=== PATIENT | female | born 1950 | race Two or more races ===

== ENCOUNTER → 2016-12-26 | Outpatient (CLI) | payer MEDICAID, OTHER ==
[~2016-12-26] MED LIST: IOPAMIDOL (ISOVUE-300) 100 ML BTL IV ONE
== END ==
LOC: CIMAGING 10:59
PROVIDERS: ATTEND Internal Medicine Hematology & Oncology
DX: Z09 Encounter for follow-up examination after completed treatment for conditions other than malignant neoplasm (principal)
CPT/HCPCS: 71260; 74177; Q9967

== ENCOUNTER → 2017-01-30 | Outpatient (CLI) | payer OTHER | PROVIDERS: ATTEND Internal Medicine Hematology & Oncology | DX: R13.10 Dysphagia, unspecified (principal); R53.1 Weakness; G25.81 Restless legs syndrome; Z85.05 Personal history of malignant neoplasm of liver | CPT/HCPCS: 74230; 92611; G8996; G8997; G8998 ==

== ENCOUNTER 2017-02-18 12:09 | Observation (INO) | payer OTHER ==
[2017-02-18] MEDS ORDERED: ONDANSETRON 4 MG/2 ML VIAL IVP ONE ×3 (13:08→14:54)
[2017-02-18] MEDS ORDERED: NS 1,000 ML IV ONE (13:08)
--- NOTE | 2017-02-18 13:19 | EDPHY ---
HPI/HX/ROS/PE/MDM Narrative: CHIEF COMPLAINT: Nausea, abdominal pain HISTORY OF PRESENT ILLNESS: This patient is a 66 year old woman, with a longstanding history (2-3 years) of abdominal pain, back pain, and nausea, presenting with worsening of her symptoms today. Her symptoms are worse today with severe abdominal pain and severe nausea, however there are no new or acute symptoms. She has had a small amount of vomiting after eating broth this morning , but no intractable vomiting. Denies fever. The patient controls her symptoms with chronic oxycodone and Ativan. She is being followed by Dr. Alvarado. She ran out of her Ativan three days ago and Dr. Alvarado will not renew the prescription until it is time for renewal (due in 5 days). She has also been seen by [facility]. Upper GI one week ago showed no acute findings. REVIEW OF SYSTEMS: Aside from elements discussed in the HPI, a comprehensive 10-point review of systems was reviewed and is negative. PAST MEDICAL HISTORY: History of liver cancer with remission for the last 6 months (s/p hepatocellular embolization in 08/2016). Hypertension treated with 20mg propranolol BID(she has not taken her AM dose of propranolol). Hysterectomy. SOCIAL HISTORY: . is at bedside. Non-smoker. Uses marijuana daily (started a few months ago, seems to help her symptoms). VITAL SIGNS: Reviewed by me. BP 201/113 GENERAL: Well-developed, chronically ill appearing, appears very uncomfortable , in no respiratory distress. HEENT: Atraumatic. Eyes: No icterus, no injection. Mouth: dystonic movements of her tongue. moist mucous membranes. No erythema or lesions. Neck : supple with no adenopathy. LUNGS: Clear to auscultation bilaterally, no wheezes, rhonchi or rales. CARDIAC: Regular rate and rhythm, no rubs, murmurs or gallops. ABDOMEN: Soft, focal epigastric tenderness without guarding or rebound, nondistended, bowel sounds normal. BACK: No CVA tenderness. EXTREMITIES: No trauma. No edema. Range of motion is normal throughout. NEURO: Alert and oriented, grossly nonfocal. SKIN: Warm and dry, no rash. PSYCHIATRIC: Normal mentation, no agitation. Portions of this note were transcribed by a medical scientist. I personally performed a history, physical exam, medical decision making, and confirmed accuracy of information the transcribed note. ED Course: An IV has been established. She has received her usual 20mg Propranolol for anti -hypertensive medication. She received IV Ketamine, IV Ativan, 4mg IV Zofran, and 25mg NH Phenergan for pain and nausea relief. Patient was re-examined by myself on multiple occasions. She continues to have significant epigastric discomfort as well as severe nausea. Patient is quite uncomfortable to be discharged home. She received Dilaudid for her pain control as well as an additional Zofran 4 mg. She also received a GI cocktail. Her course was discussed with Dr. Jalen Chris. Patient will be admitted to the hospitalist service. Her course was also discussed with Dr. Zaire Dominguez, from gastroenterology, who will follow her in the hospital. I suspect the patient may need a upper GI endoscopy to evaluate her significant nausea and epigastric pain. MDM: Differential diagnosis of the patient's complaints of severe upper abdominal pain with nausea was considered including but not limited to cholecystitis, gastritis, peptic ulcers disease, recurrent hepatocellular carcinoma, pancreatitis, bowel obstruction. - Data Points Laboratory Results: Laboratory Results 02/18/17 13:05 02/18/17 13:05 02/18/17 02/18/17 02/18/17 15:20 13:46 13:05 WBC RBC Hgb Hct MCV MCH MCHC RDW Plt Count MPV Neut % (Auto) Lymph % (Auto) [place] % (Auto) Eos % (Auto) Baso % (Auto) Nucleat RBC Rel Count Absolute Neuts (auto) Absolute Lymphs (auto) Absolute Monos (auto) Absolute Eos (auto) Absolute Basos (auto) Absolute Nucleated RBC Immature Gran % Immature Gran # Sodium 143 mEq/L mEq/L (134-144) Potassium 4.1 mEq/L mEq/L (3.5-5.2) Chloride 109 mEq/L mEq/L (97-110) Carbon Dioxide 21 mEq/l L mEq/l (22-31) Anion Gap 13 mEq/L mEq/L (8-16) BUN 12 mg/dL mg/dL (7-23) Creatinine 1.0 mg/dL mg/dL (0.6-1.0) Estimated GFR 56 Glucose 99 mg/dL mg/dL (70-100) Calcium 10.2 mg/dL mg/dL (8.5-10.4) Total Bilirubin 0.9 mg/dL mg/dL (0.1-1.4) Conjugated Bilirubin 0.5 mg/dL mg/dL (0.0-0.5) Unconjugated Bilirubin 0.4 mg/dL mg/dL (0.0-1.1) AST 60 IU/L H IU/L (14-46) ALT 58 IU/L H IU/L (9-52) Alkaline Phosphatase 382 IU/L H IU/L (38-126) Troponin I < 0.012 ng/mL ng/mL (0-0.034) Total Protein 8.1 g/dL g/dL (6.3-8.2) Albumin 4.6 g/dL g/dL (3.5-5.0) Lipase 243.0 IU/L IU/L (23-300) Urine Color PALE YELLOW Urine Appearance CLEAR Urine pH 8.0 H (5.0-7.5) Ur Specific [place] 1.004 (1.002-1.030) Urine Protein NEGATIVE (NEGATIVE) Urine Ketones NEGATIVE (NEGATIVE) Urine Blood NEGATIVE (NEGATIVE) Urine Nitrate NEGATIVE (NEGATIVE) Urine Bilirubin NEGATIVE (NEGATIVE) Urine Urobilinogen NEGATIVE EU EU (0.2-1.0) Ur Leukocyte Esterase TRACE H (NEGATIVE) Urine RBC 1-3 /hpf /hpf (0-3) Urine WBC 1-3 /hpf /hpf (0-3) Ur Epithelial Cells TRACE /lpf /lpf (NONE-1+) Urine Bacteria TRACE /hpf H /hpf (NONE SEEN) Urine Glucose NEGATIVE (NEGATIVE) 02/18/17 13:05 WBC 5.74 10^3/uL 10^3/uL (3.80-9.50) RBC 5.80 10^6/uL H 10^6/uL (4.18-5.33) Hgb 16.1 g/dL g/dL (12.6-16.3) Hct 48.1 % H % (38.0-47.0) MCV 82.9 fL fL (81.5-99.8) MCH 27.8 pg L pg (27.9-34.1) MCHC 33.5 g/dL g/dL (32.4-36.7) RDW 15.2 % % (11.5-15.2) Plt Count 120 10^3/uL L 10^3/uL (150-400) MPV 10.3 fL fL (8.7-11.7) Neut % (Auto) 77.0 % H % (39.3-74.2) Lymph % (Auto) 11.7 % L % (15.0-45.0) [place] % (Auto) 10.6 % % (4.5-13.0) Eos % (Auto) 0.2 % L % (0.6-7.6) Baso % (Auto) 0.2 % L % (0.3-1.7) Nucleat RBC Rel Count 0.0 % % (0.0-0.2) Absolute Neuts (auto) 4.42 10^3/uL 10^3/uL (1.70-6.50) Absolute Lymphs (auto) 0.67 10^3/uL L 10^3/uL (1.00-3.00) Absolute Monos (auto) 0.61 10^3/uL 10^3/uL (0.30-0.80) Absolute Eos (auto) 0.01 10^3/uL L 10^3/uL (0.03-0.40) Absolute Basos (auto) 0.01 10^3/uL L 10^3/uL (0.02-0.10) Absolute Nucleated RBC 0.00 10^3/uL 10^3/uL (0-0.01) Immature Gran % 0.3 % % (0.0-1.1) Immature Gran # 0.02 10^3/uL 10^3/uL (0.00-0.10) Sodium Potassium Chloride Carbon Dioxide Anion Gap BUN Creatinine Estimated GFR Glucose Calcium Total Bilirubin Conjugated Bilirubin Unconjugated Bilirubin AST ALT Alkaline Phosphatase Troponin I Total Protein Albumin Lipase Urine Color Urine Appearance Urine pH Ur Specific [place] Urine Protein Urine Ketones Urine Blood Urine Nitrate Urine Bilirubin Urine Urobilinogen Ur Leukocyte Esterase Urine RBC Urine WBC Ur Epithelial Cells Urine Bacteria Urine Glucose Medications Given: Discontinued Medications Al Hydroxide/Mg Hydroxide (Maalox Susp) 30 ml PO ONCE ONE Stop: 02/18/17 15:01 Last Admin: 02/18/17 15:10 Dose: 30 ml Dicyclomine HCl (Bentyl) 20 mg PO EDNOW ONE Stop: 02/18/17 16:09 Last Admin: 02/18/17 16:28 Dose: 20 mg Hydromorphone HCl (Dilaudid) 1 mg IVP EDNOW ONE Stop: 02/18/17 14:55 Last Admin: 02/18/17 15:01 Dose: 1 mg Hyoscyamine Sulfate (Levsin, Hyomax-Sl) 0.25 mg PO ONCE ONE Stop: 02/18/17 15:01 Last Admin: 02/18/17 15:10 Dose: 0.25 mg Sodium Chloride (Ns) 1,000 mls @ 0 mls/hr IV EDNOW ONE PRN Reason: Wide Open Stop: 02/18/17 13:09 Last Admin: 02/18/17 13:11 Dose: 1,000 mls Ketamine HCl (Ketamine) 10 mg IVP EDNOW ONE Stop: 02/18/17 13:43 Last Admin: 02/18/17 13:54 Dose: 10 mg Lidocaine (Lidocaine 2% Viscous) 15 ml PO ONCE ONE Stop: 02/18/17 15:01 Last Admin: 02/18/17 15:10 Dose: 15 ml Lorazepam (Ativan Injection) 1 mg IVP EDNOW ONE Stop: 02/18/17 13:42 Last Admin: 02/18/17 13:50 Dose: 1 mg Ondansetron HCl (Zofran) 4 mg IVP EDNOW ONE Stop: 02/18/17 13:09 Last Admin: 02/18/17 13:12 Dose: 4 mg Ondansetron HCl (Zofran) 4 mg IVP EDNOW ONE Stop: 02/18/17 14:54 Last Admin: 02/18/17 14:55 Dose: 4 mg Ondansetron HCl (Zofran) 4 mg IVP EDNOW ONE Stop: 02/18/17 14:55 Last Admin: 02/18/17 14:55 Dose: Not Given Promethazine HCl (Phenergan Rectal) 25 mg NH EDNOW ONE Stop: 02/18/17 13:45 Last Admin: 02/18/17 14:00 Dose: 25 mg Propranolol HCl (Inderal) 20 mg PO ONCE ONE Stop: 02/18/17 13:46 Last Admin: 02/18/17 14:00 Dose: 20 mg General Time Seen by Provider: 02/18/17 13:15 Initial Vital Signs: Initial Vital Signs Temperature (C) 37.2 C 02/18/17 12:12 Heart Rate 97 02/18/17 12:12 Respiratory Rate 18 02/18/17 12:12 Blood Pressure 186/103 H 02/18/17 12:12 O2 Sat (%) 95 02/18/17 12:12 O2 Delivery Mode Room Air Allergies/Adverse Reactions: aripiprazole [From Abilify] Allergy (Verified 02/18/17 12:19) pantoprazole sodium [From Protonix] Allergy (Verified 02/18/17 12:19) Rash ziprasidone HCl [From Geodon] Allergy (Verified 02/18/17 12:19) ziprasidone mesylate [From Geodon] Allergy (Verified 02/18/17 12:19) Home Medications: Medication Instructions Recorded Carbidopa/Levodopa 25/100Mg 3 tab PO HS 06/23/16 [Sinemet 25/100 MG (*)] Estrogens,Conjugated [Premarin 1 wandy VAG EVERY OTHER DAY 06/23/16 Vaginal (*)] Ondansetron HCl [Zofran] 8 mg PO Q6H PRN 06/23/16 Ondansetron Odt [Zofran Odt 4 mg 4 mg PO DAILY PRN 06/23/16 (*)] Doxepin HCl [Sinequan 50 MG (*)] 150 mg PO HS #90 cap 07/05/16 LORazepam [Ativan (*)] 0.5 mg PO Q4 PRN #10 tab 07/05/16 Lisinopril [Zestril 10 mg (*)] 10 mg PO DAILY #30 tab 07/05/16 OLANZapine [Zyprexa] 10 mg PO HS #30 tablet 07/05/16 Pantoprazole Sodium [Protonix 40mg 40 mg PO BID #60 tab 07/05/16 (*)] amLODIPine BESYLATE [Norvasc 5 mg 5 mg PO DAILY #30 tab 07/05/16 (*)] oxyCODONE HCL [Oxycodone HCl] 5 mg PO Q6HRS PRN #10 tablet 07/05/16 Mirtazapine 7.5 mg PO HS 07/11/16 Gabapentin [Neurontin 300 MG (*)] 300 mg PO TID #90 cap 07/18/16 Ondansetron [Ondansetron Odt] 8 mg PO Q8 PRN #10 tab.rapdis 08/24/16 oxyCODONE/APAP 5/325 [Percocet 1 - 2 tab PO Q4H PRN #20 tab 08/24/16 5/325 (*)] Hydroxazine 50 mg PO HS 09/16/16 oxyCODONE HCL [Oxycodone HCl] 5 mg PO Q6 PRN #30 tablet 09/29/16 LORazepam [Ativan (*)] 1 mg PO BID PRN #8 tab 02/18/17 oxyCODONE/APAP 5/325 [Percocet 2 tab PO BID PRN #20 tab 02/18/17 5/325 (*)] Departure - Departure Disposition: [facility] Inpatient Acute Clinical Impression: Chronic abdominal pain, Chronic nausea Condition: Good Report Scribed for: Lucia Camara Report Scribed by: Salma Anderson Date of Report: 02/18/17 Time of Report: 13:19
[2017-02-18] MEDS ORDERED: LORazepam 2 MG/ML INJ IVP ONE (13:41)
[2017-02-18] MEDS ORDERED: KETAMINE 500 MG/10 ML VIAL IVP ONE (13:42)
[2017-02-18] MEDS ORDERED: PROMETHAZINE HCL 25 MG SUPPR PR ONE (13:44)
[2017-02-18] MEDS ORDERED: PROPRANOLOL HCL 20 MG TAB PO ONE (13:45)
[2017-02-18 13:46] LABS: % IMMATURE GRANULYOCYTES 0.3 % (0.0-1.1); ABSOLUTE IMMATURE GRANULOCYTES 0.02 10^3/uL (0.00-0.10); ADD DIFF? NO; ADD MORPH? NO; ADD SCAN? NO; ATYPICAL LYMPHOCYTE FLAG 10 (0-99); FRAGMENT RBC FLAG 0 (0-99); HEMATOCRIT 48.1 % (38.0-47.0); HEMOGLOBIN 16.1 g/dL (12.6-16.3); LEFT SHIFT FLG 0 (0-99); LIPEMIA HEMOLYSIS FLAG 80 (0-99); MEAN CELL HEMOGLOBIN 27.8 pg (27.9-34.1); MEAN CELL HEMOGLOBIN CONCENTR. 33.5 g/dL (32.4-36.7); MEAN CELL VOLUME 82.9 fL (81.5-99.8); MEAN PLATELET VOLUME 10.3 fL (8.7-11.7); PLATELET CLUMPS FLAG 10 (0-99); PLATELET COUNT 120 10^3/uL (150-400); RED CELL DISTRIBUTION WIDTH 15.2 % (11.5-15.2)
[2017-02-18] MEDS ORDERED: KETAMINE 100 MG/10 ML SYR IVP ONE (13:46)
[2017-02-18 13:53] LABS: ALANINE AMINOTRANSFERASE 58 IU/L (9-52); ALBUMIN 4.6 g/dL (3.5-5.0); ALKALINE PHOSPHATASE 382 IU/L (38-126); ANION GAP 13 mEq/L (8-16); ASPARTATE AMINOTRANSFERASE 60 IU/L (14-46); BILIRUBIN,TOTAL 0.9 mg/dL (0.1-1.4); BILIRUBIN-CONJUGATED 0.5 mg/dL (0.0-0.5); BILIRUBIN-UNCONJUGATED 0.4 mg/dL (0.0-1.1); CALCIUM 10.2 mg/dL (8.5-10.4); CARBON DIOXIDE 21 mEq/l (22-31); CHLORIDE 109 mEq/L (97-110); GLOMERULAR FILTRATION RATE 56; GLUCOSE 99 mg/dL (70-100); POTASSIUM 4.1 mEq/L (3.5-5.2); SODIUM 143 mEq/L (134-144); TOTAL PROTEIN 8.1 g/dL (6.3-8.2)
[2017-02-18] MEDS ORDERED: ONDANSETRON 4 MG/2 ML VIAL ONE (14:48)
[2017-02-18] MEDS ORDERED: HYDROmorphONE/DILAUDID 1 MG/ML SYR IVP ONE (14:54)
[2017-02-18] MEDS ORDERED: MAG HYDROX/AL HYDROX/SIMETH 30 ML UDCUP PO ONE (15:00)
[2017-02-18] MEDS ORDERED: LIDOCAINE 2% VISCOUS 15 ML UDCUP PO ONE (15:00)
[2017-02-18] MEDS ORDERED: HYOSCYAMINE SULFATE 0.125 MG TAB PO ONE (15:00)
[2017-02-18 15:46] LABS: COLOR PALE YELLOW; LEUKOCYTE ESTERASE,URINE TRACE (NEGATIVE); NITRITE,URINE NEGATIVE (NEGATIVE)
[2017-02-18 15:51] LABS: BACTERIA TRACE /hpf (NONE SEEN)
[2017-02-18] MEDS ORDERED: ACETAMINOPHEN 325 MG TAB PO PRN (16:05)
[2017-02-18] MEDS ORDERED: ONDANSETRON 4 MG/2 ML VIAL IVP PRN (16:05)
[2017-02-18] MEDS ORDERED: ONDANSETRON DISINTEGRATING 4 MG TAB PO PRN (16:05)
[2017-02-18] MEDS ORDERED: LORazepam 0.5 MG TAB PO PRN (16:05)
[2017-02-18] MEDS ORDERED: LIDOCAINE 2% VISCOUS 15 ML UDCUP PO PRN (16:08)
[2017-02-18] MEDS ORDERED: DICYCLOMINE 20 MG TAB PO ONE (16:08)
[2017-02-18] MEDS ORDERED: SUCRALFATE/DIPHENHYDR/MAALOX 240 ML BOTTLE PO PRN (16:09)
--- NOTE | 2017-02-18 16:14 | PDGENHP ---
History and Physical - Chief Complaint Acute abdominal pain - History of Present Illness Primary care provider: Dr. Barclay Primary oncologist: Dr. Alvarado HPI: 66-year-old female presenting with acute abdominal pain characterized as severe, located in her mid epigastric and mid abdominal area, reportedly extending from her lower throat all the way to her pelvic brim, with associated nausea and vomiting. Patient reports that she has had pain exacerbated by oral intake of solids and liquids this has resulted in poor oral intake. That being said, the patient has been able to maintain a diet of soup recently. She reports that the nausea has been somewhat alleviated by use of Zofran historically but this has not been working for her recently. Of note, the patient did recently run out of her supply of oxycodone immediate release as well as Ativan. The patient had been taking both of these medications scheduled in the evening and admits to taking them sometimes during the day if her symptoms warranted. Consequently, the patient has run out of both the med these medications prior to her refill date, and her prescribing providers have not ordered more. The patient reports that she chronically has abdominal pain located in the same area as well as her nausea vomiting and pain with oral intake. Her recent exacerbation has been in the context of her discontinuation of these medications above and has resulted in a significant amount of distress for the patient. She does report that she has been moving her bowels regularly and she takes laxatives in order to do so. She otherwise has not made any medication changes and she is desperate to find a solution to the cause of her abdominal pain. History Information - Allergies/Home Medication List Allergies/Adverse Reactions: aripiprazole [From Abilify] Allergy (Verified 02/18/17 12:19) pantoprazole sodium [From Protonix] Allergy (Verified 02/18/17 12:19) Rash ziprasidone HCl [From Geodon] Allergy (Verified 02/18/17 12:19) ziprasidone mesylate [From Geodon] Allergy (Verified 02/18/17 12:19) Home Medications: Carbidopa/Levodopa 25/100Mg [Sinemet 25/100 MG (*)] 3 tab PO HS 06/23/16 [Last Taken 07/16/16] Estrogens,Conjugated [Premarin Vaginal (*)] 1 wandy VAG EVERY OTHER DAY 06/23/16 [ Last Taken 07/16/16] Ondansetron HCl [Zofran] 8 mg PO Q6H PRN 06/23/16 [Last Taken 07/16/16] Ondansetron Odt [Zofran Odt 4 mg (*)] 4 mg PO DAILY PRN 06/23/16 [Last Taken ] Mirtazapine 7.5 mg PO HS 07/11/16 [Last Taken 07/16/16] Hydroxazine 50 mg PO HS 09/16/16 [Last Taken Unknown] I have personally reviewed and updated: family history, medical history, social history, surgical history - Past Medical History hypertension Additional medical history: Chronic abdominal pain with continuous opiate and benzodiazepine dependency, felt to be secondary to a strong psychiatric component and not related to her underlying hepatocellular carcinoma. Hepatocellular carcinoma status post Y treatment as well as arterial embolectomy. Hepatitis C virus. Bipolar disease type 1. Parkinson's disease. Severe protein calorie malnutrition. Possible seizure disorder - Surgical History Additional surgical history: 09/21/2016 arterial embolectomy by interventional Radiology. Hysterectomy - Family History Additional family history: Family with diabetes, no cancer - Social History Smoking Status: Former smoker Alcohol Use: None Drug Use: None, Marijuana Additional social history: Independent in her ADLs lives with her Review of Systems ROS: 10pt was reviewed & negative except for what was stated in HPI & below Constitutional: Reports: weakness Gastrointestinal: Reports: vomitting, abdominal pain, nausea Physical Exam Temp Pulse Resp BP Pulse Ox 36.8 C 63 16 201/101 H 97 02/18/17 15:23 02/18/17 15:23 02/18/17 15:23 02/18/17 15:23 02/18/17 15:23 Constitutional: chronically ill appearing, uncomfortable, No no apparent distress (Mild amount of), No not in pain Eyes: PERRL, anicteric sclera, EOMI Ears, Nose, Mouth, Throat: moist mucous membranes, hearing normal, ears appear normal, no oral mucosal ulcers Cardiovascular: regular rate and rhythym, no murmur, rub, or gallop, No edema Respiratory: no respiratory distress, no rales or rhonchi, clear to auscultation Gastrointestinal: normoactive bowel sounds, no palpable masses, tenderness ( Mild to deep palpation in the mid abdomen and epigastric area), No guarding ( Distractible), No distension Genitourinary: no bladder fullness, no bladder tenderness Neurologic: AAOx3, sensation intact bilaterally, No weakness (Motor strength 5/ 5 bilateral lower extremities) Psychiatric: not encephalopathic, thought process linear, anxious, agitated ( Mildly) Lab Data & Imaging Review 02/18/17 13:05 02/18/17 13:05 WBC 5.74 10^3/uL (3.80-9.50) 02/18/17 13:05 RBC 5.80 10^6/uL (4.18-5.33) H 02/18/17 13:05 Hgb 16.1 g/dL (12.6-16.3) 02/18/17 13:05 Hct 48.1 % (38.0-47.0) H 02/18/17 13:05 MCV 82.9 fL (81.5-99.8) 02/18/17 13:05 MCH 27.8 pg (27.9-34.1) L 02/18/17 13:05 MCHC 33.5 g/dL (32.4-36.7) 02/18/17 13:05 RDW 15.2 % (11.5-15.2) 02/18/17 13:05 Plt Count 120 10^3/uL (150-400) L 02/18/17 13:05 MPV 10.3 fL (8.7-11.7) 02/18/17 13:05 Neut % (Auto) 77.0 % (39.3-74.2) H 02/18/17 13:05 Lymph % (Auto) 11.7 % (15.0-45.0) L 02/18/17 13:05 [place] % (Auto) 10.6 % (4.5-13.0) 02/18/17 13:05 Eos % (Auto) 0.2 % (0.6-7.6) L 02/18/17 13:05 Baso % (Auto) 0.2 % (0.3-1.7) L 02/18/17 13:05 Nucleat RBC Rel Count 0.0 % (0.0-0.2) 02/18/17 13:05 Absolute Neuts (auto) 4.42 10^3/uL (1.70-6.50) 02/18/17 13:05 Absolute Lymphs (auto) 0.67 10^3/uL (1.00-3.00) L 02/18/17 13:05 Absolute Monos (auto) 0.61 10^3/uL (0.30-0.80) 02/18/17 13:05 Absolute Eos (auto) 0.01 10^3/uL (0.03-0.40) L 02/18/17 13:05 Absolute Basos (auto) 0.01 10^3/uL (0.02-0.10) L 02/18/17 13:05 Absolute Nucleated RBC 0.00 10^3/uL (0-0.01) 02/18/17 13:05 Immature Gran % 0.3 % (0.0-1.1) 02/18/17 13:05 Immature Gran # 0.02 10^3/uL (0.00-0.10) 02/18/17 13:05 Sodium 143 mEq/L (134-144) 02/18/17 13:05 Potassium 4.1 mEq/L (3.5-5.2) 02/18/17 13:05 Chloride 109 mEq/L (97-110) 02/18/17 13:05 Carbon Dioxide 21 mEq/l (22-31) L 02/18/17 13:05 Anion Gap 13 mEq/L (8-16) 02/18/17 13:05 BUN 12 mg/dL (7-23) 02/18/17 13:05 Creatinine 1.0 mg/dL (0.6-1.0) 02/18/17 13:05 Estimated GFR 56 02/18/17 13:05 Glucose 99 mg/dL (70-100) 02/18/17 13:05 Calcium 10.2 mg/dL (8.5-10.4) 02/18/17 13:05 Total Bilirubin 0.9 mg/dL (0.1-1.4) 02/18/17 13:05 Conjugated Bilirubin 0.5 mg/dL (0.0-0.5) 02/18/17 13:05 Unconjugated Bilirubin 0.4 mg/dL (0.0-1.1) 02/18/17 13:05 AST 60 IU/L (14-46) H 02/18/17 13:05 ALT 58 IU/L (9-52) H 02/18/17 13:05 Alkaline Phosphatase 382 IU/L (38-126) H 02/18/17 13:05 Troponin I < 0.012 ng/mL (0-0.034) 02/18/17 13:46 Total Protein 8.1 g/dL (6.3-8.2) 02/18/17 13:05 Albumin 4.6 g/dL (3.5-5.0) 02/18/17 13:05 Lipase 243.0 IU/L (23-300) 02/18/17 13:05 Urine Color PALE YELLOW 02/18/17 15:20 Urine Appearance CLEAR 02/18/17 15:20 Urine pH 8.0 (5.0-7.5) H 02/18/17 15:20 Ur Specific [place] 1.004 (1.002-1.030) 02/18/17 15:20 Urine Protein NEGATIVE (NEGATIVE) 02/18/17 15:20 Urine Ketones NEGATIVE (NEGATIVE) 02/18/17 15:20 Urine Blood NEGATIVE (NEGATIVE) 02/18/17 15:20 Urine Nitrate NEGATIVE (NEGATIVE) 02/18/17 15:20 Urine Bilirubin NEGATIVE (NEGATIVE) 02/18/17 15:20 Urine Urobilinogen NEGATIVE EU (0.2-1.0) 02/18/17 15:20 Ur Leukocyte Esterase TRACE (NEGATIVE) H 02/18/17 15:20 Urine RBC 1-3 /hpf (0-3) 02/18/17 15:20 Urine WBC 1-3 /hpf (0-3) 02/18/17 15:20 Ur Epithelial Cells TRACE /lpf (NONE-1+) 02/18/17 15:20 Urine Bacteria TRACE /hpf (NONE SEEN) H 02/18/17 15:20 Urine Glucose NEGATIVE (NEGATIVE) 02/18/17 15:20 Assessment & Plan Assessment: This 66-year-old female presents with acute abdominal pain in the setting of chronic pain with continuous opiate and benzodiazepine dependency, known hepatocellular carcinoma Plan: 1. Abdominal pain. Acute, new problem this provider, further workup indicated. 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 -treat supportively with IV fluids, antiemetics, attempt to manage pain with her home dosages of Ativan and oxycodone immediate release -introduce scheduled Bentyl, as the patient has not been treated in the past with antispasmodic -provide as needed viscous lidocaine to facilitate adherence to oral pain medications -as needed GI cocktail -discussed with Dr. Camara in the emergency department, she has agreed to consult with Gastroenterology, Dr. Dominguez, and discussed the possibility of an upper endoscopy to rule out erosive esophagitis -outside records reviewed including May of 2016 at GI consultation by Dr. Lawson, reporting the patient has had extensive GI workup in the past with EGD x2 , CT of the abdomen, ultrasound, gastric emptying study, conclusion a indicating a strong psychiatric component of functional abdominal pain with no structural abnormality. -recent VFSS demonstrating mild dysmotility but no obstruction and no aspiration , will not repeat at this time -get [employer] SALES REPRESENTATIVE eval to encourage patient to tolerate oral solids -I anticipate the patient's symptoms will not be entirely resolved during this hospitalization given the functional nature of them but potentially lessening there severity with Bentyl and GI cocktails may provide her with enough relief to tolerate her oral home medications and provide her with a limited supply to bridge her until her outpatient appointments -continue to monitor complete metabolic panel, compared AST, ALT, alk-phos to previous labs and these all appear stable 2. Hepatocellular carcinoma. Most recent AFP improved to 7.35, received arterial embolectomy back in August, hold on oncology consultation at this time as I believe that patient's symptoms outlined above pre date her diagnosis and treatment for HCC and have not been modified by the treatment of HCC, indicating that they are most likely not related 3. Bipolar disease, type 1. Patient has concern regarding exacerbation of her manic symptoms in the setting of pain, continue her on her home medications, she has previously been prescribed Zyprexa for mood stabilization in addition to her home dosage of doxepin 4. Severe protein calorie malnutrition. Get dietary consultation, the patient has previously carried this diagnosis given her significant weight loss and poor oral intake chronically -provide dietary supplementation as needed 5. Chronic pain with continuous opiate and benzodiazepine dependency. The patient was recently referred to the [facility] and her outpatient providers have been hesitant to fill scripts prior to the refill dates -would recommend providing her with a limited supply to help bridge her until she is able to see these providers -I would recommend encouraging the use of narcotic medications such as the GI cocktails and Bentyl moving forward 6. Hypertension. Acute worsening of chronic condition, most likely related to acute distress and discomfort, continue home medications and monitor Diet. Regular diet as tolerates, NPO after midnight in case she gets an EGD tomorrow Prophylaxis. Moderate risk patient, Lovenox 40 Code. Do not resuscitate per patient, her is her MPOA Disposition. Anticipated discharge is 02/19/2017, pending further workup and treatment as outlined above.
[2017-02-18] MEDS: oxyCODONE IR 5 MG TAB PO PRN (16:28)
[2017-02-18] MEDS: NS 1,000 ML IV SCH ×2 (16:31→21:55)
[2017-02-18] MEDS ORDERED: DOXEPIN HCL 25 MG CAP PO PRN (18:00)
[2017-02-18] MEDS ORDERED: BISACODYL 10 MG SUPP PR PRN (18:23)
[2017-02-18] MEDS ORDERED: LACTULOSE 20 GM/30 ML UDCUP PO PRN (18:23)
[2017-02-18] MEDS ORDERED: PSYLLIUM METAMUCIL 1 PKT PO PRN (18:23)
[2017-02-18] MEDS ORDERED: POLYETHYLENE GLYCOL 3350 17 GM PKT PO PRN (18:23)
[2017-02-18] MEDS ORDERED: DICYCLOMINE 20 MG TAB PO PRN (20:48)
[2017-02-18] MEDS ORDERED: NON-FORMULARY NEW DRUG (Memantine Hcl [Namenda 10 Mg] 10 MG) PO SCH (21:00)
[2017-02-18] MEDS ORDERED: LORAZEPAM PO SCH (21:00)
[2017-02-18] MEDS ORDERED: oxyCODONE IR 5 MG TAB PO SCH (21:00)
[2017-02-18] MEDS ORDERED: DICYCLOMINE 20 MG TAB PO SCH (21:00)
[2017-02-18] MEDS ORDERED: hydrOXYzine HCL 50 MG TAB PO SCH (21:00)
[2017-02-18] MEDS ORDERED: LORazepam 1 MG TAB PO SCH (21:00)
[2017-02-18] MEDS ORDERED: DOXEPIN HCL 50 MG CAP PO SCH (21:00)
[2017-02-18] MEDS ORDERED: NON-FORMULARY NEW DRUG (Oxycodone Hcl [Oxycodone Hcl] 20 MG) PO SCH (21:00)
[2017-02-18] MEDS: PROMETHAZINE HCL 25 MG TAB PO PRN (21:02)
[2017-02-18] MEDS: CARBIDOPA/LEVODOPA 25 MG/100 MG TAB PO SCH ×2 (21:16→21:55)
--- NOTE | 2017-02-18 21:28 | GCON ---
[f rep st] CONSULTATION GASTROENTEROLOGY INPATIENT CONSULTATION DATE OF CONSULTATION: 02/18/2017 I was kindly requested to see the patient by Dr. Jalen Chris in consultation for a chief complaint of abdominal pain. She is a 66-year-old white female, who has known functional abdominal pain. This is chronic, generalized, often associated with nausea. She has been on oxycodone immediate release and Ativan for the above. She ran out of both of these medications. Besides the above, she has been having distress, anxiety. She denies a change in her bowel habits. She has undergone an extensive, negative workup, including multiple upper endoscopies, CT scans of the abdomen, ultrasounds, gastric emptying studies, video swallow, etc. She has known functional abdominal pain with a strong psychiatric component. She does have a hepatocellular carcinoma, followed by Oncology. Her last visit with Oncology was just February 09. A re-CT scan is planned in March. Her chronic abdominal pain is not felt to be due to her hepatoma. PAST MEDICAL HISTORY: 1. As above. 2. Hepatitis C. 3. Bipolar disorder. 4. Hysterectomy. 5. Otherwise, noncontributory. MEDICATIONS: Outpatient medications include the above. Inpatient medications include normal saline at 150 mL an hour, senna, Namenda, Sinemet, Bentyl 20 mg four times daily, Sinequan, Lovenox, Neurontin, hydroxyzine, lactulose as needed , and propranolol. ALLERGIES: Include aripiprazole, pantoprazole, and ziprasidone. SOCIAL HISTORY: She is a former smoker. FAMILY HISTORY: Negative for similar abdominal pain. REVIEW OF SYSTEMS: Positive pertinent review of systems as from HPI. Otherwise , a complete review of systems is negative. PHYSICAL EXAMINATION: CONSTITUTIONAL: Nontoxic-appearing woman. SKIN: Warm, dry. EYES: Pupils equal, round, and reactive to light and accommodation. EARS , NOSE, MOUTH AND THROAT: Oropharynx without masses, moist mucosa. CARDIOVASCULAR: Normal S2, normal PMI. RESPIRATORY: Clear to auscultation and percussion anteriorly. GASTROINTESTINAL: Abdomen soft, with diffuse tenderness throughout. NEUROLOGIC: Grossly nonfocal, with cranial nerves grossly intact. PSYCHIATRIC: Orientation, insight appropriate. MUSCULOSKELETAL: Strength is grossly normal throughout, normal station. LABORATORIES: Include normal CBC, except for a platelet count of 120,000. Urinalysis is negative. Normal electrolytes. AST 60 with an ALT of 58, alkaline phosphatase of 382 (these are all close to her baseline). Normal lipase. ASSESSMENT: 1. Chronic abdominal pain, with known functional abdominal pain with a strong psychiatric component. Worsened from running out of her narcotics and Ativan. 2. Known hepatocellular carcinoma. As per Oncology. Repeat CT scan planned in March. PLAN: 1. I agree with dicyclomine, but will use as needed for abdominal pain, instead of around the clock. 2. No upper endoscopy, further gastrointestinal management needed at this time. 3. Otherwise, for her psychosomatic functional abdominal pain, would recommend management and therapy as per Psychiatry and her PCP. I will sign off. Please let me know if we can be of further help in the future. Copy requested to: Dr. Barclay /[id number]/MODL MTDD
[2017-02-18] MEDS: SENNOSIDES/DOCUSATE SODIUM TAB PO SCH (21:51)
[2017-02-18] MEDS: GABAPENTIN 300 MG CAP PO SCH (21:52)
[2017-02-18] MEDS: MEMANTINE HCL 5 MG TAB PO SCH (21:52)
[2017-02-18] MEDS: MAGNESIUM HYDROXIDE 30 ML UDCUP PO PRN (21:53)
[2017-02-18] MEDS: PROPRANOLOL HCL 20 MG TAB PO SCH (22:32)
[2017-02-19 05:00] LABS: % IMMATURE GRANULYOCYTES 0.2 % (0.0-1.1); ABSOLUTE IMMATURE GRANULOCYTES 0.01 10^3/uL (0.00-0.10); ADD DIFF? NO; ADD MORPH? NO; ADD SCAN? NO; ATYPICAL LYMPHOCYTE FLAG 0 (0-99); FRAGMENT RBC FLAG 0 (0-99); HEMATOCRIT 42.3 % (38.0-47.0); HEMOGLOBIN 13.9 g/dL (12.6-16.3); LEFT SHIFT FLG 0 (0-99); LIPEMIA HEMOLYSIS FLAG 80 (0-99); MEAN CELL HEMOGLOBIN 28.2 pg (27.9-34.1); MEAN CELL HEMOGLOBIN CONCENTR. 32.9 g/dL (32.4-36.7); MEAN CELL VOLUME 85.8 fL (81.5-99.8); MEAN PLATELET VOLUME 9.5 fL (8.7-11.7); PLATELET CLUMPS FLAG 0 (0-99); PLATELET COUNT 79 10^3/uL (150-400); RED BLOOD CELL COUNT 4.93 10^6/uL (4.18-5.33); RED CELL DISTRIBUTION WIDTH 15.1 % (11.5-15.2)
[2017-02-19 05:33] LABS: ALANINE AMINOTRANSFERASE 29 IU/L (9-52); ALBUMIN 3.5 g/dL (3.5-5.0); ALKALINE PHOSPHATASE 271 IU/L (38-126); ASPARTATE AMINOTRANSFERASE 49 IU/L (14-46); BILIRUBIN,TOTAL 0.9 mg/dL (0.1-1.4); CALCIUM 9.3 mg/dL (8.5-10.4); CARBON DIOXIDE 21 mEq/l (22-31); CHLORIDE 113 mEq/L (97-110); GLOMERULAR FILTRATION RATE 56; GLUCOSE 92 mg/dL (70-100); SODIUM 140 mEq/L (134-144); TOTAL PROTEIN 6.7 g/dL (6.3-8.2)
[2017-02-19 05:36] LABS: ANION GAP 6 mEq/L (8-16)
[2017-02-19 08:15] VITALS: BP 168/92; PULSE 60; RESP 14; TEMP 98; O2SAT 95
[2017-02-19] MEDS: PROMETHAZINE HCL 25 MG TAB PO PRN (08:17)
[2017-02-19] MEDS ORDERED: ENOXAPARIN 40 MG/0.4 ML SYR SC SCH (09:00)
[2017-02-19] MEDS ORDERED: Herbals/Supplements -Info Only PO SCH (09:00)
[2017-02-19] MEDS: GABAPENTIN 300 MG CAP PO SCH (09:06)
[2017-02-19] MEDS: PROPRANOLOL HCL 20 MG TAB PO SCH (09:06)
[2017-02-19] MEDS: MEMANTINE HCL 5 MG TAB PO SCH (09:06)
[2017-02-19] MEDS: SENNOSIDES/DOCUSATE SODIUM TAB PO SCH (09:06)
[2017-02-19] MEDS: MAGNESIUM HYDROXIDE 30 ML UDCUP PO PRN (09:08)
[2017-02-19] MEDS: oxyCODONE IR 5 MG TAB PO PRN (09:09)
--- NOTE | 2017-02-19 09:31 | HOSPPROG ---
Hospitalist Progress Note Assessment/Plan: #Chronic functional abdominal pain: appreciate Dr. Dominguez's consultation. Has had extensive eval in past including: EGD x2, CT, U/S emptying study. -there is large psychiatric component Trial dicyclomine PRN, now endoscopy warranted now. Will need FU with psych and PCP for psychiatric management -ran out of Zofran when I interviewed her #Chronic opioid/BZ dependency: has been referred to Pain clinic by her PCP #Accelerated HTN: pain contributing here. Cont home meds #Disp: DC today. Needs close FU with psych and to establish care with new PCP Subjective: no emesis this morning. Pain improved Objective: Vital Signs Temp Pulse Resp BP Pulse Ox 36.6 C 60 14 168/92 H 95 02/19/17 08:13 02/19/17 08:13 02/19/17 08:13 02/19/17 08:13 02/19/17 08:13 Laboratory Results 02/19/17 04:52 02/19/17 04:52 02/18/17 02/19/17 02/20/17 05:59 05:59 05:59 Intake Total 3419 Output Total 1800 Balance 1619 - Physical Exam Constitutional: no apparent distress, other (anxious) Eyes: PERRL Ears, Nose, Mouth, Throat: moist mucous membranes, hearing normal Cardiovascular: regular rate and rhythym, no murmur, rub, or gallop Respiratory: no respiratory distress, no rales or rhonchi Gastrointestinal: normoactive bowel sounds, other (epigastric TTP, but no rebound or guarding. +BS) Genitourinary: no bladder fullness Skin: warm Musculoskeletal: full muscle strength Neurologic: AAOx3, CN II-XII Intact Psychiatric: anxious ICD10 Worksheet Patient Problems: Problems Problem Status Onset Chronic abdominal pain Acute Chronic nausea Acute Abdominal pain Acute Dehydration Acute Hypokalemia Acute Vomiting Acute Weakness Acute
--- NOTE | 2017-02-19 11:49 | GDS ---
[f rep st] DISCHARGE SUMMARY DISCHARGE DIAGNOSES: 1. Acute on chronic functional abdominal pain. 2. Anxiety. 3. Hepatocellular carcinoma. 4. Bipolar disease type 1. 5. Severe protein caloric malnutrition. 6. Chronic pain with chronic opioid and benzodiazepine dependency. 7. Accelerated hypertension. CONSULTATIONS: Gastroenterology. PROCEDURES: None. HISTORY OF PRESENT ILLNESS: The patient is a 66-year-old female well-known to me presenting with acute abdominal pain, characterized as severe, located in her mid epigastric region and mid abdominal area. She says it extends from the lower throat all the way to the pelvic brim with associated nausea and vomiting. The pain is worse with oral intake of solids and liquids thus is not eating much at home. She has been able to maintain a diet of soup recently. Nausea is usually controlled by Zofran but this has not been working for her over the last few days. Of note, she recently run out of her supply of oxycodone and Ativan. When I asked her today, she says she is not out of oxycodone but has been taking more Ativan because of increased anxiety. She says the anxiety is due to this condition and not feeling well. She says she cannot even leave the house due to the pain. She has regular bowel moves with using laxatives. She has a psychiatrist, Dr. Barclay, whom she sees every 4 months. She has a primary care physician whom she says is not willing to work with her. HOSPITAL COURSE BY PROBLEM: 1. Acute on chronic functional abdominal pain: has had multiple hospitalizations for similar symptoms. She was evaluated by Dr. Dominguez with Gastroenterology here and noted the extensive evaluation in the past that has been unremarkable including EGD x2, CT and ultrasound of the abdomen, also a gastric-emptying study. There seems to be a large psychiatric component. I think the pain was exacerbated by running out of her Ativan. I had extensive conversation with the patient today and stated that there is no further workup or management here in the hospital as her labs are normal and she is hemodynamically stable. She needs a good plan outpatient with GI, her psychiatrist, and PCP. Says her PCP not willing to work with her, so I advised her to establish new care. and gave info for [facility]. Did add Bentyl at discharge. 2. Hepatocellular carcinoma. 3. Anxiety/bipolar disorder: Patient is followed by Dr. Barclay. Will continue her home medications. 4. Nausea: She has Zofran at home. I have added Phenergan. 5. Chronic opioid and benzodiazepine dependency: needs to FU with psych. I gave 10 tabs of Ativan at DC only to prevent withdrawal. DISPOSITION: Patient is stable for discharge. FOLLOWUP: 1. With her primary care physician or establish care at [facility] with a new physician. 2. Dr. Barclay, psychiatry. 3. GI. Time spent on discharge: 50 min in which spent >50% counseling patient on treatment plan, FU and coordinating PCP. /[id number]/MODL MTDD
== END 2017-02-19 11:40 | disposition home or self-care (01) ==
LOC: F1N 16:05
PROVIDERS: ADMIT Internal Medicine; ATTEND Internal Medicine
DX: R10.9 Unspecified abdominal pain (principal); G89.29 Other chronic pain; F11.20 Opioid dependence, uncomplicated; F13.20 Sedative, hypnotic or anxiolytic dependence, uncomplicated; F41.9 Anxiety disorder, unspecified; R11.0 Nausea; C22.0 Liver cell carcinoma; F31.89 Other bipolar disorder; E43 Unspecified severe protein-calorie malnutrition; I10 Essential (primary) hypertension; B19.20 Unspecified viral hepatitis C without hepatic coma; Z87.891 Personal history of nicotine dependence
CPT/HCPCS: 97161; G0378; G8978; G8979; G8980; J1170; J2060; J2405; 96374; J1650

== ENCOUNTER 2017-03-20 12:57 | Observation (INO) | payer OTHER ==
--- NOTE | 2017-03-20 13:18 | EDPHY ---
H & P Stated Complaint: Continued n/v;unable to keep anything down;abd pain HPI/ROS: CHIEF COMPLAINT: Abdominal pain, nausea HISTORY OF PRESENT ILLNESS: This patient is a 66 year old female arriving with her with an acute exacerbation of symptoms related to a three year history of abdominal pain, and nausea. She takes ondansetron daily for nausea. She was diagnosed with liver cancer in June,, and underwent Y90 treatment. She had a normal upper endoscopy a few months ago. Her states she has been unable to follow up much with GI because she is too weak and feels too ill to sit in a waiting room. Today, she has experienced two episodes of vomiting, which she states is unusual. She is quite frustrated regarding her condition. She describes her abdominal pain as being localized to her midepigastric region. Her reports subjective fever. She denies dysuria, recent history of illness, or history of abdominal surgery other than hysterectomy. She takes edible marijuana for pain management. HPI obtained partially from at bedside. REVIEW OF SYSTEMS: A ten point review of systems was performed and is negative with the exception of the items mentioned in the HPI. - Personal History Current Tetanus Diphtheria and Acellular Pertussis (TDAP): Yes - Medical/Surgical History PMH: 1. Hepatocellular carcinoma (Diagnosed 06/1016, status post Y90 treatment) 2. Hypertension 3. Bipolar I 4. Restless Legs Syndrome (Neurontin) 5. Hepatitis C 6. Parkinson's Disease Hx Asthma: No Hx Chronic Respiratory Disease: No Hx Diabetes: No Hx Cardiac Disease: No Hx Renal Disease: No Hx Cirrhosis: No Hx Alcoholism: No Hx HIV/AIDS: No Hx Splenectomy or Spleen Trauma: No Other PMH: SOME ABD PROBLEM BEING WORKED UP,HEP-C, GERD,ESOPHAGITIS, GASTRITIS, SCOLIOSIS. HTN, DEPRESSION,ANXIETY, BI-POLAR DISORDER, ca of liver/gallbladder , Y-90 PROCEDURE OF LIVER--RADIOACTIVE SEEDS TO LIVER - Social History Smoking Status: Former smoker Additional Social History: at bedside. Former smoker. Primary Care Provider: Dr. Osvaldo Vidal, Oncologist: Dr. Alvarado GI: [facility]. - Physical Exam Exam: General Appearance: Alert. Vital signs reviewed. Blood pressure 166/103, heart rate 122. Eyes: Pupils equal and round, no conjunctival injection, no discharge. Anicteric. ENT, Mouth: Mucous membranes are moist, no oropharyngeal erythema or edema. Neck: No lymphadenopathy, supple. Respiratory: Lungs are clear to auscultation; no wheezes, rales, or rhonchi. Cardiovascular: Regular rate and rhythm; no murmur, rub, or gallop. Gastrointestinal: Minimal midepigastric tenderness. Abdomen is soft, no masses or organomegaly, bowel sounds normal. Skin: Warm and dry, no rashes on exposed skin, normal color. Back: Nontender to palpation over the thoracolumbar spine. No CVAT. Extremities: No lower extremity edema, no calf tenderness or swelling. Neurological: Alert and oriented. Moving all four extremities easily and equally. Psychiatric: Flat affect. Constitutional: Initial Vital Signs Temperature (C) 36.6 C 03/20/17 12:57 Heart Rate 123 H 03/20/17 12:57 Respiratory Rate 20 03/20/17 12:57 Blood Pressure 166/103 H 03/20/17 12:57 O2 Sat (%) 97 03/20/17 12:57 O2 Delivery Mode Room Air Allergies/Adverse Reactions: aripiprazole [From Abilify] Allergy (Verified 03/20/17 12:58) pantoprazole sodium [From Protonix] Allergy (Verified 03/20/17 12:58) Rash ziprasidone HCl [From Geodon] Allergy (Verified 03/20/17 12:58) ziprasidone mesylate [From Geodon] Allergy (Verified 03/20/17 12:58) Home Medications: Medication Instructions Recorded Carbidopa/Levodopa 2 each PO HS 03/20/17 [Carbidopa-Levodopa 25-100 Tab] Cholecalciferol Vit D3 [Vitamin D3 1,000 units PO DAILY 03/20/17 (*)] Doxepin HCl [SINEquan] 50 mg PO DAILY@18 03/20/17 Doxepin HCl [Sinequan 50 MG (*)] 100 mg PO HS 03/20/17 Estrogens,Conjugated [Premarin 1 wandy VAG MOFR 03/20/17 Vaginal (*)] Gabapentin [Neurontin 300 MG (*)] 300 mg PO TID 03/20/17 Herbals/Supplements -Info Only 1 ea PO DAILY 03/20/17 LORazepam [Ativan 2 mg tab] 4 mg PO HS 03/20/17 Memantine HCl [Namenda 10 mg] 10 mg PO BID 03/20/17 Multivitamins [Multivitamin (*)] 1 each PO DAILY 03/20/17 Omeprazole 40 mg PO DAILY@18 03/20/17 Ondansetron HCl [Zofran] 4 mg PO TIDMEAL 03/20/17 Ondansetron [Zofran Odt] 8 mg PO BID 03/20/17 Oxycodone HCl [Dazidox] 20 mg PO DAILY@16 03/20/17 Polyethylene Glycol 3350 [Miralax 17 gm PO HS 03/20/17 17 gm (*)] Propranolol HCl [Inderal 20mg (*)] 20 mg PO BID 03/20/17 Promethazine HCl [Phenergan 25 mg [place] Q6 PRN #30 suppr 03/22/17 Rectal] Medical Decision Making ED Course/Re-evaluation: Patient received 1 L IV fluids and 4 mg IV Zofran shortly after arrival. At the time of my examination she has very minimal mid epigastric tenderness, no right upper quadrant tenderness. I have explained to her that I do not think an etiology for her chronic pain and chronic vomiting will be discovered but that I will look for an acute problem that might cause recent worsening. CBC, chemistries, liver functions and lipase have been ordered. Patient's of transaminases are very mildly elevated in the low 60s. Alkaline phosphatase is elevated at 405. I do not think that she has an acute cholecystitis, but this remains in the differential. Her lipase is normal and I do not suspect pancreatitis. Urinalysis is positive for bacteria, nitrate, and white blood cells. She is having urinary frequency here in the emergency department. I am going to treat her for urinary tract infection. She is not febrile, although her thought that she had a subjective fever earlier today. She does not have CVA tenderness. I doubt that this is a pyelonephritis. I think it is unlikely that UTI is the cause of today's pain/ vomiting. She has not vomited in the emergency department. Will complete a p.o. challenge. I anticipate that she will be able to return home on oral antibiotics. 16:03 Reassessed patient. She has not been able to complete her PO challenge. She has continued with hypertension, but her tachycardia has resolved. Afebrile. 16:38 Reassessed patient. She is emotional and continues to complain of pain, and states she is very hungry. She and her feel her symptoms would be better managed in the hospital than at home. She was not able to take her usual medications today because of vomiting. I feel that neither the patient nor her is able to cope with her symptoms today. Plan to speak with hospitalist service regarding her admission. Spoke with Dr. Bacon. He accepts admission for management of symptoms. Plan for US gallbladder. Differential Diagnosis: I considered a ddx that includes but is not limited to functional abdominal pain , acute on chronic pain, cholecystitis, pancreatitis, gastritis/PUD, UTI/ pyelonephritis, cyclic vomiting. - Data Points Laboratory Results: Laboratory Results 03/20/17 13:20 03/20/17 13:20 Medications Given: Discontinued Medications Carbidopa/Levodopa (Sinemet) 2 tab PO HS [facility] Stop: 09/16/17 20:59 Last Admin: 03/21/17 20:46 Dose: 2 tab Doxepin HCl (Sinequan) 50 mg PO DAILY@18 [facility] Stop: 09/17/17 17:59 Last Admin: 03/21/17 19:24 Dose: Not Given Doxepin HCl (Sinequan) 100 mg PO HS [facility] Stop: 09/16/17 20:59 Last Admin: 03/21/17 20:47 Dose: 100 mg Enoxaparin Sodium (Lovenox) 30 mg SC DAILY [facility] Stop: 09/17/17 08:59 Last Admin: 03/22/17 08:35 Dose: 30 mg Estrogens Conjugated (Premarin Vaginal) 1 gm VG MOFR [facility] Stop: 09/16/17 20:31 Last Admin: 03/20/17 22:06 Dose: Not Given Fentanyl (Sublimaze) 75 mcg IVP EDNOW ONE Stop: 03/20/17 14:10 Last Admin: 03/20/17 14:20 Dose: 75 mcg Gabapentin (Neurontin) 300 mg PO TID [facility] Stop: 09/16/17 21:59 Last Admin: 03/22/17 08:34 Dose: 300 mg Hydromorphone HCl (Dilaudid) 1 mg IVP EDNOW ONE Stop: 03/20/17 17:06 Last Admin: 03/20/17 17:00 Dose: 1 mg Hydromorphone HCl (Dilaudid) 0.4 - 0.6 mg IVP Q4HRS PRN PRN Reason: Pain, Severe Unable to Take PO Stop: 03/22/17 06:00 Last Admin: 03/21/17 13:09 Dose: 0.6 mg Sodium Chloride (Ns) 1,000 mls @ 0 mls/hr IV ONCE ONE PRN Reason: Wide Open Stop: 03/20/17 13:26 Last Admin: 03/20/17 13:25 Dose: 1,000 mls Ceftriaxone Sodium/Dextrose (Rocephin 1 Gm (Premix)) 50 mls @ 100 mls/hr IV EDNOW ONE PRN Reason: Protocol Stop: 03/20/17 15:01 Last Admin: 03/20/17 15:10 Dose: 50 mls Sodium Chloride (Ns) 1,000 mls @ 100 mls/hr IV CONT [facility] Stop: 09/16/17 20:29 Last Admin: 03/21/17 21:41 Dose: 1,000 mls Lansoprazole (Prevacid Susp (Adult)) 30 mg PO DAILY [facility] Stop: 09/17/17 11:44 Last Admin: 03/22/17 10:24 Dose: 30 mg Lorazepam (Ativan Injection) 0.5 - 1 mg IVP Q8HRS PRN PRN Reason: Anxiety, Unable to Take PO Stop: 09/16/17 20:22 Last Admin: 03/21/17 20:40 Dose: 1 mg Lorazepam (Ativan) 4 mg PO HS [facility] Stop: 09/16/17 20:59 Last Admin: 03/21/17 21:35 Dose: 4 mg Memantine (Namenda) 10 mg PO BID [facility] Stop: 09/16/17 20:59 Last Admin: 03/22/17 08:34 Dose: 10 mg Ondansetron HCl (Zofran) 4 mg IVP EDNOW ONE Stop: 03/20/17 13:47 Last Admin: 03/20/17 13:46 Dose: 4 mg Ondansetron HCl (Zofran) 4 mg IVP Q4HRS PRN PRN Reason: Nausea/Vomiting, Can't Take PO Stop: 09/16/17 20:22 Last Admin: 03/21/17 21:35 Dose: 4 mg Ondansetron HCl (Zofran Odt) 4 mg PO Q4HRS PRN PRN Reason: Nausea/Vomiting, Use 1st Stop: 09/16/17 20:22 Last Admin: 03/21/17 17:47 Dose: 4 mg Oxycodone HCl (Oxycodone Ir) 20 mg PO DAILY@16 [facility] Stop: 09/17/17 15:59 Last Admin: 03/21/17 16:37 Dose: 20 mg Polyethylene Glycol (Miralax) 17 gm PO HS [facility] Stop: 09/16/17 20:59 Last Admin: 03/21/17 20:50 Dose: 17 gm Promethazine HCl (Phenergan) 12.5 - 25 mg PO Q6HRS PRN PRN Reason: Nausea/Vomiting, Use 2nd Stop: 09/16/17 20:22 Last Admin: 03/21/17 15:31 Dose: 12.5 mg Propranolol HCl (Inderal) 20 mg PO BID [facility] Stop: 09/16/17 20:59 Last Admin: 03/22/17 08:34 Dose: 20 mg Departure - Departure Disposition: [facility] Acute Clinical Impression: Urinary tract infection Qualifiers: Urinary tract infection type: acute cystitis Hematuria presence: without hematuria Qualified Code(s): N30.00 - Acute cystitis without hematuria Abdominal pain Qualifiers: Abdominal location: epigastric Qualified Code(s): R10.13 - Epigastric pain Condition: Fair Report Scribed for: Adrianna Clinton Report Scribed by: Martha Meeks Date of Report: 03/20/17 Time of Report: 14:26 Physician Review and Approval Statement: 03/20/17 13:18 Portions of this note were transcribed by the medical imaging technologist. I, Dr. Adrianna Clinton, personally performed the history, physical exam, and medical decision- making; and confirmed the accuracy of the information in the transcribed note.
[2017-03-20] MEDS ORDERED: NS 1,000 ML IV ONE (13:25)
[2017-03-20] MEDS ORDERED: ONDANSETRON 4 MG/2 ML VIAL ONE (13:40)
[2017-03-20] MEDS ORDERED: ONDANSETRON 4 MG/2 ML VIAL IVP ONE (13:46)
[2017-03-20 13:52] LABS: % IMMATURE GRANULYOCYTES 0.2 % (0.0-1.1); ABSOLUTE IMMATURE GRANULOCYTES 0.01 10^3/uL (0.00-0.10); ADD DIFF? NO; ADD MORPH? NO; ADD SCAN? NO; ATYPICAL LYMPHOCYTE FLAG 10 (0-99); FRAGMENT RBC FLAG 0 (0-99); HEMATOCRIT 48.1 % (38.0-47.0); HEMOGLOBIN 15.9 g/dL (12.6-16.3); LEFT SHIFT FLG 0 (0-99); LIPEMIA HEMOLYSIS FLAG 80 (0-99); MEAN CELL HEMOGLOBIN 28.5 pg (27.9-34.1); MEAN CELL HEMOGLOBIN CONCENTR. 33.1 g/dL (32.4-36.7); MEAN CELL VOLUME 86.2 fL (81.5-99.8); MEAN PLATELET VOLUME 9.5 fL (8.7-11.7); PLATELET CLUMPS FLAG 0 (0-99); PLATELET COUNT 101 10^3/uL (150-400); RED BLOOD CELL COUNT 5.58 10^6/uL (4.18-5.33); RED CELL DISTRIBUTION WIDTH 15.5 % (11.5-15.2)
[2017-03-20 14:02] LABS: COLOR YELLOW; LEUKOCYTE ESTERASE,URINE NEGATIVE (NEGATIVE); NITRITE,URINE POSITIVE (NEGATIVE)
[2017-03-20 14:06] LABS: ANION GAP 15 mEq/L (8-16); CALCIUM 10.4 mg/dL (8.5-10.4); CARBON DIOXIDE 19 mEq/l (22-31); CHLORIDE 107 mEq/L (97-110); GLOMERULAR FILTRATION RATE 56; GLUCOSE 114 mg/dL (70-100); POTASSIUM 4.3 mEq/L (3.5-5.2); SODIUM 141 mEq/L (134-144)
[2017-03-20 14:09] LABS: BACTERIA 4+ /hpf (NONE SEEN); MUCUS NONE SEEN /lpf (NONE-1+)
[2017-03-20] MEDS ORDERED: fentaNYL 100 MCG/2 ML INJ IVP ONE (14:09)
[2017-03-20 14:42] LABS: ALBUMIN 4.7 g/dL (3.5-5.0); BILIRUBIN,TOTAL 0.8 mg/dL (0.1-1.4); BILIRUBIN-CONJUGATED 0.5 mg/dL (0.0-0.5); BILIRUBIN-UNCONJUGATED 0.3 mg/dL (0.0-1.1); TOTAL PROTEIN 8.1 g/dL (6.3-8.2)
[2017-03-20] MEDS ORDERED: HYDROmorphONE/DILAUDID 1 MG/ML SYR IVP ONE (17:05)
[2017-03-20] MEDS ORDERED: HYDROmorphONE/DILAUDID 1 MG/ML SYR ONE (17:07)
[2017-03-20] MEDS ORDERED: ONDANSETRON DISINTEGRATING 4 MG TAB PO PRN (20:23)
[2017-03-20] MEDS ORDERED: ACETAMINOPHEN 325 MG TAB PO PRN (20:23)
[2017-03-20] MEDS ORDERED: PROMETHAZINE HCL 25 MG TAB PO PRN (20:23)
[2017-03-20] MEDS ORDERED: METOCLOPRAMIDE 10 MG/2 ML VIAL IVP PRN (20:23)
[2017-03-20] MEDS ORDERED: ESTROGENS,CONJUGATED 30 GM CRTUBE VG SCH ×2 (20:30→20:32)
[2017-03-20 20:37] VITALS: RESP 16
[2017-03-20] MEDS: HYDROmorphONE/DILAUDID 1 MG/ML SYR IVP PRN (20:50)
[2017-03-20] MEDS: LORazepam 1 MG TAB PO SCH (20:51)
[2017-03-20] MEDS: ONDANSETRON 4 MG/2 ML VIAL IVP PRN (20:51)
[2017-03-20] MEDS: GABAPENTIN 300 MG CAP PO SCH (20:52)
[2017-03-20] MEDS ORDERED: NON-FORMULARY NEW DRUG (Memantine Hcl [Namenda 10 Mg] 10 MG) PO SCH (21:00)
[2017-03-20] MEDS ORDERED: LORAZEPAM PO SCH (21:00)
--- NOTE | 2017-03-20 21:18 | GHP ---
[f rep st] HISTORY AND PHYSICAL DATE OF ADMISSION: 03/20/2017 CHIEF COMPLAINT: Nausea, vomiting, abdominal pain. HISTORY OF PRESENT ILLNESS: This is a 66-year-old female with recurrent abdominal pain and inabilit y to tolerate p.o. who presents with the same. This started yesterday. She has not been able to ke ep down anything for 24 hours. She feels dehydrated. Her pain is worse and she has not been able t o take her narcotics. This is similar to previous episodes, however, worse. In reviewing her chart , she has had a thorough workup, including abdominal CT 3 months ago which showed no etiology for he r pain. She has had upper endoscopies which have been unremarkable. She has had a gastric emptying study as well as an ultrasound. She was seen by Dr. Dominguez 1 month ago who recommended no additional GI workup. She tells me she has not been constipated recently. PAST MEDICAL/SURGICAL HISTORY: 1. Chronic abdominal pain with exacerbations, thought to be due to a strong psychiatric component. 2. Hepatocellular carcinoma: This is not thought to be the underlying cause of her pain and inabil ity to tolerate p.o. She is status post Y90 treatment as well as arterial embolectomy. 3. Hepatitis C. 4. Bipolar disease. 5. Parkinson disease. 6. Severe protein-calorie malnutrition. 7. Possible seizure disorder. MEDICATIONS: Please see medication reconciliation. ALLERGIES: Aripiprazole, pantoprazole, ziprasidone. FAMILY HISTORY: Father had diabetes. SOCIAL HISTORY: She quit smoking. She uses marijuana. She lives with her . REVIEW OF SYSTEMS: A 10-point review of systems is conducted and is negative except per HPI. PHYSICAL EXAMINATION: VITAL SIGNS: Blood pressure 181/109, heart rate is 87, respiratory rate 20, saturating 96% on room air, temperature is 36.8. GENERAL: The patient is an uncomfortable appearin g female in mild distress. HEENT: Normocephalic, atraumatic. CARDIOVASCULAR: Regular rate and rh ythm. No murmurs, rubs, or gallops. ABDOMEN: A soft abdomen. It is mildly tender to palpation, m ostly in the epigastrium. There is no rebound or guarding. PULMONARY: Lungs clear to auscultation bilaterally. SKIN: No rash. GENITOURINARY: No Snyder. NEUROLOGIC: Alert and oriented x3. She is moving all extremities. PSYCHIATRIC: Normal mood and affect. LABORATORY DATA: She has no white count. Platelets are 101. She has a bicarb of 19, AST of 61, AL T of 61, alk phos 405. Urinalysis is positive for nitrites, shows 5-10 whites. DATA: 1. I discussed this with Dr. Clinton, and will admit to med/surg. 2. I reviewed her ultrasound that shows a distended gallbladder with no pericholecystic fluid or wa ll thickening. IMPRESSION AND PLAN: A 66-year-old female with recurrent exacerbations of acute on chronic abdomina l pain with nausea, vomiting. 1. Abdominal pain, nausea, vomiting: This seems to be similar exacerbate to her previous. No manuel tional workup had been recommended a month ago. I reviewed CT scan from 3 months ago, ultrasound fr om today. She has had reportedly multiple negative EGDs in the past. I think treating her symptoma tically at this point is appropriate. I have given her IV pain meds, IV antiemetics, IV Ativan. We will also give her IV fluids to rehydrate her. I note that her LFTs are slightly elevated; however , this is somewhat common for her. We will recheck these in the morning. I agree that this is most likely functional abdominal pain with a strong psychiatric component. I do not think additional di agnostic workup will be of value at this point. 2. Pyuria: She got one dose of Rocephin in the ED. I doubt that this is the underlying cause of h er presentation. Will follow her culture, but not provide ongoing antibiotics at this point. 3. Bipolar disorder: Continue her medications. 4. Chronic pain: Continue narcotics. 5. Parkinson's: Continue Sinemet. 6. Thrombocytopenia: Chronic, recheck tomorrow. 7. Hepatocellular carcinoma: Thought not to be the underlying etiology of her repeat presentations . 8. Code status: Do not resuscitate per patient. Her would be her MDPOA. /[id number]/MODL
[2017-03-20] MEDS: POLYETHYLENE GLYCOL 3350 17 GM PKT PO SCH (22:06)
[2017-03-20] MEDS: PROPRANOLOL HCL 20 MG TAB PO SCH (22:09)
[2017-03-20] MEDS: CARBIDOPA/LEVODOPA 25 MG/100 MG TAB PO SCH (22:10)
[2017-03-20] MEDS: DOXEPIN HCL 50 MG CAP PO SCH (22:11)
[2017-03-20] MEDS: MEMANTINE HCL 5 MG TAB PO SCH (22:11)
[2017-03-21 06:22] LABS: % IMMATURE GRANULYOCYTES 0.3 % (0.0-1.1); ABSOLUTE IMMATURE GRANULOCYTES 0.01 10^3/uL (0.00-0.10); ADD DIFF? NO; ADD MORPH? NO; ADD SCAN? NO; ATYPICAL LYMPHOCYTE FLAG 0 (0-99); FRAGMENT RBC FLAG 0 (0-99); HEMATOCRIT 41.1 % (38.0-47.0); HEMOGLOBIN 13.7 g/dL (12.6-16.3); LEFT SHIFT FLG 0 (0-99); LIPEMIA HEMOLYSIS FLAG 80 (0-99); MEAN CELL HEMOGLOBIN 28.9 pg (27.9-34.1); MEAN CELL HEMOGLOBIN CONCENTR. 33.3 g/dL (32.4-36.7); MEAN CELL VOLUME 86.7 fL (81.5-99.8); MEAN PLATELET VOLUME 10.2 fL (8.7-11.7); PLATELET CLUMPS FLAG 0 (0-99); PLATELET COUNT 101 10^3/uL (150-400); RED BLOOD CELL COUNT 4.74 10^6/uL (4.18-5.33); RED CELL DISTRIBUTION WIDTH 15.2 % (11.5-15.2)
[2017-03-21 06:50] LABS: ALANINE AMINOTRANSFERASE 54 IU/L (9-52); ALBUMIN 3.7 g/dL (3.5-5.0); ALKALINE PHOSPHATASE 267 IU/L (38-126); ANION GAP 10 mEq/L (8-16); ASPARTATE AMINOTRANSFERASE 61 IU/L (14-46); BILIRUBIN,TOTAL 0.8 mg/dL (0.1-1.4); CALCIUM 9.2 mg/dL (8.5-10.4); CARBON DIOXIDE 20 mEq/l (22-31); CHLORIDE 111 mEq/L (97-110); CREATININE 0.8 mg/dL (0.6-1.0); GLOMERULAR FILTRATION RATE > 60; GLUCOSE 85 mg/dL (70-100); POTASSIUM 4.3 mEq/L (3.5-5.2); SODIUM 141 mEq/L (134-144); TOTAL PROTEIN 6.6 g/dL (6.3-8.2)
[2017-03-21] MEDS: NS 1,000 ML IV SCH ×2 (06:56→21:41)
[2017-03-21] MEDS: ONDANSETRON 4 MG/2 ML VIAL IVP PRN ×2 (08:14→21:35)
[2017-03-21] MEDS: HYDROmorphONE/DILAUDID 1 MG/ML SYR IVP PRN ×2 (08:30→13:09)
[2017-03-21] MEDS: LORazepam 2 MG/ML INJ IVP PRN ×2 (11:11→20:40)
[2017-03-21] MEDS: GABAPENTIN 300 MG CAP PO SCH ×3 (11:35→20:49)
[2017-03-21] MEDS: PROPRANOLOL HCL 20 MG TAB PO SCH ×2 (11:35→20:45)
[2017-03-21] MEDS: MEMANTINE HCL 5 MG TAB PO SCH ×2 (11:36→20:50)
[2017-03-21] MEDS: ENOXAPARIN 30 MG/0.3 ML SYR SC SCH (11:37)
[2017-03-21] MEDS ORDERED: LANSOPRAZOLE SUSP 30MG/10ML UDSYR (Adult) TUBE SCH (11:45)
[2017-03-21] MEDS: LANSOPRAZOLE SUSP 30MG/10ML UDSYR (Adult) PO SCH (13:10)
[2017-03-21] MEDS ORDERED: oxyCODONE IR 5 MG TAB PO PRN (14:58)
--- NOTE | 2017-03-21 15:08 | HOSPPROG ---
Hospitalist Progress Note Assessment/Plan: 66 yo F w workup negative abdominal pain abdominal pain: no peritoneal signs u/s unremarkable (images reviewed/interpreted by me) w no source for pain continue symptomatic management suspect functional abdominal pain 1. ad dpo pain meds as tolerating pilld 2. limit use of IV dilaudid. i have written to dc iv dilaudid AM 03/22 ?UTI: no sx will not continue abx proph: lmwh h/o HCC: scar noted on liver; felt not causative of pain dispo: home in AM, I suspect Subjective: abdominal pain about the same. tolerating pills Objective: Vital Signs Temp Pulse Resp BP Pulse Ox 37.0 C 75 16 178/104 H 95 03/21/17 11:31 03/21/17 11:31 03/21/17 11:31 03/21/17 13:03 03/21/17 11:31 Laboratory Results 03/21/17 06:03 03/21/17 06:03 03/20/17 03/21/17 03/22/17 05:59 05:59 05:59 Intake Total 2000 350 Output Total 400 Balance 1999 -50 - Physical Exam Constitutional: no apparent distress, appears nourished Eyes: PERRL, anicteric sclera Ears, Nose, Mouth, Throat: moist mucous membranes, hearing normal Cardiovascular: regular rate and rhythym, no murmur, rub, or gallop Respiratory: no respiratory distress, no rales or rhonchi Gastrointestinal: normoactive bowel sounds, soft, non-tender abdomen, No guarding, No rebound Genitourinary: No rosales in urethra Skin: warm, normal color Musculoskeletal: full muscle strength, no muscle tenderness Neurologic: AAOx3 ICD10 Worksheet Patient Problems: Problems Problem Status Onset Urinary tract infection Acute Abdominal pain Acute Chronic abdominal pain Acute Chronic nausea Acute Dehydration Acute Hypokalemia Acute Vomiting Acute Weakness Acute
[2017-03-21] MEDS ORDERED: OXYCODONE HCL 20 MG PO SCH (16:00)
[2017-03-21] MEDS ORDERED: oxyCODONE IR 5 MG TAB PO SCH (16:00)
[2017-03-21] MEDS ORDERED: OMEPRAZOLE 40 MG PO SCH (18:00)
[2017-03-21] MEDS ORDERED: NON-FORMULARY NEW DRUG (Omeprazole [Omeprazole] 40 MG) PO SCH (18:00)
[2017-03-21] MEDS: DOXEPIN HCL 25 MG CAP PO SCH ×2 (19:16→19:24)
[2017-03-21] MEDS: CARBIDOPA/LEVODOPA 25 MG/100 MG TAB PO SCH (20:46)
[2017-03-21] MEDS: DOXEPIN HCL 50 MG CAP PO SCH (20:47)
[2017-03-21] MEDS: POLYETHYLENE GLYCOL 3350 17 GM PKT PO SCH (20:50)
[2017-03-21] MEDS: LORazepam 1 MG TAB PO SCH (21:35)
[2017-03-22] MEDS: GABAPENTIN 300 MG CAP PO SCH (08:34)
[2017-03-22] MEDS: PROPRANOLOL HCL 20 MG TAB PO SCH (08:34)
[2017-03-22] MEDS: MEMANTINE HCL 5 MG TAB PO SCH (08:34)
[2017-03-22] MEDS: ENOXAPARIN 30 MG/0.3 ML SYR SC SCH (08:35)
[2017-03-22 08:46] VITALS: BP 164/91; PULSE 68; TEMP 98; O2SAT 96
--- NOTE | 2017-03-22 10:06 | HOSPPROG ---
Hospitalist Progress Note Assessment/Plan: 66 yo F w workup negative abdominal pain abdominal pain: no peritoneal signs u/s unremarkable (images reviewed/interpreted by me) w no source for pain continue symptomatic management suspect functional abdominal pain 1. ad dpo pain meds as tolerating pilld 2. limit use of IV dilaudid. i have written to dc iv dilaudid AM 03/22 she acknowledges today that she suspects her intermittent n/vom is a grief reaction to her only child's 5 years ago ?UTI: no sx will not continue abx proph: lmwh h/o HCC: scar noted on liver; felt not causative of pain dispo: home today > 30 minutes Subjective: feels better. ready for dc Objective: Vital Signs Temp Pulse Resp BP Pulse Ox 36.6 C 68 16 164/91 H 96 03/22/17 08:40 03/22/17 08:40 03/22/17 08:40 03/22/17 08:40 03/22/17 08:40 Laboratory Results 03/21/17 06:03 03/21/17 06:03 03/21/17 03/22/17 03/23/17 05:59 05:59 05:59 Intake Total 1999 1850 Output Total 1999 Balance 2000 -150 - Physical Exam Constitutional: no apparent distress, appears nourished Eyes: PERRL, anicteric sclera Ears, Nose, Mouth, Throat: moist mucous membranes, hearing normal Cardiovascular: regular rate and rhythym, no murmur, rub, or gallop Respiratory: no respiratory distress, no rales or rhonchi Gastrointestinal: normoactive bowel sounds, soft, non-tender abdomen Genitourinary: no bladder fullness, No rosales in urethra Skin: warm, normal color Musculoskeletal: full muscle strength, no muscle tenderness Neurologic: AAOx3, sensation intact bilaterally Psychiatric: interacting appropriately, not anxious Lymph, Heme, Immunologic: no cervical LAD, no supraclavicular LAD ICD10 Worksheet Patient Problems: Problems Problem Status Onset Urinary tract infection Acute Abdominal pain Acute Chronic abdominal pain Acute Chronic nausea Acute Dehydration Acute Hypokalemia Acute Vomiting Acute Weakness Acute
[2017-03-22] MEDS: LANSOPRAZOLE SUSP 30MG/10ML UDSYR (Adult) PO SCH (10:24)
--- NOTE | 2017-03-22 11:42 | GDS ---
[f rep st] DISCHARGE SUMMARY DISCHARGE DIAGNOSES: 1. Abdominal pain likely functional in nature. 2. History of chronic abdominal pain with exacerbation. 3. Nausea, vomiting. 4. Hepatocellular carcinoma status post chemoembolic Yttrium-90 treatment. 5. Hepatitis C. 6. Bipolar. 7. Parkinson's. 8. Severe protein calorie malnutrition. 9. Possible seizure disorder. 10. Grief reaction to daughter's 5 years ago. HOSPITAL COURSE: Please see admission history and physical by Dr. Nilson Bacon. The patient pr esented with abdominal pain, nausea, vomiting. She had an abdominal ultrasound which is not normal, but was consistent with previous imaging. She had a modestly elevated LFTs which are normal for he r. Otherwise was fairly unremarkable. Electrolytes look okay. She had a UA with 5-10 white cells, grew out 100,000 colonies, but no symptoms, so antibiotics were not continued beyond the ceftriaxon e she received in the emergency department. It was suggested to the patient that her functional abdominal pain was probably an anxiety reaction or grief reaction, and she actually felt this was probably consistent with her only child 5 yea rs ago, but definitely she is still in the process of grieving for that, which is completely underst andable. She is provided with a prescription for Phenergan suppositories and discharged home. Notably, the patient was not drug-seeking while here. /[id number]/MODL
[2017-03-23] MEDS ORDERED: ENOXAPARIN 40 MG/0.4 ML SYR SC SCH (09:00)
== END 2017-03-22 12:59 | disposition home or self-care (01) ==
LOC: INTOOBSV 16:56 → F1N 18:18
PROVIDERS: ADMIT Student in an Organized Health Care Education/Training Program; ATTEND Internal Medicine
DX: R10.13 Epigastric pain (principal); R11.2 Nausea with vomiting, unspecified; C22.8 Malignant neoplasm of liver, primary, unspecified as to type; B19.20 Unspecified viral hepatitis C without hepatic coma; F31.9 Bipolar disorder, unspecified; G20 Parkinson's disease; E43 Unspecified severe protein-calorie malnutrition; F43.20 Adjustment disorder, unspecified; G25.81 Restless legs syndrome
CPT/HCPCS: 76705; G0378; J0696; J1170; J1650; J2060; J2405; J3010

== ENCOUNTER 2017-09-17 08:54 | Inpatient (IN) | payer OTHER ==
--- NOTE | 2017-09-17 09:11 | EDPHY ---
H & P Stated Complaint: Chronic abd pain;doctors state "we can't do anything for you anymore" Time Seen by Provider: 09/17/17 09:10 - Personal History Current Tetanus Diphtheria and Acellular Pertussis (TDAP): Yes - Medical/Surgical History Hx Asthma: No Hx Chronic Respiratory Disease: No Hx Diabetes: No Hx Cardiac Disease: No Hx Renal Disease: No Hx Cirrhosis: No Hx Alcoholism: No Hx HIV/AIDS: No Hx Splenectomy or Spleen Trauma: No Other PMH: SOME ABD PROBLEM BEING WORKED UP,HEP-C, GERD,ESOPHAGITIS, GASTRITIS, SCOLIOSIS. HTN, DEPRESSION,ANXIETY, BI-POLAR DISORDER, ca of liver/gallbladder , Y- PROCEDURE OF LIVER--RADIOACTIVE SEEDS TO LIVER - Social History Smoking Status: Former smoker Constitutional: Initial Vital Signs Temperature (C) 36.4 C 09/17/17 08:57 Heart Rate 114 H 09/17/17 08:57 Respiratory Rate 18 09/17/17 08:57 Blood Pressure 178/100 H 09/17/17 08:57 O2 Sat (%) 98 09/17/17 08:57 O2 Delivery Mode Room Air Allergies/Adverse Reactions: aripiprazole [From Abilify] Allergy (Verified 09/17/17 08:57) pantoprazole sodium [From Protonix] Allergy (Verified 09/17/17 08:57) Rash ziprasidone HCl [From Geodon] Allergy (Verified 09/17/17 08:57) ziprasidone mesylate [From Geodon] Allergy (Verified 09/17/17 08:57) Home Medications: Medication Instructions Recorded Carbidopa/Levodopa 2 each PO HS 03/20/17 [Carbidopa-Levodopa 25-100 Tab] Doxepin HCl [SINEquan] 50 mg PO DAILY@18 03/20/17 LORazepam [Ativan 2 mg tab] 4 mg PO HS 03/20/17 Memantine HCl [Namenda 10 mg] 10 mg PO BID 03/20/17 Ondansetron [Zofran Odt] 8 mg PO BID 03/20/17 Oxycodone HCl [Dazidox] 20 mg PO DAILY@16 03/20/17 Propranolol HCl [Inderal 20mg (*)] 20 mg PO BID 03/20/17 Medical Decision Making ED Course/Re-evaluation: CHIEF COMPLAINT: Throat and abdominal pain HISTORY OF PRESENT ILLNESS: The patient is a 67 y/o female with a history of abdominal pain and liver cancer complaining of continued abdominal pain and throat pain. She has chronic abdominal pain (2-3 years) that has not been able to be controlled. She has had several CTs and upper endoscopies that haven't revealed a cause for her symptoms. She was started on oxycodone for the pain but has found that she does not experience relief with the single dose morning and night and rather takes no pills in the morning and two pills at night which allows her to sleep. Her liver cancer was treated with radioactive intralesional beads (Y90 treatment) and has been in remission upon subsequent oncology evaluations. The pain in her throat and abdomen interferes with her ability to eat and drink water. She has been coping with this pain for several years now but today she felt she needed to be evaluated as she doesn't have any improvement or quality of life and her primary care provider and oncologist no longer have ideas to help her. REVIEW OF SYSTEMS: A 10 point review of systems was performed and is negative with the exception of the elements mentioned in the history of present illness. PHYSICAL EXAM: HR, BP, O2 Sat, RR. Temp noted General Appearance: Alert, poorly hydrated, appropriate, cachetic. Head: Atraumatic without scalp tenderness or obvious injury Eyes: Pupils equal, round, reactive to light and accommodation, EOMI, no trauma , no injection. Ears: Clear bilaterally, no perforation, normal landmarks Nose: Atraumatic, no rhinorrhea, clear. Throat: There is no erythema or exudates, no lesions, normal tonsils, mucus membranes moist. Neck: Supple, nontender, no lymphadenopathy. Respiratory: No retractions, no distress, no wheezes, and no accessory muscle use. Lungs are clear to auscultation bilaterally. Cardiovascular: Regular rate and rhythm, no murmurs, rubs, or gallops. Bilateral carotid, radial, dorsalis pedis, and posterior tibial pulses intact. Good capillary refill all extremities. Gastrointestinal: Diffuse abdominal tenderness. Abdomen is soft, non-distended , no masses, no rebound, no guarding, no peritoneal signs. Musculoskeletal: Normal active ROM of all extremities, atraumatic. Neurological: Alert, appropriate, and interactive. Skin: No rashes, good turgor, no nodules on palpation. Past medical history: Liver cancer, chronic abdominal pain Past surgical history: Y90 treatment (radioactive intralesional beads) Family history: Non-contributory Social history: , at bedside, lives in [facility] DIAGNOSTICS/PROCEDURES/CRITICAL CARE TIME: Study: CT of the abdomen Indication: Abdominal pain Results: CT scan of the body parts was obtained. The results of the study are negative for acute processes, chronic conditions are stable. The study was read by the radiologist, Dr. Elias. I viewed the images myself on the PACS system. DIFFERENTIAL DIAGNOSIS: The differential diagnosis for the patient's abdominal pain included but was not limited to ovarian cyst, pelvic inflammatory disease, ovarian torsion, urinary tract infection, ectopic , cholecystitis, and appendicitis. MEDICAL DECISION MAKING: The patient is a 67 y/o female with a history of chronic abdominal pain and liver cancer complaining of continued abdominal pain and throat pain. She has had extensive workups in the past that have not been enlightening to the etiology of her pain. She has had treatment with oxycodone but finds that it doesn't alleviate her symptoms. On exam she is cachetic and poorly hydrated with diffuse abdominal pain. Plan for labs and imaging and likely admission due to her poor nutrition and hydration. 1113: I spoke with Dr. Elias, radiology. CT is negative for acute processes and chronic findings are stable. Plan for admit on failure to thrive. Gallbladder has drops and may be a cause of the chronic pain. 1120: I spoke with hospitalist service. Dr. Zack Lema will be admitting physician for medical-surgical. - Data Points Laboratory Results: Laboratory Results 09/17/17 09:32 09/17/17 09:32 09/17/17 09/17/17 09/17/17 09:39 09:32 09:32 WBC RBC Hgb POC Hgb 15.3 gm/dL gm/dL (12.6-16.3) Hct POC Hct 45 % % (38-47) MCV MCH MCHC RDW Plt Count MPV Neut % (Auto) Lymph % (Auto) [place] % (Auto) Eos % (Auto) Baso % (Auto) Nucleat RBC Rel Count Absolute Neuts (auto) Absolute Lymphs (auto) Absolute Monos (auto) Absolute Eos (auto) Absolute Basos (auto) Absolute Nucleated RBC Immature Gran % Immature Gran # POC Sodium 143 mEq/L mEq/L (134-144) Sodium 146 mEq/L H mEq/L (134-144) POC Potassium 4.8 mEq/L mEq/L (3.3-5.0) Potassium 4.4 mEq/L mEq/L (3.5-5.2) POC Chloride 109 mEq/L mEq/L (97-110) Chloride 107 mEq/L mEq/L (97-110) Carbon Dioxide 22 mEq/l mEq/l (22-31) Anion Gap 17 mEq/L H mEq/L (8-16) POC BUN 12 mg/dL mg/dL (7-23) BUN 11 mg/dL mg/dL (7-23) Creatinine 1.0 mg/dL mg/dL (0.6-1.0) POC Creatinine 1.1 mg/dL H mg/dL (0.6-1.0) Estimated GFR 55 Glucose 117 mg/dL H mg/dL (70-100) POC Glucose 112 mg/dL H mg/dL (70-100) Calcium 10.4 mg/dL mg/dL (8.5-10.4) Total Bilirubin 0.5 mg/dL mg/dL (0.1-1.4) Conjugated Bilirubin 0.2 mg/dL mg/dL (0.0-0.5) Unconjugated Bilirubin 0.3 mg/dL mg/dL (0.0-1.1) AST 48 IU/L H IU/L (14-46) ALT 32 IU/L IU/L (9-52) Alkaline Phosphatase 197 IU/L H IU/L (38-126) Total Protein 8.4 g/dL H g/dL (6.3-8.2) Albumin 5.0 g/dL g/dL (3.5-5.0) Lipase 170 IU/L IU/L (23-300) Alpha Fetoprotein Pending Serum Collection Date Pending Ultrasound Date Pending Gest Age Date of Estim Pending Gest Age at Draw (Scan) Pending Gest Age at Draw (Dates) Pending Gestational Age (Scan) Pending Gestational Age (Clin) Pending Gestational Age Used Pending Maternal LMP Date Pending Est Delivery Date (Scan Pending Maternal Date of Pending Maternl Age at Due Date Pending Maternal Race Black Pending Maternal Weight Pending Maternal Diabetes Pending Number of Fetuses Pending Maternal AFP Interp Pending AFP Recommend Followup Pending Maternal Scrn Comment Pending 09/17/17 09:32 WBC 2.95 10^3/uL L 10^3/uL (3.80-9.50) RBC 5.60 10^6/uL H 10^6/uL (4.18-5.33) Hgb 16.9 g/dL H g/dL (12.6-16.3) POC Hgb Hct 49.7 % H % (38.0-47.0) POC Hct MCV 88.8 fL fL (81.5-99.8) MCH 30.2 pg pg (27.9-34.1) MCHC 34.0 g/dL g/dL (32.4-36.7) RDW 13.7 % % (11.5-15.2) Plt Count 72 10^3/uL L 10^3/uL (150-400) MPV 9.6 fL fL (8.7-11.7) Neut % (Auto) 76.2 % H % (39.3-74.2) Lymph % (Auto) 15.3 % % (15.0-45.0) [place] % (Auto) 7.5 % % (4.5-13.0) Eos % (Auto) 0.3 % L % (0.6-7.6) Baso % (Auto) 0.7 % % (0.3-1.7) Nucleat RBC Rel Count 0.0 % % (0.0-0.2) Absolute Neuts (auto) 2.25 10^3/uL 10^3/uL (1.70-6.50) Absolute Lymphs (auto) 0.45 10^3/uL L 10^3/uL (1.00-3.00) Absolute Monos (auto) 0.22 10^3/uL L 10^3/uL (0.30-0.80) Absolute Eos (auto) 0.01 10^3/uL L 10^3/uL (0.03-0.40) Absolute Basos (auto) 0.02 10^3/uL 10^3/uL (0.02-0.10) Absolute Nucleated RBC 0.00 10^3/uL 10^3/uL (0-0.01) Immature Gran % 0.0 % % (0.0-1.1) Immature Gran # 0.00 10^3/uL 10^3/uL (0.00-0.10) POC Sodium Sodium POC Potassium Potassium POC Chloride Chloride Carbon Dioxide Anion Gap POC BUN BUN Creatinine POC Creatinine Estimated GFR Glucose POC Glucose Calcium Total Bilirubin Conjugated Bilirubin Unconjugated Bilirubin AST ALT Alkaline Phosphatase Total Protein Albumin Lipase Alpha Fetoprotein Serum Collection Date Ultrasound Date Gest Age Date of Estim Gest Age at Draw (Scan) Gest Age at Draw (Dates) Gestational Age (Scan) Gestational Age (Clin) Gestational Age Used Maternal LMP Date Est Delivery Date (Scan Maternal Date of Maternl Age at Due Date Maternal Race Black Maternal Weight Maternal Diabetes Number of Fetuses Maternal AFP Interp AFP Recommend Followup Maternal Scrn Comment Medications Given: Discontinued Medications Hydromorphone HCl (Dilaudid) 1 mg IVP EDNOW ONE Stop: 09/17/17 09:19 Last Admin: 09/17/17 09:27 Dose: 1 mg Sodium Chloride (Ns) 1,000 mls @ 0 mls/hr IV EDNOW ONE; Wide Open PRN Reason: Protocol Stop: 09/17/17 09:19 Last Admin: 09/17/17 09:28 Dose: 1,000 mls Sodium Chloride (Ns) 1,000 mls @ 0 mls/hr IV EDNOW ONE; Wide Open PRN Reason: Protocol Stop: 09/17/17 09:19 Last Admin: 09/17/17 09:28 Dose: 1,000 mls Ketorolac Tromethamine (Toradol) 30 mg IVP EDNOW ONE Stop: 09/17/17 09:19 Last Admin: 09/17/17 09:27 Dose: 30 mg Ondansetron HCl (Zofran) 4 mg IVP EDNOW ONE Stop: 09/17/17 09:19 Last Admin: 09/17/17 09:27 Dose: 4 mg Point of Care Test Results: 09/17/17 09:39 POC Sodium 143 POC Potassium 4.8 POC Chloride 109 POC BUN 12 POC Creatinine 1.1 H POC Glucose 112 H Departure - Departure Disposition: [facility] In[facility] Acute Clinical Impression: Dehydration Failure to thrive Qualifiers: Failure to thrive age range: in adult Qualified Code(s): R62.7 - Adult failure to thrive Abdominal pain Qualifiers: Abdominal location: generalized Qualified Code(s): R10.84 - Generalized abdominal pain Condition: Fair Referrals: Shabbir Alvarado MD [Primary Care Provider] - As per Instructions Report Scribed for: Matthew Wise Report Scribed by: Andreina Waldron Date of Report: 09/17/17 Time of Report: 09:37
[2017-09-17] MEDS ORDERED: KETOROLAC 30 MG/1 ML SDV IVP ONE (09:18)
[2017-09-17] MEDS ORDERED: HYDROmorphONE/DILAUDID 1 MG/ML INJ IVP ONE (09:18)
[2017-09-17] MEDS ORDERED: ONDANSETRON 4 MG/2 ML VIAL IVP ONE (09:18)
[2017-09-17] MEDS ORDERED: NS 1,000 ML IV ONE ×2 (09:18)
[2017-09-17 09:39] LABS: ADD DIFF? NO; ADD MORPH? NO; ADD SCAN? NO; ATYPICAL LYMPHOCYTE FLAG 0 (0-99); FRAGMENT RBC FLAG 0 (0-99); HEMATOCRIT 49.7 % (38.0-47.0); HEMOGLOBIN 16.9 g/dL (12.6-16.3); LEFT SHIFT FLG 0 (0-99); LIPEMIA HEMOLYSIS FLAG 90 (0-99); MEAN CELL HEMOGLOBIN 30.2 pg (27.9-34.1); MEAN CELL VOLUME 88.8 fL (81.5-99.8); MEAN PLATELET VOLUME 9.6 fL (8.7-11.7); PLATELET CLUMPS FLAG 70 (0-99); PLATELET COUNT 72 10^3/uL (150-400); RED CELL DISTRIBUTION WIDTH 13.7 % (11.5-15.2)
[2017-09-17 09:55] LABS: ALANINE AMINOTRANSFERASE 32 IU/L (9-52); ALKALINE PHOSPHATASE 197 IU/L (38-126); ANION GAP 17 mEq/L (8-16); ASPARTATE AMINOTRANSFERASE 48 IU/L (14-46); BILIRUBIN,TOTAL 0.5 mg/dL (0.1-1.4); BILIRUBIN-CONJUGATED 0.2 mg/dL (0.0-0.5); BILIRUBIN-UNCONJUGATED 0.3 mg/dL (0.0-1.1); CALCIUM 10.4 mg/dL (8.5-10.4); CARBON DIOXIDE 22 mEq/l (22-31); CHLORIDE 107 mEq/L (97-110); GLOMERULAR FILTRATION RATE 55; GLUCOSE 117 mg/dL (70-100); POTASSIUM 4.4 mEq/L (3.5-5.2); SODIUM 146 mEq/L (134-144); TOTAL PROTEIN 8.4 g/dL (6.3-8.2)
[2017-09-17] MEDS ORDERED: IOPAMIDOL (ISOVUE-300) 100 ML BTL ONE (10:01)
[2017-09-17 11:47] LABS: COLOR YELLOW; LEUKOCYTE ESTERASE,URINE NEGATIVE (NEGATIVE); NITRITE,URINE NEGATIVE (NEGATIVE)
--- NOTE | 2017-09-17 12:21 | ASMTCMCOM ---
CM Note CM Note Notes: Patient admitted for dehydration, malnutrition and failure to thrive. Patient presented to the ED with abdominal pain and sore throat. Patient has a history of liver cancer, Parkinson's, GERD, gastritis and was admitted to [facility] in January and February of 2017, with extensive workups and assessments. Per chart review, patient has also received GI workup and seen by Dr Dominguez in the past. Per chart review, there have been unremarkable findings for her chronic abdominal pain and inability to maintain adequate nutrition. Patient also has a history of abdominal pain, narcotic dependency, and her PCP is Dr. Shabbir Alvarado. Patient's , Ruben, is at bedside. Patient also has been grieving the loss of her only child, a 32-year old daughter who 5 1/2 years ago due to an overdose; patient was the one who found her. Refer to Spiritual Services note from 03/21/17. Patient may also benefit from a Behavioral Health RN consult. Patient may need HHC with nutrition support, PT/OT, or SNF placement in order to regain physical strength. Exact DC needs unknown at this time, CM to follow. Date Signed: 09/17/2017 12:20 PM Electronically Signed By:Indu Francisco RN
[2017-09-17] MEDS ORDERED: HYDROmorphONE/DILAUDID 1 MG/ML INJ IVP PRN (12:40)
[2017-09-17] MEDS ORDERED: ONDANSETRON DISINTEGRATING 4 MG TAB PO PRN (14:04)
[2017-09-17] MEDS ORDERED: PROMETHAZINE HCL 25 MG/ML INJ IVP PRN (14:04)
[2017-09-17] MEDS ORDERED: ACETAMINOPHEN 325 MG TAB PO PRN (14:04)
[2017-09-17] MEDS ORDERED: ONDANSETRON 4 MG/2 ML VIAL IVP PRN (14:04)
[2017-09-17] MEDS ORDERED: PROMETHAZINE HCL 25 MG SUPPR PR PRN (14:06)
[2017-09-17] MEDS ORDERED: NS 1,000 ML IV SCH (14:15)
[2017-09-17] MEDS: oxyCODONE IR 5 MG TAB PO PRN ×3 (14:54→19:36)
[2017-09-17] MEDS ORDERED: LORazepam 1 MG TAB PO SCH (15:00)
--- NOTE | 2017-09-17 15:02 | GHP ---
[f rep st] HISTORY AND PHYSICAL DATE OF ADMISSION: 09/17/2017 HISTORY OF PRESENT ILLNESS: The patient is a 67-year-old female, known to me from previous admission s with a history of hepatocellular carcinoma, status post yttrium-90 ablation, chronic abdominal pain , hep C, bipolar, Parkinson's, severe , and suspected protein calorie malnutrition, who pre sents with abdominal pain. I took care of her in February of this year and we discussed the possibility t hat her pain had a psychiatric component and was due to a grieving episode of a child who 5 year s ago. She responded well to this and was discharged back to the hospital since, but she presents to the emergency department today with ongoing abdominal pain. She is somewhat anxious when I see her. She describes this and feels like the entirety of her body is being eroded by acid. She does not take an acid suppressive medicine. It sounds like she has had endoscopies in the past that she has been informed were normal. Abdominal imaging has shown an enlarged gallbladder, and today i mages reviewed and interpreted by me show a suspected gallbladder hydrops. Regarding her abdominal pain, it is generalized. It is not worse postprandial. She does not have fo od avoidance. She is losing weight. She claims she ate 2500 calories yesterday and high-calorie jasmin ds, which is a reasonable amount but not a ton of calories. She has not had fever or chills. She styles s not had nausea or vomiting. She has a bowel movement most days. It sounds like she is able to nader id narcotic-induced constipation. She takes about 10 to 30 mg of oxycodone every day. REVIEW OF SYSTEMS: Complete 10-point review of systems conducted and negative except as noted in the HPI. Specifically, no shortness of breath or chest pain. ALLERGIES: Aripiprazole, pantoprazole, ziprasidone. HOME MEDICATIONS: Promethazine, pramipexole, oxycodone, ondansetron, , lorazepam, doxepin, carbidopa/levodopa, and propranolol. SOCIAL HISTORY: She lives locally. She does not smoke or drink alcohol. She had a daughter who d 5 years ago. She is . FAMILY HISTORY: Daughter 5 years ago. PHYSICAL EXAMINATION: PRESENTING VITALS: Temp 36.4, blood pressure 178/100, now 173/96, pulse initi ally 114, now 80s, breathing 18 times a minute, 98% on room air. IN GENERAL: No acute distress. Th in. HEENT: Sclerae anicteric. Oropharynx clear. Mucous membranes moist. NECK: Supple, without l ymphadenopathy or JVD. LUNGS: Clear to auscultation bilaterally. HEART: S1, S2. ABDOMEN: Soft. There is no rebound or guarding. There are no masses. LOWER EXTREMITIES: Without edema. Calves a re nontender. SKIN: Without rash. NEUROLOGIC: Nonfocal. LABS: White count is 2.3, hematocrit 49.7, platelets are 72. She does have chronic thrombocytopenia . Sodium is 146, potassium 4.4, chloride 107, bicarb 22, BUN 11, creatinine 1.0, glucose 117. Bilir ubin is normal. AST is 48, ALT is 32, alkaline phosphatase is elevated at 197. She has a chronicall y elevated alkaline phosphatase going back more than 1 year. Total protein is 8.4. Alpha fetoprotei n is pending. Urinalysis is negative. Abdominal CT, reviewed and interpreted by me, shows evidence of prior yttrium-90 ablation as well as a hydropic gallbladder. There is no ascites. There is diver ticulosis without diverticulitis of the sigmoid colon. I have discussed the case with Dr. Matthew Wise as well as Dr. Teddy Davidson. ASSESSMENT AND PLAN: This is a 67-year-old female with chronic abdominal pain. 1. Hydropic gallbladder. This is the result of a chronically obstructed cystic duct and certainly c ould account for her pain. I have ordered a HIDA scan. If it is positive, I will consult Surgery fo r cholecystectomy. 2. Abdominal pain. This does appear functional. Alternative etiologies include that there is a chr onic pain syndrome that can linger following yttrium-90 ablation. She has had endoscopy in the past. She is allergic to Protonix. There is no evidence of GI bleed. We will follow. 3. Thrombocytopenia, mild. We will follow. 4. Hypertension. The patient has hypertension while here. She has had it in the past. She takes p ropranolol. We will follow. May need to increase her medications. 5. Parkinson's. Continue her medications. 6. History of yttrium-90 ablation. She has modestly elevated transaminases. These are actually yadiel n from February when she was here. I do not think this represents hepatocellular injury. 7. Prophylaxis. Low molecular weight heparin indicated. 8. Disposition: Inpatient status. /[id number]/MODL
[2017-09-17] MEDS: PROPRANOLOL HCL 20 MG TAB PO SCH (15:33)
[2017-09-17] MEDS: LORazepam 1 MG TAB PO SCH (15:46)
--- NOTE | 2017-09-17 15:58 | PDMN ---
Medical Necessity Medical necessity: C/M review: Patient meets INPT criteria under [facility] M-[id number] Gallbladder or bile duct inflammation or stone; Acute hydropic gallbladder on CT (result of chronically obstructed cystic duct), abdominal pain, thrombocytopenia, WBC 2.95, Hgb 16.9, Hct 49.7, AST 48, Alk phos 197 requiring Behavioral Health Resource Nurse consult, HIDA scan, ongoing IV NS 125 ml/hr infusion, IV Dilaudid, acute inpt OT, comorbid Parkinson's, hx of yttrium-90 ablation for hepatocellular carcinoma, chronic abdominal pain, hepatitis C, bipolar disorder, severe and suspected protein calorie malnutrition, BMI 15.5kg/ m2. MD anticipates > 2 MN LOS for ongoing med nec for eval and TX of above. Patient is Medicare Advantage which follows guidelines CMS puts forth.
[2017-09-17] MEDS: PRAMIPEXOLE 0.125 MG TAB PO SCH (20:34)
[2017-09-17] MEDS: ONDANSETRON DISINTEGRATING 4 MG TAB PO SCH (20:35)
[2017-09-17] MEDS: CARBIDOPA/LEVODOPA 25 MG/100 MG TAB PO SCH (20:36)
[2017-09-17] MEDS: DOXEPIN HCL 50 MG CAP PO SCH (20:37)
[2017-09-17] MEDS: MEMANTINE HCL 5 MG TAB PO SCH (20:37)
[2017-09-17] MEDS ORDERED: NON-FORMULARY NEW DRUG (Ondansetron [Zofran Odt] 8 MG) PO SCH (21:00)
[2017-09-17] MEDS ORDERED: NON-FORMULARY NEW DRUG (Memantine Hcl [Namenda 10 Mg] 10 MG) PO SCH (21:00)
[2017-09-17] MEDS ORDERED: PANTOPRAZOLE SODIUM 40 MG VIAL IVP SCH (21:00)
[2017-09-18] MEDS: oxyCODONE IR 5 MG TAB PO PRN ×3 (00:26→21:03)
[2017-09-18 05:10] LABS: % IMMATURE GRANULYOCYTES 0.4 % (0.0-1.1); ABSOLUTE IMMATURE GRANULOCYTES 0.01 10^3/uL (0.00-0.10); ADD DIFF? NO; ADD MORPH? NO; ADD SCAN? NO; ATYPICAL LYMPHOCYTE FLAG 0 (0-99); FRAGMENT RBC FLAG 0 (0-99); HEMATOCRIT 39.4 % (38.0-47.0); HEMOGLOBIN 13.1 g/dL (12.6-16.3); LEFT SHIFT FLG 0 (0-99); LIPEMIA HEMOLYSIS FLAG 80 (0-99); MEAN CELL HEMOGLOBIN 30.1 pg (27.9-34.1); MEAN CELL HEMOGLOBIN CONCENTR. 33.2 g/dL (32.4-36.7); MEAN CELL VOLUME 90.6 fL (81.5-99.8); MEAN PLATELET VOLUME 9.9 fL (8.7-11.7); PLATELET CLUMPS FLAG 0 (0-99); PLATELET COUNT 70 10^3/uL (150-400); RED BLOOD CELL COUNT 4.35 10^6/uL (4.18-5.33); RED CELL DISTRIBUTION WIDTH 13.6 % (11.5-15.2)
[2017-09-18 05:19] LABS: INR 1.05 (0.83-1.16); PROTIME(PATIENT) 13.6 SEC (12.0-15.0)
[2017-09-18 05:30] LABS: ALANINE AMINOTRANSFERASE 24 IU/L (9-52); ALKALINE PHOSPHATASE 129 IU/L (38-126); ANION GAP 6 mEq/L (8-16); ASPARTATE AMINOTRANSFERASE 33 IU/L (14-46); BILIRUBIN,TOTAL 0.4 mg/dL (0.1-1.4); CALCIUM 9.1 mg/dL (8.5-10.4); CARBON DIOXIDE 25 mEq/l (22-31); CHLORIDE 111 mEq/L (97-110); GLOMERULAR FILTRATION RATE 55; GLUCOSE 79 mg/dL (70-100); POTASSIUM 4.3 mEq/L (3.5-5.2); SODIUM 142 mEq/L (134-144); TOTAL PROTEIN 5.6 g/dL (6.3-8.2)
[2017-09-18] MEDS ORDERED: PROPRANOLOL HCL 20 MG TAB PO SCH (09:00)
[2017-09-18] MEDS ORDERED: OXYCODONE HCL PO SCH (09:00)
[2017-09-18] MEDS: ONDANSETRON DISINTEGRATING 4 MG TAB PO SCH ×2 (09:20→20:56)
[2017-09-18] MEDS: oxyCODONE IR 5 MG TAB PO SCH ×2 (09:20→10:48)
[2017-09-18] MEDS ORDERED: SINCALIDE 5 MCG VIAL IJ ONE (09:54)
[2017-09-18] MEDS: ENOXAPARIN 30 MG/0.3 ML SYR SC SCH (11:59)
[2017-09-18] MEDS: DOXEPIN HCL 50 MG CAP PO SCH ×2 (11:59→20:56)
[2017-09-18] MEDS: PROPRANOLOL HCL 20 MG TAB PO SCH (12:00)
[2017-09-18] MEDS: MEMANTINE HCL 5 MG TAB PO SCH ×2 (12:00→20:55)
[2017-09-18] MEDS ORDERED: LORazepam 1 MG TAB PO SCH (14:00)
[2017-09-18] MEDS ORDERED: LORAZEPAM PO SCH (14:00)
[2017-09-18] MEDS: LORazepam 1 MG TAB PO SCH (14:31)
--- NOTE | 2017-09-18 14:52 | HOSPPROG ---
Hospitalist Progress Note Assessment/Plan: 67 yo F w h/o y90 ablation for HCC admitted w acute on chronic abd pain ? hydropic gall bladder: HIDA neg this essentially rules out BG as cause of pain abd pain: suspect this is functional vs y90 related ( a cohort of patients whove received y90 treatment have chronic pain) has not had upper endoscopy for 2 years attempted to discuss management of functional abdominal pain as well as possibility of y90 pain her anxiety precluded fruitful discussion 1. GI eval for upper endoscopy 2. metamucil daily (already on TCA) 3. start neurontin 4. dc iv pain meds h/o HCC: no mass on CT proph: lmwh dispo: inpt Subjective: tearful, anxious. HIDA neg for obstruction. case d/w dr rice Objective: Vital Signs Temp Pulse Resp BP Pulse Ox 36.3 C 70 16 150/92 H 91 L 09/18/17 12:46 09/18/17 12:46 09/18/17 12:46 09/18/17 12:46 09/18/17 12:46 Laboratory Results 09/18/17 04:32 09/18/17 04:32 09/17/17 09/18/17 09/19/17 05:59 05:59 05:59 Intake Total 1999 1160 Balance 1999 1160 PT 13.6 SEC (12.0-15.0) 09/18/17 04:32 INR 1.05 (0.83-1.16) 09/18/17 04:32 - Physical Exam Constitutional: no apparent distress, appears nourished Eyes: PERRL, anicteric sclera Ears, Nose, Mouth, Throat: moist mucous membranes, hearing normal Cardiovascular: regular rate and rhythym, no murmur, rub, or gallop Respiratory: no respiratory distress, no rales or rhonchi Gastrointestinal: normoactive bowel sounds, soft, non-tender abdomen Genitourinary: no bladder fullness, No rosales in urethra Skin: warm, normal color Musculoskeletal: full muscle strength Neurologic: AAOx3 Psychiatric: No interacting appropriately ICD10 Worksheet Patient Problems: Problems Problem Status Onset Abdominal pain Acute Dehydration Acute Failure to thrive Acute Abdominal pain Acute Chronic abdominal pain Acute Chronic nausea Acute Hypokalemia Acute Urinary tract infection Acute Vomiting Acute Weakness Acute
[2017-09-18] MEDS: GABAPENTIN 100 MG CAP PO SCH ×2 (15:33→20:53)
[2017-09-18] MEDS: PSYLLIUM METAMUCIL 1 PKT PO SCH (15:33)
[2017-09-18] MEDS: CARBIDOPA/LEVODOPA 25 MG/100 MG TAB PO SCH (20:53)
[2017-09-18] MEDS: PRAMIPEXOLE 0.125 MG TAB PO SCH (20:54)
[2017-09-18] MEDS ORDERED: AMITRIPTYLINE HCL 10 MG TAB PO SCH (21:00)
[2017-09-19] MEDS ORDERED: LR 1,000 ML IV ONE (11:28)
--- NOTE | 2017-09-19 11:35 | PDANEPAE ---
ANE History of Present Illness 67 year old female w/ complex PMHx presents for EGD. ANE Past Medical History - Cardiovascular History Hx Hypertension: Yes Hx Arrhythmias: No Hx Chest Pain: No Hx Coronary Artery / Peripheral Vascular Disease: No Hx CHF / Valvular Disease: No Hx Palpitations: No - Pulmonary History Hx COPD: No Hx Asthma/Reactive Airway Disease: No Hx Recent Upper Respiratory Infection: No Hx Oxygen in Use at Home: No Hx Sleep Apnea: No Sleep Apnea Screening Result - Last Documented: Negative - Neurologic History Hx Cerebrovascular Accident: No Hx Seizures: No Hx Dementia: No - Endocrine History Hx Diabetes: No Hypothyroid: No Hyperthyroid: No Obesity: no - Renal History Hx Renal Disorders: No - Liver History Hx Hepatic Disorders: Yes Hepatic History Comment: HEP C - Neurological & Psychiatric Hx Hx Neurological and Psychiatric Disorders: Yes Neurological / Psychiatric History Comment: BIPOLAR - Cancer History Hx Cancer: Yes - Congenital Disorder History Hx Congenital Disorders: No - GI History Hx Gastrointestinal Disorders: Yes Gastrointestinal History Comment: STOMACH ISSUES - Chronic Pain History Chronic Pain: Yes (GI pain; rates pain in pre-op>10/) - Surgical History Prior Surgeries: HYSTERECTOMY ANE Review of Systems Review of systems is: negative Review of Systems: - Exercise capacity Exercise capacity: <4 METS ANE Patient History - Allergies Allergies/Adverse Reactions: aripiprazole [From Abilify] Allergy (Verified 09/17/17 08:57) pantoprazole sodium [From Protonix] Allergy (Verified 09/17/17 08:57) Rash ziprasidone HCl [From Geodon] Allergy (Verified 09/17/17 08:57) ziprasidone mesylate [From Geodon] Allergy (Verified 09/17/17 08:57) - Home Medications Home medications: home medication list seen and reviewed Home Medications: RX: LORazepam [Ativan 2 mg tab] 4 mg PO DAILY@14 03/20/17 [Last Taken 09/16/17] RX: Memantine HCl [Namenda 10 mg] 10 mg PO BID 03/20/17 [Last Taken 09/16/17] RX: Ondansetron [Zofran Odt] 8 mg PO BID 03/20/17 [Last Taken 09/16/17] RX: Oxycodone HCl [Dazidox] 10 - 30 mg PO DAILY 03/20/17 [Last Taken 09/16/17] RX: Propranolol HCl [Inderal 20mg (*)] 20 mg PO DAILY 03/20/17 [Last Taken 09/16] Carbidopa/Levodopa 25/100Mg [Sinemet 25/100 MG (*)] 2 tab PO HS 09/17/17 [Last Taken 09/16/17] Doxepin HCl [Sinequan 50 MG (*)] 50 mg PO BID 09/17/17 [Last Taken 09/16/17] Pramipexole Di-HCl [Mirapex 0.125 mg (*)] 0.375 mg PO HS 09/17/17 [Last Taken ] Promethazine HCl [Phenergan Rectal] 25 mg NE DAILY PRN 09/17/17 [Last Taken Unknown] - NPO status NPO Status: no food or drink >8 hours NPO Since - Liquids (Date): 09/19/17 NPO Since - Liquids (Time): 00:00 NPO Since - Solids (Date): 09/19/17 NPO Since - Solids (Time): 00:00 - Anes Hx Anes Hx: no prior problems - Smoking Hx Smoking Status: Former smoker Marijuana use: No - Alcohol Use Alcohol Use: None - Family Anes Hx Family Anes Hx: neg - N/A Family Hx Anesthesia Complications: NONE ANE Labs/Vital Signs - Labs Result Diagrams: 09/18/17 04:32 09/18/17 04:32 - Vital Signs Vital Signs: reviewed preoperatively; see RN documention for details Blood Pressure: 187/106 Heart Rate: 76 Respiratory Rate: 16 O2 Sat (%): 95 Height: 177.8 cm Weight: 48.988 kg ANE Physical Exam - Airway Neck exam: FROM Mallampati Score: Class 2 Mouth exam: poor dentition - Pulmonary Pulmonary: no respiratory distress - Cardiovascular Cardiovascular: regular rate and rhythym - ASA Status ASA Status: III ANE Anesthesia Plan Anesthesia Plan: GA with mask Total IV Anesthesia: Yes
[2017-09-19] MEDS ORDERED: PROPOFOL/EMULSION 500 MG/50 ML BOTTLE IV ONE (11:36)
--- NOTE | 2017-09-19 11:54 | GIREPORT ---
[facility] Surgical Services - Endoscopy Department Patient Name: Sylvie Webb Procedure Date: 09/19/2017 11:16 AM Patient Type: Inpatient Attending MD/ ER Physician: Maxim Bran MD Procedure: Upper GI endoscopy Indications: Epigastric abdominal pain, Generalized abdominal pain Providers: Maxim Bran MD Referring MD: Zack Lema M.D. Medicines: Sedation Required Anesthesia Staff Assistance Complications: No immediate complications. Description of Procedure: After obtaining informed consent, the endoscope was passed under direct vision. Throughout the procedure, the patient's blood pressure, pulse, and oxygen saturations were monitored continuously. The Endoscope was intro duced through the mouth, and advanced to the second part of duodenum. The [facility] er GI endoscopy was accomplished without difficulty. The patient tolerated th e procedure well. Findings: The examined esophagus was normal. Biopsies were obtained from the prox imal and distal esophagus with cold forceps for histology of suspected eosinophilic esophagitis. A small hiatal hernia was present. Diffuse mild inflammation characterized by erythema was found in the ga stric antrum. Biopsies were taken with a cold forceps for histology. The examined duodenum was normal. Biopsies for histology were taken wit h a cold forceps for evaluation of celiac disease. Estimated Blood Loss: Estimated blood loss: none. Post Op Diagnosis: - Normal esophagus. Biopsied. - Small hiatal hernia. - Chronic gastritis. Biopsied. - Normal examined duodenum. Biopsied. Recommendation: - Await pathology results. - Resume previous diet. - Thank you for allowing me to participate in the care of your patient. Attending Participation: I personally performed the entire procedure. Maxim Bran MD Maxim Bran MD 09/19/2017 11:54:12 AM This report has been signed electronicallyStevsalima Bran MD Number of Addenda: 0 Note Initiated On: 09/19/2017 11:16 AM [email or web address]
[2017-09-19] MEDS ORDERED: LR 500 ML IV PRN (12:09)
[2017-09-19] MEDS ORDERED: NALOXONE HCL 0.4 MG/ML INJ IVP PRN (12:09)
[2017-09-19] MEDS ORDERED: ONDANSETRON 4 MG/2 ML VIAL IVP PRN (12:09)
[2017-09-19] MEDS ORDERED: HYDROmorphONE/DILAUDID 1 MG/ML INJ IVP PRN (12:09)
--- NOTE | 2017-09-19 13:04 | POSTANESTH ---
Post Anesthetic Evaluation Cardiovascular Status: Normal, Stable, Similar to Pre-Op Cond Respiratory Status: Normal, Stable, Similar to Pre-op Cond. Level of Consciousness/Mental Status: Can Participate in Eval, Alert and Oriented Pain Control: Adequate, Prn Tx Ordered Nausea/Vomiting Control: Adequate, Prn Tx Ordered Complications Possibly Related to Anesthesia: None Noted
[2017-09-19] MEDS ORDERED: fentaNYL 100 MCG/2 ML INJ ONE (13:07)
[2017-09-19] MEDS: fentaNYL 100 MCG/2 ML INJ IVP PRN ×2 (13:09→13:35)
[2017-09-19 14:04] VITALS: RESP 16; O2SAT 98
[2017-09-19] MEDS: ENOXAPARIN 30 MG/0.3 ML SYR SC SCH (14:34)
[2017-09-19] MEDS: MEMANTINE HCL 5 MG TAB PO SCH (14:34)
[2017-09-19] MEDS: DOXEPIN HCL 50 MG CAP PO SCH (14:35)
[2017-09-19] MEDS: PROPRANOLOL HCL 20 MG TAB PO SCH (14:35)
[2017-09-19] MEDS: ONDANSETRON DISINTEGRATING 4 MG TAB PO SCH (14:35)
[2017-09-19] MEDS: oxyCODONE IR 5 MG TAB PO PRN (14:39)
[2017-09-19 15:25] VITALS: BP 160/88; PULSE 72; TEMP 97.9
[2017-09-19] MEDS: GABAPENTIN 100 MG CAP PO SCH (15:30)
[2017-09-19] MEDS: PSYLLIUM METAMUCIL 1 PKT PO SCH (15:31)
--- NOTE | 2017-09-19 16:42 | HOSPPROG ---
Hospitalist Progress Note Assessment/Plan: 67 yo F w h/o y90 ablation for HCC admitted w acute on chronic abd pain ? hydropic gall bladder: HIDA neg this essentially rules out BG as cause of pain abd pain: suspect this is functional vs y90 related ( a cohort of patients whove received y90 treatment have chronic pain) has not had upper endoscopy for 2 years attempted to discuss management of functional abdominal pain as well as possibility of y90 pain her anxiety precluded fruitful discussion neg egd trial of simethicone h/o HCC: no mass on CT proph: lmwh dispo: home today > 30 minutes Subjective: egd neg Objective: Vital Signs Temp Pulse Resp BP Pulse Ox 36.6 C 72 16 160/88 H 98 09/19/17 15:24 09/19/17 15:24 09/19/17 15:24 09/19/17 15:24 09/19/17 15:24 Laboratory Results 09/18/17 04:32 09/18/17 04:32 09/18/17 09/19/17 09/20/17 05:59 05:59 05:59 Intake Total 1999 3535 250 Output Total 604 0 Balance 1999 2931 250 PT 13.6 SEC (12.0-15.0) 09/18/17 04:32 INR 1.05 (0.83-1.16) 09/18/17 04:32 - Physical Exam Constitutional: no apparent distress, appears nourished Eyes: PERRL, anicteric sclera Ears, Nose, Mouth, Throat: moist mucous membranes, hearing normal Cardiovascular: regular rate and rhythym, no murmur, rub, or gallop Respiratory: no respiratory distress, no rales or rhonchi Gastrointestinal: normoactive bowel sounds, soft, non-tender abdomen Genitourinary: no bladder fullness, No rosales in urethra Skin: warm, normal color Musculoskeletal: full muscle strength, no muscle tenderness Neurologic: AAOx3 ICD10 Worksheet Patient Problems: Problems Problem Status Onset Abdominal pain Acute Dehydration Acute Failure to thrive Acute Abdominal pain Acute Chronic abdominal pain Acute Chronic nausea Acute Hypokalemia Acute Urinary tract infection Acute Vomiting Acute Weakness Acute
--- NOTE | 2017-09-19 16:51 | ASMTCMCOM ---
CM Note CM Note Notes: Pt had upper GI endoscopy and will d/c home, no CM d/c needs identified. Date Signed: 09/19/2017 04:50 PM Electronically Signed By:PRISCILLA Coronado
--- NOTE | 2017-09-19 20:27 | GCON ---
[f rep st] CONSULTATION REFERRING PHYSICIAN: Adan Lema MD CHIEF COMPLAINT: Abdominal pain. HISTORY OF PRESENT ILLNESS: I have been asked to see this 67-year-old woman in consultation by Dr. Zack Lema for evaluation of abdominal pain and consideration for endoscopy. This patient has been admitted to the hospital previously. She has a history of hepatocellular carcinoma, and is status post yttrium-90 ablation (TACE). She has chronic abdominal pain, history of hepatitis C (s/p post eradication of HCV with Harvoni), and bipolar disorder with Parkinson's disease. She presented to the hospital with abdominal pain. She has had previous admissions for abdominal pain, and it was felt as though she probably had a psychiatric component to her abdominal pain, also with grieving of a child who 5 years ago. She presented to the hospital somewhat anxious. On admission, she reported her entire body felt as though it was being eroded by acid. She has been seen by GI in the past multiple times. The pain is described as being generalized, no particular alleviating or aggravating factors. She has been losing weight. She is followed by Dr. Alvarado for a history of hepatocellular carcinoma. She has had extensive negative GI workup in the past including multiple upper endoscopy, CT scans of the abdomen, ultrasound, gastric emptying study, video swallow, and is felt as though most of her pain is functional in etiology with a strong psychiatric component. The status of her hepatocellular carcinoma is unknown. No records for review pertaining to hepatocellular carcinoma. Asked to see patient for further evaluation. PAST MEDICAL HISTORY: History of hepatitis C, bipolar disorder, hysterectomy, hepatocellular carcinoma as above, status post treatment with radiation. MEDICATIONS: Acetaminophen, Sinemet, Lovenox, gabapentin, Ativan, Namenda, Zofran, oxycodone, Mirapex, Phenergan, Inderal, Metamucil. ALLERGIES: Aripiprazole, pantoprazole, ziprasidone. SOCIAL HISTORY: The patient lives locally, is nonsmoker, nondrinker. She had a her daughter who 5 years ago. She is . FAMILY HISTORY: Negative as it pertains to chief complaint. REVIEW OF SYSTEMS: Negative 10 systems other than mentioned in HPI. PHYSICAL EXAM: VITAL SIGNS: Afebrile at 36.4, blood pressure 178/100, pulse in the 80s, respiratory rate 16, 98% on room air. GENERAL: Very pleasant woman in somewhat distress complaining of pain. HEENT: Normocephalic, atraumatic. EOMI. NECK: Supple. No cervical adenopathy. No thyromegaly. LUNGS: Clear. CARDIAC: Normal S1, S2, without murmur. ABDOMEN: Benign, soft , nontender. EXTREMITIES: Without clubbing, cyanosis, edema. NEURO: Nonfocal. SKIN: Warm, dry, intact. PSYCH: Alert and orientated, but somewhat distraught. LABORATORY DATA: White count of 2.32, hemoglobin 13.1, hematocrit 34.9, platelets of 70,000. Serum sodium 142, Potassium 4.3, chloride 103, CO2 25, BUN 11, creatinine 1, alkaline phosphatase 129, AST 33, ALT of 24. IMPRESSION: 1. 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 Strong psychiatric component. 2. Known hepatocellular carcinoma, as per Oncology. RECOMMENDATIONS: 1. Continue supportive care. Psychiatric support and management. 2. We will proceed with upper endoscopy at Dr. Lema's request for further evaluation of abdominal pain. Rule out significant ulcer disease or gastritis. /[id number]/MODL MTDD
--- NOTE | 2017-09-20 03:19 | GDS ---
[f rep st] DISCHARGE SUMMARY DISCHARGE DIAGNOSES: 1. Chronic abdominal pain of uncertain etiology. I suspect functional versus chronic pain from Y90 hepatocellular carcinoma ablation. 2. History of hepatitis C. 3. Bipolar. 4. Parkinson's. 5. Anxiety. HOSPITAL COURSE: Please see admission history and physical by Dr. Adan Lema. The patient prese nted with acute on chronic abdominal pain and had a CT showing suspected hydropic gallbladder, but hernanedz bsequent HIDA scan showed no evidence of cystic duct obstruction. She had an EGD showing mild gastri tis, but was otherwise unremarkable. The patient had no peritoneal signs. She had a CT on present ion and, other than hydropic gallbladder, this showed diverticulosis without diverticulitis and a hyp odense lesion in the liver consistent with hepatoma. She was not anemic, febrile, or tachycardic. 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 I did give her a prescription for simethicone as a trial as an outpatient. /[id number]/MODL
--- NOTE | 2017-09-20 09:03 | ASDISCHSUM ---
Discharge Information Plan Status:Home with No Needs Medically Cleared to Leave: Discharge Date:09/19/2017 05:59 PM CM D/C Disposition:Home, Routine, Self-Care ADT D/C Disposition:Home, Routine, Self-Care Projected Discharge Date:09/19/2017 05:59 PM Transportation at D/C: Discharge Delay Reason: Follow-Up Date:09/19/2017 05:59 PM Discharge Slot: Final Diagnosis: Placement Information Patient Contact Information Contact Name:SHIRLEY Relationship: Address:[address] Work Phone: City:[facility] Phone: [facility]/[place] Code:[place] [address] Email: Financial Information Financial Class:Medicare Advantage Plans Primary Plan Desc:[facility] ADVANTAGE PLANS Primary Plan Number:[id number] Secondary Plan Desc: Secondary Plan Number: Assessment Information LACE LACE Acuity / Level of Care Answers: Was the patient admitted to hospital via the emergency department? Yes: Comorbidities - select Answers: Moderate or severe liver all that apply disease or renal disease Emergency dept visits in Answers: 2 last 6 months Score: 9 Date Signed: 09/17/2017 12:06 PM Electronically Signed By:Indu Francisco RN [facility] CM Progress Note CM Note CM Note Notes: Patient admitted for dehydration, malnutrition and failure to thrive. Patient presented to the ED with abdominal pain and sore throat. Patient has a history of liver cancer, Parkinson's, GERD, gastritis and was admitted to [facility] in January and February of 2017, with extensive workups and assessments. Per chart review, patient has also received GI workup and seen by Dr Dominguez in the past. Per chart review, there have been unremarkable findings for her chronic abdominal pain and inability to maintain adequate nutrition. Patient also has a history of abdominal pain, narcotic dependency, and her PCP is Dr. Shabbir Alvarado. Patient's , Ruben, is at bedside. Patient also has been grieving the loss of her only child, a 32-year old daughter who 5 1/2 years ago due to an overdose; patient was the one who found her. Refer to Spiritual Services note from 03/21/17. Patient may also benefit from a Behavioral Health RN consult. Patient may need HHC with nutrition support, PT/OT, or SNF placement in order to regain physical strength. Exact DC needs unknown at this time, CM to follow. Date Signed: 09/17/2017 12:20 PM Electronically Signed By:Indu Francisco RN [facility] CM Progress Note CM Note CM Note Notes: Pt had upper GI endoscopy and will d/c home, no CM d/c needs identified. Date Signed: 09/19/2017 04:50 PM Electronically Signed By:PRISCILLA Coronado Intervention Information Intervention Type:*Incorrect Registration Date of Service:09/17/2017 12:41 PM Patient Type:Inpatient Staff Member:KENA Thakur Shelly Hours:0.25 Discipline: Severity:1 (0-1 Hours) Comment:Registered observation; written admit order inpatient status.
== END 2017-09-19 17:59 | disposition home or self-care (01) | DRG 392 ==
LOC: F3N 11:55 → OBSVTOIN 12:41
PROVIDERS: ADMIT Internal Medicine; ATTEND Internal Medicine
PROC: 0DB98ZX Excision of Duodenum, Via Natural or Artificial Opening Endoscopic, Diagnostic (ICD-10-PCS; principal; 2017-09-19 12:00)
PROC: 0DB58ZX Excision of Esophagus, Via Natural or Artificial Opening Endoscopic, Diagnostic (ICD-10-PCS; principal; 2017-09-19 12:00)
PROC: 0DB68ZX Excision of Stomach, Via Natural or Artificial Opening Endoscopic, Diagnostic (ICD-10-PCS; principal; 2017-09-19 12:00)
DX: R10.9 Unspecified abdominal pain (principal); K82.1 Hydrops of gallbladder; G89.29 Other chronic pain; F31.9 Bipolar disorder, unspecified; K29.50 Unspecified chronic gastritis without bleeding; G20 Parkinson's disease; F41.9 Anxiety disorder, unspecified; R62.7 Adult failure to thrive; I10 Essential (primary) hypertension
CPT/HCPCS: 82105-90; 82947-QW; 96374; A9537; J1170; J1650; J1885; J2405; J2704; J3010; Q9967

== ENCOUNTER 2017-10-01 22:03 | Emergency (ER) | payer OTHER ==
[2017-10-01] MEDS ORDERED: ONDANSETRON 4 MG/2 ML VIAL IVP ONE (22:48)
[2017-10-01] MEDS ORDERED: HYDROmorphONE/DILAUDID 1 MG/ML INJ IVP ONE (22:48)
[2017-10-01] MEDS ORDERED: FAMOTIDINE 20 MG/NACL 50 ML IV ONE (22:48)
[2017-10-01] MEDS ORDERED: NS 1,000 ML IV ONE (22:48)
[2017-10-01] MEDS ORDERED: PROMETHAZINE HCL 25 MG/ML INJ IVP ONE (22:48)
--- NOTE | 2017-10-01 22:55 | EDPHY ---
H & P Time Seen by Provider: 10/01/17 22:37 HPI/ROS: HPI Nausea vomiting. Chronic abdominal pain. 67-year-old female by private vehicle with her . This patient has a history of hepatocellular carcinoma. 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 She was just admitted to our hospital for the same complaint about 10 days ago. She had an extensive workup including CT scan of the abdomen and pelvis with contrast and a HIDA scan. These studies were essentially unremarkable for any acute pathology. She is narcotic dependent for pain control. Her tells me that she takes to oxycodone in the morning and 2 at night. This is not enough to get her through her pain syndrome during the day. She ate soup as well as Jell-O today and had more soup tonight. A about 9:00 p.m. she developed nausea followed by several episodes of vomiting. Vomiting described as nonbilious and nonbloody. Her tried to give her some fluid to drink and she threw this up as well. ROS: Constitutional: No fever, no chills. No weakness. Eyes: No discharge. No changes in vision. ENT: No sore throat. No nasal congestion or rhinorrhea. Respiratory: No cough. No shortness of breath. Cardiac: No chest pain, no palpitations. Gastrointestinal: As above, no diarrhea. Genitourinary: No hematuria. No dysuria or increased frequency with urination. Musculoskeletal: No back pain. No neck pain. No myalgias or arthralgias. Skin: No rashes. Neurological: No headache. No focal weakness or altered sensation. Past medical history: Bipolar, Parkinson's, hepatitis-C, as above. Social history: Nonsmoker. No alcohol. She is . She is here with her . Physical Exam: General Appearance: Alert, she does not appear to be in distress. This patient is responding to questions appropriately and in full sentences. This patient appears well-hydrated and well-nourished. Eyes: Pupils equal and round no pallor or injection. No lid edema, erythema or injection. ENT, Mouth: Mucous membranes are moist. The pharyngeal tissues are unremarkable. No edema or swelling. No asymmetry suggestive of abscess. No erythema or exudates. Respiratory: There are no retractions, lungs are clear to auscultation with good air movement bilaterally. Cardiovascular: Regular rate and rhythm. No murmur. Gastrointestinal: Abdomen is soft with vague and mild tenderness on palpation throughout her abdomen, no masses, bowel sounds are present. No focal tenderness at McBurney's point. No Hills sign. Neurological: Motor sensory function is grossly intact. Cranial nerves are normal. Gait is normal. Skin: Warm and dry, no rashes. Musculoskeletal: Neck is supple and nontender. Extremities are symmetrical. All joints range without pain or impingement. Psychiatric: No agitation. Flat affect. Database: EKG: Imaging: Upright abdominal x-ray: Negative for free air. No evidence of obstructive process. Interpreted by me. Procedures: Emergency department course: Vital signs reviewed. She is mildly hypertensive. Vital signs otherwise normal. She is afebrile. I reviewed her medical records. IV was placed. She was started on IV normal saline with 1 L to be given over the next hour. Her is asking me for narcotic pain medication. She will initially be given 0.5 mg of IV hydromorphone with 20 mg of IV Pepcid, 4 mg of IV Zofran and 6.25 mg of IV Phenergan. Upright abdominal x-ray will be obtained to evaluate for obstructive process. 11:45 p.m., patient re-evaluated. Results of blood work discussed with her and her . Results of x-ray discussed. She is feeling much better. Repeat abdominal exam she is soft, nontender nondistended. She has been taking oral fluids without vomiting. She does feel comfortable going home with her at this time. I feel she is safe for discharge. I will prescribe her Phenergan. She has Zofran at home. Follow-up and return to emergency department precautions reviewed. All of their questions were answered. She was discharged in good condition. Differential Diagnosis: The differential diagnosis on this patient includes but is not limited to chronic abdominal pain/vomiting syndrome. Appendicitis, bowel obstruction/ volvulus, cholecystitis, pancreatitis, ulcerative gastritis unlikely. This represents a partial list of diagnoses considered. These considerations are based on history, physical exam, past history, reassessment and diagnostic testing. Smoking Status: Former smoker Constitutional: Initial Vital Signs Temperature (C) 36.3 C 10/01/17 22:10 Heart Rate 65 10/01/17 22:10 Respiratory Rate 16 10/01/17 22:10 Blood Pressure 139/91 H 10/01/17 22:10 O2 Sat (%) 94 10/01/17 22:10 O2 Delivery Mode Room Air Allergies/Adverse Reactions: aripiprazole [From Abilify] Allergy (Verified 09/17/17 08:57) pantoprazole sodium [From Protonix] Allergy (Verified 09/17/17 08:57) Rash ziprasidone HCl [From Geodon] Allergy (Verified 09/17/17 08:57) ziprasidone mesylate [From Geodon] Allergy (Verified 09/17/17 08:57) Home Medications: Medication Instructions Recorded LORazepam [Ativan 2 mg tab] 4 mg PO DAILY@14 03/20/17 Memantine HCl [Namenda 10 mg] 10 mg PO BID 03/20/17 Ondansetron [Zofran Odt] 8 mg PO BID 03/20/17 Oxycodone HCl [Dazidox] 10 - 30 mg PO DAILY 03/20/17 Propranolol HCl [Inderal 20mg (*)] 20 mg PO DAILY 03/20/17 Carbidopa/Levodopa 25/100Mg 2 tab PO HS 09/17/17 [Sinemet 25/100 MG (*)] Doxepin HCl [Sinequan 50 MG (*)] 50 mg PO BID 09/17/17 Pramipexole Di-HCl [Mirapex 0.125 0.375 mg PO HS 09/17/17 mg (*)] Promethazine HCl [Phenergan Rectal] 25 mg [place] DAILY PRN 09/17/17 Psyllium Seed [Metamucil (*)] 1 each PO DAILY pkt 09/19/17 Simethicone 125 mg PO Q6H PRN #40 capsule 09/19/17 Promethazine HCl [Phenergan 25mg 25 mg PO Q4-6PRN PRN #12 tab 10/01/17 (*)] Medical Decision Making - Data Points Laboratory Results: Laboratory Results 10/01/17 22:45 10/01/17 22:45 10/01/17 10/01/17 22:45 22:45 WBC 5.93 10^3/uL 10^3/uL (3.80-9.50) RBC 4.96 10^6/uL 10^6/uL (4.18-5.33) Hgb 14.8 g/dL g/dL (12.6-16.3) Hct 44.0 % % (38.0-47.0) MCV 88.7 fL fL (81.5-99.8) MCH 29.8 pg pg (27.9-34.1) MCHC 33.6 g/dL g/dL (32.4-36.7) RDW 13.3 % % (11.5-15.2) Plt Count 80 10^3/uL L 10^3/uL (150-400) MPV 10.3 fL fL (8.7-11.7) Neut % (Auto) 76.8 % H % (39.3-74.2) Lymph % (Auto) 12.0 % L % (15.0-45.0) [place] % (Auto) 9.8 % % (4.5-13.0) Eos % (Auto) 1.0 % % (0.6-7.6) Baso % (Auto) 0.2 % L % (0.3-1.7) Nucleat RBC Rel Count 0.0 % % (0.0-0.2) Absolute Neuts (auto) 4.56 10^3/uL 10^3/uL (1.70-6.50) Absolute Lymphs (auto) 0.71 10^3/uL L 10^3/uL (1.00-3.00) Absolute Monos (auto) 0.58 10^3/uL 10^3/uL (0.30-0.80) Absolute Eos (auto) 0.06 10^3/uL 10^3/uL (0.03-0.40) Absolute Basos (auto) 0.01 10^3/uL L 10^3/uL (0.02-0.10) Absolute Nucleated RBC 0.00 10^3/uL 10^3/uL (0-0.01) Immature Gran % 0.2 % % (0.0-1.1) Immature Gran # 0.01 10^3/uL 10^3/uL (0.00-0.10) Sodium 144 mEq/L mEq/L (134-144) Potassium 4.7 mEq/L mEq/L (3.5-5.2) Chloride 107 mEq/L mEq/L (97-110) Carbon Dioxide 20 mEq/l L mEq/l (22-31) Anion Gap 17 mEq/L H mEq/L (8-16) BUN 13 mg/dL mg/dL (7-23) Creatinine 1.1 mg/dL H mg/dL (0.6-1.0) Estimated GFR 50 Glucose 129 mg/dL H mg/dL (70-100) Calcium 9.8 mg/dL mg/dL (8.5-10.4) Total Bilirubin 0.9 mg/dL mg/dL (0.1-1.4) Conjugated Bilirubin 0.5 mg/dL mg/dL (0.0-0.5) Unconjugated Bilirubin 0.4 mg/dL mg/dL (0.0-1.1) AST 49 IU/L H IU/L (14-46) ALT 12 IU/L IU/L (9-52) Alkaline Phosphatase 192 IU/L H IU/L (38-126) Total Protein 7.4 g/dL g/dL (6.3-8.2) Albumin 4.2 g/dL g/dL (3.5-5.0) Lipase 137 IU/L IU/L (23-300) Specimen Hemolysis 113 Medications Given: Discontinued Medications Hydromorphone HCl (Dilaudid) 0.5 mg IVP EDNOW ONE Stop: 10/01/17 22:49 Last Admin: 10/01/17 23:02 Dose: 0.5 mg Sodium Chloride (Ns) 1,000 mls @ 0 mls/hr IV EDNOW ONE; Wide Open PRN Reason: Protocol Stop: 10/01/17 22:49 Last Admin: 10/01/17 22:58 Dose: 1,000 mls Famotidine/Sodium Chloride (Pepcid 20 Mg (Premix)) 50 mls @ 200 mls/hr IV EDNOW ONE Stop: 10/01/17 23:02 Last Admin: 10/01/17 22:59 Dose: 50 mls Ondansetron HCl (Zofran) 4 mg IVP EDNOW ONE Stop: 10/01/17 22:49 Last Admin: 10/01/17 22:59 Dose: 4 mg Promethazine HCl (Phenergan) 6.25 mg IVP EDNOW ONE Stop: 10/01/17 22:49 Last Admin: 10/01/17 22:59 Dose: 6.25 mg Departure - Departure Disposition: Home, Routine, Self-Care Clinical Impression: Vomiting, Chronic abdominal pain Condition: Good Instructions: Acute Nausea and Vomiting (ED), Abdominal Pain (ED) Additional Instructions: Read and follow provided instructions. Follow-up with your primary care physician tomorrow for re-evaluation. Take medication as prescribed for nausea and vomiting. Return to the emergency department for vomiting and inability to keep fluids down despite medications, worsening abdominal pain, fever, blood in your stool or other serious concerns. Referrals: NIKITA HALEY [Other] - As per Instructions Prescriptions: Promethazine HCl [Phenergan 25mg (*)] 25 mg PO Q4-6PRN PRN #12 tab PRN Reason: For Nausea & Vomiting
[2017-10-01 22:56] LABS: % IMMATURE GRANULYOCYTES 0.2 % (0.0-1.1); ABSOLUTE IMMATURE GRANULOCYTES 0.01 10^3/uL (0.00-0.10); ADD DIFF? NO; ADD MORPH? NO; ADD SCAN? NO; ATYPICAL LYMPHOCYTE FLAG 0 (0-99); FRAGMENT RBC FLAG 0 (0-99); HEMOGLOBIN 14.8 g/dL (12.6-16.3); LEFT SHIFT FLG 0 (0-99); LIPEMIA HEMOLYSIS FLAG 80 (0-99); MEAN CELL HEMOGLOBIN 29.8 pg (27.9-34.1); MEAN CELL HEMOGLOBIN CONCENTR. 33.6 g/dL (32.4-36.7); MEAN CELL VOLUME 88.7 fL (81.5-99.8); MEAN PLATELET VOLUME 10.3 fL (8.7-11.7); PLATELET CLUMPS FLAG 30 (0-99); PLATELET COUNT 80 10^3/uL (150-400); RED BLOOD CELL COUNT 4.96 10^6/uL (4.18-5.33); RED CELL DISTRIBUTION WIDTH 13.3 % (11.5-15.2)
[2017-10-01 23:12] LABS: ALANINE AMINOTRANSFERASE 12 IU/L (9-52); ALBUMIN 4.2 g/dL (3.5-5.0); ALKALINE PHOSPHATASE 192 IU/L (38-126); ANION GAP 17 mEq/L (8-16); ASPARTATE AMINOTRANSFERASE 49 IU/L (14-46); BILIRUBIN,TOTAL 0.9 mg/dL (0.1-1.4); BILIRUBIN-CONJUGATED 0.5 mg/dL (0.0-0.5); BILIRUBIN-UNCONJUGATED 0.4 mg/dL (0.0-1.1); CALCIUM 9.8 mg/dL (8.5-10.4); CARBON DIOXIDE 20 mEq/l (22-31); CHLORIDE 107 mEq/L (97-110); CREATININE 1.1 mg/dL (0.6-1.0); GLOMERULAR FILTRATION RATE 50; GLUCOSE 129 mg/dL (70-100); POTASSIUM 4.7 mEq/L (3.5-5.2); SODIUM 144 mEq/L (134-144); SPECIMEN HEMOLYSIS 113; TOTAL PROTEIN 7.4 g/dL (6.3-8.2)
[2017-10-01 23:43] VITALS: BP 134/99; PULSE 79; RESP 18; O2SAT 93
[2017-10-01 23:59] VITALS: TEMP 97.9
== END 2017-10-01 23:59 | disposition home or self-care (01) ==
DX: R11.10 Vomiting, unspecified (principal); R10.9 Unspecified abdominal pain; G89.29 Other chronic pain; E86.9 Volume depletion, unspecified; G20 Parkinson's disease
CPT/HCPCS: 74000; 96361; 96365; 96375; 99284; J1170; J2405; J2550

== ENCOUNTER 2017-10-04 13:45 | Emergency (ER) | payer OTHER ==
--- NOTE | 2017-10-04 14:21 | EDPHY ---
HPI/HX/ROS/PE/MDM Narrative: CHIEF COMPLAINT: Shortness of breath, urinary complaints HISTORY OF PRESENT ILLNESS: The patient is a 67 y/o with a history of chronic abdominal pain, Parkinson's and hepatocellular carcinoma, arriving to the ED with shortness of breath and urinary complaints. For the past 4 years she has had chronic nausea and abdominal pain. For several weeks her symptoms have been worsening, she has had anorexia, and has lost more weight. She normally drinks chicken broth and smoothies. Reports severe nausea which prevents her from eating. On 09/17/17, 2 weeks ago, she was admitted to the hospital for her abdominal pain. The CT scan during this visit revealed signs of a treated hepatoma and diverticulosis. She did not have wide-spread metastatic disease from her hepatocellular carcinoma. On discharge, 09/19/17, it was thought that she had functional vs. chronic abdominal pain due to her hepatocellular treatment. She was seen in the ED on Monday, 3 days ago, due to worsening abdominal pain. Last night she reports developing urinary retention as well as overflow incontinence. She has been wearing a depends. When questioned about her primary complaint of shortness of breath, the patient states that she feels discomfort radiating from her stomach into her chest and it makes her feel short of breath. She reports to me that it feels like it is heartburn. Patient denies dyspnea, exertional shortness of breath, chest pain, palpitations, lightheadedness, dizziness, or fainting. is quite concerned that she is allowed to have only 30 mg of oxycodone a day which she usually takes all at once in the evening in order to provide pain relief. He reports that during the day she is "miserable "secondary to abdominal pain. Denies flu vaccination this year. Does have a history of COPD . No fever, chills, chest pain, palpitations, cough, recent illness, vomiting, diarrhea, headache, lightheadedness. Prior medical records reviewed including discharge summary with Dr. Lema on . REVIEW OF SYSTEMS: Aside from elements discussed in the HPI, a comprehensive 10-point review of systems was reviewed and is negative. PAST MEDICAL HISTORY: Hepatocellular carcinoma treated with Y-90 treatment, Parkinson's, hypertension, COPD, scoliosis, GERD, gastritis, esophagitis SOCIAL HISTORY: at bedside, lives in [facility], former smoker VITAL SIGNS: BP: 161/98, others reviewed by me GENERAL: Chronically ill appearing, very hoarse voice, thin, no obvious respiratory distress. Primary complaint is her abdominal pain. HEENT: Atraumatic. Eyes: No icterus, no injection. Mouth: Dry lips, moist mucous membranes. No erythema or lesions. Neck: supple with no adenopathy. LUNGS: Diminished breath sounds but clear, no wheezes, rhonchi or rales. CARDIAC: Regular rate and rhythm, no rubs, murmurs or gallops. ABDOMEN: Suprapubic discomfort, no guarding or rebound. Soft, no guarding or rebound, no distension, bowel sounds normal. BACK: No CVA tenderness. EXTREMITIES: No trauma. No edema. Range of motion is normal throughout. NEURO: Alert and oriented, grossly nonfocal. SKIN: Warm and dry, no rash. PSYCHIATRIC: Normal mentation, no agitation. ED Course: The patient is a 67 y/o with a history of Parkinson's and hepatocellular carcinoma, presenting with chronic abdominal pain, complaints of shortness of breath, and complaints of urinary frequency with suprapubic discomfort. She has no guarding or rebound. She reports incontinence as well as difficulty starting a stream. Her lungs and heart sound normal. Patient has a dietitian who was evaluating her as well. Concerns have been raised as to whether or not the patient's chronic abdominal pain is secondary to superior mesenteric artery syndrome. Labs, EKG, and chest x-ray ordered. 1mg IV Dilaudid, 4mg IV Zofran, 1L IV NS, and GI cocktail administered. 1530: X-ray: Chest x-ray was obtained. I viewed the images myself on the PACS system. My interpretation of the images is: normal chest. The radiologist interpretation is pending at this time. 1531: Reassessed patient and discussed imaging findings. She reports no relief from the pain medication. 2.5mg IV Haldol and 25mg IV Benadryl administered. 1543: 12-LEAD EKG: Please see the full report in [facility]. My interpretation: Normal sinus rhythm with a rate of 64. No prolonged QT. 1610: Spoke to Dr. Ramos, radiologist, who reports that on the CT from there were no findings consistent with SMA syndrome. However, her stomach was dilated which is consistent with gastritis. Patient had undergone an EGD with Dr. Bran during her prior hospitalization which demonstrated chronic gastritis. 1645: Radiologist chest x-ray findings are suggestive of airways disease. Nebulizer treatment administered. 1650: Consulted with Dr. Carreon, oncologist, regarding the patient's symptoms. We discussed increasing the patient's narcotic pain meds to provide pain relief for her what seems to be chronic abdominal pain. I have not identified a clear reason for increase in her pain today. Urinalysis does not demonstrate a urinary tract infection. Patient does have some Parkinson's disease and I question whether urinary complaints are related to that. It also appears the patient has not been taking Prilosec or Zantac for her gastritis. Per Dr. Bragg, we will increase the patient's oxycodone to provide additional pain relief during the day. She will need to follow up closely with Dr. Alvarado. 1715: Reassessed patient and had a prolonged conversation with the patient and her regarding her complaints, symptoms, and evaluation. Patient tells me that she wants to know why she has had pain for 4 years. We discussed the limitations of the emergency department evaluation with respect to her chronic complaints of abdominal pain. She has had worsening of her pain symptom over the last week which I suspect may be related to gastritis which is not been adequately treated. I stressed the importance of her to begin taking her Prilosec, use Maalox prior to meals, add Zantac, and close follow-up with gastro and Urology. We also discussed an increase in her oxycodone to provide additional pain relief until she could be re-evaluated by her primary care physician. Patient follow up with both Gastroenterology, Dr. Bran, as well as Dr. Alvarado with Oncology. She and her are comfortable with the plan of discharge. Return precautions provided; patient is comfortable with this plan. MDM: After obtaining the patient's history and performing an examination, differential diagnosis considered included but was not limited to chronic abdominal pain, obstruction, constipation, hepatocellular carcinoma, metastatic disease, GERD, pancreatitis, cholecystitis, kidney stones, urinary tract infections and other causes. - Data Points Imaging Results: Xray: Chest x-ray was obtained. I viewed the images myself on the PACS system. My interpretation of the images is: No infiltrate, consistent with airways disease. The radiology interpretation is: Pending. I discussed the results with the patient. Imaging: I viewed and interpreted images myself Laboratory Results: Laboratory Results 10/04/17 15:40 10/04/17 15:40 Medications Given: Discontinued Medications Al Hydroxide/Mg Hydroxide (Maalox Susp) 30 ml PO ONCE ONE Stop: 10/04/17 14:45 Last Admin: 10/04/17 15:54 Dose: 30 ml Diphenhydramine HCl (Benadryl Injection) 25 mg IVP EDNOW ONE Stop: 10/04/17 15:32 Last Admin: 10/04/17 17:49 Dose: Not Given Haloperidol Lactate (Haldol Injection) 2.5 mg IVP EDNOW ONE Stop: 10/04/17 15:32 Last Admin: 10/04/17 17:48 Dose: Not Given Hydromorphone HCl (Dilaudid) 1 mg IVP EDNOW ONE Stop: 10/04/17 14:45 Last Admin: 10/04/17 15:52 Dose: 1 mg Hyoscyamine Sulfate (Levsin, Hyomax-Sl) 0.25 mg PO ONCE ONE Stop: 10/04/17 14:45 Last Admin: 10/04/17 15:53 Dose: 0.25 mg Sodium Chloride (Ns) 1,000 mls @ 0 mls/hr IV EDNOW ONE; Wide Open PRN Reason: Protocol Stop: 10/04/17 14:45 Last Admin: 10/04/17 15:57 Dose: 1,000 mls Lidocaine (Lidocaine 2% Viscous) 15 ml PO ONCE ONE Stop: 10/04/17 14:45 Last Admin: 10/04/17 15:54 Dose: 15 ml Ondansetron HCl (Zofran) 4 mg IVP EDNOW ONE Stop: 10/04/17 14:45 Last Admin: 10/04/17 15:52 Dose: 4 mg Ranitidine HCl (Zantac) 50 mg IVP EDNOW ONE Stop: 10/04/17 16:50 Last Admin: 10/04/17 17:57 Dose: 50 mg General Time Seen by Provider: 10/04/17 14:11 Initial Vital Signs: Initial Vital Signs Heart Rate 71 10/04/17 14:00 Respiratory Rate 16 10/04/17 14:00 Blood Pressure 146/89 H 10/04/17 14:00 O2 Sat (%) 95 10/04/17 14:00 O2 Delivery Mode Room Air Allergies/Adverse Reactions: aripiprazole [From Abilify] Allergy (Verified 10/04/17 13:59) pantoprazole sodium [From Protonix] Allergy (Verified 10/04/17 13:59) Rash ziprasidone HCl [From Geodon] Allergy (Verified 10/04/17 13:59) ziprasidone mesylate [From Geodon] Allergy (Verified 10/04/17 13:59) Home Medications: Medication Instructions Recorded LORazepam [Ativan 2 mg tab] 4 mg PO DAILY@14 03/20/17 Memantine HCl [Namenda 10 mg] 10 mg PO BID 03/20/17 Ondansetron [Zofran Odt] 8 mg PO BID 03/20/17 Oxycodone HCl [Dazidox] 10 - 30 mg PO DAILY 03/20/17 Propranolol HCl [Inderal 20mg (*)] 20 mg PO DAILY 03/20/17 Carbidopa/Levodopa 25/100Mg 2 tab PO HS 09/17/17 [Sinemet 25/100 MG (*)] Doxepin HCl [Sinequan 50 MG (*)] 50 mg PO BID 09/17/17 Pramipexole Di-HCl [Mirapex 0.125 0.375 mg PO HS 09/17/17 mg (*)] Promethazine HCl [Phenergan Rectal] 25 mg [place] DAILY PRN 09/17/17 Psyllium Seed [Metamucil (*)] 1 each PO DAILY pkt 09/19/17 Simethicone 125 mg PO Q6H PRN #40 capsule 09/19/17 Promethazine HCl [Phenergan 25mg 25 mg PO Q4-6PRN PRN #12 tab 10/01/17 (*)] Oxycodone HCl [Dazidox] 10 - 20 mg PO Q6 PRN #30 tablet 10/04/17 Departure - Departure Disposition: Home, Routine, Self-Care Clinical Impression: Weakness Abdominal pain Qualifiers: Abdominal location: generalized Qualified Code(s): R10.84 - Generalized abdominal pain Gastritis Qualifiers: Gastritis type: unspecified gastritis Chronicity: chronic Gastritis bleeding: without bleeding Qualified Code(s): K29.50 - Unspecified chronic gastritis without bleeding Condition: Good Instructions: Gastritis (ED), Diet for Stomach Ulcers and Gastritis (ED), Acute Abdominal Pain (ED) Additional Instructions: I would encourage you to aggressively treat your gastritis. This means take omeprazole (Prilosec) daily. You should also take ranitidine (Zantac) at night. You may continue to take Zofran (Ondansetron) for nausea. Please drink Maalox or Mylanta prior to meals by 30 min. For your chronic abdominal pain, you may increase the amount of oxycodone which you take. You may take 10-20 mg every 6 hr as needed for pain. Follow up without fail on or Monday at [facility]. Follow up with Dr. Bran, television station manager, in the next week. Return to the ED if you experience chest pain, shortness of breath, numbness or other pertinent symptoms. Referrals: NIKITA HALEY [Other] - As per Instructions Maxim Bran MD [Medical Doctor] - As per Instructions Shabbir Alvarado MD [Medical Doctor] - As per Instructions Prescriptions: Oxycodone HCl [Dazidox] 10 - 20 mg PO Q6 PRN #30 tablet PRN Reason: Pain, Breakthrough Report Scribed for: Lucia Camara Report Scribed by: Supriya Deng Date of Report: 10/04/17 Time of Report: 14:21 Physician Review and Approval Statement: Portions of this note were transcribed by a medical records secretary. I personally performed a history, physical exam, medical decision making, and confirmed accuracy of information the transcribed note.
[2017-10-04] MEDS ORDERED: ONDANSETRON 4 MG/2 ML VIAL IVP ONE (14:44)
[2017-10-04] MEDS ORDERED: MAG HYDROX/AL HYDROX/SIMETH 30 ML UDCUP PO ONE (14:44)
[2017-10-04] MEDS ORDERED: NS 1,000 ML IV ONE (14:44)
[2017-10-04] MEDS ORDERED: LIDOCAINE 2% VISCOUS 15 ML UDCUP PO ONE (14:44)
[2017-10-04] MEDS ORDERED: HYOSCYAMINE SULFATE 0.125 MG TAB PO ONE (14:44)
[2017-10-04] MEDS ORDERED: HYDROmorphONE/DILAUDID 1 MG/ML INJ IVP ONE (14:44)
[2017-10-04] MEDS ORDERED: HALOPERIDOL LACT 5 MG/ML INJ IVP ONE (15:31)
--- NOTE | 2017-10-04 15:44 | CPEKG ---
Heart Rate: 64 RR Interval: 938 P-R Interval: 156 QRSD Interval: 80 QT Interval: 424 QTC Interval: 438 P [place]: 71 QRS [place]: -54 T Wave [place]: 77 EKG Severity - ABNORMAL ECG - EKG Impression: SINUS RHYTHM EKG Impression: LEFT AXIS DEVIATION EKG Impression: PROBABLE LEFT VENTRICULAR HYPERTROPHY Electronically Signed By: Matthew Wise 04-Oct-2017 21:51:37
[2017-10-04 15:52] LABS: % IMMATURE GRANULYOCYTES 0.2 % (0.0-1.1); ABSOLUTE IMMATURE GRANULOCYTES 0.01 10^3/uL (0.00-0.10); ADD DIFF? NO; ADD MORPH? NO; ADD SCAN? NO; ATYPICAL LYMPHOCYTE FLAG 0 (0-99); FRAGMENT RBC FLAG 0 (0-99); HEMATOCRIT 46.8 % (38.0-47.0); HEMOGLOBIN 15.7 g/dL (12.6-16.3); LEFT SHIFT FLG 0 (0-99); LIPEMIA HEMOLYSIS FLAG 80 (0-99); MEAN CELL HEMOGLOBIN CONCENTR. 33.5 g/dL (32.4-36.7); MEAN CELL VOLUME 86.5 fL (81.5-99.8); MEAN PLATELET VOLUME 9.9 fL (8.7-11.7); PLATELET CLUMPS FLAG 10 (0-99); PLATELET COUNT 106 10^3/uL (150-400); RED BLOOD CELL COUNT 5.41 10^6/uL (4.18-5.33); RED CELL DISTRIBUTION WIDTH 13.2 % (11.5-15.2)
[2017-10-04 16:06] LABS: ALANINE AMINOTRANSFERASE 19 IU/L (9-52); ALBUMIN 4.6 g/dL (3.5-5.0); ALKALINE PHOSPHATASE 192 IU/L (38-126); ANION GAP 18 mEq/L (8-16); ASPARTATE AMINOTRANSFERASE 38 IU/L (14-46); BILIRUBIN,TOTAL 0.7 mg/dL (0.1-1.4); BILIRUBIN-CONJUGATED 0.3 mg/dL (0.0-0.5); BILIRUBIN-UNCONJUGATED 0.4 mg/dL (0.0-1.1); CALCIUM 10.2 mg/dL (8.5-10.4); CARBON DIOXIDE 19 mEq/l (22-31); CHLORIDE 107 mEq/L (97-110); CREATININE 1.1 mg/dL (0.6-1.0); GLOMERULAR FILTRATION RATE 50; GLUCOSE 114 mg/dL (70-100); POTASSIUM 4.5 mEq/L (3.5-5.2); SODIUM 144 mEq/L (134-144); TOTAL PROTEIN 7.9 g/dL (6.3-8.2)
[2017-10-04 16:16] LABS: TROPONIN I < 0.012 ng/mL (0.000-0.034)
[2017-10-04 16:43] LABS: COLOR PALE YELLOW; LEUKOCYTE ESTERASE,URINE NEGATIVE (NEGATIVE); NITRITE,URINE NEGATIVE (NEGATIVE)
[2017-10-04] MEDS ORDERED: ALBUTEROL 3 ML DEYVIAL IH ONE (16:46)
[2017-10-04] MEDS ORDERED: PANTOPRAZOLE SODIUM 40 MG VIAL IVP ONE (16:48)
[2017-10-04] MEDS ORDERED: RANITIDINE 50 MG/2 ML VIAL IVP ONE (16:49)
[2017-10-04 17:05] VITALS: O2SAT 97
[2017-10-04 18:05] VITALS: BP 174/100; PULSE 66; RESP 18; TEMP 97.7
== END 2017-10-04 18:05 | disposition home or self-care (01) ==
DX: K29.50 Unspecified chronic gastritis without bleeding (principal); R53.1 Weakness; J44.9 Chronic obstructive pulmonary disease, unspecified; I10 Essential (primary) hypertension; E86.9 Volume depletion, unspecified; Z85.05 Personal history of malignant neoplasm of liver; Z87.891 Personal history of nicotine dependence
CPT/HCPCS: 71020; 93005; 96361; 96374; 96375; 99285; J1170; J2405; J2780

== ENCOUNTER 2017-12-06 08:23 | Inpatient (IN) | payer OTHER ==
[2017-12-06] MEDS ORDERED: HYDROmorphONE/DILAUDID 1 MG/ML INJ IVP ONE (09:26)
[2017-12-06] MEDS ORDERED: NS 1,000 ML IV ONE (09:26)
--- NOTE | 2017-12-06 09:35 | EDPHY ---
H & P Time Seen by Provider: 12/06/17 08:59 HPI/ROS: CHIEF COMPLAINT: Abdominal pain, weakness HISTORY OF PRESENT ILLNESS: 67-year-old female presents to the emergency department feeling extremely weak over last 4 days. Patient has a history of chronic abdominal pain. She has a history of hepatocellular carcinoma. She is prescribed oxycodone 20 mg twice daily by her primary oncologist, Dr. Alvarado. She has been taking these as prescribed, however her states that he dropped a bunch of pills a few days ago and now she has subsequently out of this medication. She is not due for another refill until 12/20/2017. No fevers or chills. No chest pain or difficulty breathing. No reports of vomiting. She was seen at [facility] 4 days ago after she was sent by her new primary care provider, Dr. Nicolas Raymond, who was concerned about her blood pressure. They felt that her elevated blood pressure was likely due to her abdominal pain. She apparently received IV Dilaudid and her blood pressure improved. She has been on antihypertensive medication in the past, however the new was ones that they started caused severe diarrhea and so she stopped the medication. Her states that she has been eating very little. She does feel that the abdominal pain that she is having is the same chronic ongoing pain that she is having, however the weakness states is new. No reported trauma. REVIEW OF SYSTEMS: Constitutional: No fever, no chills. Eyes: No double or blurry vision. ENT: No sore throat. Respiratory: No cough, no shortness of breath. Cardiac: No chest pain. Gastrointestinal: Abdominal pain as above. No vomiting or diarrhea currently. Genitourinary: No dysuria. Musculoskeletal: No neck or back pain. Skin: No rashes. Neurological: No headache. Past Medical/Surgical History: Chronic abdominal pain, opioid dependence, hepatocellular carcinoma with Y 90 procedure, total hysterectomy, bipolar, GERD, esophagitis, gastritis, scoliosis , hypertension, anxiety Social History: Smoking Status: Former smoker Physical Exam: General Appearance: Lethargic, no distress. Blood pressure 178/121, heart rate 98, respirations 16, 96% on room air, temperature 36.6 degrees Eyes: Pupils equal and round. Extraocular motions are all intact. ENT: Mouth: Mucous membranes moist. Respiratory: No wheezing, rhonchi, or rales, lungs are clear to auscultation. Cardiovascular: Regular rate and rhythm. Gastrointestinal: Abdomen is soft. Diffuse pain with palpation. The patient is moaning with palpation of the abdomen. No palpable masses, rebound or guarding noted. No CVA tenderness bilaterally. Neurological: Uncooperative, cannot determine. Skin: Warm and dry, no rashes. Musculoskeletal: Nontender to palpate along the cervical, thoracic or lumbar spine. Neck is supple. Extremities: Full range of motion and no peripheral edema. Psychiatric: no agitation. Constitutional: Initial Vital Signs Temperature (C) 36.6 C 12/06/17 08:30 Heart Rate 98 12/06/17 08:30 Respiratory Rate 16 12/06/17 08:30 Blood Pressure 178/121 H 12/06/17 08:30 O2 Sat (%) 96 12/06/17 08:30 O2 Delivery Mode Room Air Allergies/Adverse Reactions: aripiprazole [From Abilify] Allergy (Verified 12/06/17 08:29) pantoprazole sodium [From Protonix] Allergy (Verified 12/06/17 08:29) Rash ziprasidone HCl [From Geodon] Allergy (Verified 12/06/17 08:29) ziprasidone mesylate [From Geodon] Allergy (Verified 12/06/17 08:29) Home Medications: Medication Instructions Recorded LORazepam [Ativan 2 mg tab] 4 mg PO DAILY@14 03/20/17 Memantine HCl [Namenda 10 mg] 10 mg PO BID 03/20/17 Ondansetron [Zofran Odt] 8 mg PO BIDMEAL 03/20/17 Oxycodone HCl [Dazidox] 10 - 30 mg PO DAILY PRN 03/20/17 Propranolol HCl [Inderal 20mg (*)] 20 mg PO BID 03/20/17 Doxepin HCl [Sinequan 50 MG (*)] 50 mg PO BID 09/17/17 Psyllium Seed [Metamucil (*)] 1 each PO DAILY pkt 09/19/17 DULoxetine [Cymbalta 20 MG (RX)] 20 mg PO DAILY 12/06/17 Gabapentin [Neurontin 300 MG (*)] 300 mg PO HS PRN 12/06/17 Lisinopril [Zestril 20 mg (*)] 20 mg PO DAILY 12/06/17 Omeprazole [Prilosec 20 mg] 40 mg PO DAILY 12/06/17 Pramipexole Di-HCl [Mirapex 0.125 0.125 mg PO TID 12/06/17 mg (*)] Medical Decision Making - Diagnostics Imaging Results: Imaging Impressions Chest X-Ray 12/06/17 09:26 Impression: Hyperexpansion suggests airways disease with no superimposed pneumonia identified. ED Course/Re-evaluation: 67-year-old female presents to the emergency department with weakness. She has a history of chronic abdominal pain. She also has a history of hepatocellular carcinoma. The is doing all the talking for the patient. The patient will speak very softly when directed to. Her mucous membranes appear moist. Patient received IV normal saline. Patient also received 0.5 mg of IV Dilaudid. After receiving the IV pain medication, the patient started to perk up a little bit and was more talkative. She seemed more alert. She states that her abdominal pain is greatly improved. Laboratory studies reveal elevated liver function tests. Her lipase is elevated at 351 which in the past that has been normal. The patient is very weak. She is not tolerating p.o. fluids well. The patient will be admitted to the hospitalist. Patient will be admitted to Dr. Bacon. The case was discussed with Dr. Bel Umanzor, secondary supervising physician, who did not directly evaluate the patient but agrees with treatment and plan. Differential Diagnosis: Including but not limited to dehydration, pancreatitis, hepatitis, gastroenteritis, gastritis, electrolyte abnormality - Data Points Laboratory Results: Laboratory Results 12/06/17 09:39 12/06/17 09:39 12/06/17 12/06/17 12/06/17 11:20 11:08 09:39 WBC RBC Hgb Hct MCV MCH MCHC RDW Plt Count MPV Neut % (Auto) Lymph % (Auto) [place] % (Auto) Eos % (Auto) Baso % (Auto) Nucleat RBC Rel Count Absolute Neuts (auto) Absolute Lymphs (auto) Absolute Monos (auto) Absolute Eos (auto) Absolute Basos (auto) Absolute Nucleated RBC Immature Gran % Immature Gran # Sodium 141 mEq/L mEq/L (135-145) Potassium 4.1 mEq/L mEq/L (3.5-5.2) Chloride 104 mEq/L mEq/L (97-110) Carbon Dioxide 16 mEq/l L mEq/l (22-31) Anion Gap 21 mEq/L H mEq/L (8-16) BUN 13 mg/dL mg/dL (7-23) Creatinine 1.0 mg/dL mg/dL (0.6-1.0) Estimated GFR 55 Glucose 137 mg/dL H mg/dL (70-100) Calcium 10.9 mg/dL H mg/dL (8.5-10.4) Phosphorus 3.3 mg/dL mg/dL REJ (2.5-4.5) Total Bilirubin 1.3 mg/dL mg/dL Not Reported (0.1-1.4) Conjugated Bilirubin 0.7 mg/dL H mg/dL Not Reported (0.0-0.5) Unconjugated Bilirubin 0.6 mg/dL mg/dL Not Reported (0.0-1.1) AST 87 IU/L H IU/L Not Reported (14-46) ALT 59 IU/L H IU/L Not Reported (9-52) Alkaline Phosphatase 272 IU/L H IU/L Not Reported (38-126) Troponin I < 0.012 ng/mL ng/mL (0.000-0.034) Total Protein 8.8 g/dL H g/dL REJ (6.3-8.2) Albumin 4.8 g/dL g/dL Not Reported (3.5-5.0) Lipase 351 IU/L H IU/L REJ (23-300) Urine Color YELLOW Urine Appearance CLEAR Urine pH 6.0 (5.0-7.5) Ur Specific [place] 1.009 (1.002-1.030) Urine Protein NEGATIVE (NEGATIVE) Urine Ketones TRACE H (NEGATIVE) Urine Blood NEGATIVE (NEGATIVE) Urine Nitrate NEGATIVE (NEGATIVE) Urine Bilirubin NEGATIVE (NEGATIVE) Urine Urobilinogen NEGATIVE EU EU (0.2-1.0) Ur Leukocyte Esterase NEGATIVE (NEGATIVE) Urine RBC NONE SEEN /hpf /hpf (0-3) Urine WBC NONE SEEN /hpf /hpf (0-3) Ur Epithelial Cells TRACE /lpf /lpf (NONE-1+) Urine Bacteria TRACE /hpf H /hpf (NONE SEEN) Urine Mucus TRACE /lpf /lpf (NONE-1+) Urine Glucose NEGATIVE (NEGATIVE) 12/06/17 09:39 WBC 9.00 10^3/uL 10^3/uL (3.80-9.50) RBC 6.51 10^6/uL H 10^6/uL (4.18-5.33) Hgb 18.7 g/dL H g/dL (12.6-16.3) Hct 53.4 % H % (38.0-47.0) MCV 82.0 fL fL (81.5-99.8) MCH 28.7 pg pg (27.9-34.1) MCHC 35.0 g/dL g/dL (32.4-36.7) RDW 14.7 % % (11.5-15.2) Plt Count 174 10^3/uL 10^3/uL (150-400) MPV 9.8 fL fL (8.7-11.7) Neut % (Auto) 72.0 % % (39.3-74.2) Lymph % (Auto) 16.9 % % (15.0-45.0) [place] % (Auto) 10.2 % % (4.5-13.0) Eos % (Auto) 0.4 % L % (0.6-7.6) Baso % (Auto) 0.2 % L % (0.3-1.7) Nucleat RBC Rel Count 0.0 % % (0.0-0.2) Absolute Neuts (auto) 6.47 10^3/uL 10^3/uL (1.70-6.50) Absolute Lymphs (auto) 1.52 10^3/uL 10^3/uL (1.00-3.00) Absolute Monos (auto) 0.92 10^3/uL H 10^3/uL (0.30-0.80) Absolute Eos (auto) 0.04 10^3/uL 10^3/uL (0.03-0.40) Absolute Basos (auto) 0.02 10^3/uL 10^3/uL (0.02-0.10) Absolute Nucleated RBC 0.00 10^3/uL 10^3/uL (0-0.01) Immature Gran % 0.3 % % (0.0-1.1) Immature Gran # 0.03 10^3/uL 10^3/uL (0.00-0.10) Sodium Potassium Chloride Carbon Dioxide Anion Gap BUN Creatinine Estimated GFR Glucose Calcium Phosphorus Total Bilirubin Conjugated Bilirubin Unconjugated Bilirubin AST ALT Alkaline Phosphatase Troponin I Total Protein Albumin Lipase Urine Color Urine Appearance Urine pH Ur Specific [place] Urine Protein Urine Ketones Urine Blood Urine Nitrate Urine Bilirubin Urine Urobilinogen Ur Leukocyte Esterase Urine RBC Urine WBC Ur Epithelial Cells Urine Bacteria Urine Mucus Urine Glucose Medications Given: Hydromorphone HCl (Dilaudid) 0.4 - 0.6 mg IVP Q4HRS PRN PRN Reason: Pain, Severe Unable to Take PO Stop: 12/16/17 15:07 Last Admin: 12/06/17 15:39 Dose: 0.6 mg Dextrose/Sodium Chloride (D5w 1/2 Ns) 1,000 mls @ 100 mls/hr IV CONT GLEN Stop: 06/04/18 15:14 Last Admin: 12/06/17 15:22 Dose: 1,000 mls Lisinopril (Zestril) 20 mg PO DAILY GLEN Stop: 06/04/18 15:14 Last Admin: 12/06/17 15:22 Dose: 20 mg Lorazepam (Ativan) 0.5 - 1 mg PO Q8HRS PRN PRN Reason: Anxiety, Able to Take PO Stop: 06/04/18 15:01 Last Admin: 12/06/17 15:39 Dose: 1 mg Ondansetron HCl (Zofran Odt) 4 mg PO Q4HRS PRN PRN Reason: Nausea/Vomiting, Use 1st Stop: 06/04/18 15:01 Last Admin: 12/06/17 15:38 Dose: 4 mg Pramipexole Dihydrochloride (Mirapex) 0.125 mg PO TID GLEN Stop: 06/04/18 15:59 Last Admin: 12/06/17 16:14 Dose: 0.125 mg Discontinued Medications Hydromorphone HCl (Dilaudid) 0.5 mg IVP EDNOW ONE Stop: 12/06/17 09:27 Last Admin: 12/06/17 09:48 Dose: 0.5 mg Sodium Chloride (Ns) 1,000 mls @ 0 mls/hr IV ONCE ONE PRN Reason: Wide Open Stop: 12/06/17 09:27 Last Admin: 12/06/17 09:38 Dose: 1,000 mls Departure - Departure Disposition: [facility] Inpatient Acute Clinical Impression: Abdominal pain Qualifiers: Abdominal location: generalized Qualified Code(s): R10.84 - Generalized abdominal pain Condition: Good
[2017-12-06 09:50] LABS: PLATELET COUNT 174 10^3/uL (150-400)
--- NOTE | 2017-12-06 10:00 | CPEKG ---
Heart Rate: 57 RR Interval: 1053 P-R Interval: 136 QRSD Interval: 92 QT Interval: 448 QTC Interval: 437 P Marcell: 78 QRS Marcell: -42 T Wave Marcell: 99 EKG Severity - ABNORMAL ECG - EKG Impression: SINUS RHYTHM EKG Impression: PROBABLE LEFT VENTRICULAR HYPERTROPHY EKG Impression: PROBABLE INFERIOR INFARCT, OLD EKG Impression: LATERAL LEADS ARE ALSO INVOLVED Electronically Signed By: Bel Umanzor 06-Dec-2017 15:21:50
[2017-12-06] MEDS ORDERED: ACETAMINOPHEN 325 MG TAB PO PRN (15:02)
[2017-12-06] MEDS ORDERED: ONDANSETRON DISINTEGRATING 4 MG TAB PO PRN (15:02)
[2017-12-06] MEDS ORDERED: OXYCODONE HCL PO PRN (15:03)
[2017-12-06] MEDS ORDERED: oxyCODONE IR 5 MG TAB PO PRN (15:19)
[2017-12-06] MEDS: LISINOPRIL 20 MG TAB PO SCH (15:22)
[2017-12-06] MEDS: D5W 1/2 NS 1,000 ML IV SCH (15:22)
--- NOTE | 2017-12-06 15:33 | GHP ---
[f rep st] HISTORY AND PHYSICAL DATE OF ADMISSION: 12/06/2017 CHIEF COMPLAINT: Abdominal pain. HISTORY OF PRESENT ILLNESS: This is a 67-year-old female with a history of hepatocellular carcinoma, as well as chronic abdominal pain presents with much worse abdominal pain. She describes it as epig astric, severe, radiating up into her chest, worse with food. She says she has not been constipated. She has had no nausea or vomiting. She actually tells me she is hungry. She tells me that this is similar to her chronic abdominal pain, though much more intense. She was told in the emergency depa rtment she has pancreatitis. She has had a few admissions for similar complaints, the last was in [facility], 3 months ago, she had a CT scan concerning for gallbladder hydrops with a negative HIDA scan. Upper endoscopy showed mild gastritis. Pathology from this showed chronic inflammation. She was H . pylori negative. Her dropped her bottle of oxycodone, and she ran out about 3 days prior to presentation. Her pain has gotten significantly worse since not having oxycodone. PAST MEDICAL/SURGICAL HISTORY: 1. Hepatocellular carcinoma. 2. Hepatitis C. 3. Chronic abdominal pain, as above. 4. Bipolar disorder. 5. Parkinson's. MEDICATIONS: Please see medication reconciliation. ALLERGIES: Aripiprazole, pantoprazole, and Geodon. SOCIAL HISTORY: She does not drink or smoke. FAMILY HISTORY: Reviewed and noncontributory. REVIEW OF SYSTEMS: A 10-point review of systems is conducted and is negative except per HPI. PHYSICAL EXAMINATION: VITAL SIGNS: Blood pressure 180/100. Pulse is 56, respiration rate 16, satur ating 96% on room air. Temperature is 37.1. GENERAL: The patient is a pleasant female who looks steven ewhat uncomfortable resting in bed. HEENT: Shows her to be normocephalic, atraumatic. CARDIOVASCUL AR: Regular rate and rhythm. No murmurs, rubs, or gallops. PULMONARY: Lungs clear to auscultation bilaterally. ABDOMEN: Soft. She is tender to palpation in the epigastrium. There is no guarding or rebound. SKIN: Shows no rash. : No [place]. NEUROLOGIC: Shows her to be alert and oriented x 3. She is moving all extremities. PSYCHIATRIC: Shows normal mood and affect. LABORATORY DATA: White count is 9. Hemoglobin is 18. Bicarbonate is 16, glucose 137, calcium 10.9, creatinine 1.0. Lipase 351, and total protein is 8.8. AST is slightly elevated at 87. Alkaline ph osphatase 272. Urinalysis shows trace ketones and trace bacteria. DATA: 1. I reviewed her chart. 2. I personally viewed and interpreted her chest x-ray. This shows hyperexpanded lungs. There is n othing acute. 3. EKG shows sinus rhythm. She has U-waves in leads V2 through V6. IMPRESSION AND PLAN: 1. Abdominal pain: This is acute on chronic. I think it is reasonable to get a CT scan. This will show pancreas, as well as any other pathology. Otherwise, we will treat her symptomatically with pa in control. She is hungry. We will give her clear liquids. If this makes her pain worse would more strongly consider pancreatitis, though I doubt this is the diagnosis. There is thought to be potent ially a functional component to this. 2. Hepatocellular carcinoma: Received chemoembolization in the past. Followed by Dr. Alvarado. 3. Hepatitis C. 4. Bipolar: Continue her medications. 5. Parkinson's: Continue Mirapex and Sinemet. /[id number]/MODL
[2017-12-06] MEDS: LORazepam 0.5 MG TAB PO PRN (15:39)
[2017-12-06] MEDS: HYDROmorphONE/DILAUDID 1 MG/ML INJ IVP PRN ×2 (15:39→21:39)
--- NOTE | 2017-12-06 15:45 | ASMTCMCOM ---
CM Note CM Note Notes: DC needs not clear yet, still being worked up. Pt lives at home w/. Therapy recommendations pending. Pt has hx hepatocellular carcinoma- followed by Dr Alvarado. CM will follow. Date Signed: 12/06/2017 03:44 PM Electronically Signed By:Lalita Greene RN
[2017-12-06] MEDS: PRAMIPEXOLE 0.125 MG TAB PO SCH ×2 (16:14→20:44)
[2017-12-06] MEDS ORDERED: IOPAMIDOL (ISOVUE-300) 100 ML BTL ONE (17:04)
[2017-12-06] MEDS ORDERED: GABAPENTIN 300 MG CAP PO PRN (17:12)
[2017-12-06] MEDS ORDERED: NON-FORMULARY NEW DRUG (Ondansetron [Zofran Odt] 8 MG) PO SCH (18:00)
[2017-12-06] MEDS: ONDANSETRON DISINTEGRATING 4 MG TAB PO SCH (18:12)
[2017-12-06] MEDS: ONDANSETRON 4 MG/2 ML VIAL IVP PRN (19:58)
[2017-12-06] MEDS: PROPRANOLOL HCL 20 MG TAB PO SCH (20:44)
[2017-12-06] MEDS: MEMANTINE HCL 5 MG TAB PO SCH (20:44)
[2017-12-06] MEDS ORDERED: DOXEPIN HCL 50 MG CAP PO SCH (21:00)
[2017-12-06] MEDS ORDERED: NON-FORMULARY NEW DRUG (Memantine Hcl [Namenda 10 Mg] 10 MG) PO SCH (21:00)
[2017-12-07] MEDS: LORazepam 0.5 MG TAB PO PRN (03:39)
[2017-12-07] MEDS: HYDROmorphONE/DILAUDID 1 MG/ML INJ IVP PRN ×3 (03:39→17:39)
[2017-12-07 07:30] LABS: PLATELET COUNT 132 10^3/uL (150-400)
[2017-12-07] MEDS: OMEPRAZOLE 40 MG PO SCH (08:19)
[2017-12-07] MEDS: ONDANSETRON DISINTEGRATING 4 MG TAB PO SCH ×2 (08:21→17:39)
[2017-12-07] MEDS: DULoxetine 20 MG CAP PO SCH (08:23)
[2017-12-07] MEDS: ENOXAPARIN 40 MG/0.4 ML SYR SC SCH (08:24)
[2017-12-07] MEDS: MEMANTINE HCL 5 MG TAB PO SCH ×2 (08:25→21:28)
[2017-12-07] MEDS: PROPRANOLOL HCL 20 MG TAB PO SCH ×2 (08:25→21:29)
[2017-12-07] MEDS: LISINOPRIL 20 MG TAB PO SCH (08:25)
[2017-12-07] MEDS: PSYLLIUM METAMUCIL 1 PKT PO SCH (08:26)
[2017-12-07] MEDS: PRAMIPEXOLE 0.125 MG TAB PO SCH ×3 (08:26→21:29)
[2017-12-07] MEDS ORDERED: FLU VACC QS 2017-18 (3YR+)/PF 0.5 ML SYR (FLUARIX QUAD) IM ONE ×2 (10:15→10:21)
[2017-12-07] MEDS: ONDANSETRON 4 MG/2 ML VIAL IVP PRN (11:40)
[2017-12-07] MEDS: LORazepam 1 MG TAB PO SCH (13:56)
[2017-12-07] MEDS: DOXEPIN HCL 50 MG CAP PO SCH ×2 (13:56→21:28)
[2017-12-07] MEDS ORDERED: LORAZEPAM PO SCH (14:00)
--- NOTE | 2017-12-07 16:58 | HOSPPROG ---
Hospitalist Progress Note Assessment/Plan: # abd pain/not tolerating PO - suspect functional/somatization; normal EGD, CT - cont supportive measures # HCC s/p chemoembolization # depr - celexa, doxepin # parkinsons - sinemet, mirapex # chronic pain on continuous narcotics # htn - lisinopril Subjective: ongoing abd pain; emesis after a smoothie Objective: Vital Signs Temp Pulse Resp BP Pulse Ox 37.3 C 64 14 149/77 H 97 12/07/17 11:35 12/07/17 14:03 12/07/17 14:03 12/07/17 14:03 12/07/17 14:03 Laboratory Results 12/07/17 07:18 12/07/17 04:34 12/06/17 12/07/17 12/08/17 05:59 05:59 05:59 Intake Total 1000 Output Total 200 75 Balance 800 -75 - Time Spent With Patient Time Spent with Patient: greater than 25 minutes Time Spent with Patient: Greater than 25 minutes spent on this patients care, greater than 50% of time spent counseling, educating, and coordinating care regarding the above mentioned plan. - Physical Exam Constitutional: chronically ill appearing, unkempt ICD10 Worksheet Patient Problems: Problems Problem Status Onset Vomiting Acute Hypokalemia Acute Abdominal pain Acute Weakness Acute Dehydration Acute Chronic abdominal pain Acute Chronic nausea Acute Urinary tract infection Acute Abdominal pain Acute Failure to thrive Acute
[2017-12-07] MEDS: D5W 1/2 NS 1,000 ML IV SCH (21:28)
[2017-12-07] MEDS: CARBIDOPA/LEVODOPA 25 MG/100 MG TAB PO SCH (21:29)
[2017-12-08] MEDS: HYDROmorphONE/DILAUDID 1 MG/ML INJ IVP PRN ×5 (00:16→20:17)
[2017-12-08 05:10] LABS: PLATELET COUNT 111 10^3/uL (150-400)
--- NOTE | 2017-12-08 07:55 | PDMN ---
Medical Necessity Medical necessity: M05 abd pain undg: not tolerating PO, ongoing emesis with PO - in pt with hx of hepatocellular carcinoma, further monitoring and eval and tx ( IV fluids, IV pain, IV antiemetic's) needed > 2 midnights
[2017-12-08] MEDS: ONDANSETRON DISINTEGRATING 4 MG TAB PO SCH ×2 (09:07→17:44)
[2017-12-08] MEDS: PROPRANOLOL HCL 20 MG TAB PO SCH ×2 (09:08→20:16)
[2017-12-08] MEDS: DULoxetine 20 MG CAP PO SCH (09:08)
[2017-12-08] MEDS: PRAMIPEXOLE 0.125 MG TAB PO SCH ×3 (09:08→20:16)
[2017-12-08] MEDS: MEMANTINE HCL 5 MG TAB PO SCH ×2 (09:08→20:16)
[2017-12-08] MEDS: LISINOPRIL 20 MG TAB PO SCH (09:09)
[2017-12-08] MEDS: OMEPRAZOLE 40 MG PO SCH (09:10)
--- NOTE | 2017-12-08 09:11 | HOSPPROG ---
Hospitalist Progress Note Assessment/Plan: # abd pain/not tolerating PO - suspect functional/somatization; normal EGD, CT; recheck lipase today - she was quite dehydrated with a metabolic acidosis on admission - discussed with Dr Vidal - he will consult - requested that Marialuisa Eyal also see patient - cont supportive measures # hypoK - replete with IVF # HCC s/p chemoembolization # HCV # thrombocytopenia # depr - celexa, doxepin # parkinsons - sinemet, mirapex # chronic pain on continuous narcotics # htn - lisinopril Subjective: still c/o abdominal pain; not tolerating much PO Objective: Vital Signs Temp Pulse Resp BP Pulse Ox 36.8 C 68 12 155/88 H 95 12/08/17 07:20 12/08/17 07:20 12/08/17 07:20 12/08/17 07:20 12/08/17 07:20 Laboratory Results 12/08/17 04:14 12/08/17 04:14 12/07/17 12/08/17 12/09/17 05:59 05:59 05:59 Intake Total 1000 Output Total [address] Motta - he will consult - Physical Exam Constitutional: chronically ill appearing, unkempt Cardiovascular: regular rate and rhythym, no murmur, rub, or gallop Respiratory: no respiratory distress, no rales or rhonchi Gastrointestinal: other (soft, mildly TTP; no rebound or guarding) ICD10 Worksheet Patient Problems: Problems Problem Status Onset Vomiting Acute Hypokalemia Acute Abdominal pain Acute Weakness Acute Dehydration Acute Chronic abdominal pain Acute Chronic nausea Acute Urinary tract infection Acute Abdominal pain Acute Failure to thrive Acute
[2017-12-08] MEDS ORDERED: ENOXAPARIN 40 MG/0.4 ML SYR SC SCH (09:12)
[2017-12-08] MEDS: ENOXAPARIN 30 MG/0.3 ML SYR SC SCH (09:29)
[2017-12-08] MEDS: PSYLLIUM METAMUCIL 1 PKT PO SCH (09:32)
[2017-12-08] MEDS: ENOXAPARIN 40 MG/0.4 ML SYR SC SCH (11:09)
--- NOTE | 2017-12-08 11:51 | ASMTCMCOM ---
CM Note CM Note Notes: Spoke w/RN, PT/TO cleared pt to go home with help from . Will dc home when medically stable, CM available for any changes. DC Plan: Independent Date Signed: 12/08/2017 11:50 AM Electronically Signed By:Marialuisa Baptiste RN
[2017-12-08] MEDS: D5W 1/2 NS W/ 20 KCl/L 1,000 ML IV SCH (12:15)
[2017-12-08] MEDS: LORazepam 1 MG TAB PO SCH (14:08)
[2017-12-08] MEDS: DOXEPIN HCL 50 MG CAP PO SCH ×2 (14:09→20:17)
--- NOTE | 2017-12-08 19:30 | SOAPPROG ---
AMY Progress Note Assessment/Plan: Assessment:Plan: see full dictated consult PPI BID - she has omeprazole 40mg 30-60 minutes before breakfast and dinner ranitidine 300mg PO QHS MRCP - they are very behind today, will be in am 12/08/17 19:28 Objective: Vital Signs Temp Pulse Resp BP Pulse Ox 36.9 C 59 L 16 102/67 95 12/08/17 15:01 12/08/17 15:01 12/08/17 15:01 12/08/17 15:01 12/08/17 15:01 Laboratory Results 12/08/17 04:14 12/08/17 04:14 12/07/17 12/08/17 12/09/17 05:59 05:59 05:59 Intake Total 1000 800 Output Total 950 Balance 50 800 ICD10 Worksheet Patient Problems: Problems Problem Status Onset Abdominal pain Acute Abdominal pain Acute Chronic abdominal pain Acute Chronic nausea Acute Dehydration Acute Failure to thrive Acute Hypokalemia Acute Urinary tract infection Acute Vomiting Acute Weakness Acute
[2017-12-08] MEDS: RANITIDINE HCL 150 MG/10 ML UDCUP PO SCH (20:16)
[2017-12-08] MEDS: CARBIDOPA/LEVODOPA 25 MG/100 MG TAB PO SCH (20:16)
--- NOTE | 2017-12-08 23:43 | GCON ---
[f rep st] CONSULTATION DATE OF CONSULTATION: 12/08/2017 REFERRING PHYSICIAN: Nilson Bacon MD INDICATION FOR CONSULTATION: Abdominal pain, elevated liver enzymes. HISTORY OF PRESENT ILLNESS: I have been asked by Nilson Bacon M.D. to see this patient in consultation for chief complaint of abdominal pain and elevated liver enzymes. She is a 67-year-old female with past medical history significant for hepatitis C, status post eradication hepatocellular carcinoma undergoing therapy. She has chronic abdominal pain, bipolar disorder, and Parkinson's disease as well. She tells me this pain that she is having today is significantly different than what she has had in the past. She thought it seemed like a pancreatitis. Her pain was both right upper quadrant as well as epigastric. Did not radiate towards her back. She did have elevated liver enzymes when admitted that have been decreasing since admission. She has had significant imaging studies including HIDA scans, sonogram, CT scans, but she has not had an MRCP. She did have sonograms suggestive of gallbladder hydrops, but a HIDA scan was negative. She also had an EGD a few months ago that showed mild gastritis and no other significant lesions. She also describes what sounds like reflux symptoms with gas or fluid going back up her esophagus. She sits upright to sleep at night. She does take acid medications, but has had reactions to pantoprazole in the past. She does not complain of dysphagia, nausea, vomiting, odynophagia, or early satiety. She is admitted for the above , and I am called to help evaluate in that regard. PAST MEDICAL AND SURGICAL HISTORY: Hepatocellular carcinoma, hepatitis C, status post eradication with Harvoni, chronic abdominal pain, Parkinson's disease, bipolar disorder. August 2016 arterial embolectomy by interventional Radiology. Hysterectomy MEDICATIONS: In house include: Tylenol p.r.n., Sinemet 1 tab p.o. at bedtime, Sinequan 50 mg p.o. twice daily, Cymbalta 20 mg daily, Lovenox 30 mg daily, Neurontin 300 mg p.o. at bedtime, Dilaudid 0.4-0.6 IV p.r.n., Zestril 20 mg daily, Ativan p.r.n., Namenda 10 mg twice daily, Zofran p.r.n., oxycodone p.r.n. breakthrough, Mirapex 0.125 mg p.o. three times daily, Inderal 20 mg p.o. twice daily, psyllium husks. ALLERGIES: Pantoprazole, Geodon. SOCIAL HISTORY: She used to drink significantly. She does not drink or smoke currently. FAMILY HISTORY: No GI malignancies. No hepatocellular carcinoma in her family. ROS: A complete review of systems was performed and is negative other then noted in the HPI PHYSICAL EXAM: GENERAL: Chronically ill-appearing female sitting up in her bed , in mild discomfort. VITAL SIGNS: Blood pressure 144/74, pulse is 60, respirations are 16. She is 95% on room air. Temperature 36.1. EYES: Anicteric. ENRIQUE, EOMI. MOUTH: No lesions. Moist membranes. NECK: Supple. Full range of motion. No JVD. BACK: No spine tenderness. No CVA tenderness. LUNGS: Clear. CARDIAC: S1, S2. Regular rate and rhythm. No murmurs, rubs or gallops appreciated. ABDOMEN: Soft. She has tenderness diffusely more so in the epigastrium, somewhat in the right upper quadrant. No rebound or guarding. EXTREMITIES: No cyanosis, clubbing, or edema. NEUROLOGIC: Cranial nerves intact, nonfocal. SKIN: No rashes. She does have some palmar erythema consistent with her cirrhosis. LABORATORY DATA: From today: WBC 4.32, hemoglobin 14.7, hematocrit 42.3, platelet count 111. Sodium 139, potassium 3.2, chloride 103. Bicarbonate is 26. BUN is 12, creatinine I 1.1. Currently her AST is normal at 43, ALT 25, and alkaline phosphatase is 170. On admission, her AST was 87, decreasing to 63 and now 43. The ALT was 59, 58, and now 25. The alkaline phosphatase was 272, 197 and now 170. Lipase was 351 on admission and is 410 today. H pylori antigen from May 2016 was negative. IMAGING STUDIES: Abdominal CT scan performed December 06, 2017, negative for pancreatitis. Postoperative changes are noted involving the liver. No definite source for abdominal pain is identified. There is a 2.4 x 1.8 x 2.9 versus 2.9 x 2.4 previously low-attenuation in the upper medial aspect of the right hepatic lobe. There is a loculated fluid collection in the periphery of the right lobe that is unchanged. The left lobe of the liver extends far laterally into the left upper quadrant. Spleen is normal. Pancreas is normal. There is no edema or heterogeneous pancreatic attenuation to suggest pancreatitis. Mild prominence of the pancreatic duct which is not significantly changed. Hepatobiliary scan, HIDA scan performed September 18, 2017. No evidence of common duct obstruction. Ejection fraction is estimated at 64%. Abdominal ultrasound performed March 20, 2017. Distended gallbladder without evidence of cholecystitis, pericholecystic fluid or wall thickening. Right hepatic lobe mass compatible with known treated hepatoma. EGD performed September 19, 2017: Normal esophagus, small hiatal hernia and chronic gastritis, normal duodenum. Pathology from that procedure revealed duodenal mucosa without evidence of celiac sprue. Mild chronic nonspecific superficial gastritis. H pylori mucus stain was negative. Squamous in focal gastric type mucosa with chronic inflammation. No evidence of intestinal metaplasia, dysplasia, malignancy in the esophageal biopsies. ASSESSMENT: 1. Abdominal pain. 2. Elevated liver enzymes. 3. History of hepatoma. 4. History of varices status post eradication. 5. Bipolar disorder. 6. Mildly elevated lipase, although no evidence of pancreatitis on CT scan. RECOMMENDATIONS: 1. MRCP for evaluation for choledocholithiasis, also evaluate the pancreatic duct better. 2. Follow lipase. If increasing, would consider this to be clinical pancreatitis and have her n.p.o. or on clear liquids only. 3. Treatment of her bipolar disorder, Parkinson's disease as per hospitalist. 4. The patient does have chronic pain. She says that this episode is different from what she had originally. She has had multiple evaluations of her gallbladder which have been abnormal and different imaging, although I have not noted any MRCP. She has had a previous EGD now, and I do not think repeating EGD is appropriate, although I will alter her acid medications to include a PPI half an hour before breakfast, half an hour before dinner and at bedtime H2 RA. If that is helpful for her symptoms, once she has had improvement, we can taper down decreasing the PPI before dinner, and if she continues to do well, trying to decrease the nighttime ranitidine. If it is apparent that Ranitidine is very effective, we might try to decrease the a.m. PPI. She can take her Omeprazole 40mg PO BID as she has had reactions to pantoprazole in the past. Thank you very much for allowing me to participate in this patient's health care. Do not hesitate to call me with questions. Gadiel Vidal MD /[id number]/MODL MTDD
[2017-12-09] MEDS: D5W 1/2 NS W/ 20 KCl/L 1,000 ML IV SCH (00:28)
[2017-12-09] MEDS: HYDROmorphONE/DILAUDID 1 MG/ML INJ IVP PRN ×6 (00:29→21:49)
[2017-12-09 05:24] LABS: PLATELET COUNT 96 10^3/uL (150-400)
[2017-12-09] MEDS: PROPRANOLOL HCL 20 MG TAB PO SCH ×2 (08:46→21:52)
[2017-12-09] MEDS: LISINOPRIL 20 MG TAB PO SCH (08:46)
[2017-12-09] MEDS: DULoxetine 20 MG CAP PO SCH (08:46)
[2017-12-09] MEDS: ONDANSETRON DISINTEGRATING 4 MG TAB PO SCH ×2 (08:47→17:26)
[2017-12-09] MEDS: PRAMIPEXOLE 0.125 MG TAB PO SCH ×3 (08:47→21:48)
[2017-12-09] MEDS: MEMANTINE HCL 5 MG TAB PO SCH ×2 (08:47→21:49)
--- NOTE | 2017-12-09 10:03 | SOAPPROG ---
SOAP Progress Note Assessment/Plan: Assessment: Patient with chronic abdominal pain. History of HCV s/p treatment with [facility] History of HCC, treated by Dr. Alvarado Patient with history of chronic abdominal pain that has been extensively worked up. Patient with significant psychiatric disorder and functional abdominal pain. Patient scheduled for MRCP to exclude the possibility of choledocholithiasis. MRCP Pending Plan: Supportive care Review MRCP Further recommendations pending MRCP Dietary consult after MRCP 12/09/17 09:58 Subjective: CC: Chronic upper abdominal pain, history of HCC. Patient is hungry and anxious to complete MRI Objective: Vital Signs Temp Pulse Resp BP Pulse Ox 36.8 C 54 L 16 146/85 H 97 12/09/17 07:51 12/09/17 07:51 12/09/17 07:51 12/09/17 07:51 12/09/17 07:51 Laboratory Results 12/09/17 04:25 12/09/17 04:25 12/08/17 12/09/17 12/10/17 05:59 05:59 05:59 Intake Total 1000 800 Output Total 950 Balance 50 800 Generic Name Dose Route Start Last Admin Trade Name Freq PRN Reason Stop Dose Admin Acetaminophen 650 mg 12/06/17 15:02 Tylenol PO 06/04/18 15:01 Q4HRS PRN Pain, Mild/Fever, Can Take PO Carbidopa/Levodopa 1 tab 12/07/17 21:00 12/08/17 20:16 Sinemet PO 06/05/18 20:59 1 tab HS GLEN Administration Doxepin HCl 50 mg 12/07/17 14:00 12/08/17 20:17 Sinequan PO 06/04/18 20:59 50 mg BID@1400,2100 GLEN Administration Duloxetine HCl 20 mg 12/07/17 09:00 12/09/17 08:46 Cymbalta PO 06/05/18 08:59 20 mg DAILY GLEN Administration Enoxaparin Sodium 30 mg 12/08/17 09:00 12/08/17 09:29 Lovenox SC 06/06/18 08:59 30 mg DAILY GLEN Administration Gabapentin 300 mg 12/06/17 17:12 Neurontin PO 06/04/18 17:11 HS PRN restless legs Hydromorphone HCl 0.4 - 0.6 mg 12/06/17 15:08 02/10/18 08:53 Dilaudid IVP 12/16/17 15:07 0.6 mg Q4HRS PRN Administration Pain, Severe Unable to Take PO Potassium Chloride/Dextrose/Sod Cl 1,000 mls @ 75 mls/hr 12/08/17 06:45 12/09 00:28 D5w 1/2 Ns W/ 20 Kcl/L IV 06/06/18 06:44 1,000 mls CONT GLEN Administration Lisinopril 20 mg 12/06/17 15:15 12/09/17 08:46 Zestril PO 06/04/18 15:14 20 mg DAILY GLEN Administration Lorazepam 0.5 - 1 mg 12/06/17 15:02 12/07/17 03:39 Ativan PO 06/04/18 15:01 1 mg Q8HRS PRN Administration Anxiety, Able to Take PO Lorazepam 4 mg 12/07/17 14:00 12/08/17 14:08 Ativan PO 06/05/18 13:59 4 mg DAILY@1400 GLEN Administration Memantine 10 mg 12/06/17 21:00 12/09/17 08:47 Namenda PO 06/04/18 20:59 10 mg BID GLEN Administration Miscellaneous Medication 40 mg 12/07/17 09:00 12/08/17 09:10 Omeprazole [Prilosec 20 Mg] PO 06/05/18 08:59 40 mg DAILY GLEN Administration Ondansetron HCl 4 mg 12/06/17 15:02 12/07/17 11:40 Zofran IVP 06/04/18 15:01 4 mg Q4HRS PRN Administration Nausea/Vomiting, Can't Take PO Ondansetron HCl 4 mg 12/06/17 15:02 12/06/17 15:38 Zofran Odt PO 06/04/18 15:01 4 mg Q4HRS PRN Administration Nausea/Vomiting, Use 1st Ondansetron HCl 8 mg 12/06/17 18:00 12/09/17 08:47 Zofran Odt PO 06/04/18 17:59 8 mg BIDMEAL GLEN Administration Oxycodone HCl 10 - 30 mg 12/06/17 15:19 Oxycodone Ir PO 12/16/17 15:18 DAILY PRN PAIN,BREAKTHROUGH Pramipexole Dihydrochloride 0.125 mg 12/06/17 16:00 12/09/17 08:47 Mirapex PO 06/04/18 15:59 0.125 mg TID GLEN Administration Propranolol HCl 20 mg 12/06/17 21:00 12/09/17 08:46 Inderal PO 06/04/18 20:59 20 mg BID GLEN Administration Psyllium Hydrophilic Mucilloid 1 each 12/07/17 09:00 12/08/17 09:32 Metamucil/Konsyl PO 06/05/18 08:59 Not Given DAILY GLEN Ranitidine HCl 300 mg 12/08/17 21:00 12/08/17 20:16 Zantac PO 06/06/18 20:59 300 mg HS GLEN Administration Discontinued Medications Generic Name Dose Route Start Last Admin Trade Name Freq PRN Reason Stop Dose Admin Doxepin HCl 50 mg 12/06/17 21:00 12/06/17 20:44 Sinequan PO 06/04/18 20:59 50 mg BID GLEN Administration Enoxaparin Sodium 40 mg 12/07/17 09:00 12/08/17 11:09 Lovenox SC 06/05/18 08:59 Not Given DAILY GLEN Hydromorphone HCl 0.5 mg 12/06/17 09:26 12/06/17 09:48 Dilaudid IVP 12/06/17 09:27 0.5 mg EDNOW ONE Administration Sodium Chloride 1,000 mls @ 0 mls/hr 12/06/17 09:26 12/06/17 09:38 Ns IV 12/06/17 09:27 1,000 mls ONCE ONE Administration Wide Open Dextrose/Sodium Chloride 1,000 mls @ 100 mls/hr 12/06/17 15:15 12/07/17 21:28 D5w 1/2 Ns IV 06/04/18 15:14 1,000 mls CONT GLEN Administration Influenza Virus Vaccine Quadrival 0.5 ml 12/07/17 10:15 12/07/17 10:30 Fluarix Quad IM 12/07/17 10:16 0.5 ml .ONCE ONE Administration Influenza Virus Vaccine Quadrival Confirm 12/07/17 10:21 Fluarix Quad [id number] Administered 02/08/18 10:22 Dose 0.5 ml IM .STK-MED ONE Iopamidol Confirm 12/06/17 17:04 Isovue-300 Administered 12/06/17 17:05 Dose 100 ml .ROUTE .STK-MED ONE Miscellaneous Medication 10 - 30 mg 12/06/17 15:03 Oxycodone Hcl [Dazidox] PO DAILY PRN Pain, Breakthrough Physical Exam - Physical Exam General Appearance: alert, no apparent distress Respiratory: lungs clear Cardiac/Chest: regular rate, rhythm Abdomen: normal bowel sounds, soft, other (tender to palpation in upper abdomen) ICD10 Worksheet Patient Problems: Problems Problem Status Onset Abdominal pain Acute Abdominal pain Acute Chronic abdominal pain Acute Chronic nausea Acute Dehydration Acute Failure to thrive Acute Hypokalemia Acute Urinary tract infection Acute Vomiting Acute Weakness Acute
[2017-12-09] MEDS: LORazepam 0.5 MG TAB PO PRN ×2 (11:02→19:56)
[2017-12-09] MEDS: OMEPRAZOLE 40 MG PO SCH ×2 (11:48→13:54)
[2017-12-09] MEDS: PSYLLIUM METAMUCIL 1 PKT PO SCH ×2 (11:48→13:54)
[2017-12-09] MEDS: ENOXAPARIN 30 MG/0.3 ML SYR SC SCH (13:58)
[2017-12-09] MEDS: LORazepam 1 MG TAB PO SCH (13:59)
[2017-12-09] MEDS: DOXEPIN HCL 50 MG CAP PO SCH ×2 (14:00→21:48)
--- NOTE | 2017-12-09 15:50 | HOSPPROG ---
Hospitalist Progress Note Assessment/Plan: 67-year-old with chronic abdominal pain comes in with increased pain after running out of her pain medications. She has chronically elevated LFTs due to a history of chronic hep C (treated) and hepatoma. MRCP done today was fairly unremarkable # abdominal pain, hungry after her MRI and will order regular diet. Discussed with Dr. Bran who agrees this is likely chronic abdominal pain without likely etiology found. She has had a thorough workup as an outpatient which has been benign except for the hepatoma. * Resume diet today * If eating and drinking tomorrow can likely DC home * Follow up with her regular doctor # hypokalemia replace as needed # hepatocellular carcinoma status post chemoembolization # hepatitis C status post treatment # cirrhosis noted on MRI # depression currently on Celexa and doxepin # Parkinson's on Sinemet and Mirapex # chronic abdominal pain on continuous narcotics. # hypertension, stable Subjective: Patient new to me and chart reviewed complains of abdominal pain but very hungry and wants to eat an omelet Objective: Vital Signs Temp Pulse Resp BP Pulse Ox 36.7 C 62 14 120/65 96 12/09/17 15:05 12/09/17 15:05 12/09/17 15:05 12/09/17 15:05 12/09/17 15:05 Laboratory Results 12/09/17 04:25 12/09/17 04:25 12/08/17 12/09/17 12/10/17 05:59 05:59 05:59 Intake Total 1000 800 Output Total 950 Balance 50 800 - Physical Exam Constitutional: no apparent distress, chronically ill appearing Eyes: PERRL Ears, Nose, Mouth, Throat: moist mucous membranes Cardiovascular: regular rate and rhythym, no murmur, rub, or gallop Respiratory: no respiratory distress, clear to auscultation Gastrointestinal: tenderness, No guarding, No rebound, No distension Genitourinary: no bladder fullness Skin: warm Neurologic: AAOx3 Psychiatric: interacting appropriately, not anxious ICD10 Worksheet Patient Problems: Problems Problem Status Onset Vomiting Acute Hypokalemia Acute Abdominal pain Acute Weakness Acute Dehydration Acute Chronic abdominal pain Acute Chronic nausea Acute Urinary tract infection Acute Abdominal pain Acute Failure to thrive Acute
[2017-12-09] MEDS: CARBIDOPA/LEVODOPA 25 MG/100 MG TAB PO SCH (21:49)
[2017-12-09] MEDS: RANITIDINE HCL 150 MG/10 ML UDCUP PO SCH (21:57)
[2017-12-10] MEDS: D5W 1/2 NS W/ 20 KCl/L 1,000 ML IV SCH (01:10)
[2017-12-10 04:22] VITALS: O2SAT 97
[2017-12-10] MEDS: HYDROmorphONE/DILAUDID 1 MG/ML INJ IVP PRN ×2 (04:36→09:11)
[2017-12-10 07:10] VITALS: BP 146/85; PULSE 74; RESP 14; TEMP 97.9
[2017-12-10] MEDS: ENOXAPARIN 30 MG/0.3 ML SYR SC SCH (09:15)
[2017-12-10] MEDS: PROPRANOLOL HCL 20 MG TAB PO SCH (09:16)
[2017-12-10] MEDS: ONDANSETRON DISINTEGRATING 4 MG TAB PO SCH (09:16)
[2017-12-10] MEDS: PRAMIPEXOLE 0.125 MG TAB PO SCH (09:16)
[2017-12-10] MEDS: MEMANTINE HCL 5 MG TAB PO SCH (09:17)
[2017-12-10] MEDS: LISINOPRIL 20 MG TAB PO SCH (09:17)
[2017-12-10] MEDS: DULoxetine 20 MG CAP PO SCH (09:18)
[2017-12-10] MEDS: PSYLLIUM METAMUCIL 1 PKT PO SCH (09:18)
[2017-12-10] MEDS: OMEPRAZOLE 40 MG PO SCH (09:20)
--- NOTE | 2017-12-10 10:57 | GDS ---
[f rep st] DISCHARGE SUMMARY DIAGNOSES: 1. Acute on chronic abdominal pain, worsened 3 days after running out of her oxycodone. 2. History of hepatocellular carcinoma, status post chemoembolization. 3. History of treated hepatitis C. 4. Chronically elevated LFTs, stable. 5. Parkinson's disease. 6. Depression. 7. Hypertension. 8. Cirrhosis noted on MRI of the abdomen. PROCEDURES DONE: 1. Abdominal CT: Negative for pancreatitis. Postoperative changes noted in the liver. No source o f abdominal pain found. 2. MRI of the abdomen. No evidence for a choledochal stone or dilation of the common bile duct, slu dge in the gallbladder, mild free fluid in the gallbladder fossa. Finding suggesting underlying cirr hosis in the liver, treated hepatoma right lobe of the liver, similar in size. CONSULTATIONS: Dr. Maxim Bran, and Dr. Gadiel Vidal from . HOSPITAL COURSE: The patient is a 67-year-old with a medical history significant for hepatocellular carcinoma, status post chemoembolization and hepatitis C. She also has a history of chronic narcotic dependency. Her new primary care provider has elected to wean her off the narcotics in an attempt t o treat her with other medications for her chronic abdominal pain. She stopped her oxycodone approxi mately 3 days prior to admission, when her pain became unbearable and she was having trouble taking i n orally, so she was admitted to the hospital for further evaluation and treatment. She was given IV Dilaudid in the hospital which treated her pain. She had the above procedures done, which revealed no obvious cause for her abdominal pain. It is suspected that she has acute on chronic abdominal hilario n secondary to discontinuation of her narcotics, with some underlying psychosocial issues. There is no further evaluation needed during this hospitalization. However, I will give her a small supply of 30 oxycodone (5 mg). She is to follow up with her primary care provider. I also gave her the numbe r of Dr. Gadiel Vidal from , as she would like to follow up with him as well. She continues to h ave fairly significant abdominal pain, but again no obvious cause found during this admission. DISCHARGE MEDICATIONS: Please see discharge medication form, in addition to the oxycodone. She was started on ranitidine at night. FOLLOWUP INSTRUCTIONS: She should follow up with her primary care provider, Dr. Nicolas Raymond, as well as Dr. Gadiel Vidal as an outpatient. I did recommend if her primary care providers does not feel that narcotics are helping her, then she should consider seeing a pain specialist for this chronic i ssue. Total time spent with patient on day of discharge and coordination of care is 35 minutes. Copy requested to: Nicolas Raymond In [place] /[id number]/MODL
--- NOTE | 2017-12-13 15:56 | PQFORM ---
PHYSICIAN QUERY FORM Needs Your Response This query form is being sent to you to assure this patient record is coded properly. 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 Did this patient have Severe Protein Calorie Malnutrition ? __x_ Yes ___ No ___ Unable to Determine ___ Other (please specify ) Thank You Aggie VILLEDA Support Technician INSTRUCTIONS FOR RESPONSE: Answer question by clicking on the "Edit Document" button. Move cursor to area below the stars. When complete, hit "Save." Click on the "Sign" button, then click "Sign" again. Type in your PIN and hit "Enter." MTDD
== END 2017-12-10 11:31 | disposition home or self-care (01) | DRG 391 ==
LOC: F3E 13:30 → OBSVTOIN 12-07 16:59
PROVIDERS: ADMIT Student in an Organized Health Care Education/Training Program; ATTEND Student in an Organized Health Care Education/Training Program
DX: R10.13 Epigastric pain (principal); G89.29 Other chronic pain; F11.20 Opioid dependence, uncomplicated; C22.0 Liver cell carcinoma; E43 Unspecified severe protein-calorie malnutrition; Z68.1 Body mass index [BMI] 19.9 or less, adult; E87.6 Hypokalemia; F31.9 Bipolar disorder, unspecified; G20 Parkinson's disease; I10 Essential (primary) hypertension; K74.60 Unspecified cirrhosis of liver; Z86.19 Personal history of other infectious and parasitic diseases; Z87.891 Personal history of nicotine dependence; Z86.718 Personal history of other venous thrombosis and embolism
CPT/HCPCS: 96374; 97116-GP; 97162-GP; 97166-GO; 97530-GP; 97535-GO; G0008; G0378; G8987-GO-CI; G8988-GO-CI; J1170; J1650; J2405; Q9967

== ENCOUNTER 2017-12-25 16:31 | Observation (INO) | payer OTHER ==
--- NOTE | 2017-12-25 17:51 | EDPHY ---
H & P Stated Complaint: abd pain, inability to swallow Time Seen by Provider: 12/25/17 17:46 HPI/ROS: CHIEF COMPLAINT: [ ] HISTORY OF PRESENT ILLNESS: [Need 4: Location, Duration, Severity, Quality, Context, Timing Modifying Factors, Associated S&S] REVIEW OF SYSTEMS: A comprehensive 10 point review of systems is otherwise negative aside from elements mentioned in the history of present illness. Source: Patient - Personal History Current Tetanus/Diphtheria Vaccine: Yes Tetanus Vaccine Date: 2011 - Medical/Surgical History Hx Asthma: No Hx Chronic Respiratory Disease: No Hx Diabetes: No Hx Cardiac Disease: No Hx Renal Disease: No Hx Cirrhosis: Yes Hx Alcoholism: No Hx HIV/AIDS: No Hx Splenectomy or Spleen Trauma: No Other PMH: SOME ABD PROBLEM BEING WORKED UP, GERD,ESOPHAGITIS, GASTRITIS, SCOLIOSIS. HTN,ANXIETY, BI-POLAR DISORDER, ca of liver, Y-90 PROCEDURE OF LIVER --RADIOACTIVE SEEDS TO LIVER 1 year ago, total hysterectomy - Social History Smoking Status: Former smoker - Physical Exam Exam: General Appearance: [Alert, no distress] Eyes: [Pupils equal and round no pallor or injection] ENT, Mouth: [Mucous membranes moist] Respiratory: [There are no retractions, lungs are clear to auscultation] Cardiovascular: [Regular rate and rhythm] Gastrointestinal: [Abdomen is soft and nontender, no masses, bowel sounds normal] Neurological: [A&O, normal motor function, normal sensory exam, normal cranial nerves] Skin: [Warm and dry, no rashes] Musculoskeletal: [Neck is supple nontender] Extremities: [symmetrical, full range of motion] Psychiatric: [Patient is oriented X 3, there is no agitation] Constitutional: Initial Vital Signs Temperature (C) 36.8 C 12/25/17 16:51 Heart Rate 125 H 12/25/17 16:51 Respiratory Rate 18 12/25/17 16:51 Blood Pressure 176/106 H 12/25/17 16:51 O2 Sat (%) 95 12/25/17 16:51 O2 Delivery Mode Room Air Allergies/Adverse Reactions: aripiprazole [From Abilify] Allergy (Verified 12/25/17 16:50) pantoprazole sodium [From Protonix] Allergy (Verified 12/25/17 16:50) Rash ziprasidone HCl [From Geodon] Allergy (Verified 02/26/18 16:50) ziprasidone mesylate [From Geodon] Allergy (Verified 12/25/17 16:50) Home Medications: Medication Instructions Recorded LORazepam [Ativan 2 mg tab] 4 mg PO DAILY@14 03/20/17 Memantine HCl [Namenda 10 mg] 10 mg PO BID 03/20/17 Ondansetron [Zofran Odt] 8 mg PO BIDMEAL 03/20/17 Propranolol HCl [Inderal 20mg (*)] 20 mg PO BID 03/20/17 Doxepin HCl [Sinequan 50 MG (*)] 50 mg PO BID 09/17/17 Psyllium Seed [Metamucil (*)] 1 each PO DAILY pkt 09/19/17 DULoxetine [Cymbalta] 20 mg PO DAILY 12/06/17 Gabapentin [Neurontin 300 MG (*)] 300 mg PO HS PRN 12/06/17 Lisinopril [Zestril 20 mg (*)] 20 mg PO DAILY 12/06/17 Omeprazole [Prilosec 20 mg] 40 mg PO DAILY 12/06/17 Pramipexole Di-HCl [Mirapex 0.125 0.125 mg PO TID 12/06/17 mg (*)] Carbidopa/Levodopa 1 tab PO HS 12/07/17 [Carbidopa-Levodopa 25-100 Tab] Ranitidine HCl [Zantac] 300 mg PO HS #60 udcup 12/10/17 oxyCODONE IR [Oxycodone Ir (*)] 10 mg PO BID PRN #30 tab 12/10/17 Departure - Departure Referrals: TAWANDA GAINES [Other] - As per Instructions
[2017-12-25] MEDS ORDERED: NS 1,000 ML IV ONE ×2 (17:52→20:34)
--- NOTE | 2017-12-25 17:57 | EDPHY ---
H & P Stated Complaint: abd pain, inability to swallow Time Seen by Provider: 12/25/17 17:46 HPI/ROS: CHIEF COMPLAINT: Chronic abdominal pain HISTORY OF PRESENT ILLNESS: The patient presents the ED with chronic abdominal pain. The patient was post to see her coding file clerk today however she reports he was not in the office prompting her visit to the emergency department. She was hospitalized several weeks ago with abdominal pain. During that time she had a CT scan an MRI which demonstrated no obvious disease. The patient does have a history of underlying psychiatric disease as well as narcotic dependency for chronic pain. The patient lives in [place]. She presents to the ED today complaining of unmanaged abdominal pain. REVIEW OF SYSTEMS: A comprehensive 10 point review of systems is otherwise negative aside from elements mentioned in the history of present illness. Source: Patient Exam Limitations: No limitations - Personal History Current Tetanus/Diphtheria Vaccine: Yes Tetanus Vaccine Date: 2011 - Medical/Surgical History Hx Asthma: No Hx Chronic Respiratory Disease: No Hx Diabetes: No Hx Cardiac Disease: No Hx Renal Disease: No Hx Cirrhosis: Yes Hx Alcoholism: No Hx HIV/AIDS: No Hx Splenectomy or Spleen Trauma: No Other PMH: SOME ABD PROBLEM BEING WORKED UP, GERD,ESOPHAGITIS, GASTRITIS, SCOLIOSIS. HTN,ANXIETY, BI-POLAR DISORDER, ca of liver, Y-90 PROCEDURE OF LIVER --RADIOACTIVE SEEDS TO LIVER 1 year ago, total hysterectomy - Social History Smoking Status: Former smoker - Physical Exam Exam: General Appearance: Thin female, no acute distress Eyes: Pupils equal and round no pallor or injection ENT, Mouth: Mucous membranes moist Respiratory: There are no retractions, lungs are clear to auscultation Cardiovascular: Regular rate and rhythm Gastrointestinal: Minimal epigastric tenderness to palpation Neurological: A&O, normal motor function, normal sensory exam, normal cranial nerves Skin: Warm and dry, no rashes Musculoskeletal: Neck is supple nontender Extremities: symmetrical, full range of motion Constitutional: Initial Vital Signs Temperature (C) 36.8 C 12/25/17 16:51 Heart Rate 125 H 12/25/17 16:51 Respiratory Rate 18 12/25/17 16:51 Blood Pressure 176/106 H 12/25/17 16:51 O2 Sat (%) 95 12/25/17 16:51 O2 Delivery Mode Room Air Allergies/Adverse Reactions: aripiprazole [From Abilify] Allergy (Verified 12/25/17 16:50) pantoprazole sodium [From Protonix] Allergy (Verified 12/25/17 16:50) Rash ziprasidone HCl [From Geodon] Allergy (Verified 12/25/17 16:50) ziprasidone mesylate [From Geodon] Allergy (Verified 12/25/17 16:50) Home Medications: Medication Instructions Recorded LORazepam [Ativan 2 mg tab] 4 mg PO DAILY@14 03/20/17 Memantine HCl [Namenda 10 mg] 10 mg PO BID 03/20/17 Ondansetron [Zofran Odt] 8 mg PO BIDMEAL 03/20/17 Propranolol HCl [Inderal 20mg (*)] 20 mg PO BID 03/20/17 Doxepin HCl [Sinequan 50 MG (*)] 50 mg PO BID 09/17/17 Gabapentin [Neurontin 300 MG (*)] 300 mg PO HS PRN 12/06/17 Omeprazole [Prilosec 20 mg] 40 mg PO DAILY 12/06/17 Pramipexole Di-HCl [Mirapex 0.125 0.125 mg PO TID 12/06/17 mg (*)] Carbidopa/Levodopa 1 tab PO HS 12/07/17 [Carbidopa-Levodopa 25-100 Tab] Ranitidine HCl [Zantac] 300 mg PO HS #60 udcup 12/10/17 oxyCODONE IR [Oxycodone Ir (*)] 10 mg PO BID PRN #30 tab 12/10/17 Chlorthalidone [Chlorthalidone 25 50 mg PO DAILY 12/25/17 mg (*)] Herbals/Supplements -Info Only 1 ea PO DAILY 12/25/17 Psyllium Seed [Metamucil (*)] 1 each PO HS 12/25/17 Medical Decision Making - Diagnostics Imaging Results: Imaging Impressions Head CT 12/25/17 18:29 Impression: Stable negative noncontrast CT of the brain. Results called to Dr. García Russell at the time of the interpretation. ED Course/Re-evaluation: I reviewed the patient's prior admission including her workup with a CT scan and MRI earlier in the month. The patient had an IV established. She received 1 mg of IV Dilaudid. The patient's tells me he is quite upset that she was unable to be seen Gastroenterology today. He informs me that the patient's oncologist Dr. Shabbir Alvarado feels strongly that the patient get a colonoscopy for evaluation of her condition. The patient reports she is having on managed undiagnosed abdominal pain. She is refusing to go home with and insisting she be admitted for colonoscopy. The patient is quite thin and cachectic on exam. Clinically she is dehydrated. I did consult with Dr. Cristina Black from the hospitalist service who will admit the patient. Gastroenterology has also been consulted. I did speak with Dr. Cuba who will evaluate the patient for possible colonoscopy tomorrow. The patient should be prepped this evening and be made NPO after midnight. Differential Diagnosis: Differential diagnosis considered includes chronic abdominal pain, cholecystitis , pancreatitis, inflammatory bowel disorder, chronic narcotic dependent - Data Points Laboratory Results: Laboratory Results 12/25/17 19:55 12/25/17 18:20 12/25/17 12/25/17 12/25/17 19:55 19:00 19:00 WBC 3.77 10^3/uL L 10^3/uL REJ (3.80-9.50) RBC 4.73 10^6/uL 10^6/uL Not Reported (4.18-5.33) Hgb 13.5 g/dL g/dL Not Reported (12.6-16.3) Hct 40.2 % % Not Reported (38.0-47.0) MCV 85.0 fL fL Not Reported (81.5-99.8) MCH 28.5 pg pg Not Reported (27.9-34.1) MCHC 33.6 g/dL g/dL Not Reported (32.4-36.7) RDW 13.9 % % Not Reported (11.5-15.2) Plt Count 102 10^3/uL L 10^3/uL Not Reported (150-400) MPV 9.5 fL fL Not Reported (8.7-11.7) Neut % (Auto) 64.7 % % Not Reported (39.3-74.2) Lymph % (Auto) 21.2 % % Not Reported (15.0-45.0) Granite % (Auto) 12.5 % % Not Reported (4.5-13.0) Eos % (Auto) 1.1 % % Not Reported (0.6-7.6) Baso % (Auto) 0.5 % % Not Reported (0.3-1.7) Nucleat RBC Rel Count 0.0 % % Not Reported (0.0-0.2) Absolute Neuts (auto) 2.44 10^3/uL 10^3/uL Not Reported (1.70-6.50) Absolute Lymphs (auto) 0.80 10^3/uL L 10^3/uL Not Reported (1.00-3.00) Absolute Monos (auto) 0.47 10^3/uL 10^3/uL Not Reported (0.30-0.80) Absolute Eos (auto) 0.04 10^3/uL 10^3/uL Not Reported (0.03-0.40) Absolute Basos (auto) 0.02 10^3/uL 10^3/uL Not Reported (0.02-0.10) Absolute Nucleated RBC 0.00 10^3/uL 10^3/uL Not Reported (0-0.01) Immature Gran % 0.0 % % Not Reported (0.0-1.1) Immature Gran # 0.00 10^3/uL 10^3/uL Not Reported (0.00-0.10) PT 12.8 SEC SEC (12.0-15.0) INR 0.94 (0.83-1.16) Sodium Potassium Chloride Carbon Dioxide Anion Gap BUN Creatinine Estimated GFR Glucose Calcium Total Bilirubin Conjugated Bilirubin Unconjugated Bilirubin AST ALT Alkaline Phosphatase Total Protein Albumin Lipase 12/25/17 12/25/17 18:20 18:20 WBC RBC Hgb Hct MCV MCH MCHC RDW Plt Count MPV Neut % (Auto) Lymph % (Auto) Granite % (Auto) Eos % (Auto) Baso % (Auto) Nucleat RBC Rel Count Absolute Neuts (auto) Absolute Lymphs (auto) Absolute Monos (auto) Absolute Eos (auto) Absolute Basos (auto) Absolute Nucleated RBC Immature Gran % Immature Gran # PT INR Sodium 134 mEq/L L mEq/L (135-145) Potassium 3.0 mEq/L L mEq/L (3.5-5.2) Chloride 98 mEq/L mEq/L (97-110) Carbon Dioxide 23 mEq/l mEq/l (22-31) Anion Gap 13 mEq/L mEq/L (8-16) BUN 11 mg/dL mg/dL (7-23) Creatinine 1.4 mg/dL H mg/dL (0.6-1.0) Estimated GFR 38 Glucose 110 mg/dL H mg/dL (70-100) Calcium 10.0 mg/dL mg/dL (8.5-10.4) Total Bilirubin 0.5 mg/dL mg/dL (0.1-1.4) Conjugated Bilirubin 0.4 mg/dL mg/dL (0.0-0.5) Unconjugated Bilirubin 0.1 mg/dL mg/dL (0.0-1.1) AST 41 IU/L IU/L (14-46) ALT 54 IU/L H IU/L (9-52) Alkaline Phosphatase 247 IU/L H IU/L (38-126) Total Protein 7.1 g/dL g/dL (6.3-8.2) Albumin 3.9 g/dL g/dL (3.5-5.0) Lipase 187 IU/L IU/L (23-300) Medications Given: Ondansetron HCl (Zofran) 4 mg IVP Q4 PRN PRN Reason: Nausea/Vomiting, Can't Take PO Stop: 06/23/18 22:13 Last Admin: 12/25/17 22:45 Dose: 4 mg Oxycodone HCl (Oxycodone Ir) 10 mg PO BID PRN PRN Reason: PAIN,BREAKTHROUGH Stop: 01/04/18 22:12 Last Admin: 12/25/17 22:45 Dose: 10 mg Discontinued Medications Hydromorphone HCl (Dilaudid) 1 mg IVP EDNOW ONE Stop: 12/25/17 19:00 Last Admin: 12/25/17 19:12 Dose: 1 mg Hydromorphone HCl (Dilaudid) 1 mg IVP EDNOW ONE Stop: 12/25/17 20:49 Last Admin: 12/25/17 20:56 Dose: 1 mg Sodium Chloride (Ns) 1,000 mls @ 0 mls/hr IV EDNOW ONE; Wide Open PRN Reason: Protocol Stop: 12/25/17 17:53 Last Admin: 12/25/17 18:02 Dose: 1,000 mls Sodium Chloride (Ns) 1,000 mls @ 0 mls/hr IV EDNOW ONE; Wide Open PRN Reason: Protocol Stop: 12/25/17 20:35 Last Admin: 12/25/17 20:56 Dose: 1,000 mls Polyethylene Glycol/Electrolytes (Gavilyte - G) 4,000 ml PO EDNOW ONE Stop: 12/25/17 20:44 Last Admin: 12/25/17 21:27 Dose: 4,000 ml Departure - Departure Disposition: [facility] Inpatient Acute Clinical Impression: Chronic abdominal pain, Failure to thrive Condition: Fair
[2017-12-25] MEDS ORDERED: HYDROmorphONE/DILAUDID 1 MG/ML INJ IVP ONE ×2 (18:59→20:48)
[2017-12-25] MEDS ORDERED: PEG 3350/NA SULF,BICARB,CL/KCL (GAVILYTE-G) 4000 ML BTL PO ONE (20:43)
[2017-12-25 20:45] LABS: PLATELET COUNT 102 10^3/uL (150-400)
[2017-12-25 20:52] LABS: INR 0.94 (0.83-1.16); PROTIME(PATIENT) 12.8 SEC (12.0-15.0)
[2017-12-25] MEDS ORDERED: GABAPENTIN 300 MG CAP PO PRN (22:13)
[2017-12-25] MEDS ORDERED: PROMETHAZINE HCL 25 MG/ML INJ IVP PRN (22:14)
[2017-12-25] MEDS ORDERED: ONDANSETRON 4 MG/2 ML VIAL IVP PRN (22:14)
[2017-12-25] MEDS ORDERED: PROTOCOL POTASSIUM 1 DOSE MISC PRN (22:16)
[2017-12-25] MEDS: oxyCODONE IR 5 MG TAB PO PRN (22:45)
[2017-12-26] MEDS: LORazepam 0.5 MG TAB PO PRN (00:50)
[2017-12-26] MEDS ORDERED: PEG 3350/NA SULF,BICARB,CL/KCL (GAVILYTE-G) 4000 ML BTL PO ONE (01:46)
[2017-12-26] MEDS ORDERED: CEPACOL LOZENGE PO PRN (01:47)
[2017-12-26] MEDS ORDERED: LIDOCAINE 2% JELLY 5 ML TUBE TP ONE (01:56)
[2017-12-26] MEDS ORDERED: D5W NS W/ 20 KCl/L 1,000 ML IV SCH (02:00)
[2017-12-26] MEDS: LORazepam 2 MG/ML INJ IVP PRN ×2 (02:22→10:58)
[2017-12-26] MEDS: HYDROmorphONE/DILAUDID 2 MG/ML INJ IVP PRN ×3 (04:24→20:15)
--- NOTE | 2017-12-26 05:02 | GHP ---
[f rep st] PREOP HISTORY AND PHYSICAL DATE OF ADMISSION: 12/25/2017 PCP: Dr. Nicolas Raymond. SOURCE: Patient provides history, is fair historian. EMR was reviewed and case discussed with [facility] hospitalist. CHIEF COMPLAINT: Abdominal pain. HISTORY OF PRESENT ILLNESS: This is a 67-year-old female with a past medical history significant for chronic abdominal pain on chronic narcotic therapy, anxiety, depression, bipolar disorder, history o f liver cancer status post chemoembolization, history of HCV status post treatment, cirrhosis, hypert ension, Parkinson, who presents to the emergency department today with complaints of increased acute on chronic abdominal pain. Patient is reporting upper, midline abdominal, sharp, searing pain that i s chronic, constant. The pain is improved by narcotics, but is not worsened significantly by anythin g. Patient also denies any bloating, but she does report that she is currently constipated. At base line, she has a history of a fluctuating bowel function from diarrhea type to constipation. The shira ent also reports for the last 3 days, she has been experiencing increasing nausea, vomiting without a ny diarrhea. She denies any melena, hematochezia. No hematemesis was reported. The patient reports some subjective fevers, but no chills. No measured temperatures. The patient was recently admitted 12/07/2017 and discharged on 12/10/2017 for evaluation of acute on chronic abdominal pain. She underwent extensive evaluation with abdominal MRI, which showed no evide nce for choledochal stone or dilation of the common bile duct. There was some sludge noted in the ga llbladder. No free fluid. Is also suggesting underlying cirrhosis in the liver, treated hepatoma in the right lobe of the liver that is unchanged in size, and similar abnormal signal in the posterior of the gallbladder fossa on the right lobe of the liver. Otherwise, no evidence of obstructive proce ss or small bowel obstruction that would explain patient's chronic pain. REVIEW OF SYSTEMS: GENERAL: Subjective fevers, no chills. The patient does report some generalized weakness in strength. SKIN: Patient denies any rash or sores. ENT: Patient does report some pers istent hoarseness, rhinorrhea, sore throat, and also some dental pain. CV: Patient denies any chest pain, occasional palpitations. RESPIRATORY: Positive shortness of breath. No cough. GI: See HPI as above. : No dysuria or hematuria. No flank pain. MUSCULOSKELETAL: The patient complains of chronic back pain with a history of scoliosis. NEURO: Patient does report a headache. She denies any numbness, tingling. PSYCH: The patient reports some suicidal ideation without any intent or vanessa ns to harm herself. She reports that due to the pain being so severe sometimes she feels like she ca nnot handle it anymore, but she reports that she wants to live and participate in multiple experience s. ALLERGIES: Aripiprazole, pantoprazole, ziprasidone. MEDICATIONS: At home oxy IR 10 mg p.o. b.i.d. p.r.n., ranitidine 300 mg p.o. h.s., Metamucil 1 mg p. o. h.s., propranolol 20 mg p.o. b.i.d., Mirapex 0.125 mg p.o. t.i.d., Zofran 8 mg p.o. twice daily wi , Prilosec 40 mg p.o. daily, Memantine 10 mg p.o. b.i.d., lorazepam 4 mg p.o. daily at 2 p.m. , gabapentin 300 mg p.o. daily p.r.n., doxepin 550 mg p.o. b.i.d., chlorthalidone 50 mg p.o. daily, c arbidopa levodopa 25/100 one tab p.o. at h.s. PAST MEDICAL HISTORY: Significant for history of cirrhosis, hep C status post treatment, chronically elevated LFTs, hepatocellular carcinoma status post chemoembolization, anxiety, depression, bipolar disorder, liver cancer, Parkinson. PAST SURGICAL HISTORY: Significant for radioactive seeds in the liver, a total hysterectomy. FAMILY HISTORY: Mother with chronic nausea, vomiting. Family history of diabetes. SOCIAL HISTORY: Patient is . She lives with her . She quit smoking. She does not cu rrently drink. She does use medical marijuana. CODE STATUS: Full. PHYSICAL EXAMINATION: VITAL SIGNS: Upon arrival to the emergency department, blood pressure 176/106 , heart rate 125, respiratory rate 18, O2 saturation 95% on room air with a temperature of 36.8. Vit al signs currently available, blood pressure 132/73, heart rate of 75, respiratory rate 18, O2 sat 10 0% on room air with a temperature of 36.6. GENERAL: No acute distress, pleasant, thin, cachectic-ap pearing female, who is lying in bed with her . HEAD: Normocephalic, atraumatic. EYES: Extr aocular muscles grossly intact. Pupils equal, round, decreased reactive to light bilaterally, but sy mmetric. No scleral icterus or conjunctival injection. ENT: Mucous membranes appear moist. No rachel pharyngeal erythema or exudates. NECK: Supple. Trachea midline. CV: Regular rate and rhythm. No murmurs, rubs, or gallops appreciated. Slightly distant heart sounds. RESPIRATORY: Unlabored jess thing. Lungs are clear to auscultation bilaterally. No wheezes, rales, or rhonchi appreciated. ABD OMEN: Soft, but full. She has no rebound, guarding, or masses appreciated. Positive bowel sounds. : No suprapubic tenderness to palpation. No Snyder catheter in place. MUSCULOSKELETAL: Patient moves all extremities. Strength is generally decreased. No focal deficits. NEURO: Grossly nonfoca l. No facial drooping. Moves all extremities. Sensation intact. PSYCH: Thought process, content, and questions are appropriate at this time. Patient is awake, alert, and oriented x4. Patient does appear anxious, but she is pleasant and cooperative. She denies any current plans to harm herself. She reports sometimes she has trouble dealing with all the stress related to her chronic illness, ch ronic pain, and reports occasional thoughts of harming herself. None at this time. LABORATORY DATA: WBC 3.77, H and H is 13.5 and 40.2, MCV of 85.0, platelet count is 102. No bands. PT is 12.8. INR 0.94. Sodium 134, potassium 3.0, chloride is 98, CO2 is 23, anion gap 13, BUN 11, creatinine 1.4. Patient's baseline creatinine appears to be 1.1. Glucose 110, calcium 10.0, total b ilirubin 0.5, conjugated bilirubin 0.4, ALT is 54, alkaline phosphatase is 247, AST is 41, total prot ein 7.1, albumin is 3.9, lipase is 187. CT head showing a stable CT head. Basal ganglia calcificati ons are stable. ASSESSMENT AND PLAN: This is a 67-year-old female with a past medical history significant for chroni c abdominal pain with chronic opiate therapy with history of hepatocellular carcinoma and cirrhosis, who presents with complaints of acute on chronic abdominal pain. 1. Patient's abdominal pain is not significantly changed from her baseline. While patient's diet is still in place, will avoid any intravenous benzodiazepine. Patient has requested multiple times fro m the nurse. Really, the patient has been demanding her home medications or home narcotics, and also addition of intravenous. Will try to avoid this unless patient is n.p.o. Previously, it was concer gama the patient may have been withdrawing, as she had run out of her narcotics during last hospitaliz ation. Further evaluation at that time including MRI was negative for any evidence of acute process. Outpatient recommendation was for a colonoscopy. However, the patient presented and was also shruthi childs that it be done as an inpatient for worsening abdominal pain. She was initiated on GoLYTELY pre p, however, after just a few sips, patient reported that she was not able to do the prep. Further di scussion with options for completing a bowel prep was to utilize the nasogastric tube specifically fo r the prep, and then removed. Patient was amenable to this plan. A nasogastric tube was placed. Th e patient also currently reporting component of constipation, and the GoLYTELY will assist with abdom inal discomfort related to that. 2. History of hepatocellular carcinoma status post chemoembolization. 3. History of hepatitis C status post treatment. 4. Bipolar disorder. Resume patient's home medications. 5. Parkinson. Continue Sinemet, Mirapex. 6. Anxiety and depression. Patient with a large component of this. She is quite concerned regardin g her increasing pain and her discomfort associated with this. Patient did receive a dose of Ativan prior to my visit, and she reported that her abdominal pain had been under control with that. 7. Fluids, electrolytes, and nutrition. Patient receive some intravenous fluids for hydration overn ight while she is n.p.o. and receiving bowel prep. I will also add on a potassium infusion, as patie nt is slightly hypokalemic. 8. Hypokalemia, as above. Check a magnesium. Likely related to patient's complaint of recent histo ry of nausea, vomiting. She will remain n.p.o. pending colonoscopy and prep. 9. Prophylaxis. Sequential compression devices, holding anticoagulation in anticipation for colonos copy. 10. Code status is full. DISPOSITION: Patient will be admitted to observation status at this time on the medical floor. /[id number]/MODL
--- NOTE | 2017-12-26 11:50 | HOSPPROG ---
Hospitalist Progress Note Assessment/Plan: Patient is a 67-year-old female who presented the emergency room with abdominal pain. Today is my 1st encounter with the patient. Chart reviewed. Reviewed her recent dc summary here recently, recommendation was for f/u with GI. * acute on chronic abdominal pain -currently getting prepped for colonoscopy via NG -on admission patient was complaining of being bloated and concerned about being constipated -recently discharged on 12/10 for evaluation of acute on chronic abdominal pain. She had an MRI which showed no evidence of stone or dilation of the common bile duct -reviewed her PMH, has had multiple w/u for evaluation *hypokalemia -add protocol * history of hepatocellular carcinoma status post chemoembolization * history of anxiety and depression -suspect this is a component of her abdominal pain *underweight w a BMI of 15.4 * Parkinson's -med resumed * history of hepatitis C status post treatment *Plan: Dr Cuba to see today, >30 minutes f/u care Subjective: Renee says her body hurts. It's not just her abdomen. Objective: Vital Signs Temp Pulse Resp BP Pulse Ox 37.1 C 95 18 174/96 H 99 12/26/17 08:00 12/26/17 08:00 12/26/17 08:00 12/26/17 08:00 12/26/17 08:00 Laboratory Results 12/26/17 05:49 12/25/17 12/26/17 12/27/17 05:59 05:59 05:59 Intake Total 2000 Output Total 150 450 Balance 1850 -450 PT 12.8 SEC (12.0-15.0) 12/25/17 19:00 INR 0.94 (0.83-1.16) 12/25/17 19:00 - Physical Exam Constitutional: chronically ill appearing, other (thin) Eyes: PERRL Ears, Nose, Mouth, Throat: hearing normal Cardiovascular: regular rate and rhythym Respiratory: no respiratory distress Gastrointestinal: normoactive bowel sounds, soft, non-tender abdomen Skin: warm Musculoskeletal: generalized weakness Neurologic: AAOx3 Psychiatric: anxious ICD10 Worksheet Patient Problems: Problems Problem Status Onset Chronic abdominal pain Acute Failure to thrive Acute Abdominal pain Acute Abdominal pain Acute Chronic nausea Acute Dehydration Acute Hypokalemia Acute Urinary tract infection Acute Vomiting Acute Weakness Acute
[2017-12-26] MEDS ORDERED: LR 1,000 ML IV ONE (14:33)
--- NOTE | 2017-12-26 14:33 | PDANEPAE ---
ANE History of Present Illness idiopathic abdominal pain here for colonoscopy ANE Past Medical History - Cardiovascular History Hx Hypertension: Yes Hx Arrhythmias: No Hx Chest Pain: No Hx Coronary Artery / Peripheral Vascular Disease: No Hx CHF / Valvular Disease: No Hx Palpitations: No - Pulmonary History Hx COPD: No Hx Asthma/Reactive Airway Disease: No Hx Recent Upper Respiratory Infection: No Hx Oxygen in Use at Home: No Hx Sleep Apnea: No - Neurologic History Hx Cerebrovascular Accident: No Hx Seizures: No Hx Dementia: No - Endocrine History Hx Diabetes: No - Renal History Hx Renal Disorders: No - Liver History Hx Hepatic Disorders: Yes Hepatic History Comment: HEP C - Neurological & Psychiatric Hx Hx Neurological and Psychiatric Disorders: Yes Neurological / Psychiatric History Comment: BIPOLAR - Cancer History Hx Cancer: Yes - Congenital Disorder History Hx Congenital Disorders: No - GI History Hx Gastrointestinal Disorders: Yes Gastrointestinal History Comment: STOMACH ISSUES - Chronic Pain History Chronic Pain: Yes (GI pain; rates pain in pre-op>10/10) - Surgical History Prior Surgeries: HYSTERECTOMY ANE Review of Systems Review of Systems: - Exercise capacity Exercise capacity: >=4 METS ANE Patient History - Allergies Allergies/Adverse Reactions: aripiprazole [From Abilify] Allergy (Verified 12/25/17 16:50) pantoprazole sodium [From Protonix] Allergy (Verified 12/25/17 16:50) Rash ziprasidone HCl [From Geodon] Allergy (Verified 12/25/17 16:50) ziprasidone mesylate [From Geodon] Allergy (Verified 12/25/17 16:50) - Home Medications Home Medications: LORazepam [Ativan 2 mg tab] 4 mg PO DAILY@14 03/20/17 [Last Taken 12/25/17] Memantine HCl [Namenda 10 mg] 10 mg PO BID 03/20/17 [Last Taken 12/25/17] Ondansetron [Zofran Odt] 8 mg PO BIDMEAL 03/20/17 [Last Taken 12/24/17] Propranolol HCl [Inderal 20mg (*)] 20 mg PO BID 03/20/17 [Last Taken 12/25/17] Doxepin HCl [Sinequan 50 MG (*)] 50 mg PO BID 09/17/17 [Last Taken 12/25/17] Gabapentin [Neurontin 300 MG (*)] 300 mg PO HS PRN 12/06/17 [Last Taken 12/24/17 ] Omeprazole [Prilosec 20 mg] 40 mg PO DAILY 12/06/17 [Last Taken 12/24/17] Pramipexole Di-HCl [Mirapex 0.125 mg (*)] 0.125 mg PO TID 12/06/17 [Last Taken 12/23/17] Carbidopa/Levodopa [Carbidopa-Levodopa 25-100 Tab] 1 tab PO HS 12/07/17 [Last Taken 12/24/17] Chlorthalidone [Chlorthalidone 25 mg (*)] 50 mg PO DAILY 12/25/17 [Last Taken ] Herbals/Supplements -Info Only 1 ea PO DAILY 12/25/17 [Last Taken Unknown] Psyllium Seed [Metamucil (*)] 1 each PO HS 12/25/17 [Last Taken 12/24/17] - NPO status NPO Status: no food or drink >8 hours - Anes Hx Anes Hx: no prior problems - Smoking Hx Smoking Status: Former smoker - Alcohol Use Alcohol Use: None - Family Anes Hx Family Anes Hx: none Family Hx Anesthesia Complications: NONE ANE Labs/Vital Signs - Labs Result Diagrams: 12/25/17 19:55 12/26/17 05:49 - Vital Signs Blood Pressure: 122/73 Heart Rate: 136 Respiratory Rate: 20 O2 Sat (%): 95 Height: 177.8 cm Weight: 49.895 kg ANE Physical Exam - Airway Neck exam: FROM Mallampati Score: Class 2 Mouth exam: poor dentition Mouth image: 1 - missing - Pulmonary Pulmonary: no respiratory distress, clear to auscultation - Cardiovascular Cardiovascular: regular rate and rhythym, no murmur, rub, or gallop - ASA Status ASA Status: III ANE Anesthesia Plan Anesthesia Plan: GA with mask Total IV Anesthesia: Yes
[2017-12-26] MEDS ORDERED: PROPOFOL/EMULSION 500 MG/50 ML BOTTLE IV ONE ×2 (14:39→15:18)
--- NOTE | 2017-12-26 14:59 | ASMTCMCOM ---
CM Note CM Note Notes: Chart reviewed for discharge planning purposes. 67 year old female admitted from home via ED for complaints of abdominal pain. She was here recently and discharged to home independently with family support. No therapies ordered at this time. No needs identified. CM available should needs arise. Date Signed: 12/26/2017 02:59 PM Electronically Signed By:Ludivina Madera RN
[2017-12-26] MEDS: ONDANSETRON DISINTEGRATING 4 MG TAB PO SCH ×2 (15:37→18:47)
[2017-12-26] MEDS: PRAMIPEXOLE 0.125 MG TAB PO SCH ×3 (15:39→21:20)
--- NOTE | 2017-12-26 16:12 | GIREPORT ---
[facility] Surgical Services - Endoscopy Department Patient Name: Sylvie Webb Procedure Date: 12/26/2017 2:56 PM Patient Type: Inpatient Attending MD/ ER Physician: Emil Cuba MD Procedure: Colonoscopy Indications: Lower abdominal pain, Change in bowel habits Patient Profile: 67 year old female presents for evaluation of lower quadrant abdominal pain as well as a change in bowel habits. Providers: Emil Cuba MD Medicines: Monitored Anesthesia Care Complications: No immediate complications. Estimated blood loss: Minimal. Description of Procedure: After obtaining informed consent, the scope was passed under direct vis ion. Throughout the procedure, the patient's blood pressure, pulse, and oxyg en saturations were monitored continuously. The Colonoscope with irrigatio n channel was introduced through the anus and advanced to the terminal il eum. The colonoscopy was performed without difficulty. The patient tolerated the procedure well. The quality of the bowel preparation was good. The term inal ileum, ileocecal valve, appendiceal orifice, and rectum were photograph ed. Findings: The perianal and digital rectal examinations were normal. Pertinent negatives include no palpable rectal lesions. The terminal ileum appeared normal. A 4 mm polyp was found in the rectum. The polyp was sessile. The polyp was removed with a cold snare. Resection and retrieval were complete. Biopsies for histology were taken with a cold forceps for evaluation of microscopic colitis. Estimated Blood Loss: Estimated blood loss was minimal. Post Op Diagnosis: - The examined portion of the ileum was normal. - One 4 mm polyp in the rectum, removed with a cold snare. Resected and retrieved. - Biopsies were taken with a cold forceps for evaluation of microscopic colitis. - Etiology? No obvious cause of pain found. Extensive w/u. Suspect functional. GI will sign off. Thank you for allowing me to participate in the care of your patient. Recommendation: - [facility]. - Await pathology results. - Repeat colonoscopy in 5-10 years for surveillance based on pathology results. (5 years if adenoma) - GI will sign off. - Thank you for allowing me to participate in the care of your patient. Attending Participation: I personally performed the entire procedure. Emil Cuba MD Emil Cuba MD 12/26/2017 4:11:34 PM This report has been signed electronicallyEmil Cuba MD Number of Addenda: 0 Note Initiated On: 12/26/2017 2:56 PM Total Procedure Duration Time 0 hours 20 minutes 21 seconds [email or web address]
--- NOTE | 2017-12-26 16:25 | GCON ---
[f rep st] CONSULTATION DATE OF CONSULTATION: 12/26/2017 REFERRING PHYSICIAN: Cristina Black MD REASON FOR CONSULTATION: Abdominal pain. CHIEF COMPLAINT: Abdominal pain. HISTORY OF PRESENT ILLNESS: The patient is a 67-year-old female who presents to [facility] with complaints of abdominal pain. She has had chronic complaints of abdominal pain/discomfort for multiple years. She is complaining of a sharp, crampy, gnawing pain in the lower quadrants of the abdomen. She denies any alleviating factors to her pain besides pain medications. No exacerbating factors. The pain occurs on a daily basis and lasts multiple hours. She has had extensive workup in the past for her pain including multiple CT scans, HIDA scan, an ultrasound, a recent MRCP, as well as multiple endoscopies which have been unrevealing. I am being asked by Dr. Black to evaluate this patient in consultation. PAST MEDICAL HISTORY: 1. Hepatitis C. 2. Hepatocellular carcinoma. 3. Chronic abdominal pain. 4. Bipolar disorder. 5. Parkinson disease. PAST SURGICAL HISTORY: 1. Hysterectomy. ALLERGIES: Pantoprazole, ziprasidone, aripiprazole. MEDICATIONS: Oxy IR, ranitidine, Metamucil, propranolol, Mirapex, Zofran, Prilosec, memantine, lorazepam, gabapentin, doxepin, chlorthalidone, carbidopa/ levodopa. FAMILY HISTORY: Positive diabetes mellitus. SOCIAL HISTORY: . Positive medical marijuana. No history of alcohol or tobacco use. REVIEW OF SYSTEMS: A 14-point comprehensive review of systems was asked. Positives and negatives as per HPI. PHYSICAL EXAM: VITAL SIGNS: Blood pressure 110/73, heart rate 136, temperature 37.2, respiration 20. GENERAL: Alert, awake, oriented x3. HEENT: Moist mucosa. NECK: No JVD. CARDIOVASCULAR: Regular rate and rhythm. Positive S1, S2. No murmurs appreciated. LUNGS: Clear to auscultation bilaterally. No wheezes, rales, or rhonchi. ABDOMEN: Soft, tender to palpation all quadrants. Positive bowel sounds. No guarding or rebound. EXTREMITIES: No clubbing, cyanosis or edema. NEUROLOGIC: 2 through 12 grossly intact. PSYCH: Normal affect. LABORATORY DATA: WBC 3.77, platelets 102. INR 0.94. Sodium 134, potassium 3.4 , BUN 11, creatinine 1.4, glucose 110, ALT 54, alkaline phosphatase 247, AST 41 , lipase 187. ASSESSMENT/PLAN: 1. Abdominal pain-chronic. Had significant workup in the past including multiple upper endoscopies, CT scans, MRI, ultrasounds, and HIDA scan with no cause found. She has had mild change in her bowel habits with this abdominal pain with diarrhea as well as constipation.. Etiology? Functional symptoms versus other? At this time, I suspect that her symptoms are secondary to functional. However, due to her significant abdominal pain as well as changes in bowel habits and she has not had a colonoscopy in 10 years, will recommend colonoscopic evaluation. The risks, benefits, and alternatives of the procedure were described with the patient. The risk of infection, bleeding, perforation, and sedation were discussed. 2. History of bipolar disorder. 3. History of Parkinson disease. 4. History of chronic pain. 5. History of hepatitis C. 6. History of cirrhosis. /[id number]/MODL MTDD
[2017-12-26] MEDS: PROPRANOLOL HCL 20 MG TAB PO SCH ×2 (17:36→21:18)
[2017-12-26] MEDS: MEMANTINE HCL 5 MG TAB PO SCH ×2 (17:36→21:19)
[2017-12-26] MEDS: oxyCODONE IR 5 MG TAB PO PRN (17:36)
[2017-12-26] MEDS: LORazepam 1 MG TAB PO SCH (17:37)
[2017-12-26] MEDS: DOXEPIN HCL 50 MG CAP PO SCH ×2 (17:37→21:20)
[2017-12-26] MEDS: CHLORTHALIDONE 25 MG TAB PO SCH (17:56)
[2017-12-26] MEDS: NON-FORMULARY NEW DRUG (Omeprazole [Prilosec 20 Mg] 40 MG) PO SCH (17:56)
[2017-12-26] MEDS ORDERED: POTASSIUM CL 10 MEQ TAB PO ONE (19:58)
[2017-12-26] MEDS ORDERED: RANITIDINE HCL 150 MG/10 ML UDCUP PO SCH (21:00)
[2017-12-26] MEDS ORDERED: CARBIDOPA/LEVODOPA 25 MG/100 MG TAB PO SCH (21:00)
[2017-12-27] MEDS: HYDROmorphONE/DILAUDID 2 MG/ML INJ IVP PRN (00:22)
[2017-12-27 06:08] VITALS: O2SAT 92
[2017-12-27] MEDS: PRAMIPEXOLE 0.125 MG TAB PO SCH (08:07)
[2017-12-27] MEDS: oxyCODONE IR 5 MG TAB PO PRN ×2 (08:07→13:54)
[2017-12-27] MEDS: MEMANTINE HCL 5 MG TAB PO SCH (08:17)
[2017-12-27] MEDS: ONDANSETRON DISINTEGRATING 4 MG TAB PO SCH (08:21)
[2017-12-27] MEDS: DOXEPIN HCL 50 MG CAP PO SCH (08:21)
--- NOTE | 2017-12-27 08:53 | HOSPPROG ---
Hospitalist Progress Note Assessment/Plan: Patient is a 67-year-old female who presented the emergency room with abdominal pain. * acute on chronic abdominal pain -colonoscopy shows no clear etiology of her pain -on admission patient was complaining of being bloated and concerned about being constipated -recently discharged on 12/10 for evaluation of acute on chronic abdominal pain. She had an MRI which showed no evidence of stone or dilation of the common bile duct -reviewed her PMH, has had multiple w/u for evaluation *hypokalemia -add protocol *chronically elevated LFT's * history of hepatocellular carcinoma status post chemoembolization * history of anxiety and depression -suspect this is a component of her abdominal pain *underweight w a BMI of 15.4 * Parkinson's -med resumed * history of hepatitis C status post treatment *Plan: Renee will be dc/ she says Cannibas has helped in in the past,CBD oil has helped in addition. Unfortunately, do not have a clear diagnosis of why she has chronic abdominal pain. Subjective: Renee is c/o ongoing abdominal pain that is never better. Objective: Vital Signs Temp Pulse Resp BP Pulse Ox 37.1 C 75 14 98/54 L 92 12/27/17 06:07 12/27/17 06:07 12/27/17 06:07 12/27/17 06:15 12/27/17 06:07 Laboratory Results 12/27/17 04:39 12/26/17 12/27/17 12/28/17 05:59 05:59 05:59 Intake Total 2000 790 Output Total 150 453 400 Balance 1850 337 -400 PT 12.8 SEC (12.0-15.0) 12/25/17 19:00 INR 0.94 (0.83-1.16) 12/25/17 19:00 - Physical Exam Constitutional: uncomfortable, other (thin) Eyes: PERRL Ears, Nose, Mouth, Throat: hearing normal Gastrointestinal: normoactive bowel sounds Skin: warm Musculoskeletal: full muscle strength Neurologic: AAOx3 Psychiatric: anxious ICD10 Worksheet Patient Problems: Problems Problem Status Onset Chronic abdominal pain Acute Failure to thrive Acute Abdominal pain Acute Abdominal pain Acute Chronic nausea Acute Dehydration Acute Hypokalemia Acute Urinary tract infection Acute Vomiting Acute Weakness Acute
[2017-12-27] MEDS: PROPRANOLOL HCL 20 MG TAB PO SCH (09:00)
[2017-12-27] MEDS: LORazepam 0.5 MG TAB PO PRN (11:13)
--- NOTE | 2017-12-27 11:43 | GDS ---
[f rep st] DISCHARGE SUMMARY DISCHARGE DIAGNOSIS: 1. Acute on chronic abdominal pain. 2. Hypokalemia. 3. Chronically elevated liver function tests. 4. History of hepatocellular carcinoma status post chemoembolization. 5. History of anxiety and depression. 6. Underweight with a body mass index of 15.4. 7. Parkinson's. 8. History of hepatitis C status post treatment. CONSULTATION: 1. Dr. Emil Cuba. 2. Marialuisa Birch, Registered Nurse with [facility]. HISTORY OF PRESENT ILLNESS: Briefly, Sylvie Webb is a 67-year-old woman who was recently discharged from the hospital for abdominal pain. She at that time underwent extensive evaluation with an abdominal MRI which showed no evidence of choledochal stone or dilation of the common bile duct. It was noted that she had some sludge in her gallbladder. She had no free fluid. Please review that admission. On this admission, she was having pain. At baseline, she has a history of fluctuating bowel function from diarrhea type to constipation. She also was having some nausea. She was seen and evaluated by Dr. Cuba. She had a colonoscopy performed which showed a 4 mm polyp in the rectum removed with a cold snare. There was no clear-cut cause of her abdominal pain. Today, she continues to complain of her chronic abdominal pain. I have given her different referrals. In addition, she was seen by and evaluated by the behavior health nurse because the patient felt frustrated by the staff and felt like we were not addressing and figuring out what the etiology of her pain. She was given resources. Also encouraged her to cut back on opiates. The patient shares with me that she has stopped taking benzodiazepines. In addition, I gave her an integrative physician to follow up because she feels her primary care provider is not able to help her with her needs. HOSPITAL COURSE: 1. Chronic abdominal pain, unclear of the etiology. She has had multiple workups. Encouraged her to evaluate other alternative options. She said that cannabis and CBD oil has been the most helpful. Encouraged her to see if she could find someone who could prescribe these medications for her. 2. Hypokalemia, improved. 3. Chronically elevated liver function tests, monitoring in outpatient setting. 4. History of hepatocellular carcinoma status post chemoembolization, stable. 5. History of anxiety and depression. I suspect this is a component in her abdominal pain. 6. Underweight with a BMI 15.4. She was seen and evaluated by the dietitian. 7. Parkinson's. Home medications resumed. DISCHARGE CONDITION: Stable. Blood pressure is 134/82, heart rate is 68, respiratory rate is 16, O2 saturations on room air are 92%, temperature is 37.1 Celsius. MEDICATIONS AT DISCHARGE: Please see the EMR. DISCHARGE INSTRUCTIONS: 1. She has been given a palliative care doctor to follow up in the outpatient setting. 2. Follow up with Dr. Lisa Muñoz. He may offer her other options as far as Integrative Medicine. 3. To find a provider that prescribes cannabis and CBD oil because this clearly has helped her. /[id number]/MODL MTDD
[2017-12-27] MEDS: CHLORTHALIDONE 25 MG TAB PO SCH (12:53)
[2017-12-27] MEDS: NON-FORMULARY NEW DRUG (Omeprazole [Prilosec 20 Mg] 40 MG) PO SCH (12:54)
[2017-12-27 13:28] VITALS: BP 165/93; PULSE 100; RESP 18; TEMP 98.4
[2017-12-27] MEDS: LORazepam 1 MG TAB PO SCH (13:54)
--- NOTE | 2017-12-27 14:41 | ASDISCHSUM ---
Discharge Information Plan Status: Medically Cleared to Leave: Discharge Date:12/27/2017 02:19 PM CM D/C Disposition: ADT D/C Disposition:Home, Routine, Self-Care Projected Discharge Date:12/27/2017 11:00 AM Transportation at D/C: Discharge Delay Reason: Follow-Up Date:12/27/2017 11:00 AM Discharge Slot: Final Diagnosis: Placement Information Referral Type:Palliative Care Referral ID:[id number] Provider Name: Address 1: Phone Number: Address 2: Fax Number: City: [facility] Factors: State: Patient Contact Information Contact Name:SHIRLEY Relationship: Address:[facility] [address] Work Phone: City:[facility] Phone: [facility] Code:[place] [address] Email: Financial Information Financial Class:Medicare Advantage Plans Primary Plan Desc:[facility] [employer] PLANS Primary Plan Number:[id number] Secondary Plan Desc: Secondary Plan Number: Assessment Information LACE LACE Length of stay for Answers: 2 days current admission Acuity / Level of Answers: Yes Care: Did the patient have an inpatient admission? Comorbidities - select Answers: Opioid dependence all that apply / Chronic pain # of Emergency department Answers: 3-4 visits in the last 6 months Social determinants Answers: Mental health diagnosis (anxiety, depression, pers onality disorders, etc.) Score: 15 Date Signed: 12/27/2017 02:40 PM Electronically Signed By:Belinda Cantu LCSW [facility] CM Progress Note CM Note CM Note Notes: Chart reviewed for discharge planning purposes. 67 year old female admitted from home via ED for complaints of abdominal pain. She was here recently and discharged to home independently with family support. No therapies ordered at this time. No needs identified. CM available should needs arise. Date Signed: 12/26/2017 02:59 PM Electronically Signed By:Ludivina Madera RN [facility] CM Progress Note CM Note CM Note Notes: Met with pt and at request of allied health professional to discuss an outpt palliative care referral. Pt disappointed there is no obvious cause for her pain. She vacillated between not wanting to live with pain and having so much to live for. Pt and are porrly resourced, getting the minimal mount of social security each month. Described palliative but pt would only agree if it was covered at 100%. Made referral [facility]. They ran benefits and it would cost $50 per visit. Pt declined. There were rhett other DC needs identified. Date Signed: 12/27/2017 02:38 PM Electronically Signed By:Belinda Cantu LCSW Intervention Information Intervention Type:*EDMUNDO-Signed Date of Service:12/26/2017 02:56 PM Patient Type:Observation Staff Member:Nannette Arenas Hours: Discipline: Severity: Comment:
[2017-12-31] MEDS ORDERED: HYDROmorphONE/DILAUDID 1 MG/ML INJ IVP PRN (22:43)
[2017-12-31] MEDS ORDERED: PROMETHAZINE HCL 25 MG/ML INJ IVP PRN (22:43)
[2017-12-31] MEDS ORDERED: ONDANSETRON 4 MG/2 ML VIAL IVP PRN (22:43)
[2017-12-31] MEDS ORDERED: fentaNYL 100 MCG/2 ML INJ IVP PRN (22:43)
[2017-12-31] MEDS ORDERED: NALOXONE HCL 0.4 MG/ML INJ IVP PRN (22:43)
== END 2017-12-27 14:19 | disposition home or self-care (01) ==
LOC: INTOOBSV 20:36 → F1N 21:21
PROVIDERS: ADMIT Internal Medicine; ATTEND Internal Medicine
DX: R10.30 Lower abdominal pain, unspecified (principal); K62.1 Rectal polyp; E87.6 Hypokalemia; R79.89 Other specified abnormal findings of blood chemistry; Z85.05 Personal history of malignant neoplasm of liver; F41.8 Other specified anxiety disorders; G20 Parkinson's disease; R63.6 Underweight; Z68.1 Body mass index [BMI] 19.9 or less, adult; F12.20 Cannabis dependence, uncomplicated
CPT/HCPCS: 45380; 70450; 71045; 96361; 96374; 96375; 96376; 97165; 99285; G0378; G8987; G8988; G8989; J1170; J2060; J2405; J2704

== ENCOUNTER 2018-01-09 12:10 | Emergency (ER) | payer OTHER ==
--- NOTE | 2018-01-09 13:12 | EDPHY ---
H & P Stated Complaint: abdominal pain especially bad last night, hard time swallowing Time Seen by Provider: 01/09/18 13:04 HPI/ROS: CHIEF COMPLAINT: Chronic abdominal pain, requesting resources for palliative care HISTORY OF PRESENT ILLNESS: The patient presents to the emergency department requesting resources for palliative care. She was recently hospitalized and has undergone an extensive workup including colonoscopy, endoscopy, MRCP and CT scan. The patient states that she continues to have ongoing abdominal pain. The patient denies additional acute complaints. REVIEW OF SYSTEMS: A comprehensive 10 point review of systems is otherwise negative aside from elements mentioned in the history of present illness. Source: Patient Exam Limitations: No limitations - Personal History Current Tetanus/Diphtheria Vaccine: Yes Current Tetanus Diphtheria and Acellular Pertussis (TDAP): Yes Tetanus Vaccine Date: 2011 - Medical/Surgical History Hx Asthma: No Hx Chronic Respiratory Disease: No Hx Diabetes: No Hx Cardiac Disease: No Hx Renal Disease: No Hx Cirrhosis: Yes Hx Alcoholism: No Hx HIV/AIDS: No Hx Splenectomy or Spleen Trauma: No Other PMH: SOME ABD PROBLEM BEING WORKED UP, GERD,ESOPHAGITIS, GASTRITIS, SCOLIOSIS. HTN,ANXIETY, BI-POLAR DISORDER, ca of liver, Y-90 PROCEDURE OF LIVER --RADIOACTIVE SEEDS TO LIVER 1 year ago, total hysterectomy - Social History Smoking Status: Former smoker - Physical Exam Exam: General Appearance: Thin female, cachectic Eyes: Pupils equal and round no pallor or injection ENT, Mouth: Mucous membranes moist Respiratory: There are no retractions, lungs are clear to auscultation Cardiovascular: Regular rate and rhythm Gastrointestinal: Minimal epigastric tenderness, no peritoneal signs Neurological: 5/5 strength all 4 extremities Skin: Warm and dry, no rashes Musculoskeletal: Neck is supple nontender Extremities: symmetrical, full range of motion Constitutional: Initial Vital Signs Temperature (C) 37 C 01/09/18 12:18 Heart Rate 112 H 01/09/18 12:18 Respiratory Rate 20 01/09/18 12:18 Blood Pressure 179/126 H 01/09/18 12:18 O2 Sat (%) 99 01/09/18 12:18 O2 Delivery Mode Room Air Allergies/Adverse Reactions: aripiprazole [From Abilify] Allergy (Verified 01/09/18 12:17) pantoprazole sodium [From Protonix] Allergy (Verified 01/09/18 12:17) Rash ziprasidone HCl [From Geodon] Allergy (Verified 01/09/18 12:17) ziprasidone mesylate [From Geodon] Allergy (Verified 01/09/18 12:17) Home Medications: Medication Instructions Recorded LORazepam [Ativan 2 mg tab] 4 mg PO DAILY@14 03/20/17 Memantine HCl [Namenda 10 mg] 10 mg PO BID 03/20/17 Ondansetron [Zofran Odt] 8 mg PO BIDMEAL 03/20/17 Propranolol HCl [Inderal 20mg (*)] 20 mg PO BID 03/20/17 Doxepin HCl [Sinequan 50 MG (*)] 50 mg PO BID 09/17/17 Gabapentin [Neurontin 300 MG (*)] 300 mg PO HS PRN 12/06/17 Omeprazole [Prilosec 20 mg] 40 mg PO DAILY 12/06/17 Pramipexole Di-HCl [Mirapex 0.125 0.125 mg PO TID 12/06/17 mg (*)] Carbidopa/Levodopa 1 tab PO HS 12/07/17 [Carbidopa-Levodopa 25-100 Tab] Ranitidine HCl [Zantac] 300 mg PO HS #60 udcup 12/10/17 oxyCODONE IR [Oxycodone Ir (*)] 10 mg PO BID PRN #30 tab 12/10/17 Chlorthalidone [Chlorthalidone 25 50 mg PO DAILY 12/25/17 mg (*)] Herbals/Supplements -Info Only 1 ea PO DAILY 12/25/17 Psyllium Seed [Metamucil (*)] 1 each PO HS 12/25/17 Medical Decision Making ED Course/Re-evaluation: Patient's extensive past medical record. I find her abdominal examination to be benign. She has had an extensive workup of her chronic abdominal pain. I do not feel that additional workup, laboratory testing or imaging is indicated at this point time. The patient presents to the ED primarily requesting outpatient resources. The patient was seen by our case finishing machine adjuster and again given the contact number of the outpatient palliative care team. The patient has been encouraged to follow up with her primary care provider and regular physicians for ongoing management of her chronic pain syndrome. Differential Diagnosis: Differential diagnosis considered includes chronic pain, perforation, obstruction, peritonitis Departure - Departure Disposition: Home, Routine, Self-Care Condition: Good Instructions: Acute Abdominal Pain (ED) Additional Instructions: 1. Please follow up with the palliative resources given in the emergency department today. 2. Please follow up with your primary care provider as scheduled.
--- NOTE | 2018-01-09 13:57 | ASMTCMCOM ---
CM Note CM Note Notes: Met with patient and her in the ER where patient presents with "acute on chronic" abdominal pain. Chart reviewed from prior IP admissions; see discharge summary and CM notes from 12/27/17. Patient and her tell this CM they do not remember any discussions about recommendations or referrals for follow up care at time of patient's discharge on 12/27/17. Patient denies "wanting" to come to the ER today, but her asks this CM if she can get some "Dilaudid" or other medication. He also admits that patient has oxycodone prescribed through Dr. Alvarado, but that it is "not enough". Information and resources provided for palliative care and encouraged patient to follow up with prescribing physician and/or PCP for pain medication requests. Date Signed: 01/09/2018 01:56 PM Electronically Signed By:Magdalena Miner RN
[2018-01-09 14:01] VITALS: BP 185/119
== END 2018-01-09 13:59 | disposition home or self-care (01) ==
DX: R10.9 Unspecified abdominal pain (principal); I10 Essential (primary) hypertension; G89.29 Other chronic pain; Z85.05 Personal history of malignant neoplasm of liver; Z87.891 Personal history of nicotine dependence; Z90.710 Acquired absence of both cervix and uterus

== ENCOUNTER 2018-09-01 11:36 | Emergency (ER) | payer OTHER ==
[2018-09-01] MEDS ORDERED: ONDANSETRON 4 MG/2 ML VIAL IVP ONE (12:30)
[2018-09-01] MEDS ORDERED: FAMOTIDINE 20 MG/NACL 50 ML IV ONE (12:30)
[2018-09-01] MEDS ORDERED: NS 1,000 ML IV ONE (12:30)
--- NOTE | 2018-09-01 12:58 | EDPHY ---
H & P Stated Complaint: N/V feeling anxious Time Seen by Provider: 09/01/18 12:43 HPI/ROS: CHIEF COMPLAINT: Nausea, vomiting, diarrhea, and abdominal pain HISTORY OF PRESENT ILLNESS: This is a 67-year-old female with a history of chronic abdominal pain of unclear etiology. She presents today with nausea, vomiting, and diarrhea, and diffuse abdominal pain (worse in the upper mid abdomen), that began late last night. She has Zofran which she has been using at home, but she continues to vomit. She takes omeprazole but was unable to keep that down this morning. Her last diarrhea was over an hour ago. She does not typically have diarrhea although the pain and vomiting are part of her overall the symptom constellation. She has not had fever. Of note, her is in the hospital with a vomitingdiarrhea illness (he is undergoing chemotherapy for colon cancer). REVIEW OF SYSTEMS: A ten system review of systems was performed and is negative with the exception of the items mentioned in the HPI. Past medical history: Chronic abdominal pain Past surgical history: Hysterectomy Social history: She lives with her . They recently moved into a senior facility. She does not drink alcohol or use tobacco products. General Appearance: Alert. Vital signs reviewed. Blood pressure at triage 210 /103, heart rate 83. Eyes: Pupils equal and round, no conjunctival injection, no discharge. Anicteric. ENT, Mouth: Mucous membranes are slightly dry, no oropharyngeal erythema or edema. Neck: No lymphadenopathy, supple. Respiratory: Lungs are clear to auscultation; no wheezes, rales, or rhonchi. Cardiovascular: Regular rate and rhythm; no murmur, rub, or gallop. Gastrointestinal: Abdomen is soft and moderately diffusely tender without guarding, no masses or organomegaly, bowel sounds normal. Skin: Warm and dry, no rashes on exposed skin, normal color. Back: Nontender to palpation over the thoracolumbar spine. No CVAT. Extremities: No lower extremity edema, no calf tenderness or swelling. Neurological: Alert and oriented. Moving all four extremities easily and equally. Psychiatric: Normal affect. - Personal History Tetanus Vaccine Date: 2011 - Medical/Surgical History Hx Asthma: No Hx Chronic Respiratory Disease: No Hx Diabetes: No Hx Cardiac Disease: No Hx Renal Disease: No Hx Cirrhosis: Yes Hx Alcoholism: No Hx HIV/AIDS: No Hx Splenectomy or Spleen Trauma: No Other PMH: LIver CA, chronic abd pain, GERD,ESOPHAGITIS, GASTRITIS, SCOLIOSIS. HTN,ANXIETY, BI-POLAR DISORDER, total hysterectomy - Social History Smoking Status: Former smoker Constitutional: Initial Vital Signs Temperature (C) 36.7 C 09/01/18 12:00 Heart Rate 81 09/01/18 12:00 Respiratory Rate 18 09/01/18 12:00 Blood Pressure 210/103 H 09/01/18 12:00 O2 Sat (%) 97 09/01/18 12:00 O2 Delivery Mode Room Air Allergies/Adverse Reactions: aripiprazole [From Abilify] Allergy (Verified 01/09/18 12:17) pantoprazole sodium [From Protonix] Allergy (Verified 01/09/18 12:17) Rash ziprasidone HCl [From Geodon] Allergy (Verified 01/09/18 12:17) ziprasidone mesylate [From Geodon] Allergy (Verified 01/09/18 12:17) Home Medications: Medication Instructions Recorded Doxepin HCl 09/01/18 Lorazepam 09/01/18 Namenda 10 mg 09/01/18 Oxycodone HCl 09/01/18 Medical Decision Making ED Course/Re-evaluation: 1 L IV normal saline infusing at the time of my exam. She has received Zofran. She was not able to take her usual pain medication, which is OxyContin 5 mg in the morning and in the evening, and she will be given a dose of pain medication here. Will check electrolytes and CBC. Stool sample if possible. I learned later that she has a "no narcotics" warning in her chart. 1450: Reassessed patient. Electrolytes are still pending. She is asking about visiting her , who is currently admitted to the hospital, and also about how she will get home. All labs reviewed. AST and alk phos elevated, as they have been in the past. Electrolytes WNL. She has not had vomiting or diarrhea in ED and I feel she can safely return home. She could have a gastroenteritis, likely viral. This could be an exacerbation of her chronic abdominal complaints (she is scheduled to see a "sphincter" specialist this coming week). She does not have a surgical abdomen. I do not think that this is cholecystitis, appendicitis. I do not recommend further ED evaluation. - Data Points Laboratory Results: Laboratory Results 09/01/18 13:14 09/01/18 13:14 Medications Given: Discontinued Medications Diphenhydramine HCl (Benadryl Injection) 25 mg IVP EDNOW ONE Stop: 09/01/18 15:39 Last Admin: 09/01/18 15:47 Dose: 25 mg Hydromorphone HCl (Dilaudid) 0.5 mg IVP EDNOW ONE Stop: 09/01/18 13:00 Last Admin: 09/01/18 13:11 Dose: 0.5 mg Sodium Chloride (Ns) 1,000 mls @ 0 mls/hr IV EDNOW ONE; Wide Open PRN Reason: Protocol Stop: 09/01/18 12:31 Last Admin: 09/01/18 13:09 Dose: 1,000 mls Famotidine/Sodium Chloride (Pepcid 20 Mg (Premix)) 50 mls @ 200 mls/hr IV EDNOW ONE Stop: 09/01/18 12:44 Last Admin: 09/01/18 13:11 Dose: 50 mls Ondansetron HCl (Zofran) 4 mg IVP EDNOW ONE Stop: 09/01/18 12:31 Last Admin: 09/01/18 13:11 Dose: 4 mg Departure - Departure Disposition: Home, Routine, Self-Care Clinical Impression: Chronic nausea, Chronic abdominal pain Vomiting Qualifiers: Vomiting type: unspecified Vomiting Intractability: non-intractable Nausea presence: with nausea Qualified Code(s): R11.2 - Nausea with vomiting, unspecified Diarrhea Qualifiers: Diarrhea type: unspecified type Qualified Code(s): R19.7 - Diarrhea, unspecified Condition: Good Instructions: Chronic Abdominal Pain (ED) Additional Instructions: Follow up with your doctor on Monday as scheduled. Return for worsening of condition. Referrals: Mariana Ann MD [Medical Doctor] - As per Instructions Report Scribed for: Adrianna Clinton Report Scribed by: Do Cohen Date of Report: 09/01/18 Physician Review and Approval Statement: 09/04/18 11:22 Portions of this chart were entered by a medical photographer. I have reviewed, and agree with, the documentation.
[2018-09-01] MEDS ORDERED: HYDROmorphONE/DILAUDID 2 MG/ML INJ IVP ONE (12:59)
[2018-09-01 13:54] LABS: PLATELET COUNT 109 10^3/uL (150-400)
[2018-09-01] MEDS ORDERED: ONDANSETRON 4 MG/2 ML VIAL ONE (14:29)
[2018-09-01 16:08] VITALS: BP 158/75
--- NOTE | 2018-09-01 16:41 | ASMTCMCOM ---
CM Note CM Note Notes: Pt presented to the ED for abdominal pain and N/V/D since last night. Pt has a history of chronic abdominal pain of unclear etiology, GERD, esophagitis, gastritis, scoliosis, HTN, Parkinson's, depression, anxiety, bipolar disorder and chronic narcotic therapy. Pt also has a history of liver cancer status post chemo embolization, cirrhosis, and Hep C s/p treatment. Review past H&P's, CM Reports, Behavioral Health RN Notes, Spiritual Services Notes for additional background info Pt is followed by Dr Alvarado at [facility] and she states her next appt w/him is 09/11/18. Pt states she has a new patient appt this 09/05/18 with a GI specialist but she cannot remember which practice or the provider's name. Pt has been seen by Dr Dominguez in the past (per past CM Report 09/17/2017). Pt is looking forward to the appt. Pt states she and her , Ruben (who is currently admitted to the hospital) recently moved into [facility] about 2 days ago. Pt is requesting assistance with getting home. This CM provided pt a cab voucher due to her wanting to go visit her prior to returning to ; pt has been able to afford a cab in the past but pt and her are on a fixed income and are currently very financially stressed. Pt states she no longer sees a psychiatrist "because he said he doesn't need to see me anymore" and she states she hasn't been on any psychiatric medications for a couple of years "and I don't need them. I'm doing great." Pt did states she would like to start seeing a therapist. Pt states she has tried [facility] and other therapists "but I am a very peculiar person and it is hard to find the right person." Pt states she has not tried [facility] so this CM provided her w/a brochure and encouraged her to call for an appt. This CM called [facility] and notified them of pt returning this afternoon/evening after she visits her . CM available for further assistance if needed. Date Signed: 09/01/2018 04:41 PM Electronically Signed By:Indu Francisco RN
== END 2018-09-01 16:07 | disposition home or self-care (01) ==
LOC: EDUNIT#
DX: R11.2 Nausea with vomiting, unspecified (principal); R10.9 Unspecified abdominal pain; R19.7 Diarrhea, unspecified; E86.9 Volume depletion, unspecified; Z90.710 Acquired absence of both cervix and uterus; Z87.891 Personal history of nicotine dependence
CPT/HCPCS: 96361; 96374; 96375; 99284; J1170; J1200; J2405

== ENCOUNTER 2018-09-28 22:47 | Inpatient (IN) | payer OTHER ==
[2018-09-28] MEDS ORDERED: ONDANSETRON 4 MG/2 ML VIAL IVP ONE (22:48)
[2018-09-28] MEDS ORDERED: NS 1,000 ML IV ONE (22:48)
[2018-09-28] MEDS ORDERED: FAMOTIDINE 20 MG/2 ML SDV IVP ONE (22:49)
--- NOTE | 2018-09-28 22:53 | EDPHY ---
H & P Time Seen by Provider: 09/28/18 22:51 HPI/ROS: HPI CHIEF COMPLAINT: Nausea vomiting HISTORY OF PRESENT ILLNESS: 68-year-old female, presents emergency room by EMS from [facility], she has a history of hepatocellular carcinoma, hypertension, bipolar disorder, restless leg syndrome, anemia, presents emergency room stating she is nauseous, vomiting has GI upset and abdominal pain. Past Medical History: Significant medical history for hepatocellular carcinoma , hypertension, bipolar disorder, restless leg, anemia Past Surgical History: Gallbladder surgery. Social History: Resides at [facility]. Family History: Noncontributory ROS REVIEW OF SYSTEMS: 10 Systems were reviewed and negative with the exception of the elements mentioned in the history of present illness. Exam Constitutional frail, thin, cachectic, no acute distress, triage nursing summary reviewed, vital signs reviewed, awake/alert. Eyes normal conjunctivae and sclera, EOMI, PERRLA. HENT normal inspection, atraumatic, moist mucus membranes, no epistaxis, neck supple/ no meningismus, no raccoon eyes. Respiratory clear to auscultation bilaterally, normal breath sounds, no respiratory distress, no wheezing. Cardiovascular rate normal, regular rhythm, no murmur, no edema, distal pulses normal. Gastrointestinal soft, non-tender, no rebound, no guarding, normal bowel sounds, no distension, no pulsatile mass. Genitourinary no CVA tenderness. Musculoskeletal no midline vertebral tenderness, full range of motion, no calf swelling, no tenderness of extremities, no meningismus, good pulses, neurovascularly intact. Skin pink, warm, & dry, no rash, skin atraumatic. Neurologic awake, alert and oriented x 3, AAOx3, moves all 4 extremities equally, motor intact, sensory intact, CN II-XII intact, normal cerebellar, normal vision, normal speech. Psychiatric normal mood/affect. Heme/Lymph/Immune no lymphadenopathy. Differential Diagnosis: Differential diagnosis includes but is not limited to and in no particular order: Bowel obstruction, appendicitis, gallbladder disease, diverticulitis, colitis, enteritis, perforated viscus, gastritis, GERD , esophagitis, urinary tract infection, pyelonephritis, kidney stones Medical Decision Making: Plan for this patient IV establishment IV fluid bolus , IV Pepcid for GI upset, Zofran for nausea, basic blood work, EKG, chest x-ray , troponin, lipase, LFTs, re-evaluate. Re-evaluation: EKG interpretation by me on record in [facility] system. Impression time of EKG 2353, sinus rhythm rate of 66, no acute ischemia no ST elevation or ST depression no T-wave abnormalities. CT scan abdomen pelvis with IV contrast this was obtained due to ongoing abdominal pain. This shows no acute inflammatory process please see for chronic details by Dr. Segura. 0157: Patient continues to complain of abdominal pain nausea. Blood work and CT reviewed. Plan for hospital admission for intractable nausea vomiting abdominal pain. I have consult the hospitalist service Dr. Rosales Who agrees to admit. Source: Patient, EMS - Personal History Tetanus Vaccine Date: 2011 - Medical/Surgical History Hx Asthma: No Hx Chronic Respiratory Disease: No Hx Diabetes: No Hx Cardiac Disease: No Hx Renal Disease: No Hx Cirrhosis: Yes Hx Alcoholism: No Hx HIV/AIDS: No Hx Splenectomy or Spleen Trauma: No Other PMH: LIver CA, chronic abd pain, GERD,ESOPHAGITIS, GASTRITIS, SCOLIOSIS. HTN,ANXIETY, BI-POLAR DISORDER, total hysterectomy - Social History Smoking Status: Former smoker Constitutional: Initial Vital Signs Temperature (C) 36.5 C 09/28/18 22:36 Heart Rate 92 09/28/18 22:36 Respiratory Rate 18 09/28/18 22:36 Blood Pressure 171/98 H 09/28/18 22:36 O2 Sat (%) 97 09/28/18 22:36 O2 Delivery Mode Room Air Allergies/Adverse Reactions: aripiprazole [From Abilify] Allergy (Verified 01/09/18 12:17) pantoprazole sodium [From Protonix] Allergy (Verified 01/09/18 12:17) Rash ziprasidone HCl [From Geodon] Allergy (Verified 01/09/18 12:17) ziprasidone mesylate [From Geodon] Allergy (Verified 01/09/18 12:17) Home Medications: Medication Instructions Recorded Doxepin HCl 09/01/18 Lorazepam 09/01/18 Namenda 10 mg 09/01/18 Oxycodone HCl 09/01/18 Medical Decision Making - Diagnostics Imaging Results: Imaging Impressions Chest X-Ray 09/28/18 22:52 Impression: 1. No active cardiopulmonary disease seen. - Data Points Laboratory Results: Laboratory Results 09/28/18 23:15 09/28/18 23:15 09/29/18 09/28/18 09/28/18 01:25 23:48 23:15 WBC RBC Hgb Hct MCV MCH MCHC RDW Plt Count MPV Neut % (Auto) Lymph % (Auto) [place] % (Auto) Eos % (Auto) Baso % (Auto) Nucleat RBC Rel Count Absolute Neuts (auto) Absolute Lymphs (auto) Absolute Monos (auto) Absolute Eos (auto) Absolute Basos (auto) Absolute Nucleated RBC Immature Gran % Immature Gran # RBC/WBC/PLT Morphology Platelet Estimate VBG Lactic Acid Sodium 134 mEq/L L mEq/L (135-145) Potassium 3.5 mEq/L mEq/L (3.3-5.0) Chloride 105 mEq/L mEq/L (97-110) Carbon Dioxide 22 mEq/l mEq/l (22-31) Anion Gap 7 mEq/L mEq/L (6-14) BUN 14 mg/dL mg/dL (7-23) Creatinine 1.0 mg/dL mg/dL (0.6-1.0) Estimated GFR 55 Glucose 134 mg/dL H mg/dL (70-100) Calcium 9.1 mg/dL mg/dL (8.5-10.4) Total Bilirubin 0.4 mg/dL mg/dL (0.1-1.4) Conjugated Bilirubin 0.2 mg/dL mg/dL (0.0-0.5) Unconjugated Bilirubin 0.2 mg/dL mg/dL (0.0-1.1) AST 37 IU/L IU/L (14-46) ALT 14 IU/L IU/L (9-52) Alkaline Phosphatase 304 IU/L H IU/L (38-126) POC Troponin I 0.00 ng/mL ng/mL (0.00-0.08) Total Protein 7.1 g/dL g/dL (6.3-8.2) Albumin 3.9 g/dL g/dL (3.5-5.0) Lipase 153 IU/L IU/L (23-300) Urine Color COLORLESS Urine Appearance CLEAR Urine pH 7.0 (5.0-7.5) Ur Specific [place] 1.005 (1.002-1.030) Urine Protein NEGATIVE (NEGATIVE) Urine Ketones NEGATIVE (NEGATIVE) Urine Blood NEGATIVE (NEGATIVE) Urine Nitrate NEGATIVE (NEGATIVE) Urine Bilirubin NEGATIVE (NEGATIVE) Urine Urobilinogen NEGATIVE EU EU (0.2-1.0) Ur Leukocyte Esterase NEGATIVE (NEGATIVE) Urine Glucose NEGATIVE (NEGATIVE) 09/28/18 09/28/18 23:15 23:15 WBC 2.60 10^3/uL L 10^3/uL (3.80-9.50) RBC 4.78 10^6/uL 10^6/uL (4.18-5.33) Hgb 11.8 g/dL L g/dL (12.6-16.3) Hct 37.5 % L % (38.0-47.0) MCV 78.5 fL L fL (81.5-99.8) MCH 24.7 pg L pg (27.9-34.1) MCHC 31.5 g/dL L g/dL (32.4-36.7) RDW 17.3 % H % (11.5-15.2) Plt Count 119 10^3/uL L 10^3/uL (150-400) MPV 9.3 fL fL (8.7-11.7) Neut % (Auto) 76.9 % H % (39.3-74.2) Lymph % (Auto) 13.5 % L % (15.0-45.0) [place] % (Auto) 7.7 % % (4.5-13.0) Eos % (Auto) 1.5 % % (0.6-7.6) Baso % (Auto) 0.4 % % (0.3-1.7) Nucleat RBC Rel Count 0.0 % % (0.0-0.2) Absolute Neuts (auto) 2.00 10^3/uL 10^3/uL (1.70-6.50) Absolute Lymphs (auto) 0.35 10^3/uL L 10^3/uL (1.00-3.00) Absolute Monos (auto) 0.20 10^3/uL L 10^3/uL (0.30-0.80) Absolute Eos (auto) 0.04 10^3/uL 10^3/uL (0.03-0.40) Absolute Basos (auto) 0.01 10^3/uL L 10^3/uL (0.02-0.10) Absolute Nucleated RBC 0.00 10^3/uL 10^3/uL (0-0.01) Immature Gran % 0.0 % % (0.0-1.1) Immature Gran # 0.00 10^3/uL 10^3/uL (0.00-0.10) RBC/WBC/PLT Morphology TNP Platelet Estimate TNP VBG Lactic Acid 0.9 mmol/L mmol/L (0.7-2.1) Sodium Potassium Chloride Carbon Dioxide Anion Gap BUN Creatinine Estimated GFR Glucose Calcium Total Bilirubin Conjugated Bilirubin Unconjugated Bilirubin AST ALT Alkaline Phosphatase POC Troponin I Total Protein Albumin Lipase Urine Color Urine Appearance Urine pH Ur Specific [place] Urine Protein Urine Ketones Urine Blood Urine Nitrate Urine Bilirubin Urine Urobilinogen Ur Leukocyte Esterase Urine Glucose Medications Given: Hydromorphone HCl (Dilaudid) 0.2 - 0.4 mg IVP Q4HRS PRN PRN Reason: Pain, Severe Unable to Take PO Stop: 10/09/18 02:49 Last Admin: 09/29/18 04:02 Dose: 0.4 mg Lidocaine (Lidocaine 2% Viscous) 10 ml PO Q4H PRN PRN Reason: Abdominal pain Stop: 03/28/19 02:48 Last Admin: 09/29/18 03:15 Dose: 10 ml Ondansetron HCl (Zofran) 4 mg IVP Q4HRS PRN PRN Reason: Nausea/Vomiting, Can't Take PO Stop: 03/28/19 01:57 Last Admin: 09/29/18 04:39 Dose: 4 mg Promethazine HCl (Phenergan) 6.25 - 12.5 mg IVP Q6HRS PRN PRN Reason: Nausea/Vomiting, Use 2nd Stop: 03/28/19 01:57 Last Admin: 09/29/18 05:07 Dose: 6.26 mg Discontinued Medications Al Hydroxide/Mg Hydroxide (Maalox Susp) 30 ml PO EDNOW ONE Stop: 09/29/18 03:22 Last Admin: 09/29/18 03:23 Dose: 30 ml Al Hydroxide/Mg Hydroxide (Maalox Susp) 30 ml PO Q4HRS ONE Stop: 09/29/18 03:23 Last Admin: 09/29/18 04:40 Dose: Not Given Famotidine (Pepcid) 20 mg IVP EDNOW ONE Stop: 09/28/18 22:50 Last Admin: 09/28/18 23:17 Dose: 20 mg Hydralazine HCl (Apresoline) 5 mg IVP ONCE ONE Stop: 09/29/18 05:07 Last Admin: 09/29/18 05:12 Dose: 5 mg Hydromorphone HCl (Dilaudid) 0.5 mg IVP EDNOW ONE Stop: 09/29/18 00:01 Last Admin: 09/29/18 00:05 Dose: 0.5 mg Hydromorphone HCl (Dilaudid) 0.5 mg IVP EDNOW ONE Stop: 09/29/18 03:58 Last Admin: 09/29/18 04:03 Dose: Not Given Sodium Chloride (Ns) 1,000 mls @ 0 mls/hr IV EDNOW ONE; Wide Open PRN Reason: Protocol Stop: 09/28/18 22:49 Last Admin: 09/28/18 22:57 Dose: 1,000 mls Sodium Chloride (Ns) 1,000 mls @ 0 mls/hr IV ONCE ONE PRN Reason: Wide Open Stop: 09/29/18 00:33 Last Admin: 09/29/18 00:34 Dose: 1,000 mls Ondansetron HCl (Zofran) 4 mg IVP EDNOW ONE Stop: 09/28/18 22:49 Last Admin: 09/28/18 23:17 Dose: 4 mg Point of Care Test Results: Chemistry 09/28/18 23:48 POC Troponin I 0.00 ng/mL ng/mL (0.00-0.08) Departure - Departure Disposition: [facility] Acute Clinical Impression: Nausea Abdominal pain Qualifiers: Abdominal location: generalized Qualified Code(s): R10.84 - Generalized abdominal pain Condition: Good
[2018-09-28 23:36] LABS: PLATELET COUNT 119 10^3/uL (150-400)
[2018-09-29] MEDS ORDERED: NS 1,000 ML IV ONE (00:32)
[2018-09-29] MEDS ORDERED: IOPAMIDOL (ISOVUE-300) 100 ML BTL ONE (00:54)
[2018-09-29] MEDS ORDERED: PROMETHAZINE HCL 25 MG/ML INJ IVP PRN (01:58)
[2018-09-29] MEDS ORDERED: NS W/ 20 KCl/L 1,000 ML IV SCH (02:00)
[2018-09-29] MEDS ORDERED: SUCRALFATE/DIPHENHYDR/MAALOX 240 ML BOTTLE PO PRN (02:48)
[2018-09-29] MEDS: LIDOCAINE 2% VISCOUS 15 ML UDCUP PO PRN (03:15)
[2018-09-29] MEDS ORDERED: MAG HYDROX/AL HYDROX/SIMETH 30 ML UDCUP ONE (03:17)
[2018-09-29] MEDS ORDERED: MAG HYDROX/AL HYDROX/SIMETH 30 ML UDCUP PO ONE ×2 (03:21→03:22)
--- NOTE | 2018-09-29 03:44 | PDGENHP ---
History and Physical - Chief Complaint Abdominal pain - History of Present Illness 68 yo F w/ hx of chronic abdominal pain, HCC, BPD, and anxiety/depression presents with abdominal pain. The patient tells me she has had similar abdominal pain for years. However, over the last few months it has been getting worse. Over the past few days it has been unbearable. She tells me the pain is worst in the epi-gastric area but also radiates to her entire abdomen. At her living facility she takes ibuprofen and oxycodone for pain. She says this has not been sufficient. In the ED her work-up has been relatively unremarkable aside from chronically elevated alk phos. A CT scan did not reveal any acute findings. Case discussed with ED physician Dr. Catherine; records reviewed and summarized above. History Information - Allergies/Home Medication List Allergies/Adverse Reactions: aripiprazole [From Abilify] Allergy (Verified 01/09/18 12:17) pantoprazole sodium [From Protonix] Allergy (Verified 01/09/18 12:17) Rash ziprasidone HCl [From Geodon] Allergy (Verified 01/09/18 12:17) ziprasidone mesylate [From Geodon] Allergy (Verified 01/09/18 12:17) Home Medications: Doxepin HCl 09/01/18 [Last Taken Unknown] Lorazepam 09/01/18 [Last Taken Unknown] Namenda 10 mg 09/01/18 [Last Taken Unknown] Oxycodone HCl 09/01/18 [Last Taken Unknown] I have personally reviewed and updated: family history, medical history - Past Medical History hypertension Additional medical history: Chronic abdominal pain with continuous opiate and benzodiazepine dependency, felt to be secondary to a strong psychiatric component and not related to her underlying hepatocellular carcinoma. Hepatocellular carcinoma status post Y 90 treatment as well as arterial embolectomy. Hepatitis C virus. Bipolar disease type 1. Parkinson's disease. Severe protein calorie malnutrition. Possible seizure disorder - Surgical History Additional surgical history: 09/21/2016 arterial embolectomy by interventional Radiology. Hysterectomy - Family History Additional family history: Family with diabetes, no cancer - Social History Smoking Status: Former smoker Additional social history: Independent in her ADLs lives with her Review of Systems Review of Systems: ROS: 10pt was reviewed & negative except for what was stated in HPI & below Physical Exam Physical Exam: Temp Pulse Resp BP Pulse Ox 36.9 C 84 18 192/111 H 95 09/29/18 03:19 09/29/18 03:19 09/29/18 03:19 09/29/18 03:19 09/29/18 03:19 Constitutional: uncomfortable, cachectic Eyes: PERRL, EOMI Ears, Nose, Mouth, Throat: moist mucous membranes, no oral mucosal ulcers Cardiovascular: regular rate and rhythym, no murmur, rub, or gallop Respiratory: no respiratory distress, clear to auscultation Gastrointestinal: normoactive bowel sounds, tenderness (Diffuse), guarding, No rebound, No distension Skin: warm, normal color Musculoskeletal: full muscle strength, normal joint ROM Neurologic: AAOx3, CN II-XII Intact Psychiatric: interacting appropriately, anxious Lab Data & Imaging Review 09/28/18 23:15 09/28/18 23:15 WBC 2.60 10^3/uL (3.80-9.50) L 09/28/18 23:15 RBC 4.78 10^6/uL (4.18-5.33) 09/28/18 23:15 Hgb 11.8 g/dL (12.6-16.3) L 09/28/18 23:15 Hct 37.5 % (38.0-47.0) L 09/28/18 23:15 MCV 78.5 fL (81.5-99.8) L 09/28/18 23:15 MCH 24.7 pg (27.9-34.1) L 09/28/18 23:15 MCHC 31.5 g/dL (32.4-36.7) L 09/28/18 23:15 RDW 17.3 % (11.5-15.2) H 09/28/18 23:15 Plt Count 119 10^3/uL (150-400) L 09/28/18 23:15 MPV 9.3 fL (8.7-11.7) 09/28/18 23:15 Neut % (Auto) 76.9 % (39.3-74.2) H 09/28/18 23:15 Lymph % (Auto) 13.5 % (15.0-45.0) L 09/28/18 23:15 Reynolds % (Auto) 7.7 % (4.5-13.0) 09/28/18 23:15 Eos % (Auto) 1.5 % (0.6-7.6) 09/28/18 23:15 Baso % (Auto) 0.4 % (0.3-1.7) 09/28/18 23:15 Nucleat RBC Rel Count 0.0 % (0.0-0.2) 09/28/18 23:15 Absolute Neuts (auto) 2.00 10^3/uL (1.70-6.50) 09/28/18 23:15 Absolute Lymphs (auto) 0.35 10^3/uL (1.00-3.00) L 09/28/18 23:15 Absolute Monos (auto) 0.20 10^3/uL (0.30-0.80) L 09/28/18 23:15 Absolute Eos (auto) 0.04 10^3/uL (0.03-0.40) 09/28/18 23:15 Absolute Basos (auto) 0.01 10^3/uL (0.02-0.10) L 09/28/18 23:15 Absolute Nucleated RBC 0.00 10^3/uL (0-0.01) 09/28/18 23:15 Immature Gran % 0.0 % (0.0-1.1) 09/28/18 23:15 Immature Gran # 0.00 10^3/uL (0.00-0.10) 09/28/18 23:15 RBC/WBC/PLT Morphology TNP 09/28/18 23:15 Platelet Estimate TNP 09/28/18 23:15 VBG Lactic Acid 0.9 mmol/L (0.7-2.1) 09/28/18 23:15 Sodium 134 mEq/L (135-145) L 09/28/18 23:15 Potassium 3.5 mEq/L (3.3-5.0) 09/28/18 23:15 Chloride 105 mEq/L (97-110) 09/28/18 23:15 Carbon Dioxide 22 mEq/l (22-31) 09/28/18 23:15 Anion Gap 7 mEq/L (6-14) 09/28/18 23:15 BUN 14 mg/dL (7-23) 09/28/18 23:15 Creatinine 1.0 mg/dL (0.6-1.0) 09/28/18 23:15 Estimated GFR 55 09/28/18 23:15 Glucose 134 mg/dL (70-100) H 09/28/18 23:15 Calcium 9.1 mg/dL (8.5-10.4) 09/28/18 23:15 Total Bilirubin 0.4 mg/dL (0.1-1.4) 09/28/18 23:15 Conjugated Bilirubin 0.2 mg/dL (0.0-0.5) 09/28/18 23:15 Unconjugated Bilirubin 0.2 mg/dL (0.0-1.1) 09/28/18 23:15 AST 37 IU/L (14-46) 09/28/18 23:15 ALT 14 IU/L (9-52) 09/28/18 23:15 Alkaline Phosphatase 304 IU/L (38-126) H 09/28/18 23:15 POC Troponin I 0.00 ng/mL (0.00-0.08) 09/28/18 23:48 Total Protein 7.1 g/dL (6.3-8.2) 09/28/18 23:15 Albumin 3.9 g/dL (3.5-5.0) 09/28/18 23:15 Lipase 153 IU/L (23-300) 09/28/18 23:15 Urine Color COLORLESS 09/29/18 01:25 Urine Appearance CLEAR 09/29/18 01:25 Urine pH 7.0 (5.0-7.5) 09/29/18 01:25 Ur Specific [place] 1.005 (1.002-1.030) 09/29/18 01:25 Urine Protein NEGATIVE (NEGATIVE) 09/29/18 01:25 Urine Ketones NEGATIVE (NEGATIVE) 09/29/18 01:25 Urine Blood NEGATIVE (NEGATIVE) 09/29/18 01:25 Urine Nitrate NEGATIVE (NEGATIVE) 09/29/18 01:25 Urine Bilirubin NEGATIVE (NEGATIVE) 09/29/18 01:25 Urine Urobilinogen NEGATIVE EU (0.2-1.0) 09/29/18 01:25 Ur Leukocyte Esterase NEGATIVE (NEGATIVE) 09/29/18 01:25 Urine Glucose NEGATIVE (NEGATIVE) 09/29/18 01:25 Imaging Review: Imaging Impressions Chest X-Ray 09/28/18 22:52 Impression: 1. No active cardiopulmonary disease seen. CT A/P Prelim prelim CT AP 1. Cirrhosis, small ascites, splenomegaly, and colopathy of ascending colon unchanged since 11/2017 2. No FF, abscess, or SBO 3. Normal appendix 4. constipation and sigmoid tics unchanged Assessment & Plan Assessment: 68 yo F w/ BPD, hx HCC presents with acute on chronic abdominal pain. Plan: 1. Acute on chronic abdominal pain - Several similar presentations in the past. Work-up thus far unrevealing: lab findings only with chronically elevated alk phos and CT scan(personally reviewed/interpreted) does not reveal any acute findings. In the past it has been suggested that there is a significant psychiatric/functional component to her pain. - Admit for observation - Treat conservatively with mIVF, anti-emetics - Treat possible gastritis/PUD with GI cocktail PRN and H2B IV BID (listed allergy to pantoprazole) - May benefit from EGD if not improving with conservative measures 2. Hx HCC - S/p chemoembolization 3. Hd Hep C- S/p treatment 4. BPD - Resume medications pending reconciliation 5. Anxiety, depression - Likely a significant contributor to her presentation. Diet - Clears, ADAT, mIVF Code - Full Ppx - LMWH Dispo - Admit under observation status
[2018-09-29] MEDS ORDERED: HYDROmorphONE/DILAUDID 2 MG/ML INJ IVP ONE ×3 (03:57→05:55)
[2018-09-29] MEDS: HYDROmorphONE/DILAUDID 1 MG/ML INJ IVP PRN ×3 (04:02→12:01)
[2018-09-29] MEDS ORDERED: hydrALAZINE 25 MG TAB PO PRN (04:38)
[2018-09-29] MEDS: ONDANSETRON 4 MG/2 ML VIAL IVP PRN (04:39)
[2018-09-29] MEDS ORDERED: hydrALAZINE 20 MG/ML VIAL IVP ONE (05:06)
[2018-09-29] MEDS ORDERED: LORazepam 2 MG/ML INJ IVP ONE (05:55)
--- NOTE | 2018-09-29 06:17 | CPEKG ---
Test Reason : OPEN Blood Pressure : / mmHG Vent. Rate : 066 BPM Atrial Rate : 066 BPM P-R Int : 159 ms QRS Dur : 100 ms QT Int : 457 ms P-R-T Axes : 073 -23 066 degrees QTc Int : 479 ms Sinus rhythm Probable left atrial enlargement Borderline left axis deviation Confirmed by Malvin Velasco ([id number]) on 09/29/2018 6:16:12 AM Referred By: Confirmed By:Malvin Velasoc
[2018-09-29] MEDS: FAMOTIDINE 20 MG/NACL 50 ML IV SCH ×2 (07:51→20:10)
[2018-09-29] MEDS: ENOXAPARIN 40 MG/0.4 ML SYR SC SCH (07:56)
[2018-09-29] MEDS ORDERED: PANTOPRAZOLE SODIUM 40 MG VIAL IVP SCH (09:00)
[2018-09-29] MEDS: ONDANSETRON DISINTEGRATING 4 MG TAB PO PRN ×2 (11:28→17:11)
[2018-09-29] MEDS ORDERED: LORazepam 1 MG TAB PO PRN (11:48)
[2018-09-29] MEDS ORDERED: fentaNYL 75 MCG PATCH TD SCH (12:00)
[2018-09-29] MEDS ORDERED: PRAMIPEXOLE 0.125 MG TAB PO SCH (12:00)
[2018-09-29] MEDS: ONDANSETRON DISINTEGRATING 4 MG TAB PO SCH (12:10)
[2018-09-29] MEDS ORDERED: DOXEPIN HCL 50 MG CAP PO SCH ×2 (12:30→21:00)
--- NOTE | 2018-09-29 13:24 | HOSPPROG ---
Hospitalist Progress Note Assessment/Plan: 68-year-old with a history of chronic abdominal pain, hepatocellular carcinoma and anxiety with depression presents with acute on chronic abdominal pain. She was recently hospitalized here in November with similar complaints at which time she had a colonoscopy which was unremarkable. She had a CT scan on admission which was also unremarkable. Her pain is upper, she has a new anemia that is iron deficient and has been followed by Dr. Alvarado. She also has been seen by GI of the [facility] and is set for a gallbladder scan sometime next week, I am not sure what this is. Currently she complains of severe abdominal pain and nausea vomiting with inability to eat much. This is much worse than her baseline. She also has a new anemia which is microcytic from April. # acute on chronic abdominal pain associated with nausea vomiting. * Given possibility of iron deficiency anemia with low MCV and low ferritin will do an upper endoscopy to rule out ulcer disease * If that is negative she may need a capsule endoscopy as an outpatient * Continue PPI, she does not have an allergy to Protonix # hepatocellular carcinoma recent evaluation by Dr. Alvarado who says her disease is stable. # bipolar disorder with anxiety and depression # chronic abdominal pain with chronic narcotic dependency Disposition: Patient has ongoing symptoms of nausea vomiting abdominal pain which is not relieved with oral pain medications. She will stay overnight for additional evaluation including endoscopy. Subjective: Patient new to me and chart reviewed, discussed with GI. Patient has severe epigastric pain associated with nausea vomiting she is unable to eat anything but liquids. She says her pain is much worse than baseline. Objective: Vital Signs Temp Pulse Resp BP Pulse Ox 37.1 C 82 18 187/82 H 100 09/29/18 11:51 09/29/18 11:51 09/29/18 11:51 09/29/18 11:51 09/29/18 11:51 09/28/18 09/29/18 09/30/18 05:59 05:59 05:59 Intake Total 2100 Output Total 700 Balance 2099 - - Physical Exam Constitutional: chronically ill appearing, uncomfortable Eyes: PERRL Ears, Nose, Mouth, Throat: moist mucous membranes Cardiovascular: regular rate and rhythym Respiratory: no respiratory distress, clear to auscultation Gastrointestinal: normoactive bowel sounds, tenderness (Epigastric) Skin: warm Musculoskeletal: full muscle strength, no muscle tenderness Neurologic: AAOx3 Psychiatric: interacting appropriately ICD10 Worksheet Patient Problems: Problems Problem Status Onset Abdominal pain Acute Nausea Acute Abdominal pain Acute Chronic abdominal pain Acute Chronic nausea Acute Dehydration Acute Failure to thrive Acute Hypokalemia Acute Urinary tract infection Acute Vomiting Acute Weakness Acute
[2018-09-29] MEDS: PRAMIPEXOLE 0.25 MG TAB PO SCH (13:26)
[2018-09-29] MEDS: PANTOPRAZOLE SODIUM 40 MG TAB PO SCH ×2 (13:26→20:01)
[2018-09-29] MEDS: DOXEPIN HCL 25 MG CAP PO SCH ×2 (13:27→20:00)
[2018-09-29] MEDS: DOXEPIN HCL 50 MG CAP PO SCH ×2 (13:27→20:00)
[2018-09-29] MEDS: SUCRALFATE 1 GM/10 ML UDCUP PO SCH ×2 (16:47→22:33)
[2018-09-29] MEDS: hydrALAZINE 20 MG/ML VIAL IVP PRN (17:16)
[2018-09-29] MEDS: MEMANTINE HCL 5 MG TAB PO SCH (20:00)
[2018-09-29] MEDS: AMITRIPTYLINE HCL 25 MG TAB PO SCH (20:01)
[2018-09-30] MEDS: ONDANSETRON 4 MG/2 ML VIAL IVP PRN (08:11)
[2018-09-30] MEDS: HYDROmorphONE/DILAUDID 1 MG/ML INJ IVP PRN (08:11)
[2018-09-30] MEDS ORDERED: ALBUTEROL 3 ML DEYVIAL IH PRN (08:37)
[2018-09-30] MEDS ORDERED: ONDANSETRON 4 MG/2 ML VIAL IVP PRN (08:37)
[2018-09-30] MEDS ORDERED: fentaNYL 100 MCG/2 ML INJ IVP PRN (08:37)
[2018-09-30] MEDS ORDERED: NALOXONE HCL 0.4 MG/ML INJ IVP PRN (08:37)
[2018-09-30] MEDS ORDERED: DEXAMETHASONE 4 MG/ML VIAL IVP PRN (08:37)
--- NOTE | 2018-09-30 08:38 | PDANEPAE ---
ANE History of Present Illness here for EGD ANE Past Medical History - Cardiovascular History Hx Hypertension: Yes Hx Arrhythmias: No Hx Chest Pain: No Hx Coronary Artery / Peripheral Vascular Disease: No Hx CHF / Valvular Disease: No Hx Palpitations: No - Pulmonary History Hx COPD: No Hx Asthma/Reactive Airway Disease: No Hx Recent Upper Respiratory Infection: No Hx Oxygen in Use at Home: No Hx Sleep Apnea: No Sleep Apnea Screening Result - Last Documented: Negative - Neurologic History Hx Cerebrovascular Accident: No Hx Seizures: No Hx Dementia: No - Endocrine History Hx Diabetes: No - Renal History Hx Renal Disorders: No - Liver History Hx Hepatic Disorders: Yes Hepatic History Comment: HEP C - Neurological & Psychiatric Hx Hx Neurological and Psychiatric Disorders: Yes Neurological / Psychiatric History Comment: BIPOLAR - Cancer History Hx Cancer: Yes - Congenital Disorder History Hx Congenital Disorders: No - GI History Hx Gastrointestinal Disorders: Yes Gastrointestinal History Comment: STOMACH ISSUES - Chronic Pain History Chronic Pain: Yes (GI pain; rates pain in pre-op>10/10) - Surgical History Prior Surgeries: HYSTERECTOMY ANE Review of Systems Review of systems is: negative Review of Systems: - Exercise capacity Exercise capacity: >=4 METS ANE Patient History - Allergies Allergies/Adverse Reactions: aripiprazole [From Abilify] Allergy (Verified 01/09/18 12:17) ziprasidone HCl [From Geodon] Allergy (Verified 01/09/18 12:17) ziprasidone mesylate [From Geodon] Allergy (Verified 01/09/18 12:17) - Home Medications Home medications: home medication list seen and reviewed Home Medications: Amitriptyline HCl [Elavil 25 mg (RX)] 25 mg PO HS 09/29/18 [Last Taken Unknown] Doxepin HCl 75 mg PO BID@09/29/18 [Last Taken Unknown] LORazepam [Ativan (*)] 3 mg PO DAILY PRN 09/29/18 [Last Taken Unknown] Memantine HCl [Namenda 10 mg] 10 mg PO BID 09/29/18 [Last Taken Unknown] Ondansetron HCl [Zofran] 8 mg PO DAILY 09/29/18 [Last Taken Unknown] Pantoprazole Sodium [Protonix 40mg (*)] 40 mg PO BID 09/29/18 [Last Taken Unknown] Pramipexole Di-HCl [Mirapex 0.125 mg (*)] 0.5 mg PO DAILY 09/29/18 [Last Taken Unknown] Sucralfate [Carafate 1gm/10ml Oral Liquid (*)] 1 gm PO TID 09/29/18 [Last Taken Unknown] fentaNYL [Duragesic 75 MCG Patch (*)] 75 mcg TD Q72H 09/29/18 [Last Taken Unknown] oxyCODONE IR [Oxycodone Ir (*)] 5 mg PO BID PRN 09/29/18 [Last Taken Unknown] - NPO status NPO Status: no food or drink >8 hours NPO Since - Liquids (Date): 09/30/18 NPO Since - Liquids (Time): 00:00 NPO Since - Solids (Date): 09/30/18 NPO Since - Solids (Time): 00:00 - Smoking Hx Smoking Status: Former smoker - Family Anes Hx Family Hx Anesthesia Complications: NONE ANE Labs/Vital Signs - Labs Result Diagrams: 09/28/18 23:15 09/29/18 13:34 - Vital Signs Vital Signs: reviewed preoperatively; see RN documention for details Blood Pressure: 144/91 Heart Rate: 89 Respiratory Rate: 16 O2 Sat (%): 94 Height: 177.8 cm Weight: 47.627 kg ANE Physical Exam - Airway Neck exam: FROM Mallampati Score: Class 1 - Pulmonary Pulmonary: no respiratory distress - Cardiovascular Cardiovascular: regular rate and rhythym - ASA Status ASA Status: III ANE Anesthesia Plan Anesthesia Plan: GA with mask
[2018-09-30] MEDS ORDERED: PROPOFOL/EMULSION 500 MG/50 ML BOTTLE IV ONE (08:42)
--- NOTE | 2018-09-30 09:08 | POSTANESTH ---
Post Anesthetic Evaluation Cardiovascular Status: Normal, Stable Respiratory Status: Normal, Stable Level of Consciousness/Mental Status: Can Participate in Eval Pain Control: Adequate, Prn Tx Ordered Nausea/Vomiting Control: Adequate, Prn Tx Ordered Complications Possibly Related to Anesthesia: None Noted
--- NOTE | 2018-09-30 09:08 | GIREPORT ---
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 Normal colonoscopy 2017. Providers: Maxim Bran MD Medicines: Propofol per Anesthesia Complications: No immediate complications. Description of Procedure: After obtaining informed consent, the endoscope was passed under direct vision. Throughout the procedure, the patient's blood pressure, pulse, and oxygen saturations were monitored continuously. The Endoscope was intro duced through the mouth, and advanced to the second part of duodenum. The [facility] er GI endoscopy was accomplished without difficulty. The patient tolerated th e procedure well. Findings: The examined esophagus was normal. Diffuse moderate inflammation characterized by congestion (edema) and erythema was found in the entire examined stomach. Biopsies were taken with a cold forceps for histology. The examined duodenum was normal. Biopsies for histology were taken wit h a cold forceps for evaluation of celiac disease. Estimated Blood Loss: Estimated blood loss: none. Post Op Diagnosis: - Normal esophagus. - Chronic gastritis. Biopsied. - Normal examined duodenum. Biopsied. Recommendation: - Await pathology results. - Advance diet as tolerated. - Management of anemia and iron replacement per Hemtology/Oncology - Consider VCE as an outpatient. - Will sign off, please call with further questions - Thank you for allowing me to participate in the care of your patient. Attending Participation: I personally performed the entire procedure. Maxim Bran MD Maxim Bran MD 09/30/2018 9:07:35 AM This report has been signed electronicallyStnicole Bran MD Number of Addenda: 0 Note Initiated On: 09/30/2018 8:27 AM [email or web address]
[2018-09-30] MEDS: LIDOCAINE 2% VISCOUS 15 ML UDCUP PO PRN ×2 (10:53→15:41)
--- NOTE | 2018-09-30 11:00 | GCON ---
REFERRING PHYSICIAN: Avani Franco MD CHIEF COMPLAINT: Abdominal pain and anemia. HISTORY OF PRESENT ILLNESS: I have been asked to see this very pleasant 68-year-old woman by Dr. Hina Franco in consultation for microcytic anemia, epigastric pain, and concern for peptic ulcer diseas e. Patient has multiple medical issues and history of chronic pain and history of hepatocellular car cinoma, anxiety, depression. She has had longstanding history of abdominal pain. She was recently h ospitalized in November for similar complaints, had a colonoscopy at that time, which was unremarkabl e. She had a CT scan on that admission, which also was unremarkable. The pain is in the upper abdom en. She has been found to have anemia that is microcytic, iron deficient. She is followed by Dr. Bari key was planning on iron infusion. Asked to see patient for failure of further evaluation of iron deficiency anemia and rule out significant upper GI pathology. PAST MEDICAL HISTORY: Remarkable for chronic abdominal pain, continuous opiate and benzodiazepine de pendency. Patient with strong psychiatric component, history of hepatocellular carcinoma, previous t reatment by Dr. Alvarado with TACE, history of hepatitis C, bipolar disorder, Parkinson disease, seizu re disorder. PAST SURGICAL HISTORY: Remarkable for embolectomy by interventional radiology, hysterectomy. FAMILY HISTORY: Negative as it pertains to chief complaint. SOCIAL HISTORY: Is a former smoker. Independent. Lives on her own with her . ALLERGIES: To Abilify, pantoprazole, Geodon. HOME MEDICATIONS: Doxepin, lorazepam, Namenda, oxycodone. REVIEW OF SYSTEMS: Negative 10 systems other than mentioned in HPI. PHYSICAL EXAM: VITAL SIGNS: 161/33, heart rate 85, respiratory rate 16, 95% sat. Afebrile. GENERA L: Chronically ill appearing woman in no acute distress. HEENT: Normocephalic, atraumatic. EOMI. Mucous membranes moist. Poor dentition. NECK: Supple. No cervical adenopathy. No thyromegaly. Cervical neck without adenopathy or thyromegaly. LUNGS: Clear. CARDIAC: Normal S1, S2 without mur mur. ABDOMEN: Benign. Nontender. Normal bowel sounds. No masses. EXTREMITIES: Without clubbing , cyanosis, edema. NEURO: Grossly nonfocal. PSYCH: Alert, oriented x3. Appropriate affect. SKIN : Warm, dry, intact. LABORATORY DATA: Hemoglobin 11.8, hematocrit 37.5, MCV of 78.5. Serum chemistries: Serum sodium 13 8, potassium 3.4, chloride 105, CO2 of 20, BUN of 9, blood sugar 188. IMPRESSION/PLAN: A 68-year-old woman with multiple medical problems, chronic abdominal pain, chronic narcotic dependency. Patient with microcytic indices. The patient has had a previous normal colono scopy in November of this year. We will proceed with diagnostic upper endoscopy with small bowel bio psies and rule out celiac disease, and also evaluate for a significant gastritis or peptic ulcer dise ase or upper tract malignancy. We will plan on upper endoscopy. We will follow with you. /[id number]/MODL
[2018-09-30] MEDS: MEMANTINE HCL 5 MG TAB PO SCH ×2 (11:37→22:01)
[2018-09-30] MEDS: DOXEPIN HCL 50 MG CAP PO SCH ×2 (11:38→22:00)
[2018-09-30] MEDS: PRAMIPEXOLE 0.25 MG TAB PO SCH (11:39)
[2018-09-30] MEDS: DOXEPIN HCL 25 MG CAP PO SCH ×2 (11:40→22:00)
[2018-09-30] MEDS: PANTOPRAZOLE SODIUM 40 MG TAB PO SCH ×2 (11:41→22:00)
[2018-09-30] MEDS: ONDANSETRON DISINTEGRATING 4 MG TAB PO SCH (11:41)
[2018-09-30] MEDS: SUCRALFATE 1 GM/10 ML UDCUP PO SCH ×3 (11:43→22:04)
[2018-09-30] MEDS: FAMOTIDINE 20 MG/NACL 50 ML IV SCH (11:44)
[2018-09-30] MEDS: ENOXAPARIN 40 MG/0.4 ML SYR SC SCH (11:51)
[2018-09-30] MEDS: oxyCODONE IR 5 MG TAB PO PRN (12:48)
--- NOTE | 2018-09-30 13:04 | HOSPPROG ---
Hospitalist Progress Note Assessment/Plan: 68-year-old with a history of chronic abdominal pain, hepatocellular carcinoma and anxiety with depression presents with acute on chronic abdominal pain. She was recently hospitalized here in November with similar complaints at which time she had a colonoscopy which was unremarkable. She had a CT scan on admission which was also unremarkable. Her pain is upper, she has a new anemia that is iron deficient and has been followed by Dr. Alvarado. She also has been seen by GI of the [facility] and is set for a gallbladder scan sometime next week, I am not sure what this is. Currently she complains of severe abdominal pain and nausea vomiting with inability to eat much. This is much worse than her baseline. She also has a new anemia which is microcytic from April. She states she cannot eat enough and continues to loose weight, requesting GI consult prior to discharge. She is followed as an outpatient by GI of the [facility] # acute on chronic abdominal pain associated with nausea vomiting. High likelihood that this is psychosomatic. * She has had an extensive work up with GI and there is not obvious cause. * Oncology does not feel related to HCC * EGD negative * Discussed with Dr. Bran, likely no etiology but he will see in am and if no obvious cause she can be discharged. # Mild iron deficiency anemia, GI will set up a capsule endoscopy as outpatient * due for iron infusion tomorrow at oncology, I will give here since she is not going to be discharged today. # hepatocellular carcinoma recent evaluation by Dr. Alvarado who says her disease is stable. # bipolar disorder with anxiety and depression # chronic abdominal pain with chronic narcotic dependency Disposition: Patient has ongoing symptoms of nausea vomiting abdominal pain which is not relieved with oral pain medications. Unable to tolerate PO per patient. Quite hysterical in room today. Subjective: Ongoing epigastric pain worse with eating. Pain is almost immediately present when she eats. Tenderness throughout abdomen Objective: Vital Signs Temp Pulse Resp BP Pulse Ox 36.9 C 134 H 18 152/107 H 96 09/30/18 12:00 09/30/18 12:00 09/30/18 12:00 09/30/18 12:00 09/30/18 12:00 Laboratory Results 09/29/18 13:34 09/29/18 09/30/18 10/01/18 05:59 05:59 05:59 Intake Total 600 300 Balance 600 300 - Physical Exam Constitutional: chronically ill appearing, cachectic Eyes: PERRL Ears, Nose, Mouth, Throat: moist mucous membranes Cardiovascular: regular rate and rhythym Respiratory: no respiratory distress, clear to auscultation Gastrointestinal: tenderness, No distension Genitourinary: no bladder fullness Skin: normal color Neurologic: AAOx3 Psychiatric: anxious ICD10 Worksheet Patient Problems: Problems Problem Status Onset Abdominal pain Acute Nausea Acute Abdominal pain Acute Chronic abdominal pain Acute Chronic nausea Acute Dehydration Acute Failure to thrive Acute Hypokalemia Acute Urinary tract infection Acute Vomiting Acute Weakness Acute
[2018-09-30] MEDS: ACETAMINOPHEN 325 MG TAB PO PRN ×2 (14:25→19:06)
--- NOTE | 2018-09-30 15:59 | ASMTCMCOM ---
CM Note CM Note Notes: CM spoke with RN, patient underwent upper endoscopy today. Patient likely to discharge home to [facility] w/ support of . CM to follow. Current D/C Plan: Independent, return to [facility]. Date Signed: 09/30/2018 03:59 PM Electronically Signed By:Marcela Parsons
--- NOTE | 2018-09-30 19:06 | PDMN ---
Medical Necessity Medical necessity: MCG M05 abd pain undg: persistent abd pain, N/V unable to tolerate PO , EGD-, status changed to INPT 09/29 for ongoing med nec. further monitorig, eval and tx of abd pain. PMHx hepatocellular carcinoma, bipolar, chronic abd pain.
[2018-09-30] MEDS: ONDANSETRON DISINTEGRATING 4 MG TAB PO PRN (20:02)
[2018-09-30] MEDS: AMITRIPTYLINE HCL 25 MG TAB PO SCH (22:00)
[2018-10-01] MEDS: oxyCODONE IR 5 MG TAB PO PRN ×2 (06:00→15:26)
[2018-10-01] MEDS: SUCRALFATE 1 GM/10 ML UDCUP PO SCH ×2 (07:46→16:22)
[2018-10-01] MEDS: hydrALAZINE 20 MG/ML VIAL IVP PRN (08:02)
[2018-10-01] MEDS: PRAMIPEXOLE 0.25 MG TAB PO SCH (09:16)
[2018-10-01] MEDS: MEMANTINE HCL 5 MG TAB PO SCH (09:17)
[2018-10-01] MEDS: ENOXAPARIN 40 MG/0.4 ML SYR SC SCH (09:18)
[2018-10-01] MEDS: ONDANSETRON DISINTEGRATING 4 MG TAB PO SCH (09:18)
[2018-10-01] MEDS: HYDROmorphONE/DILAUDID 1 MG/ML INJ IVP PRN (09:19)
[2018-10-01] MEDS: PANTOPRAZOLE SODIUM 40 MG TAB PO SCH (09:20)
[2018-10-01] MEDS ORDERED: SODIUM FERRIC GLUCONAT/SUCROSE 125 MG in NS 100 ML IV SCH (10:30)
--- NOTE | 2018-10-01 11:02 | ASMTCMCOM ---
CM Note CM Note Notes: Dr. Parks states patient could benefit from having access to IV fluids as needed to reduce the patient's trips to the ER. Spoke with [facility] and they are able to accomodate this request. They will need orders in the transfer of care summary for nursing infusion services. Dr. Parks states 1L of normal saline solution is appropriate for this intervention. Jessika Pennington is the contact ([phone]) CM will follow. Date Signed: 10/01/2018 11:01 AM Electronically Signed By:Amanda Ontiveros LCSW
[2018-10-01] MEDS: DOXEPIN HCL 50 MG CAP PO SCH (11:19)
[2018-10-01] MEDS: DOXEPIN HCL 25 MG CAP PO SCH (11:19)
--- NOTE | 2018-10-01 12:24 | SOAPPROG ---
SOAP Progress Note Assessment/Plan: Assessment: Chronic abdominal pain, narcotic and benzodiazepine dependent. HCC and history of HCV, s/p eradication and treatment of HCV with Gigioni with underlying cirrhosis. HCC treated with Y90 TACE and has had a stable right lobe liver lesion HCC (biopsy proven). T1N0M0. Unclear form medical record regarding why she did not have attept at surgical resection. She has been seen several times by GI and has had an extensive GI work up unremarkable without any significant findings. Iron deficiency. Receiving IV iron today. Normal recent colonoscopy and normal EGD yesterday. Duodenal biopsies pending for Celiac disease, however duodenal biopsies were negative last year. Anticipate discharge home today. Plan: 1. No clear etiology for patients pain. Extensive work up has been unremarkable. Recommend supportive care and pain consult 2. If duodenal biopsies negative consider VCE as out patient 3. Continue on Carafate and PPI 4. Follow up with her Oncologist and psychiatrist. Please call with further questions 10/01/18 12:39 Subjective: CC: HCC and c/0 epigastric pain Patient with c/o epigastric pain/ Wants to see a Epic Ambulatory Analyst or a counselor. Objective: Vital Signs Temp Pulse Resp BP Pulse Ox 37.1 C 98 16 147/93 H 95 10/01/18 11:16 10/01/18 11:16 10/01/18 11:16 10/01/18 11:16 10/01/18 11:16 Laboratory Results 09/29/18 13:34 09/30/18 10/01/18 10/02/18 05:59 05:59 05:59 Intake Total 600 700 850 Output Total 925 Balance 600 -225 850 Generic Name Dose Route Start Last Admin Trade Name Freq PRN Reason Stop Dose Admin Acetaminophen 650 mg 09/29/18 01:58 09/30/18 19:06 Tylenol PO 03/28/19 01:57 650 mg Q4HRS PRN Administration Pain, Mild/Fever, Can Take PO Amitriptyline HCl 25 mg 09/29/18 21:00 09/30/18 22:00 Elavil PO 03/28/19 20:59 25 mg HS GLEN Administration Diphenhydramine/Al Hydrox/Mg Hydrox 15 ml 09/29/18 02:48 09/29/18 11:50 Cbm Suspension PO 03/28/19 02:47 15 ml Q4HRS PRN Administration Abdominal pain Doxepin HCl 25 mg 09/29/18 12:30 10/01/18 11:19 Sinequan PO 03/28/19 12:29 25 mg BID@1200,2100 GLEN Administration Doxepin HCl 50 mg 09/29/18 12:30 10/01/18 11:19 Sinequan PO 03/28/19 12:29 50 mg BID@1200,2100 GLEN Administration Enoxaparin Sodium 40 mg 09/29/18 09:00 10/01/18 09:18 Lovenox SC 03/28/19 08:59 40 mg DAILY GLEN Administration Fentanyl 75 mcg 09/29/18 12:00 09/29/18 14:03 Duragesic TD 10/09/18 11:59 75 mcg Q72H GLEN Administration Hydralazine HCl 5 mg 09/29/18 10:04 10/01/18 08:02 Apresoline IVP 03/28/19 10:03 5 mg Q6HRS PRN Administration BP> 160/95 Hydromorphone HCl 0.2 - 0.4 mg 09/29/18 02:50 10/01/18 09:19 Dilaudid IVP 10/09/18 02:49 0.4 mg Q4HRS PRN Administration Pain, Severe Unable to Take PO Potassium Chloride/Sodium Chloride 1,000 mls @ 100 mls/hr 09/29/18 02:00 Ns W/ 20 Kcl/L IV 03/28/19 01:59 CONT GLEN Ferric Sodium Gluconate 110 mls @ 110 mls/hr 10/01/18 10:30 10/01/18 11:19 Complex 125 mg/ Sodium IV 03/30/19 10:29 110 mls Chloride DAILY GLEN Administration Lidocaine 10 ml 09/29/18 02:49 09/30/18 15:41 Lidocaine 2% Viscous PO 03/28/19 02:48 10 ml Q4H PRN Administration Abdominal pain Lorazepam 3 mg 09/29/18 11:48 10/01/18 08:02 Ativan PO 03/28/19 11:47 3 mg DAILY PRN Administration Anxiety Memantine 10 mg 09/29/18 21:00 10/01/18 09:17 Namenda PO 03/28/19 20:59 10 mg BID GLEN Administration Ondansetron HCl 4 mg 09/29/18 01:58 09/30/18 08:11 Zofran IVP 03/28/19 01:57 4 mg Q4HRS PRN Administration Nausea/Vomiting, Can't Take PO Ondansetron HCl 4 mg 09/29/18 01:58 09/30/18 20:02 Zofran Odt PO 03/28/19 01:57 4 mg Q4HRS PRN Administration Nausea/Vomiting, Use 1st Ondansetron HCl 8 mg 09/29/18 11:55 10/01/18 09:18 Zofran Odt PO 03/28/19 11:54 8 mg DAILY GLEN Administration Oxycodone HCl 5 mg 09/29/18 11:48 10/01/18 06:00 Oxycodone Ir PO 10/09/18 11:47 5 mg BID PRN Administration Pain, Breakthrough Pantoprazole Sodium 40 mg 09/29/18 12:00 10/01/18 09:20 Protonix PO 03/28/19 11:59 40 mg BID GLEN Administration Pramipexole Dihydrochloride 0.5 mg 09/29/18 12:15 10/01/18 09:16 Mirapex PO 03/28/19 11:59 0.5 mg DAILY GLEN Administration Promethazine HCl 6.25 - 12.5 mg 09/29/18 01:58 09/29/18 05:07 Phenergan IVP 03/28/19 01:57 6.26 mg Q6HRS PRN Administration Nausea/Vomiting, Use 2nd Sucralfate 1 gm 09/29/18 16:00 10/01/18 07:46 Carafate Suspension PO 03/28/19 15:59 1 gm TID GLEN Administration Discontinued Medications Generic Name Dose Route Start Last Admin Trade Name Freq PRN Reason Stop Dose Admin Al Hydroxide/Mg Hydroxide Confirm 09/29/18 03:17 Maalox Susp Administered 09/29/18 03:18 Dose 30 ml .ROUTE .STK-MED ONE Al Hydroxide/Mg Hydroxide 30 ml 09/29/18 03:21 09/29/18 03:23 Maalox Susp PO 09/29/18 03:22 30 ml EDNOW ONE Administration Al Hydroxide/Mg Hydroxide 30 ml 09/29/18 03:22 09/29/18 04:40 Maalox Susp PO 09/29/18 03:23 Not Given Q4HRS ONE Albuterol 3 ml 09/30/18 08:37 Proventil Neb IH 09/30/18 09:38 Q10M PRN PACU, Wheezing Dexamethasone 4 mg 09/30/18 08:37 Decadron Injection IVP 09/30/18 09:38 ONCE PRN PACU, Nausea/Vomiting Doxepin HCl 150 mg 09/29/18 21:00 Sinequan PO 03/28/19 20:59 HS GLEN Doxepin HCl 75 mg 09/29/18 12:30 Sinequan PO 03/28/19 12:29 BID@1200,2100 GLEN Famotidine 20 mg 09/28/18 22:49 09/28/18 23:17 Pepcid IVP 09/28/18 22:50 20 mg EDNOW ONE Administration Fentanyl 25 - 100 mcg 09/30/18 08:37 Sublimaze IVP 09/30/18 09:38 Q5M PRN PACU, IMMEDIATE Pain control Hydralazine HCl 25 mg 09/29/18 04:38 09/29/18 10:13 Apresoline PO 03/28/19 04:37 25 mg QID PRN Administration SBP>180 Hydralazine HCl 5 mg 09/29/18 05:06 09/29/18 05:12 Apresoline IVP 09/29/18 05:07 5 mg ONCE ONE Administration Hydromorphone HCl 0.5 mg 09/29/18 00:00 09/29/18 00:05 Dilaudid IVP 09/29/18 00:01 0.5 mg EDNOW ONE Administration Hydromorphone HCl 0.5 mg 09/29/18 03:57 09/29/18 04:03 Dilaudid IVP 09/29/18 03:58 Not Given EDNOW ONE Hydromorphone HCl 0.4 mg 09/29/18 05:55 09/29/18 06:04 Dilaudid IVP 09/29/18 05:56 0.4 mg ONCE ONE Administration Sodium Chloride 1,000 mls @ 0 mls/hr 09/28/18 22:48 09/28/18 22:57 Ns IV 09/28/18 22:49 1,000 mls EDNOW ONE Administration Protocol Wide Open Sodium Chloride 1,000 mls @ 0 mls/hr 09/29/18 00:32 09/29/18 00:34 Ns IV 09/29/18 00:33 1,000 mls ONCE ONE Administration Wide Open Famotidine/Sodium Chloride 50 mls @ 200 mls/hr 09/29/18 09:00 09/30/18 11:44 Pepcid 20 Mg (Premix) IV 03/28/19 08:59 50 mls Q12 GLEN Administration Iopamidol Confirm 09/29/18 00:54 Isovue-300 Administered 09/29/18 00:55 Dose 100 ml .ROUTE .STK-MED ONE Lorazepam 1 mg 09/29/18 05:55 09/29/18 06:28 Ativan Injection IVP 09/29/18 05:56 1 mg ONCE ONE Administration Naloxone HCl 0.1 mg 09/30/18 08:37 Narcan IVP 09/30/18 09:38 Q2M PRN PACU Resp Rate <10/min Ondansetron HCl 4 mg 09/28/18 22:48 09/28/18 23:17 Zofran IVP 09/28/18 22:49 4 mg EDNOW ONE Administration Ondansetron HCl 2 - 4 mg 09/30/18 08:37 Zofran IVP 09/30/18 09:38 Q10M PRN PACU, Nausea/Vomiting Pramipexole Dihydrochloride 0.5 mg 09/29/18 12:00 09/29/18 13:29 Mirapex PO 03/28/19 11:59 Not Given DAILY [facility] Propofol Confirm 09/30/18 08:42 Diprivan 10 Mg/Ml (Premix) Administered 09/30/18 08:43 Dose 500 mg IV .STK-MED ONE Physical Exam - Physical Exam General Appearance: alert Respiratory: lungs clear, normal breath sounds Cardiac/Chest: regular rate, rhythm Abdomen: normal bowel sounds, non-tender, soft Skin: normal color, warm/dry Extremities: non-tender Neuro/Psych: alert, oriented x 3 ICD10 Worksheet Patient Problems: Problems Problem Status Onset Abdominal pain Acute Nausea Acute Abdominal pain Acute Chronic abdominal pain Acute Chronic nausea Acute Dehydration Acute Failure to thrive Acute Hypokalemia Acute Urinary tract infection Acute Vomiting Acute Weakness Acute
[2018-10-01] MEDS: LIDOCAINE 2% VISCOUS 15 ML UDCUP PO PRN (14:24)
[2018-10-01 15:33] VITALS: BP 158/90
--- NOTE | 2018-10-01 15:49 | PDIAF ---
- Diagnosis Diagnosis: Chronic abdominal pain Code Status: Full Code - Medication Management Discharge Medications: electronically signed and located in the Home Medication List. - Orders Services needed: Home Care, Registered Nurse Home Care Face to Face: I certify that this patient was under my care and that I had the required [id number] encounter meeting the encounter requirements on the discharge day. My findings support the fact that the patient is homebound as defined in Home Care Face to Face Continued: CMS Chapter 7 Medicare Benefits Manual 30.1.1 , The condition of the patient is such that there exists a normal inability to leave home and consequently, leaving home would require a considerable and taxing effort. Diet Recommendation: no restrictions on diet Diet Texture: Regular Texture Diet Additional Instructions: 1 L Normal Saline daily as needed for severe nausea and vomiting. Not to be repeated more then 2 times per month. - Follow Up Care Current Providers and Referrals: Patient,NotPresent [Unknown] - As per Instructions
--- NOTE | 2018-10-01 16:18 | ASMTDCNOTE ---
Case Management Discharge Discharge Order Complete? Answers: Yes Patient to Obtain Answers: Independently Medications Transportation Arranged Answers: Family/Friends Faxed Final Orders Answers: Yes Notes: [facility]Fac[facility] Transfer Answers: Yes Notes: [facility] Report Printed & Faxed to Receiving Agency Family Notified Answers: Yes Notes: ,Ruben Discharge Comments Notes: Patient is discharging home to [facility] with her today. [facility] will provide PRN infusion services for twice per month IV fluids to help patient with the times she has vomiting. If patient needs 2 of these in a month she is to contact her PCP and discuss what is going on. Patient is relieved to get services that may help her minimize her trips to the ER. Patient's will drive her home today. No further needs. Date Signed: 10/01/2018 04:17 PM Electronically Signed By:Amanda Ontiveros LCSW
--- NOTE | 2018-10-01 16:23 | ASDISCHSUM ---
Discharge Information Plan Status:IV ABX/Infusion Medically Cleared to Leave:09/30/2018 Discharge Date:09/30/2018 CM D/C Disposition:Other (Not listed) ADT D/C Disposition:Home, Routine, Self-Care Projected Discharge Date:10/01/2018 11:00 AM Transportation at D/C:Family Discharge Delay Reason: Follow-Up Date:10/01/2018 11:00 AM Discharge Slot:2 - 12:01 pm - 18:00 pm Final Diagnosis:Vomiting, hypokalemia, failure to thirve Placement Information Referral Type:Home Infusion Referral ID:[id number] Provider Name:[facility] Address 1:[address] Address 2: City:[place] Selection Factors: State:[place] Patient Contact Information Contact Name:SHIRLEY Relationship: Address:[facility] [place] [address] Work Phone: City:[facility] Phone: [facility] [address]/Zip Code:[place] [address] Email: Financial Information Financial Class:Medicare Advantage Plans Primary Plan Desc:[facility] Timeet Primary Plan Number:[id number] Secondary Plan Desc: Secondary Plan Number: Assessment Information [facility] DEVIN Progress Note DEVIN Note DEVIN Note Notes: DEVIN spoke with RN, patient underwent upper endoscopy today. Patient likely to discharge home to [facility] w/ support of . DEVIN to follow. Current D/C Plan: Independent, return to [facility]. Date Signed: 09/30/2018 03:59 PM Electronically Signed By:Marcela Parsons DARNELL DARNELL Length of stay for Answers: 2 days current admission Acuity / Level of Answers: Yes Care: Did the patient have an inpatient admission? Comorbidities - select Answers: Opioid dependence all that apply / Chronic pain Other Notes: HTN; Parkinson's disease; Hep C # of Emergency department Answers: 1-2 visits in the last 6 months Social determinants Answers: Mental health diagnosis (anxiety, depression, pers onality disorders, etc.) Score: 14 Date Signed: 10/01/2018 04:20 PM Electronically Signed By:Amanda Ontiveros LCSW [facility] Progress Note CM Note CM Note Notes: Dr. Parks states patient could benefit from having access to IV fluids as needed to reduce the patient's trips to the ER. Spoke with [facility] and they are able to accomodate this request. They will need orders in the transfer of care summary for nursing infusion services. Dr. Parks states 1L of normal saline solution is appropriate for this intervention. Jessika Pennington is the contact ([phone]) CM will follow. Date Signed: 10/01/2018 11:01 AM Electronically Signed By:Amanda Ontiveros LCSW Case Management Discharge Plan Note Case Management Discharge Discharge Order Complete? Answers: Yes Patient to Obtain Answers: Independently Medications Transportation Arranged Answers: Family/Friends Faxed Final Orders Answers: Yes Notes: [facility]Fac[facility] Transfer Answers: Yes Notes: [facility] Report Printed & Faxed to Receiving Agency Family Notified Answers: Yes Notes: ,Ruben Discharge Comments Notes: Patient is discharging home to [facility] with her today. [facility] will provide PRN infusion services for twice per month IV fluids to help patient with the times she has vomiting. If patient needs 2 of these in a month she is to contact her PCP and discuss what is going on. Patient is relieved to get services that may help her minimize her trips to the ER. Patient's will drive her home today. No further needs. Date Signed: 10/01/2018 04:17 PM Electronically Signed By:Amanda Ontiveros LCSW Intervention Information Intervention Type:*IM-Signed Date of Service:10/01/2018 04:14 PM Patient Type:Inpatient Staff Member:Nannette Arenas Hours: Discipline: Severity: Comment:
--- NOTE | 2018-10-01 19:31 | GDS ---
HISTORY OF PRESENT ILLNESS: The patient is a 68-year-old female with a past medical history of chron ic hepatitis C status post treatment as well as hepatocellular carcinoma, who presented to [facility] Emergency Room on 09/29/2018, with complaints of abdominal pain. This abdominal hilario n is apparently chronic for her, present at least over the past 4 years, and prior to receiving treat ment for hepatocellular carcinoma. Workup has largely been unremarkable and she does have regular fo llowup with Gastroenterology in the outpatient setting. She had a CT scan of her abdomen and pelvis, which did not show any acute changes. Furthermore went for an endoscopy which showed chronic gastri tis with normal esophagus, essentially no worrisome findings. Her symptoms were associated with naus ea and vomiting as well, but this gradually abated, and she was tolerating a regular diet at the time of discharge without any significant abdominal pain. She did request for viscous lidocaine. She fe lt that this provided some relief during the hospitalization, and she was agreeable to continue with outpatient followup with Gastroenterology for ongoing followup on her pain. She did ask about possib ly setting up for home IV fluids when she gets nausea and vomiting so she does not have to come into the hospital every time. I reviewed this with case management, and arrangements were made to have th is set up for a maximum of 2 L per month. I did caution her that if she had unresolving symptoms kely pite receiving IV fluids that an ER evaluation would be appropriate then. The patient did receive a dose of IV iron during this hospitalization. She has outpatient followup with Hematology on this iss ue as well. Otherwise, no major changes were made. DISCHARGE PHYSICAL EXAMINATION: VITAL SIGNS: Temperature 37.1, blood pressure 157/80, heart rate 92 , respirations 16, sating 96% on room air. GENERAL: Patient appears comfortable. She is sitting on the bed of the hospital with her watching TV. HEART: Regular. No murmurs appreciated. LUNG S: Clear to auscultation with normal respiratory effort. ABDOMEN: Soft, nontender, nondistended. N ormal bowel sounds. : No Snyder catheter in place. EXTREMITIES: No significant edema. She appea rs overall somewhat cachectic. Biopsies from endoscopy currently pending. LABORATORY DATA: White blood cell count 2.6, hemoglobin 11.8, platelets 119. Sodium 138, potassium 3.4, chloride 105, bicarb 20, BUN 9, creatinine 0.8, glucose 188, AST 37, ALT 14, alkaline phosphatas e 304. DISCHARGE MEDICATIONS: 1. In short, no changes were made other than adding as needed viscous lidocaine. 2. Elavil 25 mg nightly. 3. Doxepin 75 mg twice a day. 4. Fentanyl 75 mcg q. 72 hours. 5. Viscous lidocaine 10 mL every 4 hours as needed for epigastric pain. 6. Lorazepam 3 mg daily. 7. Namenda 10 mg twice a day. 8. Zofran 8 mg daily. 9. Oxycodone IR 5 mg twice a day as needed. 10. Pantoprazole 40 mg twice a day. 11. Mirapex 0.5 mg daily. 12. Carafate 1 g p.o. t.i.d. DISCHARGE INSTRUCTIONS: I recommend a followup visit with her primary care provider as well as her g astroenterologist in the next 1-2 weeks' time for reassessment. TIME SPENT: 40 minutes of time dedicated to discharge efforts today. /[id number]/MODL
== END 2018-10-01 16:57 | disposition home or self-care (01) | DRG 392 ==
LOC: EDUNIT# → F3E 09-29 04:15 → OBSVTOIN 09-29 13:33
PROVIDERS: ADMIT Student in an Organized Health Care Education/Training Program; ATTEND Student in an Organized Health Care Education/Training Program
DX: R10.9 Unspecified abdominal pain (principal); C22.0 Liver cell carcinoma; F11.20 Opioid dependence, uncomplicated; F13.20 Sedative, hypnotic or anxiolytic dependence, uncomplicated; R11.2 Nausea with vomiting, unspecified; E86.9 Volume depletion, unspecified; K73.9 Chronic hepatitis, unspecified; G89.29 Other chronic pain; K29.50 Unspecified chronic gastritis without bleeding; I10 Essential (primary) hypertension; F31.9 Bipolar disorder, unspecified; G25.81 Restless legs syndrome; D50.9 Iron deficiency anemia, unspecified
CPT/HCPCS: 84484-PO; 96374; 97165-GO; G8987-GO-CJ; G8988-GO-CI; J0360; J1170; J1650; J2060; J2405; J2550; J2704; J2916; Q9967

== ENCOUNTER 2018-10-15 06:59 | Emergency (ER) | payer OTHER ==
[2018-10-15] MEDS ORDERED: NS 1,000 ML IV ONE ×2 (07:26)
[2018-10-15] MEDS ORDERED: HYDROmorphONE/DILAUDID 2 MG/ML INJ IVP ONE ×2 (07:26→10:13)
[2018-10-15] MEDS ORDERED: ONDANSETRON 4 MG/2 ML VIAL IVP ONE (07:26)
--- NOTE | 2018-10-15 07:31 | EDPHY ---
H & P Stated Complaint: Abdo pain, N/V/D since yesterday. Time Seen by Provider: 10/15/18 07:20 HPI/ROS: CHIEF COMPLAINT: Abdominal pain, vomiting HISTORY OF PRESENT ILLNESS: Patient is a 68-year-old female with a history of chronic abdominal pain with continuous opiate and benzodiazepine dependency. She has a history of hepatitis C as well as hepatocellular carcinoma post Y90 treatment as well as arterial embolectomy. Her chronic abdominal pain and vomiting is felt to be secondary to psychiatric component not related to her underlying carcinoma. She was admitted to the hospital 2 weeks ago and at that time had a unremarkable CT of her abdomen and pelvis as well as upper endoscopy. She does have a history of bipolar disease type 1 as well as Parkinson's and protein calorie malnutrition. When she was discharged 2 weeks ago it was arranged for her to have IV hydration at home when necessary. She states that yesterday evening she developed 1 of her typical episodes of abdominal pain and vomiting. They could not get a hold of the IV nurse and so came to the ER instead. No fevers. and patient states that this is very typical for her episodes and that they do not wish to have additional workup done. They are requesting IV fluids, Dilaudid and Zofran. Severity: Moderate Modifying factors: None REVIEW OF SYSTEMS: Constitutional: denies: chills, fever, recent illness, recent injury EENTM: denies: blurred vision, double vision, nose congestion Respiratory: denies: cough, shortness of breath Cardiac: denies: chest pain, irregular heart rate, lightheadedness, palpitations Gastrointestinal/Abdominal: See HPI Genitourinary: denies: dysuria, frequency, hematuria, pain Musculoskeletal: denies: joint pain, muscle pain Skin: denies: lesions, rash, jaundice, bruising Neurological: denies: headache, numbness, paresthesia, tingling, dizziness, weakness Hematologic/Lymphatic: denies: blood clots, easy bleeding, easy bruising Immunologic/allergic: denies: HIV/AIDS, transplant 10 systems reviewed and negative except as noted EXAM: GENERAL: Well-appearing, well-nourished and in no acute distress. HEAD: Atraumatic, normocephalic. EYES: Pupils equal round and reactive to light, extraocular movements intact, sclera anicteric, conjunctiva are normal. ENT: TMs normal, nares patent, oropharynx clear without exudates. Moist mucous membranes. NECK: Normal range of motion, supple without lymphadenopathy or JVD. LUNGS: Breath sounds clear to auscultation bilaterally and equal. No wheezes rales or rhonchi. HEART: Regular rate and rhythm without murmurs, rubs or gallops. ABDOMEN: Moderately tender diffusely, normoactive bowel sounds. No guarding, no rebound. No masses appreciated. BACK: No CVA tenderness, no spinal tenderness, step-offs or deformities EXTREMITIES: Normal range of motion, no pitting or edema. No clubbing or cyanosis. NEUROLOGICAL: Cranial nerves II through XII grossly intact. Normal speech, normal gait. 5/5 strength, normal movement in all extremities, normal sensation , normal reflexes PSYCH: Normal mood, normal affect. SKIN: Warm, dry, normal turgor, no visible rashes or lesions. Source: Patient Exam Limitations: No limitations - Personal History Current Tetanus Diphtheria and Acellular Pertussis (TDAP): Yes Tetanus Vaccine Date: 2011 - Medical/Surgical History Hx Asthma: No Hx Chronic Respiratory Disease: No Hx Diabetes: No Hx Cardiac Disease: No Hx Renal Disease: No Hx Cirrhosis: Yes Hx Alcoholism: No Hx HIV/AIDS: No Hx Splenectomy or Spleen Trauma: No Other PMH: LIver CA, chronic abd pain, GERD,ESOPHAGITIS, GASTRITIS, SCOLIOSIS. HTN,ANXIETY, BI-POLAR DISORDER, total hysterectomy - Family History Significant Family History: No pertinent family hx - Social History Smoking Status: Never smoked Alcohol Use: Sober Drug Use: None Constitutional: Initial Vital Signs Temperature (C) 37.1 C 10/15/18 07:01 Heart Rate 117 H 10/15/18 07:01 Respiratory Rate 18 10/15/18 07:01 Blood Pressure 192/120 H 10/15/18 07:01 O2 Sat (%) 96 10/15/18 07:01 O2 Delivery Mode Room Air Allergies/Adverse Reactions: aripiprazole [From Abilify] Allergy (Verified 01/09/18 12:17) ziprasidone HCl [From Geodon] Allergy (Verified 01/09/18 12:17) ziprasidone mesylate [From Geodon] Allergy (Verified 01/09/18 12:17) Home Medications: Medication Instructions Recorded Amitriptyline HCl [Elavil] 25 mg PO HS 09/29/18 Doxepin HCl 75 mg PO BID@12,21 09/29/18 LORazepam [Ativan (*)] 3 mg PO DAILY PRN 09/29/18 Memantine HCl [Namenda 10 mg] 10 mg PO BID 09/29/18 Ondansetron HCl [Zofran] 8 mg PO DAILY 09/29/18 Pantoprazole Sodium [Protonix 40mg 40 mg PO BID 09/29/18 (*)] Pramipexole Di-HCl [Mirapex 0.125 0.5 mg PO DAILY 09/29/18 mg (*)] Sucralfate [Carafate 1gm/10ml Oral 1 gm PO TID 09/29/18 Liquid (*)] fentaNYL [Duragesic 75 MCG Patch 75 mcg TD Q72H 09/29/18 (*)] oxyCODONE IR [Oxycodone Ir (*)] 5 mg PO BID PRN 09/29/18 Lidocaine 2% Viscous 10 ml MM Q4H PRN #100 ml 10/01/18 Medical Decision Making ED Course/Re-evaluation: 11:00 a.m. the patient is feeling much better. She did receive several doses of pain medication as well as 2 L of fluid. She states that she feels much better now that she is hydrated. This was her primary reason for coming. She does not wish to be admitted or have further workup or testing. Her is here and eager to take her home. We discussed indications for returning. Differential Diagnosis: Partial list of the Differential diagnosis considered include but were not limited to; chronic abdominal pain, anxiety, dehydration, vomiting and although unlikely based on the history and physical exam, I also considered obstruction, ischemia, volvulus, biliary disease. I discussed these differential diagnoses and the plan with the patient as well as the usual and expected course. The patient understands that the diagnosis is provisional and that in medicine we are not always correct and that further workup is often warranted. Usual and customary warnings were given. All of the patient's questions were answered. The patient was instructed to return to the emergency department should the symptoms at all worsen or return, otherwise to followup with the physician as we discussed. - Data Points Laboratory Results: Laboratory Results 10/15/18 08:20 10/15/18 08:20 10/15/18 10/15/18 08:20 08:20 WBC 3.49 10^3/uL L 10^3/uL (3.80-9.50) RBC 4.70 10^6/uL 10^6/uL (4.18-5.33) Hgb 12.0 g/dL L g/dL (12.6-16.3) Hct 38.8 % % (38.0-47.0) MCV 82.6 fL fL (81.5-99.8) MCH 25.5 pg L pg (27.9-34.1) MCHC 30.9 g/dL L g/dL (32.4-36.7) RDW 19.4 % H % (11.5-15.2) Plt Count 86 10^3/uL L 10^3/uL (150-400) MPV 9.4 fL fL (8.7-11.7) Neut % (Auto) 81.4 % H % (39.3-74.2) Lymph % (Auto) 8.0 % L % (15.0-45.0) [place] % (Auto) 8.9 % % (4.5-13.0) Eos % (Auto) 1.1 % % (0.6-7.6) Baso % (Auto) 0.3 % % (0.3-1.7) Nucleat RBC Rel Count 0.0 % % (0.0-0.2) Absolute Neuts (auto) 2.84 10^3/uL 10^3/uL (1.70-6.50) Absolute Lymphs (auto) 0.28 10^3/uL L 10^3/uL (1.00-3.00) Absolute Monos (auto) 0.31 10^3/uL 10^3/uL (0.30-0.80) Absolute Eos (auto) 0.04 10^3/uL 10^3/uL (0.03-0.40) Absolute Basos (auto) 0.01 10^3/uL L 10^3/uL (0.02-0.10) Absolute Nucleated RBC 0.00 10^3/uL 10^3/uL (0-0.01) Immature Gran % 0.3 % % (0.0-1.1) Immature Gran # 0.01 10^3/uL 10^3/uL (0.00-0.10) RBC/WBC/PLT Morphology TNP Platelet Estimate DECREASED L (ADEQ) Polychromasia 1+ H Hypochromasia 1+ H Microcytic Cells 1+ H Sodium 140 mEq/L mEq/L (135-145) Potassium 4.1 mEq/L mEq/L (3.5-5.2) Chloride 106 mEq/L mEq/L (97-110) Carbon Dioxide 21 mEq/l L mEq/l (22-31) Anion Gap 13 mEq/L mEq/L (6-14) BUN 10 mg/dL mg/dL (7-23) Creatinine 0.9 mg/dL mg/dL (0.6-1.0) Estimated GFR > 60 Glucose 124 mg/dL H mg/dL (70-100) Calcium 9.1 mg/dL mg/dL (8.5-10.4) Medications Given: Discontinued Medications Hydromorphone HCl (Dilaudid) 1 mg IVP EDNOW ONE Stop: 10/15/18 07:27 Last Admin: 10/15/18 08:27 Dose: 1 mg Hydromorphone HCl (Dilaudid) 1 mg IVP EDNOW ONE Stop: 10/15/18 10:14 Last Admin: 10/15/18 10:20 Dose: 1 mg Sodium Chloride (Ns) 1,000 mls @ 0 mls/hr IV EDNOW ONE; Wide Open PRN Reason: Protocol Stop: 10/15/18 07:27 Last Admin: 10/15/18 08:27 Dose: 1,000 mls Sodium Chloride (Ns) 1,000 mls @ 0 mls/hr IV EDNOW ONE; Wide Open PRN Reason: Protocol Stop: 10/15/18 07:27 Last Admin: 10/15/18 08:27 Dose: 1,000 mls Ondansetron HCl (Zofran) 4 mg IVP EDNOW ONE Stop: 10/15/18 07:27 Last Admin: 10/15/18 08:28 Dose: 4 mg Departure - Departure Disposition: Home, Routine, Self-Care Clinical Impression: Chronic abdominal pain, Dehydration Vomiting Qualifiers: Vomiting type: unspecified Vomiting Intractability: non-intractable Nausea presence: with nausea Qualified Code(s): R11.2 - Nausea with vomiting, unspecified Condition: Fair Instructions: Dehydration (ED), Abdominal Pain (ED) Referrals: Lisa Muñoz MD [Primary Care Provider] - 2-3 days, call for appt.
[2018-10-15 08:35] LABS: PLATELET COUNT 86 10^3/uL (150-400)
[2018-10-15 11:23] VITALS: BP 182/108
== END 2018-10-15 11:23 | disposition home or self-care (01) ==
DX: R10.9 Unspecified abdominal pain (principal); G89.29 Other chronic pain; E86.0 Dehydration; K21.9 Gastro-esophageal reflux disease without esophagitis; I10 Essential (primary) hypertension; F41.9 Anxiety disorder, unspecified; M41.9 Scoliosis, unspecified; Z86.19 Personal history of other infectious and parasitic diseases; Z85.05 Personal history of malignant neoplasm of liver
CPT/HCPCS: 96374; 96375; 96376; 99284; J1170; J2405

== ENCOUNTER 2018-10-28 17:43 | Emergency (ER) | payer OTHER ==
[2018-10-28 18:06] VITALS: BP 187/117
[2018-10-28] MEDS ORDERED: HYDROmorphONE/DILAUDID 2 MG/ML INJ IVP ONE (18:45)
[2018-10-28] MEDS ORDERED: ONDANSETRON 4 MG/2 ML VIAL IVP ONE (18:45)
[2018-10-28] MEDS ORDERED: KETOROLAC 30 MG/1 ML SDV IVP ONE (18:45)
[2018-10-28] MEDS ORDERED: NS 1,000 ML IV ONE (18:45)
--- NOTE | 2018-10-28 18:45 | EDPHY ---
H & P Stated Complaint: Abd pain; n/v Time Seen by Provider: 10/28/18 19:10 - Personal History Current Tetanus Diphtheria and Acellular Pertussis (TDAP): Yes Tetanus Vaccine Date: 2011 - Medical/Surgical History Hx Asthma: No Hx Chronic Respiratory Disease: No Hx Diabetes: No Hx Cardiac Disease: No Hx Renal Disease: No Hx Cirrhosis: Yes Hx Alcoholism: No Hx HIV/AIDS: No Hx Splenectomy or Spleen Trauma: No Other PMH: LIver CA, chronic abd pain, GERD,ESOPHAGITIS, GASTRITIS, SCOLIOSIS. HTN,ANXIETY, BI-POLAR DISORDER, total hysterectomy - Social History Smoking Status: Never smoked Constitutional: Initial Vital Signs Temperature (C) 36.7 C 10/28/18 17:50 Heart Rate 94 10/28/18 17:50 Respiratory Rate 18 10/28/18 17:50 Blood Pressure 187/117 H 10/28/18 17:50 O2 Sat (%) 95 10/28/18 17:50 O2 Delivery Mode Room Air Allergies/Adverse Reactions: aripiprazole [From Abilify] Allergy (Verified 10/28/18 18:03) ziprasidone HCl [From Geodon] Allergy (Verified 10/28/18 18:03) ziprasidone mesylate [From Geodon] Allergy (Verified 10/28/18 18:03) Home Medications: Medication Instructions Recorded Amitriptyline HCl [Elavil] 25 mg PO HS 09/29/18 Doxepin HCl 75 mg PO BID@12,21 09/29/18 LORazepam [Ativan (*)] 3 mg PO DAILY PRN 09/29/18 Memantine HCl [Namenda 10 mg] 10 mg PO BID 09/29/18 Ondansetron HCl [Zofran] 8 mg PO DAILY 09/29/18 Pantoprazole Sodium [Protonix 40mg 40 mg PO BID 09/29/18 (*)] Pramipexole Di-HCl [Mirapex 0.125 0.5 mg PO DAILY 09/29/18 mg (*)] Sucralfate [Carafate 1gm/10ml Oral 1 gm PO TID 09/29/18 Liquid (*)] fentaNYL [Duragesic 75 MCG Patch 75 mcg TD Q72H 09/29/18 (*)] oxyCODONE IR [Oxycodone Ir (*)] 5 mg PO BID PRN 09/29/18 Lidocaine 2% Viscous 10 ml MM Q4H PRN #100 ml 10/01/18 Medical Decision Making ED Course/Re-evaluation: CHIEF COMPLAINT: Abdominal pain, nausea, vomiting HISTORY OF PRESENT ILLNESS: The patient is a 68 y/o female with a history of hepatitis C, hepatocarcinoma, and chronic abdominal pain with nausea and vomiting, complaining of abdominal pain, nausea, and vomiting. She is well- known to this emergency department with 3 visits in the past month for similar complaints. Her reports that this pain is different than her standard pain. She reports her only abdominal surgery is a hysterectomy many years ago. REVIEW OF SYSTEMS: A 10 system review of systems was performed and is negative with the exception of the elements mentioned in the history of present illness. PHYSICAL EXAM: HR, BP, O2 Sat, RR. Temp noted General Appearance: Alert, well hydrated, appropriate. She is moaning and letting her talk for her. Head: Atraumatic without scalp tenderness or obvious injury Eyes: Pupils equal, round, reactive to light and accommodation, EOMI, no trauma , no injection. Ears: Clear bilaterally, no perforation, normal landmarks Nose: Atraumatic, no rhinorrhea, clear. Throat: There is no erythema or exudates, no lesions, normal tonsils, mucus membranes moist. Cardiovascular: Regular rate and rhythm, no murmurs, rubs, or gallops. Good capillary refill all extremities. Gastrointestinal: Tenderness to palpation in the right side of her abdomen. Abdomen is soft, non-distended, no masses, no rebound, no guarding, no peritoneal signs. Musculoskeletal: Normal active ROM of all extremities, atraumatic. Neurological: Alert, appropriate, and interactive. Skin: No rashes, good turgor, no nodules on palpation. Past medical history: Hepatitis C, hepatocarcinoma, bipolar disorder, anxiety, chronic abdominal pain with nausea and vomiting Past surgical history: Hysterectomy Family history: Non-contributory Social history: at bedside, lives in [place], retired DIAGNOSTICS/PROCEDURES/CRITICAL CARE TIME: Study: CT of the abdomen Indication: Abdominal pain Results: CT scan of the abdomen and pelvis with IV contrast was obtained. The results of the study are no acute changes, less ascites, nothing but constipation to explain new right lower quadrant pain. The study was read by the radiologist, Dr. Jono Pritchett. I viewed the images myself on the PACS system. DIFFERENTIAL DIAGNOSIS: The differential diagnosis for the patient's abdominal pain included but was not limited to ovarian cyst, pelvic inflammatory disease, ovarian torsion, urinary tract infection, ectopic , cholecystitis, and appendicitis. MEDICAL DECISION MAKING: The patient presents with abdominal pain, nausea, and vomiting. Her reports that her pain is different than the normal pain she experiences chronically. Plan for CBC, basic metabolic panel, liver enzymes , lipase, urinalysis, ISTAT, and abdominal CT. This patient has no acute changes in her abdominal scan. She has liver cancer and ascites with the ascites is somewhat less. There is no surgical process regarding her appendix bowels or any other reason for new right lower quadrant pain however she does have some constipation. I will discharge the patient - Data Points Laboratory Results: Laboratory Results 10/28/18 18:54 10/28/18 18:54 Medications Given: Discontinued Medications Hydromorphone HCl (Dilaudid) 1 mg IVP EDNOW ONE Stop: 10/28/18 18:46 Last Admin: 10/28/18 19:13 Dose: 1 mg Sodium Chloride (Ns) 1,000 mls @ 0 mls/hr IV EDNOW ONE; Wide Open PRN Reason: Protocol Stop: 10/28/18 18:46 Last Admin: 10/28/18 19:13 Dose: 1,000 mls Ketorolac Tromethamine (Toradol) 30 mg IVP EDNOW ONE Stop: 10/28/18 18:46 Last Admin: 10/28/18 19:13 Dose: 30 mg Magnesium Citrate (Magnesium Citrate) 300 ml PO ONCE ONE Stop: 10/28/18 20:17 Last Admin: 10/28/18 20:20 Dose: 1 btl Ondansetron HCl (Zofran) 4 mg IVP EDNOW ONE Stop: 10/28/18 18:46 Last Admin: 10/28/18 19:13 Dose: 4 mg Point of Care Test Results: Chemistry 10/28/18 18:59 POC Sodium 139 mEq/L mEq/L (135-145) POC Potassium 4.1 mEq/L mEq/L (3.3-5.0) POC Chloride 99 mEq/L mEq/L (97-110) POC BUN 17 mg/dL mg/dL (7-23) POC Creatinine 0.9 mg/dL mg/dL (0.6-1.0) POC Glucose 141 mg/dL H mg/dL (70-100) ISTAT H&H 10/28/18 18:59 POC Hgb 15.3 gm/dL gm/dL (12.6-16.3) POC Hct 45 % % (38-47) Departure - Departure Disposition: Home, Routine, Self-Care Clinical Impression: Constipation Condition: Good Instructions: Constipation (ED) Referrals: Lisa Muñoz MD [Primary Care Provider] - As per Instructions
[2018-10-28 19:07] LABS: PLATELET COUNT 102 10^3/uL (150-400)
[2018-10-28] MEDS ORDERED: IOPAMIDOL (ISOVUE 370) 100 ML BTL IV ONE (19:13)
[2018-10-28] MEDS ORDERED: MAGNESIUM CITRATE 300 ML BOTTLE PO ONE (20:16)
== END 2018-10-28 20:26 | disposition home or self-care (01) ==
DX: K59.00 Constipation, unspecified (principal); E86.0 Dehydration; R11.2 Nausea with vomiting, unspecified; K21.9 Gastro-esophageal reflux disease without esophagitis; I10 Essential (primary) hypertension; F41.9 Anxiety disorder, unspecified; F31.9 Bipolar disorder, unspecified; Z85.05 Personal history of malignant neoplasm of liver; Z90.710 Acquired absence of both cervix and uterus
CPT/HCPCS: 74177; 96361; 96374; 96375; 99285; J1170; J1885; J2405; Q9967; 82435-PO; 82565-PO; 82947-PO; 84132-PO; 84295-PO; 84520-PO; 85014-PO

== ENCOUNTER 2018-10-31 11:49 | Observation (INO) | payer OTHER ==
--- NOTE | 2018-10-31 11:52 | EDPHY ---
HPI/HX/ROS/PE/MDM Narrative: CHIEF COMPLAINT: Abdominal pain, nausea, vomiting HPI: This patient is a 68-year-old female with history of chronic hepatitis C, hepatocellular carcinoma, chronic vomiting and abdominal pain. She has had multiple evaluations including admission for abdominal pain and vomiting in the last few months. Her current symptoms began two days ago. She complains of worsening abdominal pain, primarily epigastric, and continued vomiting. She has been unable to keep any fluids down. Her at bedside believes she is quite dehydrated. She has followed up with gastroenterology over the last two years for her symptoms, but workups have been inconclusive. She denies hematemesis or melena. She is s/p hysterectomy but denies any other abdominal surgeries. No fever, chest pain, shortness of breath, syncope, headache, or other associated symptoms. REVIEW OF SYSTEMS: A comprehensive 10 system review of systems is otherwise negative aside from elements mentioned in the history of present illness and medical decision making. PMH: Chronic hepatitis C, hepatocellular carcinoma, chronic vomiting and abdominal pain. SOCIAL HISTORY: . at bedside. Lives in [place]. Retired. PHYSICAL EXAM: General: Patient is alert. She is cachectic. ENT: Eyes are normal to inspection. ENT inspection normal. Neck: Normal inspection. Full range of motion. Respiratory:No respiratory distress. Breath sounds normal bilaterally. Cardiovascular: Regular rate and rhythm. Strong peripheral pulses. Normal cap refill. Abdomen: Diffuse mild abdominal tenderness. There are no peritoneal signs. There are normal bowel sounds. Back: Normal to inspection. No tenderness to palpation. Skin: Normal color. No rash. Warm and dry. Extremities: Normal appearance. Full range of motion. Neuro: Oriented x3. Normal motor function. Normal sensory function. ED Course: 68 year old female presents with epigastric pain, vomiting. Plan for labs including CBC, chemistries, liver, lipase, UA. Patient had a CT here in this emergency department three days ago so I will not repeat a scan at this time. CT abdomen/pelvis on 10/28/18, read by by Dr. Pricthett, showed constipation, less ascites than on prior scan but otherwise stable x5 weeks. Laboratory studies are largely unremarkable and largely unchanged from . Alk phos is elevated at 344, this is down from 418 on 10/28/19. Administered 1L IV NS and 1mg IV Dilaudid for symptom relief. Reassessed patient. Discussed laboratory results. The patient and her feel there is something worse going on than usual. She endorses continued weight loss and is "feeling worse every day". They are concerned due to her decline at home and feels she is worse today than at her other visits this month. The patient and her believe admission is best as she is not doing well at home and do not feel comfortable returning there. 12:[address] Spoke with hospitalist service. Dr. Wallace accepts admission for chronic abdominal pain. - Data Points Laboratory Results: Laboratory Results 10/31/18 12:12 10/31/18 12:12 10/31/18 10/31/18 12:12 12:12 WBC 3.69 10^3/uL L 10^3/uL (3.80-9.50) RBC 4.90 10^6/uL 10^6/uL (4.18-5.33) Hgb 12.3 g/dL L g/dL (12.6-16.3) Hct 39.6 % % (38.0-47.0) MCV 80.8 fL L fL (81.5-99.8) MCH 25.1 pg L pg (27.9-34.1) MCHC 31.1 g/dL L g/dL (32.4-36.7) RDW 18.2 % H % (11.5-15.2) Plt Count 117 10^3/uL L 10^3/uL (150-400) MPV 9.8 fL fL (8.7-11.7) Neut % (Auto) Pending Lymph % (Auto) Pending [place] % (Auto) Pending Eos % (Auto) Pending Baso % (Auto) Pending Nucleat RBC Rel Count Pending Absolute Neuts (auto) Pending Absolute Lymphs (auto) Pending Absolute Monos (auto) Pending Absolute Eos (auto) Pending Absolute Basos (auto) Pending Absolute Nucleated RBC Pending Immature Gran % Pending Immature Gran # Pending Platelet Estimate Pending Sodium 139 mEq/L mEq/L (135-145) Potassium 3.6 mEq/L mEq/L (3.5-5.2) Chloride 107 mEq/L mEq/L (97-110) Carbon Dioxide 24 mEq/l mEq/l (22-31) Anion Gap 8 mEq/L mEq/L (6-14) BUN 17 mg/dL mg/dL (7-23) Creatinine 0.8 mg/dL mg/dL (0.6-1.0) Estimated GFR > 60 Glucose 141 mg/dL H mg/dL (70-100) Calcium 9.4 mg/dL mg/dL (8.5-10.4) Total Bilirubin 0.6 mg/dL mg/dL (0.1-1.4) Conjugated Bilirubin 0.5 mg/dL mg/dL (0.0-0.5) Unconjugated Bilirubin 0.1 mg/dL mg/dL (0.0-1.1) AST 42 IU/L IU/L (14-46) ALT 15 IU/L IU/L (9-52) Alkaline Phosphatase 344 IU/L H IU/L (38-126) Total Protein 7.1 g/dL g/dL (6.3-8.2) Albumin 3.8 g/dL g/dL (3.5-5.0) Lipase 134 IU/L IU/L (23-300) Medications Given: Discontinued Medications Hydromorphone HCl (Dilaudid) 1 mg IVP EDNOW ONE Stop: 10/31/18 12:26 Last Admin: 10/31/18 12:28 Dose: 1 mg Sodium Chloride (Ns) 1,000 mls @ 0 mls/hr IV EDNOW ONE; Wide Open PRN Reason: Protocol Stop: 10/31/18 11:55 Last Admin: 10/31/18 12:12 Dose: 1,000 mls General Initial Vital Signs: Initial Vital Signs Temperature (C) 37.3 C 10/31/18 11:49 Heart Rate 95 10/31/18 11:49 Respiratory Rate 16 10/31/18 11:49 Blood Pressure 179/102 H 10/31/18 11:49 O2 Sat (%) 92 10/31/18 11:49 O2 Delivery Mode Room Air Allergies/Adverse Reactions: aripiprazole [From Abilify] Allergy (Verified 10/31/18 11:56) ziprasidone HCl [From Geodon] Allergy (Verified 10/31/18 11:56) ziprasidone mesylate [From Geodon] Allergy (Verified 10/31/18 11:56) Home Medications: Medication Instructions Recorded Amitriptyline HCl [Elavil] 25 mg PO HS 09/29/18 Doxepin HCl 75 mg PO BID@12,21 09/29/18 LORazepam [Ativan (*)] 3 mg PO DAILY PRN 09/29/18 Memantine HCl [Namenda 10 mg] 10 mg PO BID 09/29/18 Ondansetron HCl [Zofran] 8 mg PO DAILY 09/29/18 Pantoprazole Sodium [Protonix 40mg 40 mg PO BID 09/29/18 (*)] Pramipexole Di-HCl [Mirapex 0.125 0.5 mg PO DAILY 09/29/18 mg (*)] Sucralfate [Carafate 1gm/10ml Oral 1 gm PO TID 09/29/18 Liquid (*)] fentaNYL [Duragesic 75 MCG Patch 75 mcg TD Q72H 09/29/18 (*)] oxyCODONE IR [Oxycodone Ir (*)] 5 mg PO BID PRN 09/29/18 Lidocaine 2% Viscous 10 ml MM Q4H PRN #100 ml 10/01/18 Carbidopa-Levo 10-100 mg Odt 10/31/18 Dulcolax 10/31/18 Omeprazole 10/31/18 Departure - Departure Disposition: [facility] Inpatient Acute Clinical Impression: Chronic abdominal pain Condition: Fair Report Scribed for: Jono Haskins Report Scribed by: Martha Meeks Date of Report: 10/31/18 Time of Report: 12:19 Physician Review and Approval Statement: Portions of this note were transcribed by an ED scribe. I personally performed the history, physical exam, and medical decision making; and confirm the accuracy of the information in the transcribed note.
[2018-10-31] MEDS ORDERED: NS 1,000 ML IV ONE (11:54)
[2018-10-31] MEDS ORDERED: HYDROmorphONE/DILAUDID 2 MG/ML INJ IVP ONE (12:25)
[2018-10-31 12:26] LABS: PLATELET COUNT 117 10^3/uL (150-400)
[2018-10-31] MEDS ORDERED: ONDANSETRON 4 MG/2 ML VIAL IVP PRN (13:24)
[2018-10-31] MEDS ORDERED: ACETAMINOPHEN 325 MG TAB PO PRN (13:24)
[2018-10-31] MEDS ORDERED: SUCRALFATE/DIPHENHYDR/MAALOX 240 ML BOTTLE PO PRN (13:34)
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
[2018-10-31] MEDS: NS 1,000 ML IV SCH (14:33)
[2018-10-31] MEDS ORDERED: MAGNESIUM HYDROXIDE 30 ML UDCUP PO PRN (14:47)
[2018-10-31] MEDS ORDERED: BISACODYL 10 MG SUPP PR PRN (14:47)
[2018-10-31] MEDS ORDERED: LACTULOSE 20 GM/30 ML UDCUP PO PRN (14:47)
[2018-10-31] MEDS ORDERED: POLYETHYLENE GLYCOL 3350 17 GM PKT PO PRN (14:47)
[2018-10-31] MEDS: HYDROmorphONE/DILAUDID 1 MG/ML INJ IVP PRN ×2 (15:49→20:26)
[2018-10-31] MEDS: PANTOPRAZOLE SODIUM 40 MG VIAL IVP SCH ×2 (15:49→20:31)
[2018-10-31] MEDS ORDERED: HYDROmorphONE/DILAUDID 1 MG/ML INJ IVP ONE (18:20)
[2018-10-31] MEDS: SENNOSIDES/DOCUSATE SODIUM TAB PO SCH (20:37)
[2018-10-31] MEDS: ENOXAPARIN 40 MG/0.4 ML SYR SC SCH (21:17)
[2018-10-31] MEDS: HYDROCODONE/APAP 5/325 TAB PO PRN (23:23)
[2018-11-01] MEDS: LORazepam 0.5 MG TAB PO PRN ×2 (00:06→09:39)
[2018-11-01] MEDS: NS 1,000 ML IV SCH ×2 (00:21→11:44)
[2018-11-01] MEDS: HYDROmorphONE/DILAUDID 1 MG/ML INJ IVP PRN ×5 (01:20→20:27)
[2018-11-01 05:54] LABS: PLATELET COUNT 113 10^3/uL (150-400)
[2018-11-01] MEDS: HYDROCODONE/APAP 5/325 TAB PO PRN ×2 (08:06→17:32)
[2018-11-01] MEDS: SENNOSIDES/DOCUSATE SODIUM TAB PO SCH ×2 (09:15→20:17)
[2018-11-01] MEDS: PANTOPRAZOLE SODIUM 40 MG VIAL IVP SCH (09:15)
[2018-11-01] MEDS: ENOXAPARIN 40 MG/0.4 ML SYR SC SCH (09:15)
[2018-11-01] MEDS: ONDANSETRON DISINTEGRATING 4 MG TAB PO PRN (09:39)
[2018-11-01] MEDS ORDERED: PROTOCOL MAGNESIUM 1 DOSE IV PRN (10:48)
[2018-11-01] MEDS ORDERED: PROTOCOL K PHOSPHATE 1 DOSE IV PRN (10:48)
[2018-11-01] MEDS ORDERED: PROTOCOL POTASSIUM 1 DOSE MISC PRN (10:48)
[2018-11-01] MEDS ORDERED: POTASSIUM CL 10 MEQ TAB PO ONE ×2 (11:01→19:50)
--- NOTE | 2018-11-01 15:51 | ASMTCMCOM ---
CM Note CM Note Notes: Pt admitted for chronic abdominal pain. She has a hx of bipolar, anxiety, and depression. Chronic opiod use, consult ordered for behavioral health RN. Pt lives with her at and is independent in ADLs. DC needs uncertain, CM w/f. DC Plan: TBD Date Signed: 11/01/2018 03:51 PM Electronically Signed By:Marialuisa Baptiste RN
[2018-11-01] MEDS ORDERED: hydrALAZINE 20 MG/ML VIAL IVP PRN (17:21)
[2018-11-01] MEDS: PANTOPRAZOLE SODIUM 40 MG TAB PO SCH (20:13)
[2018-11-01] MEDS: MEMANTINE HCL 5 MG TAB PO SCH (20:13)
[2018-11-01] MEDS ORDERED: AMITRIPTYLINE HCL 25 MG TAB PO SCH (21:00)
[2018-11-01] MEDS ORDERED: DOXEPIN HCL 50 MG CAP PO SCH (21:00)
[2018-11-01] MEDS ORDERED: hydrALAZINE 25 MG TAB PO PRN (22:55)
[2018-11-02] MEDS: LORazepam 0.5 MG TAB PO PRN ×2 (01:31→09:40)
[2018-11-02] MEDS: HYDROCODONE/APAP 5/325 TAB PO PRN (05:00)
[2018-11-02 05:35] LABS: PLATELET COUNT 116 10^3/uL (150-400)
[2018-11-02 07:30] VITALS: BP 173/101
[2018-11-02] MEDS: MEMANTINE HCL 5 MG TAB PO SCH (08:09)
[2018-11-02] MEDS: ENOXAPARIN 40 MG/0.4 ML SYR SC SCH (08:09)
[2018-11-02] MEDS: PANTOPRAZOLE SODIUM 40 MG TAB PO SCH (08:09)
[2018-11-02] MEDS ORDERED: POTASSIUM CL 10 MEQ TAB PO ONE (09:03)
[2018-11-02] MEDS ORDERED: MAGNESIUM SULF 1 GM/DEXTROSE 100 ML IV ONE (09:08)
[2018-11-02] MEDS: SENNOSIDES/DOCUSATE SODIUM TAB PO SCH (09:21)
[2018-11-02] MEDS: ONDANSETRON DISINTEGRATING 4 MG TAB PO PRN (09:30)
--- NOTE | 2018-11-02 10:26 | ASMTDCNOTE ---
Case Management Discharge Discharge Order Complete? Answers: Yes Discharge Comments Notes: Pt left AMA, CM unable to see prior to d/c. Date Signed: 11/02/2018 10:26 AM Electronically Signed By:DEEPTI Machado
--- NOTE | 2018-11-02 10:27 | ASDISCHSUM ---
Discharge Information Plan Status: Medically Cleared to Leave: Discharge Date:11/02/2018 10:13 AM CM D/C Disposition:Against Medical Advice ADT D/C Disposition:Home, Routine, Self-Care Projected Discharge Date:11/02/2018 10:13 AM Transportation at D/C: Discharge Delay Reason: Follow-Up Date:11/02/2018 10:13 AM Discharge Slot: Final Diagnosis: Placement Information Patient Contact Information Contact Name:SHIRLEY Relationship:Gloria Address:[address] Work Phone: City:[place] Alternate Phone: State/Zip Code:[place] [address] Email: Financial Information Financial Class:Medicare Advantage Plans Primary Plan Desc:[employer] MEDICARE Primary Plan Number:[id number] Secondary Plan Desc: Secondary Plan Number: Assessment Information [facility] CM Progress Note CM Note CM Note Notes: Pt admitted for chronic abdominal pain. She has a hx of bipolar, anxiety, and depression. Chronic opiod use, consult ordered for behavioral health RN. Pt lives with her at and is independent in ADLs. DC needs uncertain, DEVIN w/f. DC Plan: TBD Date Signed: 11/01/2018 03:51 PM Electronically Signed By:Marialuisa Baptiste RN Case Management Discharge Plan Note Case Management Discharge Discharge Order Complete? Answers: Yes Discharge Comments Notes: Pt left DEVIN HERNANDEZ unable to see prior to d/c. Date Signed: 11/02/2018 10:26 AM Electronically Signed By:DEEPTI Machado Intervention Information
--- NOTE | 2018-11-02 10:28 | ASMTLACE ---
LACE Length of stay for Answers: Less than 1 day current admission Acuity / Level of Answers: No Care: Did the patient have an inpatient admission? Comorbidities - select Answers: Opioid dependence all that apply / Chronic pain Other Notes: Hep C # of Emergency department Answers: 5-8 visits in the last 6 months Social determinants Answers: History of substance abuse (ETOH, street drugs, prescription drugs, etc.) Mental health diagnosis (anxiety, depression, pers onality disorders, etc.) Score: 15 Date Signed: 11/02/2018 10:28 AM Electronically Signed By:DEEPTI Machado
--- NOTE | 2018-11-03 10:48 | PDDCSUM ---
Discharge Summary Discharge Summary: Patient is a 68-year-old female with past medical history of chronic abdominal pain hepatocellular carcinoma, anxiety with depression, bipolar disorder, who was admitted with nausea and vomiting. Patient had just been admitted and evaluated 2 days prior to this admission for the same symptoms at that time she underwent a CT scan which was unremarkable. She also had a recent EGD which showed nothing severe. She was evaluated by GI at that time as well and they had no recommendations. Labs on this admission showed a mild hypokalemia. She was started on IV fluids and given potassium. She was able to tolerate a diet without any issue and IV fluids were able to be stopped within 24 hr. She was discharged home to follow up with her primary care doctor for further evaluation of her chronic abdominal pain. Discharge diagnosis; Chronic abdominal pain Opioid dependence Bipolar disorder Anxiety Discharge disposition Home to follow up with primary care doctor Discharge condition Good
== END 2018-11-02 10:13 | disposition home or self-care (01) ==
LOC: EDUNIT# → F3E 14:22
PROVIDERS: ADMIT Internal Medicine; ATTEND Internal Medicine
DX: R10.9 Unspecified abdominal pain (principal); G89.29 Other chronic pain; Z85.05 Personal history of malignant neoplasm of liver; E86.0 Dehydration; F13.20 Sedative, hypnotic or anxiolytic dependence, uncomplicated; F11.20 Opioid dependence, uncomplicated; F31.9 Bipolar disorder, unspecified; D50.9 Iron deficiency anemia, unspecified; R11.2 Nausea with vomiting, unspecified
CPT/HCPCS: 97165; G0378; J1170; J1650; J3475

== ENCOUNTER 2018-11-14 23:57 | Inpatient (IN) | payer OTHER ==
--- NOTE | 2018-11-15 00:14 | EDPHY ---
H & P Stated Complaint: abd pain nausea diarrhea Time Seen by Provider: 11/15/18 00:14 HPI/ROS: HPI CHIEF COMPLAINT: Abdominal pain nausea vomiting diarrhea. HISTORY OF PRESENT ILLNESS: 68-year-old female, history of chronic abdominal pain, presents emergency room nausea vomiting diarrhea nonbloody this started around 7:00 p.m. Tonight. It is now 12 15 at night. Patient continues to have nausea diffuse abdominal pain described as cramping and watery diarrhea. This prompted her to come to the emergency room by private vehicle with her . She denies any chest pain or shortness of breath. Of note in the ER the patient refused answer any questions. answering all the questions. Typically takes oxycodone for pain control at home. Past Medical History: Significant medical history for bipolar disorder, anxiety , hepatocellular carcinoma, restless leg syndrome, chronic pain. Past Surgical History: No recent surgery. Social History: Resides at [facility]. Family History: Noncontributory ROS REVIEW OF SYSTEMS: 10 Systems were reviewed and negative with the exception of the elements mentioned in the history of present illness. Exam Constitutional nontoxic no acute distress, triage nursing summary reviewed, vital signs reviewed, awake/alert. Eyes normal conjunctivae and sclera, EOMI, PERRLA. HENT normal inspection, atraumatic, moist mucus membranes, no epistaxis, neck supple/ no meningismus, no raccoon eyes. Respiratory clear to auscultation bilaterally, normal breath sounds, no respiratory distress, no wheezing. Cardiovascular rate normal, regular rhythm, no murmur, no edema, distal pulses normal. Gastrointestinal soft, non-tender, no rebound, no guarding, normal bowel sounds, no distension, no pulsatile mass. Genitourinary no CVA tenderness. Musculoskeletal no midline vertebral tenderness, full range of motion, no calf swelling, no tenderness of extremities, no meningismus, good pulses, neurovascularly intact. Skin pink, warm, & dry, no rash, skin atraumatic. Neurologic awake, alert and oriented x 3, AAOx3, moves all 4 extremities equally, motor intact, sensory intact, CN II-XII intact, normal cerebellar, normal vision, normal speech. Psychiatric normal mood/affect. Heme/Lymph/Immune no lymphadenopathy. Differential Diagnosis: Differential diagnosis includes but is not limited to and in no particular order: Bowel obstruction, appendicitis, gallbladder disease, diverticulitis, colitis, enteritis, perforated viscus, gastritis, GERD , esophagitis, urinary tract infection, pyelonephritis, kidney stones Medical Decision Making: Plan for this patient IV establishment IV fluid bolus Zofran for nausea Benadryl for anxiety, basic blood work, gentle IV fluids and re-evaluate. Re-evaluation: 0226: Patient requesting pain medicine. Requesting IV Dilaudid. I have order small dose 0.5 mg. 0350: Patient complaining of ongoing bad abdominal pain requesting more Dilaudid. She received 2 L of he fluid here. I have ordered her IV Toradol her creatinine is appropriate. Given her ongoing abdominal pain will proceed with CT scan abdomen pelvis with IV contrast as she has been here for multiple hours and stating that she is having severe pain. 0421: Patient vomited CT. IV Phenergan ordered. CT scan abdomen pelvis with IV contrast unchanged from previous CT scans no evidence of free air or bowel obstruction or acute inflammatory process. Stable CT from previous. Liver disease. Ascites. Called to me by Dr. Nazario. 0439: Spoke with Dr. Rosales who agrees to admit. Patient updated and agrees for admission Source: Patient - Personal History Current Tetanus/Diphtheria Vaccine: Yes Current Tetanus Diphtheria and Acellular Pertussis (TDAP): Yes Tetanus Vaccine Date: 2011 - Medical/Surgical History Hx Asthma: No Hx Chronic Respiratory Disease: No Hx Diabetes: No Hx Cardiac Disease: No Hx Renal Disease: No Hx Cirrhosis: Yes Hx Alcoholism: No Hx HIV/AIDS: No Hx Splenectomy or Spleen Trauma: No Other PMH: LIver [place], chronic abd pain, GERD,ESOPHAGITIS, GASTRITIS, SCOLIOSIS. HTN,ANXIETY, BI-POLAR DISORDER, total hysterectomy - Social History Smoking Status: Never smoked Constitutional: Initial Vital Signs Temperature (C) 36.4 C 11/14/18 23:59 Heart Rate 56 L 11/14/18 23:59 Respiratory Rate 19 11/14/18 23:59 Blood Pressure 148/96 H 11/14/18 23:59 O2 Sat (%) 98 11/14/18 23:59 O2 Delivery Mode Room Air Allergies/Adverse Reactions: No Known Allergies Allergy (Verified 11/15/18 09:35) Home Medications: Medication Instructions Recorded Amitriptyline HCl [Elavil] 25 mg PO HS 09/29/18 LORazepam [Ativan (*)] 2 mg PO BID 09/29/18 Memantine HCl [Namenda 10 mg] 10 mg PO BID 09/29/18 Pantoprazole Sodium [Protonix 40mg 20 mg PO BID 09/29/18 (*)] fentaNYL [Duragesic 75 MCG Patch 75 mcg TD Q72H 09/29/18 (*)] oxyCODONE IR [Oxycodone Ir (*)] 5 mg PO Q3-4PRN PRN 09/29/18 Doxepin HCl [Sinequan 50 MG (*)] 150 mg PO HS 11/01/18 Carbidopa/Levodopa 25/100Mg 1 tab PO BID 11/15/18 [Sinemet 25/100 MG (*)] Ondansetron Odt [Zofran Odt 4 mg 8 mg PO TIDMEAL 11/15/18 (*)] Pramipexole Di-HCl [Mirapex 0.125 0.125 mg PO QID 11/15/18 mg (*)] Medical Decision Making - Data Points Laboratory Results: Laboratory Results 11/15/18 00:35 11/15/18 00:35 Medications Given: Amitriptyline HCl (Elavil) 25 mg PO HS [facility] Stop: 05/14/19 20:59 Last Admin: 11/15/18 20:57 Dose: 25 mg Carbidopa/Levodopa (Sinemet) 1 tab PO BID [facility] Stop: 05/14/19 20:59 Last Admin: 11/15/18 20:57 Dose: 1 tab Chlordiazepoxide/Clidinium (Librax) 1 cap PO QID [facility] Stop: 05/14/19 11:59 Last Admin: 11/16/18 06:07 Dose: 1 cap Doxepin HCl (Sinequan) 150 mg PO HS [facility] Stop: 05/14/19 20:59 Last Admin: 11/15/18 20:57 Dose: 150 mg Fentanyl (Duragesic) 75 mcg TD Q72H [facility] Stop: 11/25/18 11:59 Last Admin: 11/15/18 13:27 Dose: 75 mcg Hydralazine HCl (Apresoline) 10 mg IVP Q6 PRN PRN Reason: SBP>160 Stop: 05/14/19 08:32 Last Admin: 11/15/18 09:51 Dose: 10 mg Hydromorphone HCl (Dilaudid) 0.2 - 0.4 mg IVP Q2H PRN PRN Reason: Pain, Severe Unable to Take PO Stop: 11/25/18 04:38 Last Admin: 11/15/18 18:55 Dose: 0.4 mg Potassium Chloride/Sodium Chloride (Ns W/ 20 Kcl/L) 1,000 mls @ 100 mls/hr IV CONT GLEN Stop: 05/14/19 04:44 Last Admin: 11/15/18 19:47 Dose: 1,000 mls Nicardipine/Sodium Chloride (Cardene 0.1 Mg/Ml (Premix)) 200 mls @ 0 mls/hr IV CONT GLEN; Titrate PRN Reason: Protocol Stop: 05/14/19 11:59 Last Admin: 11/15/18 19:47 Dose: 200 mls Lorazepam (Ativan Injection) 1 mg IVP Q4 PRN PRN Reason: Anxiety, Unable to Take PO Stop: 05/14/19 08:32 Last Admin: 11/15/18 13:50 Dose: 1 mg Lorazepam (Ativan) 2 mg PO BID [facility] Stop: 05/14/19 20:59 Last Admin: 11/15/18 19:39 Dose: 2 mg Memantine (Namenda) 10 mg PO BID [facility] Stop: 05/14/19 20:59 Last Admin: 11/15/18 20:57 Dose: 10 mg Ondansetron HCl (Zofran) 4 mg IVP Q4HRS PRN PRN Reason: Nausea/Vomiting, Can't Take PO Stop: 05/14/19 04:38 Last Admin: 11/15/18 13:29 Dose: 4 mg Oxycodone HCl (Oxycodone Ir) 5 - 10 mg PO Q3HRS PRN PRN Reason: Pain, Severe Able to Take PO Stop: 11/25/18 04:38 Last Admin: 11/16/18 06:21 Dose: 5 mg Pantoprazole Sodium (Protonix) 40 mg PO BID [facility] Stop: 05/14/19 20:59 Last Admin: 11/15/18 20:57 Dose: 40 mg Pramipexole Dihydrochloride (Mirapex) 0.125 mg PO QID [facility] Stop: 05/14/19 11:59 Last Admin: 11/16/18 06:07 Dose: 0.125 mg Promethazine HCl (Phenergan) 6.25 - 12.5 mg IVP Q6HRS PRN PRN Reason: Nausea/Vomiting, Use 2nd Stop: 05/14/19 04:38 Last Admin: 11/15/18 21:13 Dose: 12.5 mg Discontinued Medications Al Hydroxide/Mg Hydroxide (Maalox Susp) 30 ml PO ONCE ONE Stop: 11/15/18 09:01 Last Admin: 11/15/18 12:33 Dose: Not Given Al Hydroxide/Mg Hydroxide (Maalox Susp) 30 ml PO ONCE ONE Stop: 11/15/18 11:46 Last Admin: 11/15/18 12:03 Dose: 30 ml Diphenhydramine HCl (Benadryl Injection) 25 mg IVP EDNOW ONE Stop: 11/15/18 00:19 Last Admin: 11/15/18 00:51 Dose: 25 mg Hydralazine HCl (Apresoline) 10 mg IVP ONCE ONE Stop: 11/15/18 05:48 Last Admin: 11/15/18 06:03 Dose: 10 mg Hydromorphone HCl (Dilaudid) 0.5 mg IVP EDNOW ONE Stop: 11/15/18 02:25 Last Admin: 11/15/18 02:29 Dose: 0.5 mg Hydromorphone HCl (Dilaudid) 0.2 - 0.4 mg IVP Q4HRS PRN PRN Reason: Pain, Severe Unable to Take PO Stop: 11/25/18 04:38 Last Admin: 11/15/18 05:31 Dose: 0.4 mg Hydromorphone HCl (Dilaudid) 0.5 mg IVP ONCE ONE Stop: 11/15/18 05:49 Last Admin: 11/15/18 06:03 Dose: 0.5 mg Hyoscyamine Sulfate (Levsin, Hyomax-Sl) 0.25 mg PO ONCE ONE Stop: 11/15/18 09:01 Last Admin: 11/15/18 08:53 Dose: 0.25 mg Sodium Chloride (Ns) 1,000 mls @ 0 mls/hr IV EDNOW ONE; Wide Open PRN Reason: Protocol Stop: 11/15/18 00:19 Last Admin: 11/15/18 00:50 Dose: 1,000 mls Sodium Chloride (Ns) 1,000 mls @ 0 mls/hr IV EDNOW ONE; Wide Open PRN Reason: Protocol Stop: 11/15/18 00:19 Last Admin: 11/15/18 00:50 Dose: 1,000 mls Magnesium Sulfate (Magnesium Sulf 2 Gm (Premix)) 50 mls @ 50 mls/hr IV ONCE ONE Stop: 11/15/18 16:28 Last Admin: 11/15/18 15:34 Dose: 50 mls Potassium Chloride (Potassium Cl 10 Meq (Premix)) 50 mls @ 100 mls/hr IV Q30M [facility] Stop: 11/15/18 16:59 Last Admin: 11/15/18 18:18 Dose: 50 mls Calcium Gluconate 1 gm/ (Dextrose) 50 mls @ 100 mls/hr IV ONCE ONE Stop: 11/15/18 16:29 Last Admin: 11/15/18 16:52 Dose: 50 mls Potassium Chloride (Potassium Cl 10 Meq (Premix)) 50 mls @ 100 mls/hr IV Q30M [facility] Stop: 11/15/18 21:59 Last Admin: 11/15/18 22:33 Dose: 50 mls Ketorolac Tromethamine (Toradol) 15 mg IVP EDNOW ONE Stop: 11/15/18 03:51 Last Admin: 11/15/18 03:55 Dose: 15 mg Labetalol HCl (Trandate Injection) 10 mg IVP ONCE ONE Stop: 11/15/18 07:48 Last Admin: 11/15/18 08:14 Dose: Not Given Labetalol HCl (Labetalol Hcl) 10 mg IVP ONCE ONE Stop: 11/15/18 08:01 Last Admin: 11/15/18 08:03 Dose: 10 mg Lidocaine (Lidocaine 2% Viscous) 15 ml PO ONCE ONE Stop: 11/15/18 09:01 Last Admin: 11/15/18 12:03 Dose: 15 ml Lidocaine (Lidocaine 2% Viscous) 15 ml PO ONCE ONE Stop: 11/15/18 11:46 Last Admin: 11/15/18 12:33 Dose: Not Given Nitroglycerin (Nitro-Bid 2%) 1 inch TP ONCE ONE Stop: 11/15/18 09:01 Last Admin: 01/17/19 09:13 Dose: 1 inch Ondansetron HCl (Zofran) 4 mg IVP EDNOW ONE Stop: 11/15/18 00:19 Last Admin: 11/15/18 00:50 Dose: 4 mg Promethazine HCl (Phenergan) 6.25 mg IVP ONCE ONE Stop: 11/15/18 04:21 Last Admin: 11/15/18 04:23 Dose: 6.25 mg Departure - Departure Disposition: [facility] Acute Clinical Impression: Abdominal pain, Nausea and vomiting Condition: Fair
[2018-11-15] MEDS ORDERED: NS 1,000 ML IV ONE ×2 (00:18)
[2018-11-15] MEDS ORDERED: ONDANSETRON 4 MG/2 ML VIAL IVP ONE (00:18)
[2018-11-15 01:14] LABS: PLATELET COUNT 89 10^3/uL (150-400)
[2018-11-15] MEDS ORDERED: HYDROmorphONE/DILAUDID 2 MG/ML INJ IVP ONE (02:24)
[2018-11-15] MEDS ORDERED: KETOROLAC 15 MG/1 ML SDV IVP ONE (03:50)
[2018-11-15] MEDS ORDERED: IOPAMIDOL (ISOVUE 370) 100 ML BTL IV ONE (03:52)
[2018-11-15] MEDS ORDERED: PROMETHAZINE HCL 25 MG/ML INJ ONE (04:20)
[2018-11-15] MEDS ORDERED: PROMETHAZINE HCL 25 MG/ML INJ IVP ONE (04:20)
[2018-11-15] MEDS ORDERED: ACETAMINOPHEN 325 MG TAB PO PRN (04:39)
[2018-11-15] MEDS ORDERED: HYDROmorphONE/DILAUDID 1 MG/ML INJ IVP PRN (04:39)
--- NOTE | 2018-11-15 04:59 | PDGENHP ---
History and Physical - Chief Complaint Abdominal pain - History of Present Illness 68-year-old female with a history of chronic abdominal pain, hepatocellular carcinoma, and anxiety with depression presents with acute on chronic abdominal pain, nausea, and vomiting. She was recently hospitalized here in October, September as well as last November with similar complaints. During these admissions, she had a colonoscopy which was unremarkable. She had a CT scan which was also unremarkable. Recent EGD shows chronic gastritis but noting severe. She does have persistent elevation of alkaline phosphatase but had a HIDA scan last fall and was normal. Today her CT scan is similar to prior in appearance. She tells me she always has pain but last night it increased dramatically and she also developed vomiting and diarrhea. She denies BRBPR or melena. Case discussed with ED physician Dr. Catherine; records reviewed and summarized above. History Information - Allergies/Home Medication List Allergies/Adverse Reactions: aripiprazole [From Abilify] Allergy (Verified 10/31/18 11:56) ziprasidone HCl [From Geodon] Allergy (Verified 10/31/18 11:56) ziprasidone mesylate [From Geodon] Allergy (Verified 10/31/18 11:56) Home Medications: Amitriptyline HCl [Elavil] 25 mg PO HS 09/29/18 [Last Taken Unknown] LORazepam [Ativan (*)] 2 mg PO BID 09/29/18 [Last Taken Unknown] Memantine HCl [Namenda 10 mg] 10 mg PO BID 09/29/18 [Last Taken Unknown] Pantoprazole Sodium [Protonix 40mg (*)] 40 mg PO BID 09/29/18 [Last Taken Unknown] fentaNYL [Duragesic 75 MCG Patch (*)] 75 mcg TD Q72H 09/29/18 [Last Taken Unknown] oxyCODONE IR [Oxycodone Ir (*)] 5 mg PO Q3-4PRN PRN 09/29/18 [Last Taken Unknown ] Doxepin HCl [Sinequan 50 MG (*)] 150 mg PO HS 11/01/18 [Last Taken Unknown] I have personally reviewed and updated: family history, medical history Past Medical History: See HPI list - Past Medical History hypertension Additional medical history: Chronic abdominal pain with continuous opiate and benzodiazepine dependency, felt to be secondary to a strong psychiatric component and not related to her underlying hepatocellular carcinoma. Hepatocellular carcinoma status post Y 90 treatment as well as arterial embolectomy. Hepatitis C virus. Bipolar disease type 1. Parkinson's disease. Severe protein calorie malnutrition. Possible seizure disorder - Surgical History Additional surgical history: 09/21/2016 arterial embolectomy by interventional Radiology. Hysterectomy - Family History Additional family history: Family with diabetes, no cancer - Social History Smoking Status: Never smoked Additional social history: Independent in her ADLs lives with her Review of Systems Review of Systems: ROS: 10pt was reviewed & negative except for what was stated in HPI & below Physical Exam Physical Exam: Temp Pulse Resp BP Pulse Ox 36.4 C 72 18 215/104 H 99 11/14/18 23:59 11/15/18 04:00 11/15/18 04:00 11/15/18 04:00 11/15/18 04:00 Constitutional: chronically ill appearing, uncomfortable Eyes: PERRL, EOMI Ears, Nose, Mouth, Throat: moist mucous membranes, no oral mucosal ulcers Cardiovascular: regular rate and rhythym, no murmur, rub, or gallop Respiratory: no respiratory distress, no rales or rhonchi Gastrointestinal: normoactive bowel sounds, tenderness (Diffuse), guarding, No rebound, No distension Skin: warm, normal color Musculoskeletal: full muscle strength, no muscle tenderness Neurologic: AAOx3, CN II-XII Intact Psychiatric: interacting appropriately, not anxious Lab Data & Imaging Review 11/15/18 00:35 11/15/18 00:35 WBC 5.00 10^3/uL (3.80-9.50) 11/15/18 00:35 RBC 5.09 10^6/uL (4.18-5.33) 11/15/18 00:35 Hgb 12.8 g/dL (12.6-16.3) 11/15/18 00:35 Hct 40.8 % (38.0-47.0) 11/15/18 00:35 MCV 80.2 fL (81.5-99.8) L 11/15/18 00:35 MCH 25.1 pg (27.9-34.1) L 11/15/18 00:35 MCHC 31.4 g/dL (32.4-36.7) L 11/15/18 00:35 RDW 18.1 % (11.5-15.2) H 11/15/18 00:35 Plt Count 89 10^3/uL (150-400) L 11/15/18 00:35 MPV 10.2 fL (8.7-11.7) 11/15/18 00:35 Neut % (Auto) 88.6 % (39.3-74.2) H 11/15/18 00:35 Lymph % (Auto) 4.2 % (15.0-45.0) L 11/15/18 00:35 [place] % (Auto) 6.2 % (4.5-13.0) 11/15/18 00:35 Eos % (Auto) 0.6 % (0.6-7.6) 11/15/18 00:35 Baso % (Auto) 0.2 % (0.3-1.7) L 11/15/18 00:35 Nucleat RBC Rel Count 0.0 % (0.0-0.2) 11/15/18 00:35 Absolute Neuts (auto) 4.43 10^3/uL (1.70-6.50) 11/15/18 00:35 Absolute Lymphs (auto) 0.21 10^3/uL (1.00-3.00) L 11/15/18 00:35 Absolute Monos (auto) 0.31 10^3/uL (0.30-0.80) 11/15/18 00:35 Absolute Eos (auto) 0.03 10^3/uL (0.03-0.40) 11/15/18 00:35 Absolute Basos (auto) 0.01 10^3/uL (0.02-0.10) L 11/15/18 00:35 Absolute Nucleated RBC 0.00 10^3/uL (0-0.01) 11/15/18 00:35 Immature Gran % 0.2 % (0.0-1.1) 11/15/18 00:35 Immature Gran # 0.01 10^3/uL (0.00-0.10) 11/15/18 00:35 RBC/WBC/PLT Morphology TNP 11/15/18 00:35 Platelet Estimate TNP 11/15/18 00:35 VBG Lactic Acid 2.0 mmol/L (0.7-2.1) 11/15/18 00:35 Sodium 137 mEq/L (135-145) 11/15/18 00:35 Potassium 3.5 mEq/L (3.5-5.2) 11/15/18 00:35 Chloride 108 mEq/L (97-110) 11/15/18 00:35 Carbon Dioxide 20 mEq/l (22-31) L 11/15/18 00:35 Anion Gap 9 mEq/L (6-14) 11/15/18 00:35 BUN 14 mg/dL (7-23) 11/15/18 00:35 Creatinine 1.0 mg/dL (0.6-1.0) 11/15/18 00:35 Estimated GFR 55 11/15/18 00:35 Glucose 180 mg/dL (70-100) H 11/15/18 00:35 Calcium 9.3 mg/dL (8.5-10.4) 11/15/18 00:35 Total Bilirubin 0.5 mg/dL (0.1-1.4) 11/15/18 00:35 Conjugated Bilirubin 0.5 mg/dL (0.0-0.5) 11/15/18 00:35 Unconjugated Bilirubin 0.0 mg/dL (0.0-1.1) 11/15/18 00:35 AST 37 IU/L (14-46) 11/15/18 00:35 ALT 29 IU/L (9-52) 11/15/18 00:35 Alkaline Phosphatase 267 IU/L (38-126) H 11/15/18 00:35 Total Protein 6.8 g/dL (6.3-8.2) 11/15/18 00:35 Albumin 3.9 g/dL (3.5-5.0) 11/15/18 00:35 Lipase 115 IU/L (23-300) 11/15/18 00:35 Urine Color COLORLESS 11/15/18 04:20 Urine Appearance CLEAR 11/15/18 04:20 Urine pH 7.0 (5.0-7.5) 11/15/18 04:20 Ur Specific [place] 1.012 (1.002-1.030) 11/15/18 04:20 Urine Protein NEGATIVE (NEGATIVE) 11/15/18 04:20 Urine Ketones NEGATIVE (NEGATIVE) 11/15/18 04:20 Urine Blood NEGATIVE (NEGATIVE) 11/15/18 04:20 Urine Nitrate NEGATIVE (NEGATIVE) 11/15/18 04:20 Urine Bilirubin NEGATIVE (NEGATIVE) 11/15/18 04:20 Urine Urobilinogen NEGATIVE EU (0.2-1.0) 11/15/18 04:20 Ur Leukocyte Esterase NEGATIVE (NEGATIVE) 11/15/18 04:20 Urine RBC 1-3 /hpf (0-3) 11/15/18 04:20 Urine WBC 1-3 /hpf (0-3) 11/15/18 04:20 Ur Epithelial Cells TRACE /lpf (NONE-1+) 11/15/18 04:20 Urine Glucose 1+ (NEGATIVE) H 11/15/18 04:20 Imaging Review: CT A/P Prelim: no acute findings, similar to priors d/w SM at 430 Assessment & Plan Assessment: 8-year-old female with a history of chronic abdominal pain, hepatocellular carcinoma, and anxiety with depression presents with acute on chronic abdominal pain, nausea, and vomiting. Plan: 1. Abdominal pain - Associated with nausea and vomiting. This is her 5th visit for the same in about a month. Multiple CT scans, colonoscopy, and EGD have not revealed an etiology. Her Hgb has improved and her Alk Phos remains chronically elevated; she has had a normal HIDA in the past for this. - Admit for observation - mIVF, pain control, anti-emetics - GI PCR if diarrhea persists 2. Hx HCC - S/p chemoembolization 3. Hd Hep C- S/p treatment 4. Thrombocytopenia - 2/2 liver disease; hold anticoagulants for now. 5. BPD - Resume medications pending reconciliation 6. Anxiety, depression - Likely a significant contributor to her presentation. Diet - Clears, ADAT, mIVF Code - Full Ppx - SCDs Dispo - Admit under observation status
[2018-11-15] MEDS: PROMETHAZINE HCL 25 MG/ML INJ IVP PRN ×2 (05:32→21:13)
[2018-11-15] MEDS: NS W/ 20 KCl/L 1,000 ML IV SCH ×2 (05:42→19:47)
[2018-11-15] MEDS ORDERED: hydrALAZINE 20 MG/ML VIAL IVP ONE (05:47)
[2018-11-15] MEDS ORDERED: HYDROmorphONE/DILAUDID 1 MG/ML INJ IVP ONE (05:48)
[2018-11-15] MEDS: ONDANSETRON 4 MG/2 ML VIAL IVP PRN ×2 (07:40→13:29)
[2018-11-15] MEDS ORDERED: LABETALOL HCL 5 MG/ML 20 ML MDV IVP ONE (07:47)
[2018-11-15] MEDS ORDERED: LABETALOL HCL 20 MG/4 ML INJ IVP ONE (08:00)
[2018-11-15] MEDS: HYDROmorphONE/DILAUDID 1 MG/ML INJ IVP PRN ×4 (08:10→18:55)
--- NOTE | 2018-11-15 08:49 | HOSPPROG ---
Hospitalist Progress Note Assessment/Plan: * Intractable abd pain/N/V - 5th admission this month -IV dilaudid, IVF, supportive care -previous w/u negative - CT/colonoscopy/EGD/HIDA -consider increased meds for IBS - amitriptyline, Librax * HTN urgency - extreme BP elevation -IV hydralazine, IV labetolol - still poorly controlled - move to ICU for IV cardene gtt -denies baseline HTN when not in pain - although BP always very elevated here -check head CT -consider PO meds at discharge * Hepatocellular carcinoma s/p chemoembolization -no evidence for worsening disease * Hep C s/p tx * Thrombocytopenia due to liver disease * Bipolar - home meds * Chronic benzo dependence -continue ativan CC time - 35 minutes - called urgently to beside by nursing - BP 233/121 - tx with IV hydralazine - actively vomiting and looks quite ill Subjective: Still vomiting Objective: Vital Signs Temp Pulse Resp BP Pulse Ox 36.9 C 79 18 190/99 H 98 11/15/18 07:30 11/15/18 08:26 11/15/18 07:30 11/15/18 08:26 11/15/18 07:30 11/14/18 11/15/18 11/16/18 05:59 05:59 05:59 Intake Total 2000 Output Total 300 800 Balance 1700 -800 - Physical Exam Constitutional: chronically ill appearing, uncomfortable, other (actively vomiting) Cardiovascular: regular rate and rhythym, no murmur, rub, or gallop Respiratory: no respiratory distress, no rales or rhonchi, clear to auscultation Gastrointestinal: normoactive bowel sounds, soft, non-tender abdomen, no palpable masses Skin: no rashes or abrasions, no fluctuance, no induration Neurologic: AAOx3, sensation intact bilaterally Psychiatric: interacting appropriately, anxious, depressed, flat affect, No encephalopathic, No agitated, No poor insight, No poor judgement, No poor memory ICD10 Worksheet Patient Problems: Problems Problem Status Onset Vomiting Acute Hypokalemia Acute Abdominal pain Acute Weakness Acute Dehydration Acute Chronic abdominal pain Acute Chronic nausea Acute Urinary tract infection Acute Abdominal pain Acute Failure to thrive Acute Nausea Acute Nausea and vomiting Acute
[2018-11-15] MEDS: LORazepam 2 MG/ML INJ IVP PRN ×3 (08:54→13:50)
[2018-11-15] MEDS ORDERED: NITROGLYCERIN 2% 1 GM PACKET TP ONE (09:00)
[2018-11-15] MEDS ORDERED: LIDOCAINE 2% VISCOUS 15 ML UDCUP PO ONE ×2 (09:00→11:45)
[2018-11-15] MEDS ORDERED: HYOSCYAMINE SULFATE 0.125 MG TAB PO ONE (09:00)
[2018-11-15] MEDS ORDERED: MAG HYDROX/AL HYDROX/SIMETH 30 ML UDCUP PO ONE ×2 (09:00→11:45)
[2018-11-15] MEDS: hydrALAZINE 20 MG/ML VIAL IVP PRN (09:51)
[2018-11-15] MEDS: fentaNYL 75 MCG PATCH TD SCH (13:27)
[2018-11-15] MEDS: CHLORDIAZ/CLIDINIU 5 MG/2.5 MG 1 CAP PO SCH ×3 (13:49→20:57)
[2018-11-15] MEDS: PRAMIPEXOLE 0.125 MG TAB PO SCH ×3 (13:49→20:57)
[2018-11-15] MEDS ORDERED: ALTEPLASE 2 MG VIAL IVP PRN (14:22)
[2018-11-15] MEDS ORDERED: PROTOCOL MAGNESIUM 1 DOSE IV PRN (14:28)
[2018-11-15] MEDS ORDERED: PROTOCOL CALCIUM 1 DOSE IV PRN (14:28)
[2018-11-15] MEDS ORDERED: PROTOCOL POTASSIUM 1 DOSE MISC PRN (14:28)
[2018-11-15] MEDS ORDERED: PROTOCOL K PHOSPHATE 1 DOSE IV PRN (14:28)
[2018-11-15] MEDS: niCARdipine/NACL 200 ML IV SCH ×2 (15:01→19:47)
[2018-11-15] MEDS ORDERED: CALCIUM GLUCONATE 50 ML IV ONE (15:28)
[2018-11-15] MEDS ORDERED: MAGNESIUM SULF 2 GM/WATER 50 ML IV ONE (15:29)
[2018-11-15] MEDS ORDERED: CALCIUM GLUCONATE 1 GM in D5W 50 ML IV ONE (16:00)
[2018-11-15] MEDS: POTASSIUM Cl (KCl) 50 ML IV SCH ×6 (16:46→22:33)
[2018-11-15] MEDS: LORazepam 1 MG TAB PO SCH (19:39)
[2018-11-15] MEDS: PANTOPRAZOLE SODIUM 40 MG TAB PO SCH (20:57)
[2018-11-15] MEDS: MEMANTINE HCL 5 MG TAB PO SCH (20:57)
[2018-11-15] MEDS: CARBIDOPA/LEVODOPA 25 MG/100 MG TAB PO SCH (20:57)
[2018-11-15] MEDS ORDERED: DOXEPIN HCL 50 MG CAP PO SCH (21:00)
[2018-11-15] MEDS ORDERED: AMITRIPTYLINE HCL 25 MG TAB PO SCH (21:00)
[2018-11-16] MEDS: PRAMIPEXOLE 0.125 MG TAB PO SCH ×4 (06:07→21:58)
[2018-11-16] MEDS: CHLORDIAZ/CLIDINIU 5 MG/2.5 MG 1 CAP PO SCH ×4 (06:07→21:58)
[2018-11-16] MEDS: oxyCODONE IR 5 MG TAB PO PRN ×5 (06:21→20:35)
[2018-11-16] MEDS: CARBIDOPA/LEVODOPA 25 MG/100 MG TAB PO SCH ×2 (08:21→21:58)
[2018-11-16] MEDS: LORazepam 1 MG TAB PO SCH ×2 (08:21→21:58)
[2018-11-16] MEDS: PANTOPRAZOLE SODIUM 40 MG TAB PO SCH ×2 (08:22→21:58)
[2018-11-16] MEDS: MEMANTINE HCL 5 MG TAB PO SCH ×2 (08:22→21:58)
[2018-11-16] MEDS ORDERED: SUCRALFATE 1 GM TAB PO SCH (11:30)
--- NOTE | 2018-11-16 14:21 | PDMN ---
Medical Necessity Medical necessity: Change to inpt as of 11/15/18 @ 1834 per MD order and MCG M-37 , Vomiting. 68 y/o w/hx chronic abd pain presented w/ acute on chronic abd pain , nausea, and vomiting, mult recent hosp visits for same issue, undetermined etiology. Upgraded to inpt status for persistent N/V and abd pain, HTN urgency w /BP as high as 233/121 requiring IV hydralazine. PICC lIne today, last BP 173/71 , tachy w/HR 111. Hx of hepatocellular carcinoma s/p chemoembolization, Hep C, thrombocytopenia, bipolar, and chronic benzo dependence. Anticipate>2MN for ongoing eval/management of above.
[2018-11-16] MEDS: LORazepam 2 MG/ML INJ IVP PRN (15:49)
--- NOTE | 2018-11-16 17:24 | GCON ---
CRITICAL CARE CONSULTATION. DATE OF CONSULTATION: 11/16/2018 HISTORY OF PRESENT ILLNESS: This patient is a 68-year-old female with history of bipolar disorder, a nxiety, and hepatocellular carcinoma who previously underwent chemoembolization in the past. She was admitted yesterday with ongoing issues of abdominal pain which has been resulting in several hospita lizations, but her workup has been negative to date. She started yesterday on the floor and continue d to have pain and developed hypertension with a blood pressure of 223/131. She was subsequently tra nsferred to the ICU and started on a Cardene drip, but this was stopped around midnight. Her blood p ressure remained stable throughout the rest of the day. She had a difficult time identifying the nakia rce of her pain and said that it was throughout her GI tract and she felt it was due to ulcerations t hroughout. She did sometimes identify pain in her left side, but was really quite vague about its lo cation and was tearful and complaining of weight loss. She was also having difficulty with nausea, v omiting, and diarrhea, but no fevers. REVIEW OF SYSTEMS: Otherwise negative. PAST MEDICAL HISTORY: Includes: 1. Bipolar disorder. 2. Anxiety. 3. Hepatocellular carcinoma. 4. Restless leg syndrome. 5. Chronic pain. 6. Gastroesophageal reflux disease. 7. Scoliosis. 8. Hypertension. 9. Parkinson's. PAST SURGICAL HISTORY: Includes hysterectomy and embolization as described. SOCIAL HISTORY: She is a nonsmoker. FAMILY HISTORY: Noncontributory at this time. CURRENT MEDICATIONS: Tylenol, Sinemet, Librax, fentanyl patch, Dilaudid, Ativan p.r.n., Namenda, Zof ran, oxycodone, Protonix, Mirapex, Phenergan, Carafate. PHYSICAL EXAM: VITAL SIGNS: She had a blood pressure of 107/67, heart rate 99, respirations 14, oxy gen saturation 94% on room air. GENERAL: She was quite thin, nearly cachectic, in a lot of distress over her workup and questions, but no respiratory distress. HEENT: Pupils equally round and reactive to light. Nonicteric and noninjected. Mucous membranes are moist without erythema or exudate. NECK : Supple without adenopathy or jugular vein distention. LUNGS: Breath sounds were clear to auscultat ion bilaterally without wheezes, rubs or rales. HEART: Regular rate and rhythm without murmurs, rub s, gallops. ABDOMEN: Diffusely tender but soft, without rigidity or guarding and normoactive bowel t ones. EXTREMITIES: No clubbing, cyanosis, or edema. SKIN: Warm and dry without rash. NEUROLOGICAL: Exam was nonfocal including cranial nerves, deep tendon reflexes. OBJECTIVE DATA: Her white count on admission on the was 5 with a hematocrit of 40, platelets of 89. Her basic metabolic panel was normal. LFTs were normal with exception of an alkaline phosphata se of 136, total protein 5.7, albumin 3.0, but her bilirubin and transaminases were normal. Urinalys is was negative. Her abdominal CT from November 15 shows cirrhosis and some portal hypertension wit h nonspecific bowel wall thickening but no acute cause of her discomfort. ASSESSMENT AND PLAN: 1. Abdominal pain, which is largely undergone negative workup, Dr. Black is evaluating her now and w ill consider other tests including for pheochromocytoma given her blood pressure issues, which is tra d to interpret at this point. Though my suspicion is low, I will add a lactic acid looking for evide nce of some ischemia related potentially to her chemoembolization, though I am not sure when that pro cedure was actually performed. 2. Hypertension. As I said this could be episodic, just related to her ongoing pain. Her bipolar d isorder and anxiety are certainly not helping that and she responded well once she was transferred to the ICU and had multiple providers look in on her. Blood pressure has been fine for last 12 hours. She can go back to the floor. /[id number]/MODL
--- NOTE | 2018-11-16 17:33 | ASMTCMCOM ---
CM Note CM Note Notes: Pt admitted several times in the last few months for abdominal pain, nausea and vomitting in the setting of hepatocellular carcinoma with no evidence of worsening disease. GI work up negative thus far. Further GI workup pending. Behavioral Health RN consult placed as recommended by pt's PCP, and Beh RN notified by phone, however she is not in until Monday. CM suggested to bedside RN perhaps inpatient acupuncture is indicated; RN to inquire with pt. PT recommending independent discharge. OT recommending possible homecare. Pt lives independently at [facility]. CM to follow. D/C Plan: Home independently Date Signed: 11/16/2018 05:33 PM Electronically Signed By:Gabriela Dia
--- NOTE | 2018-11-16 17:41 | HOSPPROG ---
Hospitalist Progress Note Assessment/Plan: * HTN emergency - paroxysmal HTN - BP now normalized off meds -s/p IV cardene gtt -hold off on oral meds for now -rule out pheo * Intractable abd pain/N/V - 80 pounds unintentional weight loss -previous w/u negative - CT/colonoscopy/EGD/HIDA -check further labs w/u weight loss * GERD -on PPI - add Carafate * Hepatocellular carcinoma s/p chemoembolization -no evidence for worsening disease * Hep C s/p tx * Thrombocytopenia due to liver disease * Bipolar - home meds * Chronic benzo dependence -continue ativan Subjective: Severe pain even taking only sips of water Objective: Vital Signs Temp Pulse Resp BP Pulse Ox 36.6 C 98 18 153/94 H 95 11/16/18 15:45 11/16/18 15:45 11/16/18 15:45 11/16/18 15:45 11/16/18 15:45 Laboratory Results 11/16/18 04:00 11/15/18 11/16/18 11/17/18 05:59 05:59 05:59 Intake Total 1363 Output Total 200 Balance 1363 -200 d/w dr. martines regarding ICU stay UGI - severe gerd, but otherwise normal motility - Physical Exam Constitutional: no apparent distress, not in pain, other (very thin) Cardiovascular: regular rate and rhythym, no murmur, rub, or gallop Respiratory: no respiratory distress, no rales or rhonchi, clear to auscultation Gastrointestinal: normoactive bowel sounds, soft, non-tender abdomen, no palpable masses Skin: no rashes or abrasions, no fluctuance, no induration Neurologic: AAOx3, sensation intact bilaterally Psychiatric: interacting appropriately, not anxious, not encephalopathic, thought process linear ICD10 Worksheet Patient Problems: Problems Problem Status Onset Vomiting Acute Hypokalemia Acute Abdominal pain Acute Weakness Acute Dehydration Acute Chronic abdominal pain Acute Chronic nausea Acute Urinary tract infection Acute Abdominal pain Acute Failure to thrive Acute Nausea Acute Nausea and vomiting Acute
[2018-11-16] MEDS: SUCRALFATE 1 GM/10 ML UDCUP PO SCH ×2 (17:42→21:58)
[2018-11-16] MEDS: ONDANSETRON DISINTEGRATING 4 MG TAB PO PRN (20:35)
[2018-11-17] MEDS: CHLORDIAZ/CLIDINIU 5 MG/2.5 MG 1 CAP PO SCH ×4 (05:17→20:57)
[2018-11-17] MEDS: PRAMIPEXOLE 0.125 MG TAB PO SCH ×4 (05:17→20:57)
[2018-11-17 05:45] LABS: INR 1.11 (0.83-1.16); PROTIME(PATIENT) 14.5 SEC (12.0-15.0)
[2018-11-17] MEDS ORDERED: COSYNTROPIN 0.25 MG/2 ML SYRINGE IVP ONE (06:00)
[2018-11-17] MEDS: ONDANSETRON DISINTEGRATING 4 MG TAB PO PRN (06:13)
[2018-11-17] MEDS: SUCRALFATE 1 GM/10 ML UDCUP PO SCH ×4 (08:37→20:57)
[2018-11-17] MEDS: LORazepam 1 MG TAB PO SCH ×2 (08:38→20:57)
[2018-11-17] MEDS: CARBIDOPA/LEVODOPA 25 MG/100 MG TAB PO SCH ×2 (08:38→20:57)
[2018-11-17] MEDS: PANTOPRAZOLE SODIUM 40 MG TAB PO SCH ×2 (08:39→20:57)
[2018-11-17] MEDS: MEMANTINE HCL 5 MG TAB PO SCH ×2 (08:39→20:57)
[2018-11-17] MEDS: oxyCODONE IR 5 MG TAB PO PRN (08:39)
[2018-11-17] MEDS: KETOROLAC 15 MG/1 ML SDV IVP PRN ×2 (13:29→20:57)
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
[2018-11-18] MEDS: KETOROLAC 15 MG/1 ML SDV IVP PRN ×3 (04:34→21:04)
[2018-11-18] MEDS: CHLORDIAZ/CLIDINIU 5 MG/2.5 MG 1 CAP PO SCH ×4 (04:34→21:04)
[2018-11-18] MEDS: PRAMIPEXOLE 0.125 MG TAB PO SCH ×4 (04:34→21:04)
[2018-11-18] MEDS: LORazepam 1 MG TAB PO SCH ×3 (08:37→21:04)
[2018-11-18] MEDS: CARBIDOPA/LEVODOPA 25 MG/100 MG TAB PO SCH ×3 (08:37→21:04)
[2018-11-18] MEDS: ONDANSETRON DISINTEGRATING 4 MG TAB PO PRN (08:37)
[2018-11-18] MEDS: MEMANTINE HCL 5 MG TAB PO SCH ×3 (08:37→21:04)
[2018-11-18] MEDS: SUCRALFATE 1 GM/10 ML UDCUP PO SCH ×4 (08:37→21:04)
[2018-11-18] MEDS: PANTOPRAZOLE SODIUM 40 MG TAB PO SCH ×3 (08:37→21:04)
[2018-11-18] MEDS: fentaNYL 75 MCG PATCH TD SCH (13:14)
--- NOTE | 2018-11-18 15:59 | ASMTCMCOM ---
CM Note CM Note Notes: [facility] liu of Sucralfate with pt's insurance. After insurance it will still be $116/month. Pt states that medication does help symptoms, but she is not able to afford it. Pt and given information on [employer] to help cut grocery costs so they may be able to afford medication. [employer] contacted for possible medicaid eligibility screen. CM manager orange also notified for possible other ideas. Pt lives at [facility], perhaps they have CM who could help solve this problem? CM to follow. D/C Plan: Independent Date Signed: 11/18/2018 03:59 PM Electronically Signed By:Gabriela Dia
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
[2018-11-19 02:42] LABS: HIV TYPE 1 AND 2 NEGATIVE (NEGATIVE)
[2018-11-19 05:48] LABS: PLATELET COUNT 71 10^3/uL (150-400)
[2018-11-19] MEDS: PRAMIPEXOLE 0.125 MG TAB PO SCH ×4 (05:56→20:30)
[2018-11-19] MEDS: CHLORDIAZ/CLIDINIU 5 MG/2.5 MG 1 CAP PO SCH ×4 (05:56→20:30)
[2018-11-19] MEDS: ONDANSETRON 4 MG/2 ML VIAL IVP PRN (07:41)
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
[2018-11-19] MEDS: LORazepam 1 MG TAB PO SCH (09:15)
[2018-11-19] MEDS: MEMANTINE HCL 5 MG TAB PO SCH ×2 (09:26→20:30)
[2018-11-19] MEDS: PANTOPRAZOLE SODIUM 40 MG TAB PO SCH ×2 (09:26→20:30)
[2018-11-19] MEDS: CARBIDOPA/LEVODOPA 25 MG/100 MG TAB PO SCH ×2 (09:26→20:30)
[2018-11-19] MEDS: SUCRALFATE 1 GM/10 ML UDCUP PO SCH ×4 (09:27→20:29)
[2018-11-19] MEDS: ONDANSETRON DISINTEGRATING 4 MG TAB PO PRN ×2 (11:57→23:00)
--- NOTE | 2018-11-19 14:23 | ASMTCMCOM ---
CM Note CM Note Notes: Pts case discussed w/ Sheryl Anne NP and KENA Chase. [facility]. [facility] reports that they cannot combine discount card with pts insurance. It will be $116/month for the carafate suspension liquid 1gram. CM met w/ pt and . They both reports that they cannot afford it. Carafate oral is only $5/month for 120 tabs. Maira from pharmacy reports that pt can crush them and put it in applesauce. Sheryl is recommending pt discharges w/ KENA POTTER. Pt and is agreeable to this plan. [facility] Plan: [facility]; RN Date Signed: 11/19/2018 02:23 PM Electronically Signed By:DEEPTI Davis
[2018-11-19] MEDS ORDERED: LORazepam 1 MG TAB PO PRN (15:31)
[2018-11-19] MEDS: KETOROLAC 15 MG/1 ML SDV IVP PRN ×2 (15:49→23:00)
[2018-11-19] MEDS: hydrALAZINE 20 MG/ML VIAL IVP PRN (20:30)
[2018-11-20] MEDS: CHLORDIAZ/CLIDINIU 5 MG/2.5 MG 1 CAP PO SCH (05:30)
[2018-11-20] MEDS: PRAMIPEXOLE 0.125 MG TAB PO SCH (05:30)
[2018-11-20 08:36] VITALS: BP 185/98
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
[2018-11-20] MEDS: CARBIDOPA/LEVODOPA 25 MG/100 MG TAB PO SCH (08:38)
[2018-11-20] MEDS: MEMANTINE HCL 5 MG TAB PO SCH (08:38)
[2018-11-20] MEDS: PANTOPRAZOLE SODIUM 40 MG TAB PO SCH (08:38)
[2018-11-20] MEDS: SUCRALFATE 1 GM/10 ML UDCUP PO SCH (08:39)
--- NOTE | 2018-11-20 09:27 | PDIAF ---
- Diagnosis Diagnosis: hypertensive urgency, acute on chronic abdomial pain Code Status: Full Code - Medication Management Discharge Medications: electronically signed and located in the Home Medication List. PICC Care - Routine: N/A - Orders Services needed: Home Care, Registered Nurse Home Care Face to Face: I certify that this patient was under my care and that I had the required [id number] encounter meeting the encounter requirements on the discharge day. My findings support the fact that the patient is homebound as defined in Home Care Face to Face Continued: CMS Chapter 7 Medicare Benefits Manual 30.1.1 , The condition of the patient is such that there exists a normal inability to leave home and consequently, leaving home would require a considerable and taxing effort. Isolation Type: Contact Isolation, Droplet Isolation Diet Recommendation: no restrictions on diet Diet Texture: Regular Texture Diet Additional Instructions: oxy IR, fentanyl patch and Ativan are very powerful medications that can cause respiratory depression; talk with your PCP and get the Fentanyl patch dose reduced some good hand surgeons to f/u with are Dr Gordillo or Dr Lara to further evaluate your ganglion cyst You have multiple labs pending to rule out pheochromocytoma. Your primary care doctor needs to follow up with this. - Follow Up Care Current Providers and Referrals: Lisa Muñoz MD [Primary Care Provider] - As per Instructions
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
--- NOTE | 2018-11-20 11:38 | ASMTLACE ---
DARNELL Length of stay for Answers: 4-6 days current admission Acuity / Level of Answers: Yes Care: Did the patient have an inpatient admission? Comorbidities - select Answers: Any tumor (including all that apply lymphoma or leukemia) Opioid dependence / Chronic pain Other Notes: Parkinson's disease; He p C # of Emergency department Answers: 5-8 visits in the last 6 months Social determinants Answers: Mental health diagnosis (anxiety, depression, pers onality disorders, etc.) Score: 21 Date Signed: 11/20/2018 11:36 AM Electronically Signed By:DEEPTI Davis
--- NOTE | 2018-11-20 11:40 | ASMTDCNOTE ---
Case Management Discharge Discharge Order Complete? Answers: Yes Patient to Obtain Answers: Independently Medications Transportation Arranged Answers: Family/Friends EMTALA Complete Answers: No Case Management Transport Answers: No Form Complete Faxed Final Orders Answers: Yes Agency/Facility Transfer Answers: Yes Report Printed & Faxed to Receiving Agency Family Notified Answers: No Discharge Comments Notes: Pts case discussed w/ Sheryl Anne NP. Pt is being d/c'd today. CM applied for the [employer] for pt. CM submitted application to Trina Holm. CM spoke to Trina Holm this AM and she has approved it for $1000. The check will be sent out to pt. KENA Peña will call to give report to CHARLES. DEVIN available for changes. Plan: KENA SOTO Date Signed: 11/20/2018 11:39 AM Electronically Signed By:DEEPTI Davis
--- NOTE | 2018-11-20 11:43 | ASDISCHSUM ---
Discharge Information Plan Status:Home with Home Health Medically Cleared to Leave:11/19/2018 Discharge Date:11/20/2018 09:17 AM CM D/C Disposition: ADT D/C Disposition:Home Health Service Projected Discharge Date:11/20/2018 11:00 AM Transportation at D/C: Discharge Delay Reason: Follow-Up Date:11/20/2018 11:00 AM Discharge Slot: Final Diagnosis: Placement Information Referral Type:*Home Health Care Services Referral ID:[id number] Provider Name:[facility] Care Address 1:[address] Address 2: City:[place] Selection Factors: State:[place] Patient Contact Information Contact Name:NISHANTRUDDY Relationship: Address:[address] Work Phone: City:[place] Alternate Phone: State/Zip Code:[place] [address] Email: Financial Information Financial Class:Medicare Advantage Plans Primary Plan Desc:[employer] GOLD MEDICARE Primary Plan Number:[id number] Secondary Plan Desc: Secondary Plan Number: Assessment Information LACE LACE Length of stay for Answers: 4-6 days current admission Acuity / Level of Answers: Yes Care: Did the patient have an inpatient admission? Comorbidities - select Answers: Any tumor (including all that apply lymphoma or leukemia) Opioid dependence / Chronic pain Other Notes: Parkinson's disease; Edmundo Roberto # of Emergency department Answers: 5-8 visits in the last 6 months Social determinants Answers: Mental health diagnosis (anxiety, depression, pers onality disorders, etc.) Score: 21 Date Signed: 11/20/2018 11:36 AM Electronically Signed By:DEEPTI Davis [facility] CM Progress Note CM Note CM Note Notes: Pt admitted several times in the last few months for abdominal pain, nausea and vomitting in the setting of hepatocellular carcinoma with no evidence of worsening disease. GI work up negative thus far. Further GI workup pending. Behavioral Health RN consult placed as recommended by pt's PCP, and Beh RN notified by phone, however she is not in until Monday. CM suggested to bedside RN perhaps inpatient acupuncture is indicated; RN to inquire with pt. PT recommending independent discharge. OT recommending possible homecare. Pt lives independently at [facility]. CM to follow. D/C Plan: Home independently Date Signed: 11/16/2018 05:33 PM Electronically Signed By:Gabriela Dia [facility] CM Progress Note CM Note CM Note Notes: CM called [facility] pharmacy to clarify liu of Sucralfate with pt's insurance. After insurance it will still be $116/month. Pt states that medication does help symptoms, but she is not able to afford it. Pt and given information on [employer] to help cut grocery costs so they may be able to afford medication. [employer] contacted for possible medicaid eligibility screen. CM manager telemarketing also notified for possible other ideas. Pt lives at [facility], perhaps they have CM who could help solve this problem? CM to follow. D/C Plan: Independent Date Signed: 11/18/2018 03:59 PM Electronically Signed By:Gabriela Dia [facility] CM Progress Note CM Note CM Note Notes: Pts case discussed w/ Sheryl Anne NP and KENA Chase. CM called [facility]. [facility] reports that they cannot combine discount card with pts insurance. It will be $116/month for the carafate suspension liquid 1gram. CM met w/ pt and . They both reports that they cannot afford it. Carafate oral is only $5/month for 120 tabs. Maira from pharmacy reports that pt can crush them and put it in applesauce. Sheryl is recommending pt discharges w/ KENA POTTER. Pt and is agreeable to this plan. Referral sent to [facility]. [facility] is able to accept. Plan: CHARLES; RN Date Signed: 11/19/2018 02:23 PM Electronically Signed By:DEEPTI Davis Case Management Discharge Plan Note Case Management Discharge Discharge Order Complete? Answers: Yes Patient to Obtain Answers: Independently Medications Transportation Arranged Answers: Family/Friends EMTALA Complete Answers: No Case Management Transport Answers: No Form Complete Faxed Final Orders Answers: Yes Agency/Facility Transfer Answers: Yes Report Printed & Faxed to Receiving Agency Family Notified Answers: No Discharge Comments Notes: Pts case discussed w/ Sheryl Anne NP. Pt is being d/c'd today. DEVIN applied for the [employer] for pt. CM submitted application to Trina Holm. CM spoke to Trina Holm this AM and she has approved it for $1000. The check will be sent out to pt. KENA Peña will call to give report to [facility]. CM available for changes. Plan: KENA SOTO Date Signed: 11/20/2018 11:39 AM Electronically Signed By:Trina Kendra, INTERNAL INVESTIGATOR Intervention Information
== END 2018-11-20 09:17 | disposition home health service (06) | DRG 392 ==
LOC: F1N 11-15 05:13 → F2N 11-15 13:11 → OBSVTOIN 11-15 18:34 → F3E 11-16 15:10
PROVIDERS: ADMIT Student in an Organized Health Care Education/Training Program; ATTEND Student in an Organized Health Care Education/Training Program
PROC: 02H633Z Insertion of Infusion Device into Right Atrium, Percutaneous Approach (ICD-10-PCS; principal; 2018-11-15)
DX: R10.84 Generalized abdominal pain (principal); I16.1 Hypertensive emergency; F11.20 Opioid dependence, uncomplicated; F13.20 Sedative, hypnotic or anxiolytic dependence, uncomplicated; R11.2 Nausea with vomiting, unspecified; G89.29 Other chronic pain; B33.8 Other specified viral diseases; E86.9 Volume depletion, unspecified; K21.9 Gastro-esophageal reflux disease without esophagitis; R63.4 Abnormal weight loss; F31.9 Bipolar disorder, unspecified; D69.6 Thrombocytopenia, unspecified; Z85.05 Personal history of malignant neoplasm of liver; Z86.19 Personal history of other infectious and parasitic diseases; F41.8 Other specified anxiety disorders
CPT/HCPCS: 82384-90; 83835-90; 97116-GP; 97161-GP; 97166-GO; 97530-GO; 97530-GP; 97535-GO; C1751; J0360; J0610; J0834; J1170; J1200; J1885; J2060; J2405; J2550; J3475; J3480; Q9967

== ENCOUNTER 2019-01-14 23:46 | Emergency (ER) | payer OTHER ==
[2019-01-15] MEDS ORDERED: NS 1,000 ML IV ONE (00:01)
--- NOTE | 2019-01-15 00:05 | EDPHY ---
H & P Stated Complaint: AMS and poss sz Time Seen by Provider: 01/14/19 23:47 HPI/ROS: HPI The patient presents with concern for seizure, brought in by ambulance from [facility] where she resides. According to her who is lying next to her in bed he awoke when he felt her shaking next to him. She had about 2 min of tonic-clonic activity in which she bit her tongue, followed by confusion and extreme sedation. 911 was called. The patient was found to be sedate and disoriented, tachycardic to the 120s. Blood glucose was checked and was 179. The patient has no prior history of seizures. She has had insomnia for the last several nights which she attributes to her restless leg syndrome. She saw her primary care doctor today and got a prescription for Dilaudid. She is not taking any other new medications. She did not have any recent falls.. REVIEW OF SYSTEMS 10 systems were reviewed and negative with the exception of the elements mentioned in the history of present illness. PMHx: History of chronic abdominal pain with weight loss, hepatocellular carcinoma, GERD, history of anxiety, admission in October of this year for hypertensive emergency Soc Hx: Resides at [facility] with her , no alcohol or drug use. PHYSICAL General Appearance: Tired appearing, able to answer questions Eyes: Pupils equal and round no pallor or injection ENT, Mouth: Mucous membranes moist, small abrasion to the left lateral aspect of her tongue Respiratory: There are no retractions, lungs are clear to auscultation Cardiovascular: Tachycardic rate and regular rhythm Gastrointestinal: Abdomen is soft and non-tender, no masses, bowel sounds normal Neurological: A&O to self, moves all extremities Skin: Warm and dry, no rashes Musculoskeletal: Neck is supple non tender Extremities: symmetrical, full range of motion Psychiatric: Patient is oriented X 1, there is no agitation Source: Patient, Family, EMS - Personal History Current Tetanus/Diphtheria Vaccine: Yes Current Tetanus Diphtheria and Acellular Pertussis (TDAP): Yes Tetanus Vaccine Date: 2011 - Medical/Surgical History Hx Asthma: No Hx Chronic Respiratory Disease: No Hx Diabetes: No Hx Cardiac Disease: No Hx Renal Disease: No Hx Cirrhosis: Yes Hx Alcoholism: No Hx HIV/AIDS: No Hx Splenectomy or Spleen Trauma: No Other PMH: LIver CA, chronic abd pain, GERD,ESOPHAGITIS, GASTRITIS, SCOLIOSIS. HTN,ANXIETY, BI-POLAR DISORDER/robert, total hysterectomy - Social History Smoking Status: Never smoked Constitutional: Initial Vital Signs Temperature (C) 36.9 C 01/14/19 23:45 Heart Rate 96 01/14/19 23:45 Respiratory Rate 16 01/14/19 23:45 Blood Pressure 138/88 H 01/14/19 23:45 O2 Sat (%) 100 01/14/19 23:45 O2 Delivery Mode Room Air Allergies/Adverse Reactions: aripiprazole [From [facility]] Allergy (Verified 01/15/19 00:01) Home Medications: Medication Instructions Recorded Amitriptyline HCl [Elavil] 25 mg PO HS 09/29/18 LORazepam [Ativan (*)] 2 mg PO BID 09/29/18 Memantine HCl [Namenda 10 mg] 10 mg PO BID 09/29/18 Pantoprazole Sodium [Protonix 40mg 20 mg PO BID 09/29/18 (*)] fentaNYL [Duragesic 75 MCG Patch 75 mcg TD Q72H 09/29/18 (*)] oxyCODONE IR [Oxycodone Ir (*)] 5 mg PO Q3-4PRN PRN 09/29/18 Doxepin HCl [Sinequan 50 MG (*)] 150 mg PO HS 11/01/18 Carbidopa/Levodopa 25/100Mg 1 tab PO BID 11/15/18 [Sinemet 25/100 MG (*)] Ondansetron Odt [Zofran Odt 4 mg 8 mg PO TIDMEAL 11/15/18 (*)] Pramipexole Di-HCl [Mirapex 0.125 0.125 mg PO QID 11/15/18 mg (*)] Acetaminophen [Tylenol 325mg (*)] 650 mg PO Q4HRS PRN tab 11/19/18 Sucralfate [Carafate 1 GM (*)] 1 gm PO ACHS #120 tab 11/19/18 Medical Decision Making - Diagnostics Imaging Results: CT HEAD WITHOUT CONTRAST DEMONSTRATES NO ACUTE ABNORMALITY Differential Diagnosis: 68-year-old female with multiple medical problems including chronic abdominal pain, hepatocellular carcinoma, GERD, anxiety, hypertension presents from [facility] brought in by ambulance for concern for seizure like activity. Based on her 's description, this does sound like a true tonic-clonic seizure with tongue biting, followed by postictal period. Here, she is becoming more awake and alert within the for several minutes of her arrival. Heart rate is improved. Plan to check basic labs, CT scan of head, give IV fluids. Patient's mental status improved while in the emergency department. Labs were relatively unremarkable. CT scan was normal. I suspect first-time seizure which could be related to lack of sleep recently, change in medications. I will not start her on an antiepileptic therapy at this time given first-time seizure. I have discussed that she will need to have follow-up. She is comfortable with this and will be discharged from the emergency department. - Data Points Laboratory Results: Laboratory Results 01/15/19 00:20 01/15/19 00:20 01/15/19 01/15/19 01/15/19 02:00 00:20 00:20 WBC 5.88 10^3/uL 10^3/uL (3.80-9.50) RBC 5.24 10^6/uL 10^6/uL (4.18-5.33) Hgb 12.5 g/dL L g/dL (12.6-16.3) Hct 40.9 % % (38.0-47.0) MCV 78.1 fL L fL (81.5-99.8) MCH 23.9 pg L pg (27.9-34.1) MCHC 30.6 g/dL L g/dL (32.4-36.7) RDW 16.6 % H % (11.5-15.2) Plt Count 105 10^3/uL L 10^3/uL (150-400) MPV 9.1 fL fL (8.7-11.7) Neut % (Auto) 83.2 % H % (39.3-74.2) Lymph % (Auto) 8.7 % L % (15.0-45.0) Moody % (Auto) 7.0 % % (4.5-13.0) Eos % (Auto) 0.7 % % (0.6-7.6) Baso % (Auto) 0.2 % L % (0.3-1.7) Nucleat RBC Rel Count 0.0 % % (0.0-0.2) Absolute Neuts (auto) 4.89 10^3/uL 10^3/uL (1.70-6.50) Absolute Lymphs (auto) 0.51 10^3/uL L 10^3/uL (1.00-3.00) Absolute Monos (auto) 0.41 10^3/uL 10^3/uL (0.30-0.80) Absolute Eos (auto) 0.04 10^3/uL 10^3/uL (0.03-0.40) Absolute Basos (auto) 0.01 10^3/uL L 10^3/uL (0.02-0.10) Absolute Nucleated RBC 0.00 10^3/uL 10^3/uL (0-0.01) Immature Gran % 0.2 % % (0.0-1.1) Immature Gran # 0.01 10^3/uL 10^3/uL (0.00-0.10) RBC/WBC/PLT Morphology TNP Platelet Estimate TNP Sodium 137 mEq/L mEq/L (135-145) Potassium 3.6 mEq/L mEq/L (3.5-5.2) Chloride 102 mEq/L mEq/L (97-110) Carbon Dioxide 20 mEq/l L mEq/l (22-31) Anion Gap 15 mEq/L H mEq/L (6-14) BUN 16 mg/dL mg/dL (7-23) Creatinine 1.0 mg/dL mg/dL (0.6-1.0) Estimated GFR 55 Glucose 166 mg/dL H mg/dL (70-100) Calcium 9.7 mg/dL mg/dL (8.5-10.4) Total Bilirubin 0.6 mg/dL mg/dL (0.1-1.4) AST 32 IU/L IU/L (14-46) ALT 28 IU/L IU/L (9-52) Alkaline Phosphatase 287 IU/L H IU/L (38-126) Total Protein 8.0 g/dL g/dL (6.3-8.2) Albumin 4.4 g/dL g/dL (3.5-5.0) Urine Color YELLOW Urine Appearance CLEAR Urine pH 7.0 (5.0-7.5) Ur Specific [place] 1.013 (1.002-1.030) Urine Protein NEGATIVE (NEGATIVE) Urine Ketones NEGATIVE (NEGATIVE) Urine Blood NEGATIVE (NEGATIVE) Urine Nitrate NEGATIVE (NEGATIVE) Urine Bilirubin NEGATIVE (NEGATIVE) Urine Urobilinogen NEGATIVE EU EU (0.2-1.0) Ur Leukocyte Esterase NEGATIVE (NEGATIVE) Urine Glucose NEGATIVE (NEGATIVE) Urine Opiates Screen NON-NEGATIVE H (NEGATIVE) Urine Barbiturates NEGATIVE (NEGATIVE) Ur Phencyclidine Scrn NEGATIVE (NEGATIVE) Ur Amphetamine Screen NEGATIVE (NEGATIVE) U Benzodiazepines Scrn NEGATIVE (NEGATIVE) Urine Cocaine Screen NEGATIVE (NEGATIVE) U Marijuana (THC) Screen NON-NEGATIVE H (NEGATIVE) Ethyl Alcohol < 10 mg/dL mg/dL (0-10) Medications Given: Discontinued Medications Hydromorphone HCl (Dilaudid) 2 mg PO EDNOW ONE Stop: 01/15/19 02:06 Last Admin: 01/15/19 02:09 Dose: 2 mg Sodium Chloride (Ns) 1,000 mls @ 0 mls/hr IV EDNOW ONE; Wide Open PRN Reason: Protocol Stop: 01/15/19 00:02 Last Admin: 01/15/19 00:32 Dose: 1,000 mls Ondansetron HCl (Zofran) 4 mg IVP EDNOW ONE Stop: 01/15/19 02:06 Last Admin: 01/15/19 02:09 Dose: 4 mg Departure - Departure Disposition: Home, Routine, Self-Care Clinical Impression: New onset seizure Condition: Good Instructions: New-Onset Seizure in Adults (ED) Additional Instructions: Please make sure to drink plenty of fluids, take her medication as prescribed and get rest. If you have another seizure you should be evaluated. You may need to begin a seizure medication at that time. In the meantime, I would like for you to make an appointment with the neurologist for further evaluation of this episode. Return to the emergency department if your worse in any way. Referrals: Yamile Vasuqez MD [Primary Care Provider] - As per Instructions [facility] [Provider Group] - As per Instructions
[2019-01-15 00:31] LABS: PLATELET COUNT 105 10^3/uL (150-400)
[2019-01-15] MEDS ORDERED: ONDANSETRON 4 MG/2 ML VIAL IVP ONE (02:05)
[2019-01-15] MEDS ORDERED: HYDROmorphONE/DILAUDID 2 MG TAB PO ONE (02:05)
[2019-01-15 02:39] VITALS: BP 166/99
--- NOTE | 2019-01-16 15:22 | ASMTCMCOM ---
CM Note CM Note Notes: Late Entry: Please see ED report from 01/15/19 This CM received call from Grazyna Mckeon, pet care attendant at [facility] in [place] on 01/16/19. Per Grazyna, ED report from 01/15/19 is inaccurate as follows: 1). Patient has not been seen at [facility] or by Dr. Mojica since 01/08/19. Patient and her left appointment on 01/08/19 prior to being seen by Dr. Mojica. 2). Patient was NOT prescribed Dilauid or any other medication at [facility] or from Dr. Mojica on 01/14/19 Case management or physicians may contact [facility] and/or Dr. Mojica for further questions if/when patient returns to ED or hospital Date Signed: 01/16/2019 03:22 PM Electronically Signed By:Magdalena Miner RN
== END 2019-01-15 02:58 | disposition home or self-care (01) ==
LOC: EDUNIT#
DX: R56.9 Unspecified convulsions (principal); I10 Essential (primary) hypertension; F41.9 Anxiety disorder, unspecified; F06.33 Mood disorder due to known physiological condition with manic features; E86.9 Volume depletion, unspecified
CPT/HCPCS: 70450; 96361; 96374; 99285; J2405; 80305; G0480

== ENCOUNTER 2019-02-28 04:56 | Emergency (ER) | payer OTHER ==
--- NOTE | 2019-02-28 05:08 | EDPHY ---
H & P Stated Complaint: abd pain Time Seen by Provider: 02/28/19 05:08 HPI/ROS: HPI CHIEF COMPLAINT: Abdominal pain, and no sleep. HISTORY OF PRESENT ILLNESS: Patient is a 68-year-old female she has a history of bipolar disorder, chronic abdominal pain, she presents emergency room with nausea vomiting and diarrhea and diffuse abdominal pain. She states she has had chronic abdominal pain however her abdominal pain is been ongoing worse for the past week. Due to this she has been getting very little sleep. She states she feels anxious. She decided come the emergency room by private vehicle with her for ongoing diffuse abdominal pain and anxiety. She has had vomiting nonbilious nonbloody, diarrhea nonbloody nonbilious. Patient denies any chest pain, shortness of breath or fever. Denies hematemesis. Past Medical History: Significant medical history for chronic abdominal pain, hypertensive emergency, GERD hepatitis-C, hepatocellular carcinoma, bipolar disorder, anxiety Past Surgical History: No recent surgery Social History: Denies drugs alcohol tobacco. Family History: Noncontributory ROS REVIEW OF SYSTEMS: 10 Systems were reviewed and negative with the exception of the elements mentioned in the history of present illness. Exam Constitutional triage nursing summary reviewed, vital signs reviewed, awake/ alert. Frail, thin appearing. Eyes normal conjunctivae and sclera, EOMI, PERRLA. HENT normal inspection, atraumatic, moist mucus membranes, no epistaxis, neck supple/ no meningismus, no raccoon eyes. Respiratory clear to auscultation bilaterally, normal breath sounds, no respiratory distress, no wheezing. Cardiovascular rate normal, regular rhythm, no murmur, no edema, distal pulses normal. Gastrointestinal mild tenderness palpation no peritoneal signs, no rebound, no guarding, normal bowel sounds, no distension, no pulsatile mass. Genitourinary no CVA tenderness. Musculoskeletal no midline vertebral tenderness, full range of motion, no calf swelling, no tenderness of extremities, no meningismus, good pulses, neurovascularly intact. Skin pink, warm, & dry, no rash, skin atraumatic. Neurologic awake, alert and oriented x 3, AAOx3, moves all 4 extremities equally, motor intact, sensory intact, CN II-XII intact, normal cerebellar, normal vision, normal speech. Psychiatric anxious Heme/Lymph/Immune no lymphadenopathy. Differential Diagnosis: Differential diagnosis includes but is not limited to and in no particular order: Bowel obstruction, appendicitis, gallbladder disease, diverticulitis, colitis, enteritis, perforated viscus, gastritis, GERD , esophagitis, urinary tract infection, pyelonephritis, kidney stones Medical Decision Making: Plan for this patient IV establishment IV fluid bolus , IV Dilaudid 0.5 mg for pain control IV Zofran for nausea, basic labs, IV fluids, and re-evaluate. Re-evaluation: KUB reviewed. Shows no free air, and no evidence of bowel obstruction gas pathology. [id number]: Patient here in emergency room with chronic abdominal pain. States she is unable to go home as she is too much abdominal pain. She is requesting hospital admission. Here in the emergency room her lab values are reassuring. Her KUB shows no obstructive bowel gas pattern or free air. Vital signs are stable. Patient requesting hospital admission for ongoing abdominal pain. I have ordered her IV Toradol as well. Plan for admission. Spoke with the hospitalist service Dr. Malin accepts. Source: Patient - Personal History Current Tetanus/Diphtheria Vaccine: Yes Current Tetanus Diphtheria and Acellular Pertussis (TDAP): Yes Tetanus Vaccine Date: 2011 - Medical/Surgical History Hx Asthma: No Hx Chronic Respiratory Disease: No Hx Diabetes: No Hx Cardiac Disease: No Hx Renal Disease: No Hx Cirrhosis: Yes Hx Alcoholism: No Hx HIV/AIDS: No Hx Splenectomy or Spleen Trauma: No Other PMH: LIver CA, chronic abd pain, GERD,ESOPHAGITIS, GASTRITIS, SCOLIOSIS. HTN,ANXIETY, BI-POLAR DISORDER/robert, total hysterectomy - Social History Smoking Status: Never smoked Constitutional: Initial Vital Signs Temperature (C) 37.1 C 02/28/19 05:00 Heart Rate 108 H 02/28/19 05:00 Respiratory Rate 16 02/28/19 05:00 Blood Pressure 178/101 H 02/28/19 05:00 O2 Sat (%) 100 02/28/19 05:00 O2 Delivery Mode Room Air Allergies/Adverse Reactions: aripiprazole [From Abilify] Allergy (Verified 02/28/19 09:10) Other-Enter Comments ziprasidone [From Geodon] Allergy (Verified 02/28/19 09:10) Other-Enter Comments Home Medications: Medication Instructions Recorded Memantine HCl [Namenda 10 mg] 10 mg PO BID 09/29/18 Pantoprazole Sodium [Protonix 40mg 40 mg PO BID 09/29/18 (*)] Ondansetron Odt [Zofran Odt 4 mg 8 mg PO TIDMEAL 11/15/18 (*)] Pramipexole Di-HCl [Mirapex 0.125 0.125 mg PO QID 11/15/18 mg (*)] Acetaminophen [Tylenol 325mg (*)] 650 mg PO Q4HRS PRN tab 11/19/18 Amitriptyline HCl [Elavil 50 mg 50 mg PO HS 02/28/19 (*)] Dicyclomine [Bentyl 20 MG (*)] 20 mg PO QID PRN #60 tab 02/28/19 Doxepin HCl [Sinequan 50 MG (*)] 150 mg PO HS #30 cap 02/28/19 LORazepam [Ativan (*)] 2 mg PO BID #20 tab 02/28/19 oxyCODONE IR [Oxycodone Ir (*)] 5 mg PO QID PRN #28 tab 02/28/19 Medical Decision Making - Data Points Laboratory Results: Laboratory Results 02/28/19 05:43 02/28/19 05:43 Medications Given: Discontinued Medications Hydromorphone HCl (Dilaudid) 0.5 mg IVP EDNOW ONE Stop: 02/28/19 05:17 Last Admin: 02/28/19 05:46 Dose: 0.5 mg Sodium Chloride (Ns) 1,000 mls @ 0 mls/hr IV EDNOW ONE; Wide Open PRN Reason: Protocol Stop: 02/28/19 05:17 Last Admin: 02/28/19 05:45 Dose: 1,000 mls Sodium Chloride (Ns) 1,000 mls @ 0 mls/hr IV ONCE ONE PRN Reason: Wide Open Stop: 02/28/19 07:25 Last Admin: 02/28/19 07:30 Dose: 1,000 mls Ketorolac Tromethamine (Toradol) 15 mg IVP EDNOW ONE Stop: 02/28/19 07:23 Last Admin: 02/28/19 07:30 Dose: 15 mg Lorazepam (Ativan) 0.5 - 1 mg PO Q8HRS PRN PRN Reason: Anxiety, Able to Take PO Stop: 08/27/19 09:29 Last Admin: 02/28/19 09:54 Dose: 1 mg Ondansetron HCl (Zofran) 4 mg IVP EDNOW ONE Stop: 02/28/19 05:17 Last Admin: 02/28/19 05:45 Dose: 4 mg Departure - Departure Disposition: [facility] Inpatient Acute Clinical Impression: Chronic abdominal pain Abdominal pain Qualifiers: Abdominal location: generalized Qualified Code(s): R10.84 - Generalized abdominal pain Condition: Good Instructions: Acute Abdominal Pain (ED) Additional Instructions: 1. Reeves diet no spicy fatty greasy foods. 2. Return to the emergency room if develops worsening abdominal pain, fever, vomiting Referrals: Gadiel Vidal MD [Medical Doctor] - follow up in 1 week (GI -- may see your specialist in [place] for specialised testing. ) [facility] [Clinic] - follow up in 1 week (need to get robert under control LETICIA. ) NONE *PRIMARY CARE P,. [Primary Care Provider] - follow up in 1 week Mcihelle Mulligan MD [Medical Doctor] - follow up in 1 week (your General surgeon - for ongoing eval of abd pain ) Prescriptions: Dicyclomine [Bentyl 20 MG (*)] 20 mg PO QID PRN #60 tab PRN Reason: Pain, Severe Doxepin HCl [Sinequan 50 MG (*)] 150 mg PO HS #30 cap LORazepam [Ativan (*)] 2 mg PO BID #20 tab oxyCODONE IR [Oxycodone Ir (*)] 5 mg PO QID PRN #28 tab PRN Reason: Pain, Breakthrough
[2019-02-28] MEDS ORDERED: ONDANSETRON 4 MG/2 ML VIAL IVP ONE (05:16)
[2019-02-28] MEDS ORDERED: HYDROmorphONE/DILAUDID 2 MG/ML INJ IVP ONE (05:16)
[2019-02-28] MEDS ORDERED: NS 1,000 ML IV ONE ×2 (05:16→07:24)
[2019-02-28] MEDS ORDERED: HYDROmorphONE/DILAUDID 1 MG/ML INJ ONE (05:20)
[2019-02-28 06:00] LABS: PLATELET COUNT 104 10^3/uL (150-400)
[2019-02-28 06:11] LABS: INR 1.04 (0.83-1.16); PROTIME(PATIENT) 13.2 SEC (12.0-15.0)
[2019-02-28] MEDS ORDERED: KETOROLAC 15 MG/1 ML SDV IVP ONE (07:22)
[2019-02-28] MEDS ORDERED: LORazepam 0.5 MG TAB PO PRN (09:30)
[2019-02-28] MEDS ORDERED: ACETAMINOPHEN 325 MG TAB PO PRN (09:30)
[2019-02-28] MEDS ORDERED: PROMETHAZINE HCL 25 MG/ML INJ IVP PRN (09:30)
[2019-02-28] MEDS ORDERED: ONDANSETRON 4 MG/2 ML VIAL IVP PRN (09:30)
[2019-02-28] MEDS ORDERED: OXYCODONE/APAP 5/325 TAB PO PRN (09:30)
[2019-02-28] MEDS ORDERED: HYDROCODONE/APAP 5/325 TAB PO PRN (09:30)
[2019-02-28] MEDS ORDERED: NS 1,000 ML IV SCH (09:30)
--- NOTE | 2019-02-28 13:18 | PDDCSUM ---
Discharge Summary Discharge Summary: SHORT-STAY SUMMARY: Chief complaint: Lisa, chronic abdominal pain History of present illness/hospital course: The patient is a 68-year-old female with a history of chronic abdominal pain, bipolar disorder predominantly lisa who presented to the ED with complaints of severe chronic abdominal pain, nausea, vomiting, and dehydration. She has suffered from chronic abdominal pain for 5 years. She ran out of narcotic pain medication. She has had difficulty maintaining care with a primary care physician, because nobody wants to prescribe her chronic narcotics. Patient says her psychiatrist suddenly left her and she ran out of her psychiatric medications including doxepin and lorazepam. She feels she is going through a manic episode for the last week and has been unable to sleep. She feels very anxious and this aggravates her abdominal pain. The patient was monitored for almost 8 hours. She received IV fluids initially. Patient was able to tolerate a clear liquid diet without vomiting. She felt comfortable going home with refills of her medications. She promises to establish care with a PCP and try to get in to see a new psychiatrist at [facility] soon. Past medical history: Chronic abdominal pain, chronic opiate use/dependence, restless leg syndrome, bipolar disorder, liver cancer. Past surgical history: Hysterectomy. Medications: Please see medication reconciliation form. Patient was given refills on: lorazepam 2 mg orally twice a day #20. Oxycodone 5mg tabs QID prn pain #28. Doxepin 50 mg 3 times a day. New medication-Bentyl 20 mg four times daily as needed for abdominal cramping/pain. Allergies: Abilify, Geodon. Social history: , lives with . Does not smoke or drink alcohol. Family history: Psychosis, diabetes, breast cancer. Review of systems: 10 point review of systems was conducted and is negative except per HPI Physical exam: Vitals: Reviewed General: The patient is a very thin female who is alert and in no acute distress. HEENT: normocephalic, extraocular movements intact, conjunctivae clear, no lesions on face. Mucous membranes moist. Neck: trachea midline, no visible masses, no external lesions. Resp: unlabored. Abd: soft and nondistended. Musculoskeletal: Reduced muscle tone and bulk. Moves all extremities equally. Neuro: cranial nerves II - XII grossly intact. Intact gross motor and sensory function. Psych: Slightly anxious mood/manic affect. Skin: No pallor. Heme/lymph: No peripheral edema. Labs: WBC 5 hemoglobin 13 platelets 104 sodium 139 potassium 3.9 chloride of 111 CO2 19 BUN 18 creatinine 1.1 glucose 123 alkaline phosphatase 269 lipase 364. Other Data: KUB-no bowel obstruction. Admission/Discharge Diagnoses: Bipolar disorder with lisa/anxiety, uncontrolled Chronic abdominal pain, uncontrolled Chronic opiate dependence Chronic benzodiazepine use Restless leg syndrome Severe protein calorie malnutrition Condition: Stable. Discharged to: Home. Special instructions: Return to ED for severe worsening symptoms. Follow up: Follow up with PCP in 1 week. Follow up with psychiatrist in 1 week. > 30 minutes of total time was spent on counseling and coordination of care for this patient's discharge.
[2019-02-28 13:38] VITALS: BP 155/87
== END 2019-02-28 13:39 | disposition still patient (30) ==
LOC: UNDOADMOB 07:23
DX: R10.84 Generalized abdominal pain (principal); G89.29 Other chronic pain; E86.9 Volume depletion, unspecified; I10 Essential (primary) hypertension; F31.9 Bipolar disorder, unspecified; F41.9 Anxiety disorder, unspecified; Z90.710 Acquired absence of both cervix and uterus
CPT/HCPCS: 74018; 96361; 96374; 96375; 99285; J1170; J1885; J2405

== ENCOUNTER 2019-03-09 08:33 | Emergency (ER) | payer OTHER ==
[2019-03-09 08:38] VITALS: BP 161/102
--- NOTE | 2019-03-09 08:41 | EDPHY ---
H & P Stated Complaint: chronic abd pain is out of meds/lost her pain doctor 1 month Time Seen by Provider: 03/09/19 08:41 HPI/ROS: CHIEF COMPLAINT: Chronic abdominal pain, out of pain medications HISTORY OF PRESENT ILLNESS: The patient is a very pleasant 68-year-old female with bipolar mood disorder and chronic abdominal pain and presents emergency department with complaints of severe recurrent abdominal pain, nausea and mild vomiting. The patient was seen in the emergency department approximately week ago. She received a week of medications and was advised to follow up with her primary care provider. The patient reports that she has seen a custom harvester to has referred her to a surgeon in [place] for consideration of an exploratory laparotomy for further evaluation of her chronic complaints. The patient has had a number of studies performed recently which demonstrate no evidence of obvious pathology. The patient states that this is a very typical exacerbation of her chronic symptoms. She did take Bentyl last week without significant improvement of her symptoms. The patient does have a history of hepatocellular carcinoma, bipolar mood disorder and chronic opioid dependence. REVIEW OF SYSTEMS: A comprehensive 10 point review of systems is otherwise negative aside from elements mentioned in the history of present illness. Source: Patient - Personal History Current Tetanus Diphtheria and Acellular Pertussis (TDAP): Yes Tetanus Vaccine Date: 2011 - Medical/Surgical History Hx Asthma: No Hx Chronic Respiratory Disease: No Hx Diabetes: No Hx Cardiac Disease: No Hx Renal Disease: No Hx Cirrhosis: Yes Hx Alcoholism: No Hx HIV/AIDS: No Hx Splenectomy or Spleen Trauma: No Other PMH: LIver CA, chronic abd pain, GERD,ESOPHAGITIS, GASTRITIS, SCOLIOSIS. HTN,ANXIETY, BI-POLAR DISORDER/robert, total hysterectomy - Social History Smoking Status: Never smoked - Physical Exam Exam: General Appearance: Thin female, no acute distress Eyes: Pupils equal and round no pallor or injection ENT, Mouth: Mucous membranes moist Respiratory: There are no retractions, lungs are clear to auscultation Cardiovascular: Regular rate and rhythm Gastrointestinal: Generalized abdominal tenderness without peritoneal signs, normal bowel sounds Neurological: A&O, normal motor function, normal sensory exam, normal cranial nerves Skin: Warm and dry, no rashes Musculoskeletal: Neck is supple nontender Extremities: symmetrical, full range of motion Constitutional: Initial Vital Signs Temperature (C) 37.4 C 03/09/19 08:37 Heart Rate 114 H 03/09/19 08:37 Respiratory Rate 19 19 08:37 Blood Pressure 161/102 H 03/09/19 08:37 O2 Sat (%) 97 03/09/19 08:37 O2 Delivery Mode Room Air Allergies/Adverse Reactions: aripiprazole [From Abilify] Allergy (Verified 03/09/19 08:36) Other-Enter Comments ziprasidone [From Geodon] Allergy (Verified 03/09/19 08:36) Other-Enter Comments Home Medications: Medication Instructions Recorded Memantine HCl [Namenda 10 mg] 10 mg PO BID 09/29/18 Pantoprazole Sodium [Protonix 40mg 40 mg PO BID 09/29/18 (*)] Ondansetron Odt [Zofran Odt 4 mg 8 mg PO TIDMEAL 11/15/18 (*)] Pramipexole Di-HCl [Mirapex 0.125 0.125 mg PO QID 11/15/18 mg (*)] Acetaminophen [Tylenol 325mg (*)] 650 mg PO Q4HRS PRN tab 11/19/18 Amitriptyline HCl [Elavil 50 mg 50 mg PO HS 02/28/19 (*)] Dicyclomine [Bentyl 20 MG (*)] 20 mg PO QID PRN #60 tab 02/28/19 Doxepin HCl [Sinequan 50 MG (*)] 150 mg PO HS #30 cap 02/28/19 LORazepam [Ativan (*)] 2 mg PO BID #20 tab 02/28/19 LORazepam [Lorazepam] 1 - 2 mg PO BID PRN #30 tablet 03/09/19 Oxycodone HCl 5 mg PO QID PRN #56 capsule 03/09/19 Medical Decision Making ED Course/Re-evaluation: I reviewed the patient's past medical records. The patient presents to the ED with a very difficult situation of chronic abdominal pain without an obvious diagnosis. Additionally she is dependent upon benzodiazepines and narcotic medications. The patient has a benign abdominal examination. I do not feel that laboratory testing or imaging is indicated at this point time given her extensive workup. The patient will be given a one-week refill of chronic medications. I have asked her to schedule a follow-up appointment with Dr. Shane Shea as he does have some expertise in dealing with chronic pain. The patient is comfortable with the plan. She does have an appointment to be evaluated by surgeon in [place] for consideration of a exploratory laparotomy for additional diagnostics - Data Points Medications Given: Discontinued Medications Lorazepam (Ativan) 1 mg PO EDNOW ONE Stop: 03/09/19 08:52 Last Admin: 03/09/19 08:55 Dose: 1 mg Oxycodone HCl (Oxycodone Ir) 5 mg PO EDNOW ONE Stop: 03/09/19 08:53 Last Admin: 03/09/19 08:55 Dose: 5 mg Departure - Departure Disposition: Home, Routine, Self-Care Clinical Impression: Chronic abdominal pain Condition: Good Instructions: Chronic Abdominal Pain (ED) Additional Instructions: 1. You have been given a refill of your chronic medications. 2. Please contact the physician you have been referred to, Dr. Shane Shea , to see about establishing primary care through his office. 3. Please follow up in [place] with General surgery for further consideration of a exploratory laparotomy for further evaluation of your symptoms. 4. We cannot continue to refill narcotic medications in the emergency department. Referrals: Shane Shea MD [Medical Doctor] - As per Instructions Prescriptions: LORazepam [Lorazepam] 1 - 2 mg PO BID PRN #30 tablet PRN Reason: for anxiety Oxycodone HCl 5 mg PO QID PRN #56 capsule PRN Reason: for pain
[2019-03-09] MEDS ORDERED: LORazepam 1 MG TAB PO ONE (08:51)
[2019-03-09] MEDS ORDERED: oxyCODONE IR 5 MG TAB PO ONE (08:52)
== END 2019-03-09 09:11 | disposition home or self-care (01) ==
DX: R10.84 Generalized abdominal pain (principal); G89.29 Other chronic pain; I10 Essential (primary) hypertension; F31.9 Bipolar disorder, unspecified

== ENCOUNTER 2019-04-03 15:00 | Emergency (ER) | payer OTHER | END 2019-04-03 15:42 | disposition left against medical advice (07) ==